=== PATIENT | male | born 1985 | race Hispanic/Latino ===

== ENCOUNTER 2017-10-11 17:16 | Emergency (ER) | payer SELFPAY ==
--- NOTE | 2017-10-11 17:44 | ER ---
Nurse's Notes [facility] Name: Noé Murry Age: 31 yrs Sex: Male : 1985 Arrival Date: 10/11/2017 Time: 17:19 Bed 11 Private MD: Janey Lowery H Diagnosis: Streptococcal pharyngitis Presentation: 10/11 17:29 Presenting complaint: Patient states: sore throat. Transition of care: patient was not ch received from another setting of care. Onset of symptoms was October 11, 2017. Risk Assessment: Do you want to hurt yourself or someone else? Patient reports no desire to harm self or others. Initial Sepsis Screen: Does the patient meet any 2 criteria? No. Patient's initial sepsis screen is negative. Does the patient have a suspected source of infection? No. Patient's initial sepsis screen is negative. Care prior to arrival: None. 17:29 Method Of Arrival: Ambulatory 17:29 Acuity: LUIS MIGUEL 4 ch Triage Assessment: 17:30 General: Appears in no apparent distress. comfortable, Behavior is calm, cooperative, ch appropriate for age. Historical: - Allergies: 17:30 No Known Allergies; ch - Home Meds: 17:30 lisinopril 10 mg Oral tab 1 tab once daily [Active]; pravastatin 40 mg Oral tab 1 tab ch once daily [Active]; - PMHx: 17:30 High Cholesterol; Hypertension; ch - PSHx: 17:30 None; ch - Immunization history:: Adult Immunizations up to date, Flu vaccine is not up to date. - Social history:: Smoking status: Patient/guardian denies using tobacco. - Ebola Screening: : Patient negative for fever greater than or equal to 101.5 degrees Fahrenheit, and additional compatible Ebola Virus Disease symptoms Patient denies exposure to infectious person Patient denies travel to an Ebola-affected area in the 21 days before illness onset No symptoms or risks identified at this time. Screenin:55 Abuse screen: Denies threats or abuse. Denies injuries from another. Nutritional aj screening: No deficits noted. Tuberculosis screening: No symptoms or risk factors identified. Fall Risk None identified. Assessment: 17:55 General: Appears in no apparent distress. comfortable, Behavior is calm, cooperative, aj appropriate for age. Pain: Complains of pain in left aspect of posterior pharynx and right aspect of posterior pharynx. Neuro: Level of Consciousness is awake, alert, obeys commands, Oriented to person, place, time, situation, Appropriate for age. Respiratory: Airway is patent Respiratory effort is even, unlabored, Respiratory pattern is regular, symmetrical, Breath sounds are clear bilaterally. EENT: Throat is reddened has enlarged tonsils bilaterally. Derm: Skin is intact, is healthy with good turgor, Skin is pink, warm \T\ dry. normal. Vital Signs: 17:30 BP 130 / 79; Pulse 107; Resp 16; Temp 99.9; Pulse Ox 99% on R/A; Weight 92.99 kg; ch Height 5 ft. 6 in. (167.64 cm); Pain 8/10; 17:30 Body Mass Index 33.09 (92.99 kg, 167.64 cm) ED Course: 17:19 Patient arrived in ED. sb2 17:19 Janey Lowery DO is Private Physician. sb2 17:30 Triage completed. 17:30 Arm band placed on left wrist. Patient placed in an exam room, on a stretcher. 17:37 [facility]C [facility]. snw 17:37 Yung Jaime MD is Attending Physician. snw 17:44 Janey Lowery DO is Referral Physician. snw 17:55 Barbara Roman, UGO is Primary Nurse. aj 17:55 Patient has correct armband on for positive identification. aj 17:55 No provider procedures requiring assistance completed. Patient did not have IV access aj during this emergency room visit. Administered Medications: 17:55 Drug: Zithromax 500 mg Route: PO; aj 18:05 Follow up: Response: No adverse reaction aj 17:55 Drug: predniSONE 40 mg Route: PO; aj 18:05 Follow up: Response: No adverse reaction aj 17:55 Drug: Pepcid 20 mg Route: PO; aj 18:06 Follow up: Response: No adverse reaction aj Outcome: 17:44 Discharge ordered by . snw 18:05 Discharged to home ambulatory, with family. aj 18:05 Condition: good 18:05 Discharge instructions given to patient, Instructed on discharge instructions, follow up and referral plans. medication usage, Demonstrated understanding of instructions, follow-up care, medications, Prescriptions given X 2. 18:06 Patient left the ED. tony Signatures: Ninfa Hubbard, RN Barbara Lux ch, RN RN aj Therrien, Shelly, PEDIATRIC DENTIST-C PEDIATRIC DENTIST-Csnw Glenny Jacobo sb2
--- NOTE | 2017-10-11 17:44 | EDPHYS ---
Physician Documentation [facility] Name: Noé Murry Age: 31 yrs Sex: Male : 1985 Arrival Date: 10/11/2017 Time: 17:19 Bed 11 Private MD: Janey Lowery H ED Physician Yung Jaime HPI: 10/11 17:37 This 31 yrs old Male presents to ER via Ambulatory with complaints of Sore snw Throat. 17:37 The patient presents with sore throat. The patient describes throat pain as scratchy. snw Onset: The symptoms/episode began/occurred suddenly, this morning. Severity of symptoms: At their worst the symptoms were moderate, severe. Associated signs and symptoms: Pertinent positives: fever. The patient has not experienced similar symptoms in the past, but family has similar symptoms, son. The patient has not recently seen a physician. Son dx with Strep yesterday, today pt with sore throat, fever. Historical: - Allergies: 17:30 No Known Allergies; ch - Home Meds: 17:30 lisinopril 10 mg Oral tab 1 tab once daily [Active]; pravastatin 40 mg Oral tab 1 tab ch once daily [Active]; - PMHx: 17:30 High Cholesterol; Hypertension; ch - PSHx: 17:30 None; ch - Immunization history:: Adult Immunizations up to date, Flu vaccine is not up to date. - Social history:: Smoking status: Patient/guardian denies using tobacco. - Ebola Screening: : Patient negative for fever greater than or equal to 101.5 degrees Fahrenheit, and additional compatible Ebola Virus Disease symptoms Patient denies exposure to infectious person Patient denies travel to an Ebola-affected area in the 21 days before illness onset No symptoms or risks identified at this time. ROS: 17:39 Constitutional: Negative for chills and weight loss, + fever Eyes: Negative for injury, snw pain, redness, and discharge. 17:39 Neck: Negative for injury, pain, and swelling, Cardiovascular: Negative for chest pain, palpitations, and edema, Respiratory: Negative for shortness of breath, cough, wheezing, and pleuritic chest pain, Abdomen/GI: Negative for abdominal pain, nausea, vomiting, diarrhea, and constipation, Back: Negative for injury and pain, : Negative for injury, bleeding, discharge, and swelling, MS/Extremity: Negative for injury and deformity, Skin: Negative for injury, rash, and discoloration, Neuro: Negative for headache, weakness, numbness, tingling, and seizure. 17:39 ENT: Positive for sore throat. Exam: 17:39 Constitutional: This is a well developed, well nourished patient who is awake, alert, snw and in no acute distress. Head/Face: Normocephalic, atraumatic. Eyes: Pupils equal round and reactive to light, extra-ocular motions intact. Lids and lashes normal. Conjunctiva and sclera are non-icteric and not injected. Cornea within normal limits. Periorbital areas with no swelling, redness, or edema. Neck: Trachea midline, no thyromegaly or masses palpated, and no cervical lymphadenopathy. Supple, full range of motion without nuchal rigidity, or vertebral point tenderness. No Meningismus. Chest/axilla: Normal chest wall appearance and motion. Nontender with no deformity. No lesions are appreciated. Cardiovascular: Regular rate and rhythm with a normal S1 and S2. No gallops, murmurs, or rubs. Normal PMI, no JVD. No pulse deficits. Respiratory: Lungs have equal breath sounds bilaterally, clear to auscultation and percussion. No rales, rhonchi or wheezes noted. No increased work of breathing, no retractions or nasal flaring. Abdomen/GI: Soft, non-tender, with normal bowel sounds. No distension or tympany. No guarding or rebound. No evidence of tenderness throughout. Back: No spinal tenderness. No costovertebral tenderness. Full range of motion. Skin: Warm, dry with normal turgor. Normal color with no rashes, no lesions, and no evidence of cellulitis. 17:39 ENT: External ear(s): are unremarkable, Ear canal(s): are normal, TM's: are normal, Nose: is normal, Mouth: is normal, Posterior pharynx: erythema, that is moderate, Voice: is normal. Vital Signs: 17:30 BP 130 / 79; Pulse 107; Resp 16; Temp 99.9; Pulse Ox 99% on R/A; Weight 92.99 kg; ch Height 5 ft. 6 in. (167.64 cm); Pain 8/10; 17:30 Body Mass Index 33.09 (92.99 kg, 167.64 cm) MDM: 17:37 Patient medically screened. snw 17:46 Data reviewed: vital signs, nurses notes. Data interpreted: Pulse oximetry: on room air snw is 99 %. Interpretation: normal. Counseling: I had a detailed discussion with the patient and/or guardian regarding: the historical points, exam findings, and any diagnostic results supporting the discharge/admit diagnosis, the need for outpatient follow up, to return to the emergency department if symptoms worsen or persist or if there are any questions or concerns that arise at home. Special discussion: Based on the history and exam findings, there is no indication for further emergent testing or inpatient evaluation. I discussed with the patient/guardian the need to see the primary care provider for further evaluation of the symptoms. Administered Medications: 17:55 Drug: Zithromax 500 mg Route: PO; aj 18:05 Follow up: Response: No adverse reaction aj 17:55 Drug: predniSONE 40 mg Route: PO; aj 18:05 Follow up: Response: No adverse reaction aj 17:55 Drug: Pepcid 20 mg Route: PO; aj 18:06 Follow up: Response: No adverse reaction aj Disposition: 18:15 Co-signature as Attending Physician, Yung Jaime MD I agree with the assessment and kdr plan of care. Disposition: 10/11/17 17:44 Discharged to Home. Impression: Streptococcal pharyngitis. - Condition is Stable. - Discharge Instructions: Fever, Adult, Strep Throat, Rehydration, Adult. - Prescriptions for Zithromax 500 mg Oral Tablet - take 1 tablet by ORAL route once daily for 5 days; 5 tablet. Tessalon Perles 100 mg Oral Capsule - take 1 capsule by ORAL route every 8 hours As needed; 15 capsule. - Work release form, Medication Reconciliation Form, Thank You Letter, Antibiotic Education, Prescription Opioid Use form. - Follow up: Janey Lowery DO; When: 2 - 3 days; Reason: Recheck today's complaints, Continuance of care, Re-evaluation by your physician. Follow up: Emergency Department; When: As needed; Reason: Worsening of condition. - Problem is new. - Symptoms have worsened. Signatures: Dispatcher [employer] EDNinfa Acevedo RN Barbara Lux ch RN Yung Oneal MD MD kdr Therrien, Shelly, TEST RIDER-C TEST RIDER-Csnw Corrections: (The following items were deleted from the chart) 18:06 17:44 10/11/2017 17:44 Discharged to Home. Impression: Streptococcal pharyngitis. aj Condition is Stable. Forms are Medication Reconciliation Form, Thank You Letter, Antibiotic Education, Prescription Opioid Use. Follow up: Janey Lowery; When: 2 - 3 days; Reason: Recheck today's complaints, Continuance of care, Re-evaluation by your physician. Follow up: Emergency Department; When: As needed; Reason: Worsening of condition. Problem is new. Symptoms have worsened. snw
[2017-10-11] MEDS ORDERED: predniSONE 20 MG TAB ONE (17:52)
[2017-10-11] MEDS ORDERED: AZITHROMYCIN 250 MG TAB ONE (17:52)
[2017-10-11] MEDS ORDERED: FAMOTIDINE 20 MG TAB ONE (17:52)
[2017-10-11 18:37] VITALS: BP 130/79; TEMP 99.9; O2SAT 99
== END 2017-10-11 18:06 | disposition home or self-care (01) ==
LOC: ER 17:16
DX: J02.0 Streptococcal pharyngitis (principal); I10 Essential (primary) hypertension; E78.00 Pure hypercholesterolemia, unspecified
CPT/HCPCS: 99283; J7512

== ENCOUNTER 2018-04-05 18:33 | Emergency (ER) | payer OTHER, SELFPAY ==
[2018-04-05] MEDS ORDERED: ACETAMINOPHEN 325 MG/SUPP PR ONE (19:12)
[2018-04-05] MEDS ORDERED: BENZONATATE 100 MG CAP PO ONE (20:04)
--- NOTE | 2018-04-05 20:13 | RAD REPORT ---
EXAM DESCRIPTION: RAD - Chest Pa And Lat (2 Views) - 04/05/2018 8:01 pm CLINICAL HISTORY: COUGH Chest pain. COMPARISON: Chest Single View dated 10/31/2016; Chest Single View dated 10/30/2016; CHEST PA AND LAT 2 VIEW dated 02/17/2009; CHEST PA AND LAT 2 VIEW dated 01/26/2009 FINDINGS: The lungs are clear. The heart is normal in size. No displaced fractures. IMPRESSION: No acute or concerning finding suspected.
--- NOTE | 2018-04-05 20:50 | EDPHYS ---
Physician Documentation [facility] Name: Noé Murry Age: 32 yrs Sex: Male : 1985 Arrival Date: 04/05/2018 Time: 18:34 Bed 20 Private MD: Janey Lowery H ED Physician Tono Gonzalez HPI: 04/05 19:45 This 32 yrs old Male presents to ER via Ambulatory with complaints of Flu cp Symptoms. 19:45 The patient or guardian reports cough, that is intermittent. Onset: The cp symptoms/episode began/occurred 2 day(s) ago. 19:45 Associated signs and symptoms: Pertinent positives: sore throat, Pertinent negatives: cp diarrhea, vomiting. Severity of symptoms: in the emergency department the symptoms are unchanged despite home interventions. Historical: - Allergies: 19:05 No Known Allergies; ak1 - Home Meds: 19:05 lisinopril 10 mg Oral tab 1 tab once daily [Active]; pravastatin 40 mg Oral tab 1 tab ak1 once daily [Active]; Alprazolam Oral [Active]; - PMHx: 19:05 High Cholesterol; Hypertension; Anxiety; ak1 - PSHx: 19:05 None; ak1 - Immunization history:: Adult Immunizations unknown, Flu vaccine is not up to date. - Social history:: Smoking status: Patient/guardian denies using tobacco. - Ebola Screening: : No symptoms or risks identified at this time. ROS: 19:48 Constitutional: Negative for body aches, chills, fever, poor PO intake. cp 19:48 Eyes: Negative for injury, pain, redness, and discharge. cp Exam: 19:55 Constitutional: The patient appears in no acute distress, alert, awake, non-toxic, well cp developed, well nourished. 19:55 Head/Face: Normocephalic, atraumatic. cp 19:55 Eyes: Periorbital structures: appear normal, Conjunctiva: normal, no exudate, no injection, Lids and lashes: appear normal, bilaterally. 19:55 ENT: External ear(s): are unremarkable, Ear canal(s): are normal, clear, TM's: bulging, is not appreciated, bilaterally, dullness, bilaterally, erythema, is not appreciated, bilaterally, Nose: is normal, Mouth: Lips: moist, Oral mucosa: pink and intact, moist, Posterior pharynx: Airway: no evidence of obstruction, patent, Tonsils: are normal in appearance, swelling, is not appreciated, erythema, is not appreciated, exudate, is not appreciated. 19:55 Neck: ROM/movement: is normal, is supple, without pain, no range of motions limitations, no meningismus, no nuchal rigidity, Lymph nodes: no appreciated lymphadenopathy. 19:55 Chest/axilla: Inspection: normal, Palpation: is normal, no crepitus, no tenderness. 19:55 Cardiovascular: Rate: normal, Rhythm: regular. 19:55 Respiratory: the patient does not display signs of respiratory distress, Respirations: normal, no use of accessory muscles, no retractions, no splinting, no tachypnea, labored breathing, is not present, Breath sounds: are clear throughout, no decreased breath sounds, no stridor, no wheezing. 19:55 Abdomen/GI: Exam negative for discomfort, distension, guarding, Inspection: abdomen appears normal. 19:55 Back: pain, is absent, ROM is normal. 19:55 Skin: cellulitis, is not appreciated, no rash present. Vital Signs: 19:04 BP 145 / 92; Pulse 96; Resp 18; Temp 98.1; Pulse Ox 98% on R/A; Weight 90.72 kg (R); ak1 Height 5 ft. 6 in. (167.64 cm) (R); Pain 9/10; 20:31 BP 135 / 84; Pulse 89; Resp 17 S; Pulse Ox 97% on R/A; jd3 19:04 Body Mass Index 32.28 (90.72 kg, 167.64 cm) ak1 MDM: 19:09 Patient medically screened. cp 20:48 Data reviewed: vital signs, nurses notes, lab test result(s), radiologic studies, plain cp films. Test interpretation: by ED physician or midlevel provider: plain radiologic studies. 04/05 19:40 Order name: Influenza Screen (a \T\ B); Complete Time: 20:45 cp 04/05 20:45 Interpretation: Reviewed. 04/05 19:40 Order name: Strep; Complete Time: 20:45 cp 04/05 20:45 Interpretation: Reviewed. 04/05 19:40 Order name: XRAY Chest Pa And Lat (2 Views); Complete Time: 20:32 cp 04/05 20:32 Interpretation: Report reviewed. cp 04/05 20:45 Order name: Throat Culture EDMS Administered Medications: 19:55 Drug: Tessalon Perle 200 mg Route: PO; bb 20:59 Follow up: Response: No adverse reaction bb Disposition: 21:49 Co-signature as Attending Physician, Tono Gonzalez MD. rn Disposition: 04/05/18 20:49 Discharged to Home. Impression: Acute upper respiratory infection, unspecified. - Condition is Stable. - Discharge Instructions: Upper Respiratory Infection, Adult. - Prescriptions for Tessalon Perles 100 mg Oral Capsule - take 2 capsule by ORAL route every 8 hours As needed; 20 capsule. - Work release form, Medication Reconciliation Form, Thank You Letter, Antibiotic Education, Prescription Opioid Use form. - Follow up: Private Physician; When: 2 - 3 days; Reason: Worsening of condition. - Problem is new. - Symptoms are unchanged. Signatures: Dispatcher [employer] EDChe Mazariegos RN RN Tono Mcfadden MD MD rn Krenek, Amber, RN RN ak1 Gutierrez Roy PA PA cp Corrections: (The following items were deleted from the chart) 21:00 20:49 04/05/2018 20:49 Discharged to Home. Impression: Acute upper respiratory bb infection, unspecified. Condition is Stable. Forms are Medication Reconciliation Form, Thank You Letter, Antibiotic Education, Prescription Opioid Use. Follow up: Private Physician; When: 2 - 3 days; Reason: Worsening of condition. Problem is new. Symptoms are unchanged. cp
--- NOTE | 2018-04-05 20:50 | ER ---
Nurse's Notes [facility] Name: Noé Murry Age: 32 yrs Sex: Male : 1985 Arrival Date: 04/05/2018 Time: 18:34 Bed 20 Private MD: Janey Lowery H Diagnosis: Acute upper respiratory infection, unspecified Presentation: 04/05 19:05 Presenting complaint: Patient states: flu symptoms since Tuesday. Transition of care: ak1 patient was not received from another setting of care. Onset of symptoms is unknown. Risk Assessment: Do you want to hurt yourself or someone else? Patient reports no desire to harm self or others. Initial Sepsis Screen: Does the patient meet any 2 criteria? No. Patient's initial sepsis screen is negative. Does the patient have a suspected source of infection? No. Patient's initial sepsis screen is negative. Care prior to arrival: None. 19:05 Method Of Arrival: Ambulatory ak1 19:05 Acuity: LUIS MIGUEL 4 ak1 Triage Assessment: 19:05 General: Appears in no apparent distress. Behavior is calm, cooperative. ak1 Historical: - Allergies: 19:05 No Known Allergies; ak1 - Home Meds: 19:05 lisinopril 10 mg Oral tab 1 tab once daily [Active]; pravastatin 40 mg Oral tab 1 tab ak1 once daily [Active]; Alprazolam Oral [Active]; - PMHx: 19:05 High Cholesterol; Hypertension; Anxiety; ak1 - PSHx: 19:05 None; ak1 - Immunization history:: Adult Immunizations unknown, Flu vaccine is not up to date. - Social history:: Smoking status: Patient/guardian denies using tobacco. - Ebola Screening: : No symptoms or risks identified at this time. Screenin:35 Abuse screen: Denies threats or abuse. Nutritional screening: No deficits noted. jd3 Tuberculosis screening: No symptoms or risk factors identified. Fall Risk Ambulatory Aid- None/Bed Rest/Nurse Assist (0 pts). Gait- Normal/Bed Rest/Wheelchair (0 pts) Mental Status- Oriented to own ability (0 pts). Total Senior Fall Scale indicates No Risk (0-24 pts). Assessment: 19:34 General: Appears in no apparent distress. uncomfortable, Behavior is calm, cooperative, jd3 appropriate for age. Pain: Complains of pain in head Quality of pain is described as aching. Neuro: Level of Consciousness is awake, alert, obeys commands, Oriented to person, place, time, situation, Appropriate for age. Cardiovascular: Capillary refill < 3 seconds Patient's skin is warm and dry. Respiratory: Reports cough that is productive, Airway is patent Respiratory effort is even, unlabored, Respiratory pattern is regular, symmetrical, Breath sounds are clear bilaterally. GI: No signs and/or symptoms were reported involving the gastrointestinal system. : No signs and/or symptoms were reported regarding the genitourinary system. EENT: Reports nasal congestion since Tuesday. Derm: Skin is intact, Skin is dry, Skin is normal, Skin temperature is warm. Musculoskeletal: Circulation, motion, and sensation intact. Range of motion: intact in all extremities. 20:31 Reassessment: Patient appears in no apparent distress at this time. Patient and/or jd3 family updated on plan of care and expected duration. Pain level reassessed. Patient is alert, oriented x 3, equal unlabored respirations, skin warm/dry/pink. 20:58 Reassessment: Patient and/or family updated on plan of care and expected duration. Pain bb level reassessed. Patient is alert, oriented x 3, equal unlabored respirations, skin warm/dry/pink. pt verbalized understanding of and agrees to plan of care discharge instructions given pt ambulated with steady walk to exit. Vital Signs: 19:04 BP 145 / 92; Pulse 96; Resp 18; Temp 98.1; Pulse Ox 98% on R/A; Weight 90.72 kg (R); ak1 Height 5 ft. 6 in. (167.64 cm) (R); Pain 9/10; 20:31 BP 135 / 84; Pulse 89; Resp 17 S; Pulse Ox 97% on R/A; jd3 19:04 Body Mass Index 32.28 (90.72 kg, 167.64 cm) ak1 ED Course: 18:34 Patient arrived in ED. mr 18:34 Janey Lowery DO is Private Physician. mr 19:05 Triage completed. ak1 19:05 Arm band placed on Patient placed in an exam room, on a stretcher, Patient notified of ak1 wait time. 19:06 Mireles, Che, RN is Primary Nurse. bb 19:07 Gutierrez Roy PA is PHCP. cp 19:07 Tono Gonzalez MD is Attending Physician. cp 19:07 Tono Gonzalez MD is Attending Physician. rn 19:19 Primary Nurse role handed off by Che Mireles RN jd3 19:19 Mario Alberto Feliz, RN is Primary Nurse. jd3 19:36 Patient has correct armband on for positive identification. Bed in low position. Call jd3 light in reach. Side rails up X 1. 20:01 XRAY Chest Pa And Lat (2 Views) In Process Unspecified. EDMS 20:59 No provider procedures requiring assistance completed. Patient did not have IV access bb during this emergency room visit. Administered Medications: 19:55 Drug: Tessalon Perle 200 mg Route: PO; bb 20:59 Follow up: Response: No adverse reaction bb Outcome: 20:49 Discharge ordered by MD. cp 20:59 Discharged to home ambulatory. bb 20:59 Condition: stable 20:59 Discharge instructions given to patient, Instructed on discharge instructions, follow up and referral plans. medication usage, Demonstrated understanding of instructions, follow-up care, medications, Prescriptions given X 1. 21:00 Patient left the ED. bb Signatures: Dispatcher [employer] EDWI Naima Nieto mr Che Mireles RN RN bb Tono Gonzalez MD MD rn Krenek, Amber, RN RN ak1 Gutierrez Roy PA PA cp Mario Alberto Feliz, RN RN jd3
[2018-04-05 21:18] VITALS: BP 145/92; TEMP 98.1; O2SAT 98
== END 2018-04-05 21:00 | disposition home or self-care (01) ==
LOC: ER 18:33
DX: J06.9 Acute upper respiratory infection, unspecified (principal); I10 Essential (primary) hypertension; F41.9 Anxiety disorder, unspecified; E78.00 Pure hypercholesterolemia, unspecified
CPT/HCPCS: 71046; 87070; 87081; 87804; 99283

== ENCOUNTER 2019-03-04 16:58 | Emergency (ER) | payer OTHER ==
--- OUTSIDE RECORDS SUMMARY | 2019-03-04 17:00 | XMS REPORT ---
:1985 [facility] Address [address] [place] [address] [address] [place] [address] Care Team Providers Name Role Phone Unavailable Unavailable Unavailable Problems This patient has no known problems. Allergies, Adverse Reactions, Alerts This patient has no known allergies or adverse reactions. Medications This patient has no known medications.
[2019-03-04] MEDS ORDERED: HYDROCODONE/APAP 5/325 MG TAB ONE (18:04)
--- NOTE | 2019-03-04 18:07 | EDPHYS ---
Physician Documentation [facility] Name: Noé Murry Age: 33 yrs Sex: Male : 1985 Arrival Date: 03/04/2019 Time: 17:00 Bed 24 Private MD: ED Physician Angie Paulino HPI: 03/04 18:07 This 33 yrs old Male presents to ER via Ambulatory with complaints of Right pm1 Knee Pain. 18:07 The patient presents with pain, that is acute. The complaints affect the Ganglion cyst pm1 of right knee. Context: resulted from bumped cyst yesterday and started having pain. Has had the cyst present to right knee for at least 10 years without any issues, the patient can fully bear weight, the patient is able to ambulate. Onset: The symptoms/episode began/occurred yesterday. Modifying factors: The symptoms are alleviated by nothing. the symptoms are aggravated by palpation. Associated signs and symptoms: Pertinent negatives fever. Treatment prior to arrival includes: no previous treatment. The patient has not experienced similar symptoms in the past. The patient has not recently seen a physician. Historical: - Allergies: 17:24 No Known Allergies; iw - PMHx: 17:24 Anxiety; High Cholesterol; Hypertension; iw - PSHx: 17:24 None; iw ROS: 18:07 Constitutional: Negative for fever, chills, and weight loss, Cardiovascular: Negative pm1 for chest pain, palpitations, and edema, Respiratory: Negative for shortness of breath, cough, wheezing, and pleuritic chest pain, Abdomen/GI: Negative for abdominal pain, nausea, vomiting, diarrhea, and constipation, Back: Negative for injury and pain. 18:07 Neuro: Negative for headache, weakness, numbness, tingling, and seizure. 18:07 MS/extremity: Positive for pain, of the right knee, Negative for decreased range of motion, deformity. 18:07 Skin: Positive for small area of redness on ganglion cyst. Exam: 18:07 Constitutional: This is a well developed, well nourished patient who is awake, alert, pm1 and in no acute distress. Head/Face: Normocephalic, atraumatic. Neck: Trachea midline, no thyromegaly or masses palpated, and no cervical lymphadenopathy. Supple, full range of motion without nuchal rigidity, or vertebral point tenderness. No Meningismus. Chest/axilla: Normal chest wall appearance and motion. Nontender with no deformity. No lesions are appreciated. Cardiovascular: Regular rate and rhythm with a normal S1 and S2. No gallops, murmurs, or rubs. Normal PMI, no JVD. No pulse deficits. Respiratory: Lungs have equal breath sounds bilaterally, clear to auscultation and percussion. No rales, rhonchi or wheezes noted. No increased work of breathing, no retractions or nasal flaring. Back: No spinal tenderness. No costovertebral tenderness. Full range of motion. 18:07 Skin: 4 cm x 4 cm x 4 cm spherical shaped ganglion cyst at 2 o'clock on right knee. No palpable pain to femur, patella, tibia, and fibula. Pain on present to 1 cm diameter area of redness on ganglion cyst. 18:07 Neuro: Orientation: is normal, Motor: is normal, moves all fours. Vital Signs: 17:23 BP 133 / 70; Pulse 70; Resp 16; Temp 97.7; Pulse Ox 98% on R/A; Pain 6/10; sg MDM: 17:23 Patient medically screened. pm1 17:55 Data reviewed: vital signs. Data interpreted: Pulse oximetry: on room air is 98 %. pm1 Interpretation: normal. Counseling: I had a detailed discussion with the patient and/or guardian regarding: the historical points, exam findings, and any diagnostic results supporting the discharge/admit diagnosis. 17:56 Counseling: I had a detailed discussion with the patient and/or guardian regarding: the pm1 need for outpatient follow up, for definitive care, a general surgeon. 17:56 ED course: patient evaluated together with Dr. Paulino and recommendation is pm1 antibiotics and follow up with general surgeon. Administered Medications: 18:03 Drug: [place] 5 mg-325 mg 1 tabs Route: PO; sg Disposition: 03/05 15:51 Co-signature as Attending Physician, Angie Paulino MD. ma2 Disposition: 03/04/19 18:07 Discharged to Home. Impression: Ganglion, right knee, Cellulitis of right lower limb. - Condition is Stable. - Discharge Instructions: Cellulitis, Adult, Ganglion Cyst. - Prescriptions for Bactrim DS 800- 160 mg Oral Tablet - take 1 tablet by ORAL route every 12 hours for 10 days; 20 tablet. Tylenol- Codeine #3 300-30 mg Oral Tablet - take 2 tablets by ORAL route every 6 hours As needed; 20 tablet. - Medication Reconciliation Form, Thank You Letter, Antibiotic Education, Prescription Opioid Use form. - Follow up: Emergency Department; When: As needed; Reason: Worsening of condition. Follow up: Yovany Hooker MD; When: 2 - 3 days; Reason: Recheck today's complaints, Continuance of care, Re-evaluation by your physician. - Problem is new. - Symptoms have improved. Signatures: Pavan Jacobsen RN RN sg Lidia Carvalho RN RN iw Hakeem Bright NP SURVEYING OR SPATIAL SCIENCE TECHNICIAN pm1 Angie Paulino MD MD ma2 Corrections: (The following items were deleted from the chart) 03/04 18:17 18:07 03/04/2019 18:07 Discharged to Home. Impression: Ganglion, right knee; Cellulitis sg of right lower limb. Condition is Stable. Forms are Medication Reconciliation Form, Thank You Letter, Antibiotic Education, Prescription Opioid Use. Follow up: Emergency Department; When: As needed; Reason: Worsening of condition. Follow up: Yovany Hooker; When: 2 - 3 days; Reason: Recheck today's complaints, Continuance of care, Re-evaluation by your physician. Problem is new. Symptoms have improved. pm1
--- NOTE | 2019-03-04 18:07 | ER ---
Nurse's Notes [facility] Name: Noé Murry Age: 33 yrs Sex: Male : 1985 Arrival Date: 03/04/2019 Time: 17:00 Bed 24 Private MD: Diagnosis: Ganglion, right knee;Cellulitis of right lower limb Presentation: 03/04 17:23 Presenting complaint: Patient states: knee pain for a few days, worsening today, pt iw noted to be ambulatory, reports pain worsens when walking. Transition of care: patient was not received from another setting of care. Onset of symptoms was March 04, 2019. Risk Assessment: Do you want to hurt yourself or someone else? Patient reports no desire to harm self or others. Initial Sepsis Screen: Does the patient meet any 2 criteria? No. Patient's initial sepsis screen is negative. Does the patient have a suspected source of infection? No. Patient's initial sepsis screen is negative. Care prior to arrival: None. 17:23 Method Of Arrival: Ambulatory iw 17:23 Acuity: LUIS MIGUEL 4 iw Historical: - Allergies: 17:24 No Known Allergies; iw - PMHx: 17:24 Anxiety; High Cholesterol; Hypertension; iw - PSHx: 17:24 None; iw Screenin/20 15:33 Abuse screen: Denies threats or abuse. Denies injuries from another. Nutritional sg screening: No deficits noted. Tuberculosis screening: No symptoms or risk factors identified. Never had TB. Fall Risk None identified. Assessment: 03/04 17:30 General: Appears in no apparent distress. well groomed, well developed, well nourished, sg Behavior is calm, cooperative, appropriate for age. Pain: Complains of pain in right knee Quality of pain is described as aching. Neuro: Level of Consciousness is awake, alert, obeys commands, Oriented to person, place, time, Speech is normal, Facial symmetry appears normal. Cardiovascular: Patient's skin is warm and dry. Chest pain is denied. Respiratory: Airway is patent Respiratory effort is even, unlabored, Respiratory pattern is regular, symmetrical. GI: No signs and/or symptoms were reported involving the gastrointestinal system. : No signs and/or symptoms were reported regarding the genitourinary system. EENT: No signs and/or symptoms were reported regarding the EENT system. Derm: Skin is pink, warm \T\ dry. Derm: Rash noted that is red, on right knee. Musculoskeletal: Circulation, motion, and sensation intact. Range of motion: intact in all extremities, Swelling present in right knee. Vital Signs: 17:23 BP 133 / 70; Pulse 70; Resp 16; Temp 97.7; Pulse Ox 98% on R/A; Pain 6/10; sg ED Course: 17:00 Patient arrived in ED. mr 17:23 Hakeem Bright NP is PHCP. pm1 17:23 Angie Paulino MD is Attending Physician. pm1 17:23 Triage completed. iw 17:23 Arm band placed on. iw 17:30 Patient has correct armband on for positive identification. Bed in low position. Call sg light in reach. Side rails up X2. Pulse ox on. NIBP on. Warm blanket given. Head of bed elevated. 18:00 Pavan Jacobsen, RN is Primary Nurse. sg 18:05 Yovany Hooker MD is Referral Physician. pm1 18:15 No provider procedures requiring assistance completed. Patient did not have IV access sg during this emergency room visit. Administered Medications: 18:03 Drug: [place] 5 mg-325 mg 1 tabs Route: PO; sg Outcome: 18:07 Discharge ordered by . pm1 18:15 Discharged to home ambulatory, with family. sg 18:15 Condition: good 18:15 Discharge instructions given to patient, family, Instructed on discharge instructions, follow up and referral plans. medication usage, safety practices, Demonstrated understanding of instructions, follow-up care, medications, Prescriptions given X 2. 18:17 Patient left the ED. sg Signatures: Pavan Jacobsen, UGO ARIZMENDI Naima Nieto Lidia Carvalho RN RN Hakeem Bright NP AUTOMOBILE TAILLIGHT ASSEMBLER pm1
[2019-03-04 19:42] VITALS: BP 133/70; TEMP 97.7; O2SAT 98
== END 2019-03-04 18:17 | disposition home or self-care (01) ==
LOC: ER 16:58
DX: M67.461 Ganglion, right knee (principal); L03.115 Cellulitis of right lower limb
CPT/HCPCS: 99283

== ENCOUNTER 2019-08-12 22:31 | Emergency (ER) | payer OTHER ==
--- OUTSIDE RECORDS SUMMARY | 2019-08-12 22:33 | XMS REPORT | Continuity of Care Document ---
:1985 Author Organization [facility] t Address [address] [place] [address] [address]. [address] [place] [address] Care Team Providers Name Role Phone Unavailable Unavailable Unavailable Problems This patient has no known problems. Allergies, Adverse Reactions, Alerts This patient has no known allergies or adverse reactions. Medications This patient has no known medications. Procedures This patient has no known procedures. Results This patient has no known results.
--- NOTE | 2019-08-12 23:17 | EDPHYS ---
Physician Documentation [facility] Name: Noé Murry Age: 33 yrs Sex: Male : 1985 Arrival Date: 08/12/2019 Time: 22:33 Bed 15 Private MD: ED Physician Angie Paulino HPI: 08/11 23:14 This 33 yrs old Male presents to ER via Ambulatory with complaints of Fever, ma2 High Blood Pressure. 23:14 The patient reports fever, not measured (subjective). Onset: The symptoms/episode ma2 began/occurred gradually, 1 hour(s) ago. Associated signs and symptoms: Pertinent negatives: abdominal pain, arthralgias, chest pain, cough. Severity of symptoms: At their worst the symptoms were very mild in the emergency department the symptoms have resolved. The patient has not experienced similar symptoms in the past. mild subjective fever that resolved, no other symptoms . Historical: - Allergies: 22:36 No Known Allergies; sg - PMHx: 22:36 Anxiety; High Cholesterol; Hypertension; sg - PSHx: 22:36 None; sg - Immunization history:: Adult Immunizations up to date. - Social history:: Smoking status: Patient denies any tobacco usage or history of. Patient/guardian denies using alcohol, street drugs, The patient lives with family. - Family history:: not pertinent. ROS: 23:14 Constitutional: Negative for fever, chills, and weight loss. ma2 23:14 All other systems are negative. Exam: 23:14 Constitutional: This is a well developed, well nourished patient who is awake, alert, ma2 and in no acute distress. Head/Face: Normocephalic, atraumatic. Eyes: Pupils equal round and reactive to light, extra-ocular motions intact. Lids and lashes normal. Conjunctiva and sclera are non-icteric and not injected. Cornea within normal limits. Periorbital areas with no swelling, redness, or edema. ENT: Nares patent. No nasal discharge, no septal abnormalities noted. Tympanic membranes are normal and external auditory canals are clear. Oropharynx with no redness, swelling, or masses, exudates, or evidence of obstruction, uvula midline. Mucous membranes moist. Neck: Trachea midline, no thyromegaly or masses palpated, and no cervical lymphadenopathy. Supple, full range of motion without nuchal rigidity, or vertebral point tenderness. No Meningismus. Chest/axilla: Normal chest wall appearance and motion. Nontender with no deformity. No lesions are appreciated. Cardiovascular: Regular rate and rhythm with a normal S1 and S2. No gallops, murmurs, or rubs. Normal PMI, no JVD. No pulse deficits. Respiratory: Lungs have equal breath sounds bilaterally, clear to auscultation and percussion. No rales, rhonchi or wheezes noted. No increased work of breathing, no retractions or nasal flaring. Abdomen/GI: Soft, non-tender, with normal bowel sounds. No distension or tympany. No guarding or rebound. No evidence of tenderness throughout. MS/ Extremity: Pulses equal, no cyanosis. Neurovascular intact. Full, normal range of motion. Neuro: Awake and alert, GCS 15, oriented to person, place, time, and situation. Cranial nerves II-XII grossly intact. Motor strength 5/5 in all extremities. Sensory grossly intact. Cerebellar exam normal. Normal gait. Vital Signs: 22:44 BP 146 / 91; Pulse 114; Resp 18; Temp 98.9; Pulse Ox 97% on R/A; Weight 99.79 kg; mg2 Height 5 ft. 6 in. (167.64 cm); 23:39 BP 138 / 88; Pulse 78; Resp 14; Pulse Ox 98% ; Pain 0/10; ls4 22:44 Body Mass Index 35.51 (99.79 kg, 167.64 cm) mg2 MDM: 22:40 Patient medically screened. ma2 23:14 Differential diagnosis: viral Infection, URI, bronchitis. Differential diagnosis: ma2 bacterial infection. Data reviewed: vital signs, nurses notes. Counseling: I had a detailed discussion with the patient and/or guardian regarding: the historical points, exam findings, and any diagnostic results supporting the discharge/admit diagnosis, the presence of at least one elevated blood pressure reading (>120/80) during this emergency department visit, the need for outpatient follow up. Response to treatment: the patient's symptoms have resolved after treatment. Administered Medications: No medications were administered Disposition: 08/12/19 23:16 Discharged to Home. Impression: Essential (primary) hypertension. - Condition is Stable. - Discharge Instructions: Hypertension. - Medication Reconciliation Form, Thank You Letter, Antibiotic Education, Prescription Opioid Use form. - Follow up: Private Physician; When: Tomorrow; Reason: Recheck today's complaints, Continuance of care. Signatures: Pavan Jacobsen RN UGO Angie Paulino MD MD ma2 Yulissa Stafford RN RN ls4 Corrections: (The following items were deleted from the chart) 23:41 23:16 08/12/2019 23:16 Discharged to Home. Impression: Essential (primary) ls4 hypertension. Condition is Stable. Forms are Medication Reconciliation Form, Thank You Letter, Antibiotic Education, Prescription Opioid Use. Follow up: Private Physician; When: Tomorrow; Reason: Recheck today's complaints, Continuance of care. [email or web address]
--- NOTE | 2019-08-12 23:17 | ER ---
Nurse's Notes [facility] Name: Noé Murry Age: 33 yrs Sex: Male : 1985 Arrival Date: 08/12/2019 Time: 22:33 Bed 15 Private MD: Diagnosis: Essential (primary) hypertension Presentation: 08/11 22:36 Chief complaint: Patient states: Have been having high blood pressure, also a fever at home but unsure how high temperature has been, reports feeling feverish. Coronavirus screen: Patient reports a measured and/or subjective temperature greater than 100.4F. Ebola Screen: Patient negative for fever greater than or equal to 101.5 degrees Fahrenheit, and additional compatible Ebola Virus Disease symptoms Patient denies exposure to infectious person. Patient denies travel to an Ebola-affected area in the 21 days before illness onset. No symptoms or risks identified at this time. Initial Sepsis Screen: Does the patient meet any 2 criteria? No. Patient's initial sepsis screen is negative. Does the patient have a suspected source of infection? No. Patient's initial sepsis screen is negative. Risk Assessment: Do you want to hurt yourself or someone else? Patient reports no desire to harm self or others. Onset of symptoms was August 12, 2019. Care prior to arrival: None. Transition of care: patient was not received from another setting of care. 22:36 Method Of Arrival: Ambulatory 22:36 Acuity: LUIS MIGUEL 4 sg Triage Assessment: 23:39 General: Appears in no apparent distress. comfortable. Pain: Denies pain. Neuro: No ls4 deficits noted. Cardiovascular: No deficits noted. Respiratory: No deficits noted. Historical: - Allergies: 22:36 No Known Allergies; sg - PMHx: 22:36 Anxiety; High Cholesterol; Hypertension; sg - PSHx: 22:36 None; sg - Immunization history:: Adult Immunizations up to date. - Social history:: Smoking status: Patient denies any tobacco usage or history of. Patient/guardian denies using alcohol, street drugs, The patient lives with family. - Family history:: not pertinent. Screenin:39 Abuse screen: Denies threats or abuse. Denies injuries from another. Nutritional ls4 screening: No deficits noted. Tuberculosis screening: No symptoms or risk factors identified. Fall Risk None identified. Vital Signs: 22:44 BP 146 / 91; Pulse 114; Resp 18; Temp 98.9; Pulse Ox 97% on R/A; Weight 99.79 kg; mg2 Height 5 ft. 6 in. (167.64 cm); 23:39 BP 138 / 88; Pulse 78; Resp 14; Pulse Ox 98% ; Pain 0/10; ls4 22:44 Body Mass Index 35.51 (99.79 kg, 167.64 cm) mg2 ED Course: 22:33 Patient arrived in ED. ds1 22:36 Arm band placed on. sg 22:38 Triage completed. sg 22:40 Angie Paulino MD is Attending Physician. ma2 23:38 Yulissa Stafford, RN is Primary Nurse. ls4 23:39 No apparent distress. ls4 23:39 Patient has correct armband on for positive identification. Bed in low position. Call ls4 light in reach. Side rails up X 1. Pulse ox on. NIBP on. 23:39 No provider procedures requiring assistance completed. Patient did not have IV access ls4 during this emergency room visit. Administered Medications: No medications were administered Outcome: 23:16 Discharge ordered by . ma2 23:24 Discharged to home ambulatory. ls4 23:24 Condition: good 23:24 Discharge instructions given to patient, Instructed on follow up and referral plans. 23:41 Patient left the ED. ls4 Signatures: Pavan Jacobsen, RN [address] ds1 Angie Paulino MD MD ma2 Edilson Soriano RN RN mg2 Yulissa Stafford RN RN ls4
[2019-08-13 01:00] VITALS: TEMP 98.9
[2019-08-13 01:01] VITALS: BP 138/88; O2SAT 98
== END 2019-08-12 23:41 | disposition home or self-care (01) ==
LOC: ER 22:31
DX: I10 Essential (primary) hypertension (principal)
CPT/HCPCS: 99283

== ENCOUNTER 2020-09-07 13:51 | Emergency (ER) | payer OTHER ==
--- OUTSIDE RECORDS SUMMARY | 2020-09-07 13:55 | XMS REPORT | Continuity of Care Document ---
:1985 Author Organization [facility] t Address [address] [place] [address] [address]. [address] [place] [address] Care Team Providers Name Role Phone Unavailable Unavailable Unavailable Problems This patient has no known problems. Allergies, Adverse Reactions, Alerts This patient has no known allergies or adverse reactions. Medications This patient has no known medications. Procedures This patient has no known procedures. Results This patient has no known results.
[2020-09-07] MEDS ORDERED: LORAZEPAM 1 MG TABLET ONE (16:38)
--- NOTE | 2020-09-09 16:37 | EDPHYS ---
Physician Documentation [facility] Name: Noé Murry Age: 34 yrs Sex: Male : 1985 Arrival Date: 09/07/2020 Time: 13:56 Bed 23 Private MD: Janey Lowery H ED Physician Angie Paulino HPI: 09/07 16:12 This 34 yrs old Male presents to ER via Ambulatory with complaints of ma2 Dizziness, Blood Pressure Problem, Anxiety. 16:12 Onset: The symptoms/episode began/occurred gradually, 3 day(s) ago. Associated signs ma2 and symptoms: Pertinent negatives: ataxia, combativeness, confusion, focal weakness. Severity of symptoms: At their worst the symptoms were mild in the emergency department the symptoms are unchanged. The patient has experienced similar episodes in the past. History of anxiety, panic attack, takes alprazolam daily, he did not take alprazolam since Tuesday, has been having increased panic attack on Tuesday yesterday and today. No chest pain or anginal equivalent no other symptoms. Historical: - Home Meds: 14:13 lisinopril 10 mg Oral tab 1 tab once daily [Active]; Alprazolam Oral [Active]; ss - PMHx: 14:13 Anxiety; High Cholesterol; Hypertension; ss - PSHx: 14:13 None; ss - Immunization history:: Adult Immunizations up to date. - Social history:: Smoking status: Patient denies any tobacco usage or history of. - Family history:: not pertinent. ROS: 16:12 Constitutional: Negative for fever, chills, and weight loss. ma2 16:12 All other systems are negative. Exam: 16:12 Constitutional: This is a well developed, well nourished patient who is awake, alert, ma2 and in no acute distress. Head/Face: Normocephalic, atraumatic. Eyes: Pupils equal round and reactive to light, extra-ocular motions intact. Lids and lashes normal. Conjunctiva and sclera are non-icteric and not injected. Cornea within normal limits. Periorbital areas with no swelling, redness, or edema. ENT: Nares patent. No nasal discharge, no septal abnormalities noted. Tympanic membranes are normal and external auditory canals are clear. Oropharynx with no redness, swelling, or masses, exudates, or evidence of obstruction, uvula midline. Mucous membranes moist. Neck: Trachea midline, no thyromegaly or masses palpated, and no cervical lymphadenopathy. Supple, full range of motion without nuchal rigidity, or vertebral point tenderness. No Meningismus. Chest/axilla: Normal chest wall appearance and motion. Nontender with no deformity. No lesions are appreciated. Cardiovascular: Regular rate and rhythm with a normal S1 and S2. No gallops, murmurs, or rubs. Normal PMI, no JVD. No pulse deficits. Respiratory: Lungs have equal breath sounds bilaterally, clear to auscultation and percussion. No rales, rhonchi or wheezes noted. No increased work of breathing, no retractions or nasal flaring. Abdomen/GI: Soft, non-tender, with normal bowel sounds. No distension or tympany. No guarding or rebound. No evidence of tenderness throughout. Skin: Warm, dry with normal turgor. Normal color with no rashes, no lesions, and no evidence of cellulitis. MS/ Extremity: Pulses equal, no cyanosis. Neurovascular intact. Full, normal range of motion. Neuro: Awake and alert, GCS 15, oriented to person, place, time, and situation. Cranial nerves II-XII grossly intact. Motor strength 5/5 in all extremities. Sensory grossly intact. Cerebellar exam normal. Normal gait. Psych: Awake, alert, with orientation to person, place and time. Behavior, mood, and affect are within normal limits. Vital Signs: 14:10 BP 148 / 99; Pulse 103; Resp 18; Temp 97.6(TE); Pulse Ox 99% on R/A; Weight 99.79 kg; ss Height 5 ft. 6 in. (167.64 cm); Pain 0/10; 14:58 BP 131 / 103; Pulse 83; Resp 16; Pulse Ox 98% ; Pain 0/10; zb 16:21 BP 140 / 100; Pulse 95; Resp 16; Pulse Ox 97% on R/A; zb 14:10 Body Mass Index 35.51 (99.79 kg, 167.64 cm) MDM: 16:05 Patient medically screened. ma2 16:12 Differential diagnosis: generalized weakness, hyperventilation, hypovolemia, idiopathic ma2 dizziness. Data reviewed: vital signs, nurses notes. Counseling: I had a detailed discussion with the patient and/or guardian regarding: the historical points, exam findings, and any diagnostic results supporting the discharge/admit diagnosis, the presence of at least one elevated blood pressure reading (>120/80) during this emergency department visit, the need for outpatient follow up. Response to treatment: the patient's symptoms have resolved after treatment. 09/07 15:51 Order name: EKG; Complete Time: 15:51 ma2 Administered Medications: 16:19 Drug: Ativan (LORazepam) 1 mg Route: PO; 16:21 Follow up: Response: Medication administered at discharge. zb Disposition Summary: 09/07/20 16:14 Discharge Ordered Location: Home ma2 Condition: Stable ma2 Diagnosis - Generalized anxiety disorder ma2 Followup: ma2 - With: Private Physician - When: Tomorrow - Reason: Continuance of care Followup: ma2 - With: Janey Lowery DO - When: Tomorrow - Reason: If symptoms return Discharge Instructions: - Discharge Summary Sheet ma2 - Panic Attack, [id number] ma2 - Supporting Someone With Anxiety ma2 - Managing Anxiety, Adult ma2 Forms: - Medication Reconciliation Form ma2 - Thank You Letter ma2 - Antibiotic Education ma2 - Prescription Opioid Use ma2 Signatures: Lidia Carvalho, RN UGO Kristie Juarez RN RN Angie Paulino MD MD ma2 Tasia De La Cruz RN
--- NOTE | 2020-09-09 16:37 | ER ---
Nurse's Notes [facility] Name: Noé Murry Age: 34 yrs Sex: Male : 1985 Arrival Date: 09/07/2020 Time: 13:56 Bed 23 Private MD: Janey Lowery H Diagnosis: Generalized anxiety disorder Presentation: 09/07 14:10 Chief complaint: Patient states: "I don't know if it was a panic attack or what, but ss like I felt weak, I was shaking and felt like I couldn't breath. I took my medicine, Alprazolam and it seemed to help. I'm fine, but I still feel edgy.". Coronavirus screen: Client denies travel out of the [place] in the last 14 days. Ebola Screen: Patient denies exposure to infectious person. Patient denies travel to an Ebola-affected area in the 21 days before illness onset. Initial Sepsis Screen: Does the patient meet any 2 criteria? No. Patient's initial sepsis screen is negative. Does the patient have a suspected source of infection? No. Patient's initial sepsis screen is negative. Risk Assessment: Do you want to hurt yourself or someone else? Patient reports no desire to harm self or others. Onset of symptoms was September 07, 2020. 14:10 Method Of Arrival: Ambulatory ss 14:10 Acuity: LUIS MIGUEL 3 ss Historical: - Home Meds: 14:13 lisinopril 10 mg Oral tab 1 tab once daily [Active]; Alprazolam Oral [Active]; ss - PMHx: 14:13 Anxiety; High Cholesterol; Hypertension; ss - PSHx: 14:13 None; ss - Immunization history:: Adult Immunizations up to date. - Social history:: Smoking status: Patient denies any tobacco usage or history of. - Family history:: not pertinent. Screenin:58 Abuse screen: Denies threats or abuse. Denies injuries from another. Nutritional zb screening: No deficits noted. Tuberculosis screening: No symptoms or risk factors identified. Fall Risk None identified. Assessment: 14:55 General: Appears in no apparent distress. comfortable, Behavior is anxious, Reports zb feeling ill for 1-2 days. Pain: Complains of pain in base of the skull and chest Pain radiates to neck and left arm Pain currently is 0 out of 10 on a pain scale. at worst was 10 out of 10 on a pain scale. Quality of pain is described as aching. Neuro: Level of Consciousness is awake, alert, obeys commands, Oriented to person, place, time. Neuro: Reports headache occipital area, weakness in generalized weakness. Cardiovascular: Heart tones S1 S2 present Patient's skin is warm and dry. Respiratory: Reports shortness of breath at rest Breath sounds are clear the patient has mild shortness of breath. GI: Abdomen is round obese. Derm: Skin is intact, is healthy with good turgor, is fragile, Skin is clammy. Musculoskeletal: Circulation, motion, and sensation intact. Vital Signs: 14:10 BP 148 / 99; Pulse 103; Resp 18; Temp 97.6(TE); Pulse Ox 99% on R/A; Weight 99.79 kg; ss Height 5 ft. 6 in. (167.64 cm); Pain 0/10; 14:58 BP 131 / 103; Pulse 83; Resp 16; Pulse Ox 98% ; Pain 0/10; zb 16:21 BP 140 / 100; Pulse 95; Resp 16; Pulse Ox 97% on R/A; zb 14:10 Body Mass Index 35.51 (99.79 kg, 167.64 cm) ED Course: 13:56 Patient arrived in ED. am2 13:56 Janey Lowery DO is Private Physician. am2 14:13 Triage completed. ss 14:13 Arm band placed on left wrist. ss 14:47 Tasia De La Cruz, RN is Primary Nurse. zb 15:02 Angie Paulino MD is Attending Physician. ma2 16:13 Janey Lowery DO is Referral Physician. ma2 16:24 Patient has correct armband on for positive identification. Pulse ox on. NIBP on. zb 16:24 No provider procedures requiring assistance completed. Patient did not have IV access zb during this emergency room visit. Administered Medications: 16:19 Drug: Ativan (LORazepam) 1 mg Route: PO; iw 16:21 Follow up: Response: Medication administered at discharge. zb Outcome: 16:14 Discharge ordered by . ma2 16:24 Discharged to home ambulatory, with family. zb 16:24 Condition: stable 16:24 Discharge instructions given to patient, family, Instructed on discharge instructions, follow up and referral plans. Demonstrated understanding of instructions. 16:25 Patient left the ED. tiki Signatures: Lidia Carvalho RN Kristie Sauer RN Barbara Miller Mohammad, MD MD ma2 Tasia De La Cruz RN RN zb
[2020-09-09 19:30] VITALS: TEMP 97.6
[2020-09-09 19:37] VITALS: BP 140/100; O2SAT 97
== END 2020-09-07 16:25 | disposition home or self-care (01) ==
LOC: ER 13:51
DX: F41.1 Generalized anxiety disorder (principal); I10 Essential (primary) hypertension; E78.00 Pure hypercholesterolemia, unspecified
CPT/HCPCS: 93005; 99283

== ENCOUNTER 2020-10-20 21:00 | Emergency (ER) | payer OTHER ==
--- OUTSIDE RECORDS SUMMARY | 2020-10-20 21:04 | XMS REPORT | Continuity of Care Document ---
:1985 Author Organization [facility] t Address [address] [place] [address] [address] [place] [address] Care Team Providers Name Role Phone Unavailable Unavailable Unavailable Problems This patient has no known problems. Allergies, Adverse Reactions, Alerts This patient has no known allergies or adverse reactions. Medications This patient has no known medications. Procedures This patient has no known procedures. Results This patient has no known results.
== END 2020-10-20 23:07 | disposition left against medical advice (07) ==
LOC: ER 21:00
DX: Z02.9 Encounter for administrative examinations, unspecified (principal)

== ENCOUNTER 2020-11-03 22:50 | Emergency (ER) | payer OTHER ==
[2020-11-03] MEDS ORDERED: MAGNES/ALUMIN/SIMET 30ML UCUP ONE (23:28)
[2020-11-03] MEDS ORDERED: LIDOCAINE VISCOUS 2% SOLN 15 ML UDC ONE (23:28)
--- NOTE | 2020-11-04 00:37 | ER ---
Nurse's Notes [facility] Name: Noé Murry Age: 35 yrs Sex: Male : 1985 Arrival Date: 11/03/2020 Time: 22:51 Bed 12 Private MD: Diagnosis: Acute pharyngitis, unspecified Presentation: 11/03 23:00 Chief complaint: Patient states: Pt states sore throat since yesterday. States it feels wg swollen. Pt denies fevers. Coronavirus screen: Vaccine status: Patient reports receiving the 2nd dose of the covid vaccine. Date April 14, 2020 Client presents with at least one sign or symptom that may indicate coronavirus-19. Standard/surgical mask placed on the client. Ebola Screen: Patient negative for fever greater than or equal to 101.5 degrees Fahrenheit, and additional compatible Ebola Virus Disease symptoms Patient denies exposure to infectious person. Patient denies travel to an Ebola-affected area in the 21 days before illness onset. Initial Sepsis Screen: Does the patient meet any 2 criteria? No. Patient's initial sepsis screen is negative. Does the patient have a suspected source of infection? No. Patient's initial sepsis screen is negative. Risk Assessment: Do you want to hurt yourself or someone else? Patient reports no desire to harm self or others. Onset of symptoms was November 02, 2020. 23:00 Method Of Arrival: Ambulatory 23:00 Acuity: LUIS MIGUEL 4 wg Triage Assessment: 23:04 General: Appears uncomfortable, well groomed, well developed, Behavior is calm, wg cooperative, appropriate for age. Pain: Complains of pain in Throat. EENT: Throat is reddened Reports pain in Throat. Historical: - Allergies: 23:04 No Known Allergies; wg - Home Meds: 11/04 01:11 lisinopril 10 mg oral tab 1 tab once daily for hypertension (Last Dose: 11/03/2020 dc2 10:00) [Active]; alprazolam 2 mg oral tab 1 tab 3 times per day for anxiety [Active]; pravastatin 40 mg Oral tab 1 tab once daily [Active]; - PMHx: 11/03 23:04 Anxiety; High Cholesterol; Hypertension; wg - Immunization history:: Adult Immunizations up to date. - Social history:: Smoking status: Patient denies any tobacco usage or history of. Screenin/21 01:05 Abuse screen: Denies threats or abuse. Denies injuries from another. Nutritional dc2 screening: No deficits noted. Tuberculosis screening: No symptoms or risk factors identified. Never had TB. Possible symptoms: None Risk factors: None. Fall Risk None identified. No fall in past 12 months (0 pts). No secondary diagnosis (0 pts). No IV (0 pts). Ambulatory Aid- None/Bed Rest/Nurse Assist (0 pts). Gait- Normal/Bed Rest/Wheelchair (0 pts) Mental Status- Oriented to own ability (0 pts). Total Esnior Fall Scale indicates No Risk (0-24 pts). Assessment: 01:05 General: Appears in no apparent distress. uncomfortable, well groomed, well developed, dc2 Behavior is calm, cooperative, Reports sore throat that began on Tuesday. Reports using chloraseptic without relief. Pt throat is red but no swelling of tonsils or exudate noted to be seen in throat.. Pain: Complains of pain in Sore throat Pain at worst was 10 out of 10 on a pain scale. Quality of pain is described as Sore Pain began 1 day ago. Aggravated by eating, Noted to be. Respiratory: No deficits noted. 01:05 Respiratory: Respiratory effort is Breath sounds are clear bilaterally. EENT: Throat is dc2 reddened. 01:05 Respiratory: Airway is patent. dc2 Vital Signs: 11/03 23:00 BP 150 / 105; Pulse 90; Resp 18; Temp 98.7; Pulse Ox 99% ; Weight 98.88 kg; Height 5 wg ft. 6 in. (167.64 cm); Pain 5/10; 11/04 01:33 BP 127 / 98; Pulse 92; Resp 18; Temp 98.29; Pulse Ox 96% on R/A; Pain 10/10; dc2 11/03 23:00 Body Mass Index 35.19 (98.88 kg, 167.64 cm) wg Renetta Coma Score: 01:33 Eye Response: spontaneous(4). Verbal Response: oriented(5). Motor Response: obeys dc2 commands(6). Total: 15. ED Course: 11/03 22:51 Patient arrived in ED. wm 23:02 Rand Rosa FNP-C is PHCP. kb 23:02 Gutierrez Padilla MD is Attending Physician. kb 23:03 Triage completed. 23:04 Arm band placed on right wrist. wg 23:07 Strep Sent. 23:07 Group A Streptococcus Rapid Sc Sent. 11/04 01:00 0100 Pt ambulate to room 12 . dc2 01:05 Patient has correct armband on for positive identification. Call light in reach. Pulse dc2 ox on. NIBP on. Door closed. Lights dimmed. 01:08 Radha Hong, RN is Primary Nurse. dc2 01:21 BAR WAITER/WAITRESS to bedside to discuss POC and discharge with patient. dc2 01:34 No provider procedures requiring assistance completed. Patient did not have IV access dc2 during this emergency room visit. Administered Medications: 11/03 23:07 Drug: GI Cocktail without - (Maalox Suspension 30 ml, Lidocaine Liquid 2 % 15 wg ml) Route: PO; Outcome: 11/04 00:36 Discharge ordered by MD. kb 01:20 Discharge instructions given to patient, Instructed on discharge instructions, dc2 medication usage. 01:27 Discharged to home ambulatory. dc2 01:27 Condition: good 01:36 Patient left the ED. dc2 Signatures: Rand Rosa, ROTARY MACHINE OPERATOR-C ROTARY MACHINE OPERATOR-Laurie Quarles Liam, RN Radha Hong RN RN dc2 Corrections: (The following items were deleted from the chart) 01:13 11/03 23:04 Home Meds: lisinopril Oral; dc2 11/04 01:38 01:05 General: Appears in no apparent distress. uncomfortable, well groomed, well dc2 developed, Behavior is calm, cooperative, Reports sore throat that began on Tuesday. Reports using chloraseptic without relief. dc2
--- NOTE | 2020-11-04 00:37 | EDPHYS ---
Physician Documentation [facility] Name: Noé Murry Age: 35 yrs Sex: Male : 1985 Arrival Date: 11/03/2020 Time: 22:51 Bed 12 Private MD: ED Physician Gutierrez Padilla HPI: 11/04 00:14 This 35 yrs old Male presents to ER via Ambulatory with complaints of Sore kb Throat, Productive Cough. 00:14 The patient presents with sore throat. The patient describes throat pain as constant. kb Onset: The symptoms/episode began/occurred yesterday. Severity of symptoms: At their worst the symptoms were moderate, in the emergency department the symptoms are unchanged. Modifying factors: The symptoms are alleviated by nothing, the symptoms are aggravated by swallowing, Patient's oral intake status: good. Associated signs and symptoms: Pertinent positives: Sore throat. The patient has not experienced similar symptoms in the past. The patient has not recently seen a physician. Historical: - Allergies: 11/03 23:04 No Known Allergies; wg - Home Meds: 11/04 01:11 lisinopril 10 mg oral tab 1 tab once daily for hypertension (Last Dose: 11/03/2020 dc2 10:00) [Active]; alprazolam 2 mg oral tab 1 tab 3 times per day for anxiety [Active]; pravastatin 40 mg Oral tab 1 tab once daily [Active]; - PMHx: 11/03 23:04 Anxiety; High Cholesterol; Hypertension; wg - Immunization history:: Adult Immunizations up to date. - Social history:: Smoking status: Patient denies any tobacco usage or history of. ROS: 11/04 00:14 Constitutional: Negative for fever, chills, and weight loss. kb ENT: Positive for sore throat. All other systems are negative. Exam: 00:14 Constitutional: This is a well developed, well nourished patient who is awake, alert, kb and in no acute distress. Head/Face: Normocephalic, atraumatic. Cardiovascular: Regular rate and rhythm with a normal S1 and S2. No gallops, murmurs, or rubs. No pulse deficits. Respiratory: Respirations even and unlabored. No increased work of breathing, no retractions or nasal flaring. Skin: Warm, dry with normal turgor. Normal color. MS/ Extremity: Pulses equal, no cyanosis. Neurovascular intact. Full, normal range of motion. Neuro: Awake and alert, GCS 15, oriented to person, place, time, and situation. Moves all extremities. Normal gait. Psych: Awake, alert, with orientation to person, place and time. Behavior, mood, and affect are within normal limits. 00:14 ENT: Posterior pharynx: Airway: normal, no evidence of obstruction, Tonsils: are normal in appearance, Uvula: normal, midline, swelling, is not appreciated, erythema, that is moderate. Vital Signs: 11/03 23:00 BP 150 / 105; Pulse 90; Resp 18; Temp 98.7; Pulse Ox 99% ; Weight 98.88 kg; Height 5 wg ft. 6 in. (167.64 cm); Pain 5/10; 11/04 01:33 BP 127 / 98; Pulse 92; Resp 18; Temp 98.29; Pulse Ox 96% on R/A; Pain 10/10; dc2 11/03 23:00 Body Mass Index 35.19 (98.88 kg, 167.64 cm) wg [place] Coma Score: 01:33 Eye Response: spontaneous(4). Verbal Response: oriented(5). Motor Response: obeys dc2 commands(6). Total: 15. MDM: 11/03 23:02 Patient medically screened. irene 11/04 00:13 Data reviewed: vital signs, nurses notes. Data interpreted: Pulse oximetry: on room air kb is 99 %. Interpretation: normal. Counseling: I had a detailed discussion with the patient and/or guardian regarding: the historical points, exam findings, and any diagnostic results supporting the discharge/admit diagnosis, lab results, the need for outpatient follow up, a family practitioner, to return to the emergency department if symptoms worsen or persist or if there are any questions or concerns that arise at home. 11/03 23:02 Order name: Strep irene 11/03 23:03 Order name: Group A Streptococcus Rapid Sc; Complete Time: 00:35 EDMS 11/04 00:31 Order name: Throat Culture EDMS Administered Medications: 11/03 23:07 Drug: GI Cocktail without - (Maalox Suspension 30 ml, Lidocaine Liquid 2 % 15 wg ml) Route: PO; Disposition: 11/04 07:31 Co-signature as Attending Physician, Gutierrez Padilla MD I agree with the assessment and kvng plan of care. Disposition Summary: 11/04/20 00:36 Discharge Ordered Location: Home kb Condition: Stable kb Diagnosis - Acute pharyngitis, unspecified kb Followup: kb - With: Emergency Department - When: As needed - Reason: Worsening of condition Followup: kb - With: Private Physician - When: 2 - 3 days - Reason: Recheck today's complaints, Continuance of care, Re-evaluation by your physician Discharge Instructions: - Discharge Summary Sheet kb - Pharyngitis, [id number] kb Forms: - Medication Reconciliation Form kb - Thank You Letter kb - Antibiotic Education kb - Prescription Opioid Use kb Signatures: Dispatcher [employer] EDMS Rand Rosa, ELIANA-C ELIANA-Gutierrez Shanks MD MD cha Gamba, Liam, RN katerina GelyRadha RN RN dc2 Corrections: (The following items were deleted from the chart) 01:13 11/03 23:04 Home Meds: lisinopril Oral; katerina dc2
[2020-11-04 02:45] VITALS: BP 150/105; TEMP 98.7; O2SAT 99
== END 2020-11-04 01:36 | disposition home or self-care (01) ==
LOC: ER 22:50
DX: J02.9 Acute pharyngitis, unspecified (principal); I10 Essential (primary) hypertension; E78.00 Pure hypercholesterolemia, unspecified; F41.9 Anxiety disorder, unspecified
CPT/HCPCS: 87070; 87081; 99283

== ENCOUNTER 2020-11-07 23:53 | Emergency (ER) | payer OTHER ==
[2020-11-08 01:29] LABS: Protime INR 0.97
[2020-11-08 01:39] LABS: Absolute Lymphocytes (CBC) 1.1 K/uL (0.7-4.9); Basophils % 0.4 % (0-1.3); Hematocrit 44.9 % (39.6-49.0); Lymphocytes % 14.6 % (15.3-44.8); MPV 9.5 fL (7.6-11.3); RBC Red Blood Cell Count 5.22 M/uL (4.33-5.43)
[2020-11-08 01:43] LABS: Urine Blood Negative (Negative); Urine Glucose 2+ (Negative); Urine Protein Negative (Negative); Urine Specific Gravity 1.015 (1.005-1.030); Urine pH 5.5 (5.0-7.0)
[2020-11-08 01:51] LABS: ALT/SGPT 69 U/L (12-78); AST/SGOT 25 U/L (15-37); Albumin 4.1 g/dL (3.4-5.0); Alkaline Phosphatase 153 U/L (45-117); BUN Blood Urea Nitrogen 13 mg/dL (7-18); Bicarbonate 26 mmol/L (21-32); Bilirubin Direct < 0.1 mg/dL (0-0.2); Bilirubin Total 0.5 mg/dL (0.2-1.0); Magnesium 2.1 mg/dL (1.8-2.4); NT PRO-BNP 7 pg/mL (<125); Phosphorus 4.7 mg/dL (2.5-4.9); Potassium 4.8 mmol/L (3.5-5.1); Protein, Total 8.6 g/dL (6.4-8.2); Sodium Level 133 mmol/L (136-145); Troponin (Emerg Dept Use Only) < 0.02 ng/mL (0.0-0.045)
[2020-11-08 01:53] LABS: Glucose Level 558 mg/dL (74-106)
[2020-11-08 02:03] LABS: Barbiturates NEGATIVE (NEGATIVE); Benzodiazepines POSITIVE (NEGATIVE); Cocaine NEGATIVE (NEGATIVE); METHAMPHETAM NEGATIVE (NEGATIVE); Methadone NEGATIVE (NEGATIVE); Opiates NEGATIVE (NEGATIVE); Phencyclidine NEGATIVE (NEGATIVE); THC Cannibis NEGATIVE (NEGATIVE)
[2020-11-08] MEDS ORDERED: NA CHLORIDE 0.9% 1,000 ML ONE ×2 (02:40→03:50)
[2020-11-08 02:49] LABS: Arterial Blood Carboxyhemoglob 1.3 % (0-1.5); Blood Gas Oxyhemoglobin 93.8 % (94-97); Blood O2 Saturation 95.9 % (92-98.5)
[2020-11-08] MEDS ORDERED: INSULIN -REGULAR HUMAN 50 UNIT/0.5 ML ML ONE (03:52)
--- NOTE | 2020-11-08 04:40 | EDPHYS ---
Physician Documentation [facility] Name: Noé Murry Age: 35 yrs Sex: Male : 1985 Arrival Date: 11/07/2020 Time: 23:56 Bed 18 Private MD: ED Physician Juan Francisco Crowley HPI: 11/08 00:42 This 35 yrs old Male presents to ER via Ambulatory with complaints of Numbness mh7 Of Hand - Right, Numbness Of Arm - Right. 00:42 The patient or guardian reports pain, Tingling sensation, like [id number]. The mh7 complaints affect the Right hand fourth and fifth digits. Context: The problem was sustained at home, resulted from an unknown cause. Onset: The symptoms/episode began/occurred yesterday. Modifying factors: The symptoms are alleviated by nothing, Has not tried taking medication, the symptoms are aggravated by nothing. Associated signs and symptoms: Pertinent positives: tingling distally, Intermittent cramping of the hand, Pertinent negatives: cyanosis distally, decreased sensation distally, fever, nausea, vomiting. Severity of symptoms: At their worst the symptoms were moderate, yesterday, in the emergency department the symptoms have improved, moderately. The patient has been recently seen by a physician: the patient's primary care provider, yesterday, The patient has been recently seen at the [facility] Emergency Department, this week. Patient reports pain and intermittent tingling sensation like [id number] to his right hand fourth and fifth digits started yesterday he sometimes feels sensation going up to his right forearm. He denies any injuries. Denies any fever, headache, neck pain, chest pain, abdominal pain, shortness of breath, nausea, vomiting, dizziness, or focal weakness.. Historical: - Home Meds: 00:16 alprazolam 2 mg Oral tab 1 tab 3 times per day for Anxiety [Active]; lh3 00:33 lisinopril 10 mg Oral tab 1 tab once daily for Hypertension [Active]; dc2 - PMHx: 00:16 Anxiety; Hypertension; High Cholesterol; lh3 - Immunization history:: Client reports receiving the Sahil \T\ Sahil single-dose vaccine. - Social history:: Smoking status: Patient denies any tobacco usage or history of. ROS: 00:42 Constitutional: Negative for fever, chills, and weight loss, Eyes: Negative for injury, mh7 pain, redness, and discharge, ENT: Negative for injury, pain, and discharge, Neck: Negative for injury, pain, and swelling, Cardiovascular: Negative for chest pain, palpitations, and edema. 00:42 Abdomen/GI: Negative for abdominal pain, nausea, vomiting, diarrhea, and constipation, Back: Negative for injury and pain, : Negative for injury, bleeding, discharge, and swelling, Skin: Negative for injury, rash, and discoloration, Psych: Negative for depression, anxiety, suicide ideation, homicidal ideation, and hallucinations, Allergy/Immunology: Negative for hives, rash, and allergies, Endocrine: Negative for neck swelling, polydipsia, polyuria, polyphagia, and marked weight changes, Hematologic/Lymphatic: Negative for swollen nodes, abnormal bleeding, and unusual bruising. 00:42 Respiratory: Positive for cough, with no reported sputum, Negative for dyspnea on exertion, hemoptysis, orthopnea, pleurisy, shortness of breath, sputum production, wheezing. Exam: 00:42 Constitutional: This is a well developed, well nourished patient who is awake, alert, mh7 and in no acute distress. Head/Face: Normocephalic, atraumatic. Eyes: Pupils equal round and reactive to light, extra-ocular motions intact. Lids and lashes normal. Conjunctiva and sclera are non-icteric and not injected. Cornea within normal limits. Periorbital areas with no swelling, redness, or edema. Neck: Trachea midline, no thyromegaly or masses palpated, and no cervical lymphadenopathy. Supple, full range of motion without nuchal rigidity, or vertebral point tenderness. No Meningismus. Chest/axilla: Normal chest wall appearance and motion. Nontender with no deformity. No lesions are appreciated. Cardiovascular: Regular rate and rhythm with a normal S1 and S2. No gallops, murmurs, or rubs. Normal PMI, no JVD. No pulse deficits. Respiratory: Lungs have equal breath sounds bilaterally, clear to auscultation and percussion. No rales, rhonchi or wheezes noted. No increased work of breathing, no retractions or nasal flaring. Abdomen/GI: Soft, non-tender, with normal bowel sounds. No distension or tympany. No guarding or rebound. No evidence of tenderness throughout. Back: No spinal tenderness. No costovertebral tenderness. Full range of motion. Skin: Warm, dry with normal turgor. Normal color with no rashes, no lesions, and no evidence of cellulitis. Neuro: Awake and alert, GCS 15, oriented to person, place, time, and situation. Cranial nerves II-XII grossly intact. Motor strength 5/5 in all extremities. Sensory grossly intact. Cerebellar exam normal. Normal gait. Psych: Awake, alert, with orientation to person, place and time. Behavior, mood, and affect are within normal limits. Vital Signs: 00:12 BP 146 / 103; Pulse 106; Resp 20; Temp 98.6; Pulse Ox 99% on R/A; Weight 89.36 kg (R); 3 Height 5 ft. 6 in. (167.64 cm); 00:30 BP 159 / 99; Pulse 92; Resp 17; Pulse Ox 97% on R/A; Pain 0/10; dc2 01:00 BP 138 / 95; Pulse 97; Resp 17; Pulse Ox 98% on R/A; Pain 10/10; dc2 01:30 BP 144 / 97; Pulse 97; Resp 17; Pulse Ox 98% on R/A; Pain 10/10; dc2 03:00 BP 139 / 97; Pulse 81; Resp 17; Pulse Ox 97% ; Pain 0/10; dc2 04:00 BP 129 / 96; Pulse 79; Resp 18; Pulse Ox 97% ; Pain 0/10; dc2 05:03 BP 138 / 106; Pulse 81; Resp 18; Temp 97.9; Pulse Ox 98% ; Pain 0/10; dc2 00:12 Body Mass Index 31.80 (89.36 kg, 167.64 cm) [facility] MDM: 04:35 Differential diagnosis: contusion, abrasion, tendonitis, paraesthesia, peripheral mh7 neuropathy. Data reviewed: vital signs, nurses notes, old medical records, lab test result(s), cardiac enzymes, CBC, electrolytes, urinalysis, EKG, radiologic studies, CT scan, plain films. Data interpreted: Pulse oximetry: on room air is 97 %. Interpretation: normal. Counseling: I had a detailed discussion with the patient and/or guardian regarding: the historical points, exam findings, and any diagnostic results supporting the discharge/admit diagnosis, the presence of at least one elevated blood pressure reading (>120/80) during this emergency department visit, lab results, radiology results, the need for outpatient follow up, to return to the emergency department if symptoms worsen or persist or if there are any questions or concerns that arise at home. Response to treatment: the patient's symptoms have resolved after treatment, the patient's blood pressure is in an acceptable range, mental status has returned to baseline, the patient no longer shows bradycardia, the patient is not short of breath, the patient is not tachycardic, the patient's pain is gone, the patient's temperature has normalized. 04:39 Patient medically screened. [facility] 11/08 00:36 Order name: Basic Metabolic Panel [facility] 11/08 00:36 Order name: CBC with Diff [facility] 11/08 00:36 Order name: LFT's [facility] 11/08 00:36 Order name: Magnesium; Complete Time: 02: [facility] 11/08 00:36 Order name: NT PRO-BNP; Complete Time: 02: [facility] 11/08 00:36 Order name: PT-INR; Complete Time: 02: [facility] 11/08 00:36 Order name: Troponin (emerg Dept Use Only); Complete Time: 02: [facility] 11/08 00:36 Order name: Phosphorus; Complete Time: 02: [facility] 11/08 00:36 Order name: UDS; Complete Time: 02:25 [facility] 11/08 00:37 Order name: Basic Metabolic Panel; Complete Time: 02: [facility] 11/08 00:37 Order name: CBC with Automated Diff; Complete Time: 02: [facility] 11/08 00:37 Order name: Liver (Hepatic) Function; Complete Time: 02: [facility] 11/08 00:40 Order name: CPK; Complete Time: 02: [facility] 11/08 01:42 Order name: Urine Dipstick-Ancillary; Complete Time: 02: [facility] 11/08 00:36 Order name: XRAY Chest (1 view) [facility] 11/08 00:36 Order name: EKG; Complete Time: 00:37 [facility] 11/08 00:36 Order name: Cardiac monitoring; Complete Time: 00:51 [facility] 11/08 00:36 Order name: EKG - Nurse/Tech; Complete Time: 01:10 [facility] 11/08 00:36 Order name: IV Saline Lock; Complete Time: 01:28 [facility] 11/08 00:36 Order name: Labs collected and sent; Complete Time: : [facility] 11/08 00:36 Order name: O2 Per Protocol; Complete Time: 00:51 [facility] 11/08 00:36 Order name: O2 Sat Monitoring; Complete Time: 00:51 [facility] 11/08 00:38 Order name: Hand Right 3 View XRAY [facility] 11/08 00:41 Order name: CT Head Brain wo Cont [facility] 11/08 02:02 Order name: Ketone, Serum; Complete Time: 02:25 [facility] 11/08 02:02 Order name: Arterial Blood Gas; Complete Time: 03:23 [facility] 11/08 04:37 Order name: Glucose, Ancillary Testing [facility] 11/08 00:36 Order name: Urine Dipstick-Ancillary (obtain specimen) [facility] Administered Medications: 02:14 Drug: NS 0.9% 1000 ml Route: IV; Rate: 1000 ml; Infused Over: 1 hrs; Site: right dc2 antecubital; Delivery: Primary tubing; 03:34 Follow up: IV Status: Completed infusion; IV Intake: 245ml dc2 03:34 Follow up: IV Status: Completed infusion dc2 03:15 Drug: NS 0.9% 1000 ml Route: IV; Rate: 1000 ml; Infused Over: 30 mins; Site: right dc2 antecubital; Delivery: Primary tubing; 03:30 Drug: Insulin Regular Human 10 units {Co-Signature: sj1 (Raysa Baxter RN).} Route: dc2 Sub-Q; Site: right upper arm; 05:03 Follow up: BP 138 / 106; Pulse 81 bpm; Resp 18 bpm; Temp 97.9; Pulse Ox 98% ; Pain 0/10 dc2 Adult 05:05 Follow up: Response: Blood sugar is lowered dc2 Disposition Summary: 11/08/20 04:39 Discharge Ordered Location: Home [facility] Problem: new [facility] Symptoms: have improved [facility] Condition: Stable [facility] Diagnosis - Other specified diabetes mellitus with hyperglycemia [facility] - Peripheral Neuropathy [facility] Followup: [facility] - With: Private Physician - When: 1 - 2 days - Reason: Worsening of condition, Recheck today's complaints, Continuance of care, Re-evaluation by your physician Discharge Instructions: - Discharge Summary Sheet [facility] - Type 2 Diabetes Mellitus, Diagnosis, Adult [facility] - Diabetic Neuropathy [facility] - Diabetes Mellitus and Nutrition, Adult [facility] Forms: - Medication Reconciliation Form [facility] - Thank You Letter [facility] - Antibiotic Education [facility] - Prescription Opioid Use [facility] Prescriptions: - Metformin 500 mg Oral Tablet - take 1 tablet by ORAL route 2 times per day . Then take 1 tablet with morning [facility] meals AND evening meals; 30 tablet; Refills: 0, Product Selection Permitted Signatures: Dispatcher [employer] Juan Francisco Mata MD MD 7 Orly Dos Santos RN RN lh3 Radha Hong RN RN dc2 Raysa Baxter RN sj1 Corrections: (The following items were deleted from the chart) 00:35 00:16 Home Meds: lisinopril 10 mg Oral tab 1 tab once daily for Hypertension; 3 dc2
--- NOTE | 2020-11-08 04:40 | ER ---
Nurse's Notes [facility] Name: Noé Murry Age: 35 yrs Sex: Male : 1985 Arrival Date: 11/07/2020 Time: 23:56 Bed 18 Private MD: Diagnosis: Other specified diabetes mellitus with hyperglycemia;Peripheral Neuropathy Presentation: 11/08 00:12 Chief complaint: Patient states: that his right ring finger and pinky have been lh3 tingling all day. Thinks it was due to a medication he is taking for bronchitis. Coronavirus screen: Vaccine status: Patient reports receiving the 1st dose of the Covid vaccine. sahil and sahil. Ebola Screen: No symptoms or risks identified at this time. Initial Sepsis Screen: Does the patient meet any 2 criteria? HR > 90 bpm. No. Patient's initial sepsis screen is negative. Does the patient have a suspected source of infection? No. Patient's initial sepsis screen is negative. Risk Assessment: Do you want to hurt yourself or someone else? Patient reports no desire to harm self or others. Onset of symptoms was November 06, 2020. 00:12 Method Of Arrival: Ambulatory 3 00:12 Acuity: LUIS MIGUEL 3 lh3 Triage Assessment: 00:16 General: Appears in no apparent distress. Behavior is calm, cooperative, appropriate lh3 for age. Pain: Denies pain. Neuro: No deficits noted. Historical: - Home Meds: 00:16 alprazolam 2 mg Oral tab 1 tab 3 times per day for Anxiety [Active]; lh3 00:33 lisinopril 10 mg Oral tab 1 tab once daily for Hypertension [Active]; dc2 - PMHx: 00:16 Anxiety; Hypertension; High Cholesterol; lh3 - Immunization history:: Client reports receiving the Sahil \T\ Sahil single-dose vaccine. - Social history:: Smoking status: Patient denies any tobacco usage or history of. Screenin:20 Abuse screen: Denies threats or abuse. Denies injuries from another. Nutritional dc2 screening: No deficits noted. Tuberculosis screening: No symptoms or risk factors identified. Never had TB. Fall Risk None identified. Assessment: 00:20 General: Appears in no apparent distress. comfortable, well groomed, well developed, dc2 Behavior is cooperative, anxious, Talkative. Pain: Complains of pain in right hand 4th and 5th digits Pain does not radiate. Pain at worst was 10 out of 10 on a pain scale. Quality of pain is described as piercing, Pain began Den morning Also complains of fingers have tingling in them since Tuesday morning. 00:20 Neuro: No deficits noted. Cardiovascular: No deficits noted. Respiratory: No deficits dc2 noted. GI: No deficits noted. : No deficits noted. Musculoskeletal: No deficits noted. 00:50 Reassessment: Radiology at bedside for chest xray. dc2 Vital Signs: 00:12 BP 146 / 103; Pulse 106; Resp 20; Temp 98.6; Pulse Ox 99% on R/A; Weight 89.36 kg (R); 3 Height 5 ft. 6 in. (167.64 cm); 00:30 BP 159 / 99; Pulse 92; Resp 17; Pulse Ox 97% on R/A; Pain 0/10; dc2 01:00 BP 138 / 95; Pulse 97; Resp 17; Pulse Ox 98% on R/A; Pain 10/10; dc2 01:30 BP 144 / 97; Pulse 97; Resp 17; Pulse Ox 98% on R/A; Pain 10/10; dc2 03:00 BP 139 / 97; Pulse 81; Resp 17; Pulse Ox 97% ; Pain 0/10; dc2 04:00 BP 129 / 96; Pulse 79; Resp 18; Pulse Ox 97% ; Pain 0/10; dc2 05:03 BP 138 / 106; Pulse 81; Resp 18; Temp 97.9; Pulse Ox 98% ; Pain 0/10; dc2 00:12 Body Mass Index 31.80 (89.36 kg, 167.64 cm) [facility] ED Course: 11/07 23:56 Patient arrived in ED. 11/08 00:16 Triage completed. 3 00:16 Arm band placed on right wrist. 3 00:19 Juan Francisco Crowley MD is Attending Physician. [facility] 00:20 No provider procedures requiring assistance completed. dc2 00:30 Patient has correct armband on for positive identification. Bed in low position. Call dc2 light in reach. Side rails up X 1. 00:30 ekg monitor tech on. Pulse ox on. NIBP on. dc2 00:51 XRAY Chest (1 view) Sent. dc2 00:55 XRAY Chest (1 view) In Process Unspecified. EDMS 00:55 Hand Right 3 View XRAY In Process Unspecified. EDMS 01:00 Inserted saline lock: 20 gauge in right antecubital area, using aseptic technique. dc2 01:[address] via stretcher. dc2 01:27 Patient moved back from CT. dc2 01:28 Radha Hong, RN is Primary Nurse. dc2 01:28 CT Head Brain wo Cont Sent. dc2 01:28 Basic Metabolic Panel Sent. dc2 01:28 CBC with Diff Sent. dc2 01:28 LFT's Sent. dc2 01:29 CT Head Brain wo Cont In Process Unspecified. EDMS 01:54 Notified ED physician of a critical lab result(s). Blood sugar of 558. dc2 02:12 ABG drawn. dc2 04:50 IV discontinued, intact, bleeding controlled, No redness/swelling at site. Pressure dc2 dressing applied. Administered Medications: 02:14 Drug: NS 0.9% 1000 ml Route: IV; Rate: 1000 ml; Infused Over: 1 hrs; Site: right dc2 antecubital; Delivery: Primary tubing; 03:34 Follow up: IV Status: Completed infusion; IV Intake: 245ml dc2 03:34 Follow up: IV Status: Completed infusion dc2 03:15 Drug: NS 0.9% 1000 ml Route: IV; Rate: 1000 ml; Infused Over: 30 mins; Site: right dc2 antecubital; Delivery: Primary tubing; 03:30 Drug: Insulin Regular Human 10 units {Co-Signature: sj1 (Raysa Baxter RN).} Route: dc2 Sub-Q; Site: right upper arm; 05:03 Follow up: BP 138 / 106; Pulse 81 bpm; Resp 18 bpm; Temp 97.9; Pulse Ox 98% ; Pain 0/10 dc2 Adult 05:05 Follow up: Response: Blood sugar is lowered dc2 Intake: 03:34 IV: 245ml; Total: 245ml. dc2 Outcome: 04:39 Discharge ordered by . [facility] 04:52 Discharge instructions given to patient, Instructed on discharge instructions, follow dc2 up and referral plans. medication usage, Demonstrated understanding of instructions, follow-up care, medications. 05:07 Patient left the ED. dc2 05:07 Discharged to home ambulatory. dc2 05:07 Condition: stable Signatures: Dispatcher [employer] Juan Francisco Mata MD MD mh7 Laurie Singh Latisha, RN RN 3 Radha Hong RN RN dc2 Raysa Baxter RN sj1 Corrections: (The following items were deleted from the chart) 00:35 00:16 Home Meds: lisinopril 10 mg Oral tab 1 tab once daily for Hypertension; 3 dc2
[2020-11-08] MEDS ORDERED: FAMOTIDINE 20 MG TAB ONE (05:16)
[2020-11-08 05:27] VITALS: BP 138/106; TEMP 97.9; O2SAT 98
--- NOTE | 2020-11-08 10:30 | RAD REPORT ---
EXAM DESCRIPTION: RAD - Hand Right 3 View - 11/08/2020 12:56 am CLINICAL HISTORY: Pain;Numbness/tingling COMPARISON: No comparisons FINDINGS: No bone or joint abnormality.
--- NOTE | 2020-11-08 10:32 | RAD REPORT ---
EXAM DESCRIPTION: RAD - Chest Single View - 11/08/2020 12:56 am CLINICAL HISTORY: COUGH Chest pain. COMPARISON: Chest Pa And Lat (2 Views) dated 04/05/2018; Chest Single View dated 10/31/2016; Chest Sin gle View dated 10/30/2016; CHEST PA AND LAT 2 VIEW dated 02/17/2009 FINDINGS: Portable technique limits examination quality. The lungs are grossly clear. The heart is normal in size. No displaced fractures. IMPRESSION: No acute intrathoracic process suspected.
--- NOTE | 2020-11-10 12:01 | RAD REPORT ---
EXAM DESCRIPTION: CT Head Without Intravenous Contrast CLINICAL HISTORY: Numbness; Pain TECHNIQUE: Axial computed tomography images of the head/brain without intravenous contrast. Sagitt al and coronal reformatted images were created and reviewed. This CT exam was performed using one o r more of the following dose reduction techniques: automated exposure control, adjustment of the mA and/or kV according to patient size, and/or use of iterative reconstruction technique. COMPARISON: No relevant prior studies available. FINDINGS: Brain: Unremarkable. No hemorrhage. No significant white matter disease. No edema. Ventricles: Unremarkable. No ventriculomegaly. Bones/joints: Unremarkable. No acute fracture. Soft tissues: Mild right parietal soft tissue swelling. Sinuses: Right maxillary sinus mucous retention cyst/polyp. Mastoid air cells: Unremarkable as visualized. No mastoid effusion. IMPRESSION: No acute intracranial or extra-axial abnormality. Electronically signed by: Boris Jaquez MD 11/08/2020 1:48 AM CDT Due to temporary technical issues with the PACS/Fluency reporting system, reports are being signed by the in house radiologist without review as a courtesy to ensure prompt reporting. The interpreting r adiologist is fully responsible for the content of the report.
== END 2020-11-08 05:07 | disposition home or self-care (01) ==
LOC: ER 23:53
DX: E11.42 Type 2 diabetes mellitus with diabetic polyneuropathy (principal); E11.65 Type 2 diabetes mellitus with hyperglycemia; I10 Essential (primary) hypertension; E78.00 Pure hypercholesterolemia, unspecified; F41.9 Anxiety disorder, unspecified
CPT/HCPCS: 85025; 80048; 36415; 82010; 83735; 82550; 84100; 85610; 82947; 80076; 81003; 84484; 83880; 80307; 70450; 71045; 73130; 82805; 96360; 96372; 99285; J7030 ×2

== ENCOUNTER 2021-02-16 09:17 | Emergency (ER) | payer OTHER ==
[2021-02-16 10:42] LABS: SARS-COV-2 RT PCR POSITIVE (NEGATIVE)
--- NOTE | 2021-02-16 10:55 | ER ---
Nurse's Notes [facility] Name: Noé Murry Age: 35 yrs Sex: Male : 1985 Arrival Date: 02/16/2021 Time: 09:19 Bed Waiting Private MD: Diagnosis: Coronavirus infection, unspecified Presentation: 02/16 09:29 Chief complaint: Patient states: headache, sore throat, congestion, bodyaches for 2 iw days. Coronavirus screen: Vaccine status: Patient reports receiving the 1st dose of the Covid vaccine. Ebola Screen: Patient negative for fever greater than or equal to 101.5 degrees Fahrenheit, and additional compatible Ebola Virus Disease symptoms Patient denies exposure to infectious person. Patient denies travel to an Ebola-affected area in the 21 days before illness onset. No symptoms or risks identified at this time. Initial Sepsis Screen: Does the patient meet any 2 criteria? No. Patient's initial sepsis screen is negative. Does the patient have a suspected source of infection? No. Patient's initial sepsis screen is negative. Risk Assessment: Do you want to hurt yourself or someone else? Patient reports no desire to harm self or others. Onset of symptoms was February 15, 2021. 09:29 Method Of Arrival: Ambulatory iw 09:29 Acuity: LUIS MIGUEL 4 iw Historical: - Allergies: 09:31 No Known Allergies; iw - Home Meds: 09:31 lisinopril 10 mg Oral tab 1 tab once daily for Hypertension [Active]; alprazolam 2 mg iw Oral tab 1 tab 3 times per day for Anxiety [Active]; - PMHx: 09:31 Hypertension; Anxiety; High Cholesterol; iw - Immunization history:: Client reports receiving the Sahil \T\ Sahil single-dose vaccine. - Social history:: Smoking status: Patient denies any tobacco usage or history of. Screenin:38 Abuse screen: Denies threats or abuse. Denies injuries from another. Nutritional iw screening: No deficits noted. Tuberculosis screening: No symptoms or risk factors identified. Fall Risk None identified. Assessment: 09:37 General: Appears in no apparent distress. Behavior is calm, cooperative. Pain: iw Complains of pain in throat. Neuro: Level of Consciousness is awake, alert, obeys commands, Oriented to person, place, time, situation, Moves all extremities. Full function. Cardiovascular: Patient's skin is warm and dry. Respiratory: Respiratory effort is even, unlabored, Respiratory pattern is regular. GI:. Derm: Skin is intact, is healthy with good turgor. Musculoskeletal: Range of motion: intact in all extremities. Vital Signs: 09:29 BP 124 / 97; Pulse 66; Resp 18; Temp 97.4; Pulse Ox 100% ; Weight 89.81 kg; Height 5 iw ft. 6 in. (167.64 cm); Pain 10/10; 09:29 Body Mass Index 31.96 (89.81 kg, 167.64 cm) iw ED Course: 09:19 Patient arrived in ED. as 09:31 Triage completed. iw 09:31 Arm band placed on right wrist. iw 09:38 Rand Rosa FNP-C is PHCP. kb 09:38 Gutierrez Padilla MD is Attending Physician. kb 09:38 No provider procedures requiring assistance completed. Patient did not have IV access iw during this emergency room visit. 11:21 Lidia Carvalho, RN is Primary Nurse. iw 11:22 Patient has correct armband on for positive identification. iw Administered Medications: No medications were administered Outcome: 10:54 Discharge ordered by . kb 11:22 Discharged to home ambulatory. iw 11:22 Condition: good 11:22 Discharge instructions given to patient, Instructed on discharge instructions, follow up and referral plans. Demonstrated understanding of instructions, follow-up care. 11:22 Patient left the ED. iw Signatures: Rand Rosa FNP-C FNP-Ckb Martinez, Amelia as Lidia Carvalho, RN RN iw
--- NOTE | 2021-02-16 10:55 | EDPHYS ---
Physician Documentation [facility] Name: Noé Murry Age: 35 yrs Sex: Male : 1985 Arrival Date: 02/16/2021 Time: 09:19 Bed Waiting Private MD: JONI Physician Gutierrez Padilla HPI: 02/16 10:52 This 35 yrs old Male presents to ER via Ambulatory with complaints of r/o kb covid. 10:52 The patient or guardian reports flu symptoms, myalgias. Onset: The symptoms/episode kb began/occurred 2 day(s) ago. Severity of symptoms: At their worst the symptoms were mild, moderate, in the emergency department the symptoms are unchanged. Modifying factors: The symptoms are alleviated by nothing, the symptoms are aggravated by nothing. Associated signs and symptoms: Pertinent positives: rhinorrhea, sore throat, Pertinent negatives: chest pain, diarrhea, ear ache, fever, nausea, vomiting. The patient has not experienced similar symptoms in the past. The patient has not recently seen a physician. Pt reports headache, bodyaches, congestion and sore throat for 2 days. . Historical: - Allergies: 09:31 No Known Allergies; iw - Home Meds: 09:31 lisinopril 10 mg Oral tab 1 tab once daily for Hypertension [Active]; alprazolam 2 mg iw Oral tab 1 tab 3 times per day for Anxiety [Active]; - PMHx: 09:31 Hypertension; Anxiety; High Cholesterol; iw - Immunization history:: Client reports receiving the Sahil \\T\\ Sahil single-dose vaccine. - Social history:: Smoking status: Patient denies any tobacco usage or history of. ROS: 10:53 Respiratory: Negative for shortness of breath, cough, wheezing, and pleuritic chest kb pain. 10:53 Constitutional: Positive for body aches, fatigue, malaise. 10:53 ENT: Positive for rhinorrhea, sinus congestion, sore throat. 10:53 Neuro: Positive for headache. 10:53 All other systems are negative. Exam: 10:52 Constitutional: This is a well developed, well nourished patient who is awake, alert, kb and in no acute distress. Head/Face: Normocephalic, atraumatic. ENT: Moist Mucous membranes Cardiovascular: Regular rate and rhythm with a normal S1 and S2. No gallops, murmurs, or rubs. No pulse deficits. Respiratory: Respirations even and unlabored. No increased work of breathing. Talking in full sentences Skin: Warm, dry with normal turgor. Normal color. MS/ Extremity: Pulses equal, no cyanosis. Neurovascular intact. Full, normal range of motion. Neuro: Awake and alert, GCS 15, oriented to person, place, time, and situation. Moves all extremities. Normal gait. Psych: Awake, alert, with orientation to person, place and time. Behavior, mood, and affect are within normal limits. Vital Signs: 09:29 BP 124 / 97; Pulse 66; Resp 18; Temp 97.4; Pulse Ox 100% ; Weight 89.81 kg; Height 5 iw ft. 6 in. (167.64 cm); Pain 10; 09:29 Body Mass Index 31.96 (89.81 kg, 167.64 cm) iw MDM: 09:38 Patient medically screened. kb 10:52 Data reviewed: vital signs, nurses notes. Data interpreted: Pulse oximetry: on room air kb is 100 %. Interpretation: normal. Counseling: I had a detailed discussion with the patient and/or guardian regarding: the historical points, exam findings, and any diagnostic results supporting the discharge/admit diagnosis, lab results, the need for outpatient follow up, a family practitioner, to return to the emergency department if symptoms worsen or persist or if there are any questions or concerns that arise at home. 02/16 09:33 Order name: COVID-19/FLU A+B (Document "Date of Onset" if Symptomatic); Complete Time: iw 10:43 Administered Medications: No medications were administered Disposition: 02/17 08:42 Co-signature as Attending Physician, Gutierrez Padilla MD I agree with the assessment and kvng plan of care. Disposition Summary: 02/16/21 10:54 Discharge Ordered Location: Home kb Condition: Stable kb Diagnosis - Coronavirus infection, unspecified kb Followup: kb - With: Emergency Department - When: As needed - Reason: Worsening of condition Followup: kb - With: Private Physician - When: 2 - 3 days - Reason: Recheck today's complaints, Continuance of care, Re-evaluation by your physician Discharge Instructions: - Discharge Summary Sheet kb - Viral Respiratory Infection, [id number] kb - COVID-19 kb Forms: - Medication Reconciliation Form kb - Thank You Letter kb - Antibiotic Education kb - Prescription Opioid Use kb Signatures: Dispatcher [employer] Rand Connell, BARREL ROLLER-C BARREL ROLLER-Gutierrez Shanks MD MD cha Williams, Irene, UGO RN iw
[2021-02-16 11:29] VITALS: BP 124/97; TEMP 97.4; O2SAT 100
== END 2021-02-16 11:22 | disposition home or self-care (01) ==
LOC: ER 09:17
DX: U07.1 COVID-19 (principal); I10 Essential (primary) hypertension; F41.9 Anxiety disorder, unspecified
CPT/HCPCS: 0240U; 99281

== ENCOUNTER 2022-02-18 06:31 | Emergency (ER) | payer OTHER ==
--- OUTSIDE RECORDS SUMMARY | 2022-02-18 06:33 | XMS REPORT | Continuity of Care Document ---
:1985 Author Organization [facility] t Address [address] [place] [address] Care Team Providers Name Role Phone Unavailable Unavailable Unavailable Problems This patient has no known problems. Allergies, Adverse Reactions, Alerts This patient has no known allergies or adverse reactions. Medications This patient has no known medications. Procedures This patient has no known procedures. Results This patient has no known results.
[2022-02-18] MEDS ORDERED: IBUPROFEN 200 MG TAB PO ONE (07:18)
[2022-02-18] MEDS ORDERED: IBUPROFEN 400 MG TAB ONE (07:18)
[2022-02-18 07:31] LABS: SARS-COV-2 RT PCR NEGATIVE (NEGATIVE)
[2022-02-18] MEDS ORDERED: MAGNES/ALUMIN/SIMET 30ML UCUP ONE (07:40)
[2022-02-18] MEDS ORDERED: dexAMETHasone 10 MG/ML VIAL ONE (07:40)
[2022-02-18] MEDS ORDERED: LIDOCAINE VISCOUS 2% SOLN 15 ML UDC ONE (07:41)
[2022-02-18] MEDS ORDERED: AZITHROMYCIN 250 MG TAB ONE (07:41)
--- NOTE | 2022-02-18 07:44 | EDPHYS ---
Physician Documentation [facility] Name: Noé Murry Age: 36 yrs Sex: Male : 1985 Arrival Date: 02/18/2022 Time: 06:34 Bed IW3 Private MD: ED Physician Obed Barreto HPI: 02/18 07:29 This 36 yrs old Male presents to ER via Ambulatory with complaints of Sore snw Throat, Cough, Headache, Chest Pain. 07:29 The patient presents with sore throat. The patient describes throat pain as constant. snw Onset: The symptoms/episode began/occurred suddenly, 2 day(s) ago, and became worse this morning, and became persistent. Severity of symptoms: At their worst the symptoms were moderate. Associated signs and symptoms: Pertinent positives: cough, flu-like symptoms, myalgias. The patient has not experienced similar symptoms in the past. The patient has not recently seen a physician. Takes lisinopril and farxiga. Historical: - Allergies: 06:42 No Known Allergies; kl - Home Meds: 06:42 alprazolam 2 mg Oral tab 1 tab 3 times per day for Anxiety [Active]; lisinopril 10 mg kl Oral tab 1 tab once daily for Hypertension [Active]; pravastatin 40 mg Oral tab 1 tab once daily [Active]; - PMHx: 06:42 High Cholesterol; Anxiety; Hypertension; Diabetes mellitus; kl - PSHx: 06:42 None; kl - Immunization history:: Adult Immunizations not immunized. - Social history:: Smoking status: Patient denies any tobacco usage or history of. ROS: 07:28 Constitutional: Negative for fever, chills, and weight loss, Eyes: Negative for injury, snw pain, redness, and discharge, ENT: Negative for injury and discharge, + very sore throat Neck: Negative for injury, pain, and swelling, Cardiovascular: Negative for chest pain, palpitations, and edema, Abdomen/GI: Negative for abdominal pain, nausea, vomiting, diarrhea, and constipation, Back: Negative for injury and pain, : Negative for injury, bleeding, discharge, and swelling, MS/Extremity: Negative for injury and deformity, Skin: Negative for injury, rash, and discoloration, Neuro: Negative for headache, weakness, numbness, tingling, and seizure, Psych: Negative for depression, anxiety, suicide ideation, homicidal ideation, and hallucinations. 07:28 Respiratory: Positive for cough, pleurisy, of the chest. Exam: 07:28 Constitutional: This is a well developed, well nourished patient who is awake, alert, snw and in no acute distress. Head/Face: Normocephalic, atraumatic. Eyes: Pupils equal round and reactive to light, extra-ocular motions intact. Lids and lashes normal. Conjunctiva and sclera are non-icteric and not injected. Cornea within normal limits. Periorbital areas with no swelling, redness, or edema. 07:28 Neck: Trachea midline, no thyromegaly or masses palpated, and no cervical lymphadenopathy. Supple, full range of motion without nuchal rigidity, or vertebral point tenderness. No Meningismus. Chest/axilla: Normal chest wall appearance and motion. Nontender with no deformity. No lesions are appreciated. Cardiovascular: Regular rate and rhythm with a normal S1 and S2. No gallops, murmurs, or rubs. Normal PMI, no JVD. No pulse deficits. Respiratory: Lungs have equal breath sounds bilaterally, clear to auscultation and percussion. No rales, rhonchi or wheezes noted. No increased work of breathing, no retractions or nasal flaring. Abdomen/GI: Soft, non-tender, with normal bowel sounds. No distension or tympany. No guarding or rebound. No evidence of tenderness throughout. Back: No spinal tenderness. No costovertebral tenderness. Full range of motion. Skin: Warm, dry with normal turgor. Normal color with no rashes, no lesions, and no evidence of cellulitis. MS/ Extremity: Pulses equal, no cyanosis. Neurovascular intact. Full, normal range of motion. Neuro: Awake and alert, GCS 15, oriented to person, place, time, and situation. Cranial nerves II-XII grossly intact. Motor strength 5/5 in all extremities. Sensory grossly intact. Cerebellar exam normal. Normal gait. Psych: Awake, alert, with orientation to person, place and time. Behavior, mood, and affect are within normal limits. 07:28 ENT: TM's: are normal, Nose: is normal, Posterior pharynx: swelling, that is mild, that is moderate, erythema, that is moderate. Vital Signs: 06:40 BP 140 / 108; Pulse 99; Resp 20; Temp 98.1(TE); Pulse Ox 96% on R/A; Weight 99.79 kg; kl Height 5 ft. 6 in. (167.64 cm); Pain 10/10; 07:56 BP 145 / 102; Pulse 92; Resp 18; Pulse Ox 97% on R/A; ll1 06:40 Body Mass Index 35.51 (99.79 kg, 167.64 cm) kl MDM: 06:51 Patient medically screened. snw 07:46 Differential diagnosis: Allergic rhinitis, bronchitis, group A strep tonsillitis, snw influenza, pharyngitis, tonsillitis, viral syndrome. Data reviewed: vital signs, nurses notes, lab test result(s), covid/flu. 02/18 06:44 Order name: COVID-19/FLU A+B; Complete Time: 07:32 kl 02/18 07:07 Order name: Chest Pa And Lat (2 Views) XRAY snw Administered Medications: 07:18 Drug: Motrin (ibuprofen) 600 mg Route: PO; ll1 07:53 Follow up: Response: No adverse reaction; Pain is decreased; RASS: Alert and Calm (0) ll1 07:46 Drug: Zithromax (azithromycin) 500 mg Route: PO; ll1 07:46 Drug: Decadron (dexamethasone) 10 mg {Note: given PO.} Route: IM; Site: Other; ll1 07:46 Drug: GI Cocktail without - (Maalox Suspension 30 ml, Lidocaine Liquid 2 % 15 ll1 ml) Route: PO; Disposition: 16:46 Co-signature as Attending Physician, Obed SALMERON was immediately available on-site ms3 in the Emergency Department for consultation in the care of the patient. Disposition Summary: 02/18/22 07:44 Discharge Ordered Location: Home snw Condition: Stable snw Diagnosis - Acute pharyngitis, unspecified snw - Acute bronchitis, unspecified snw Followup: snw - With: Emergency Department - When: As needed - Reason: Worsening of condition Followup: snw - With: Private Physician - When: 2 - 3 days - Reason: Recheck today's complaints, Continuance of care, Re-evaluation by your physician Discharge Instructions: - Acute Bronchitis, Adult snw - Pharyngitis snw - Discharge Summary Sheet ll1 - Rehydration, Adult snw Forms: - Work release form ll1 - Medication Reconciliation Form snw - Thank You Letter snw - Antibiotic Education snw - Prescription Opioid Use snw Prescriptions: - Zyrtec 10 mg Oral Tablet - take 1 tablet by ORAL route once daily As needed; 20 tablet; Refills: 0, snw Product Selection Permitted - Pepcid 20 mg Oral Tablet - take 1 tablet by ORAL route once daily; 20 tablet; Refills: 0, Product snw Selection Permitted - Zithromax 500 mg Oral Tablet - take 1 tablet by ORAL route once daily for 5 days; 5 tablet; Refills: 0, snw Product Selection Permitted Signatures: Dispatcher [employer] Katie Rowland, Beth Mckinnon RN, INSURANCE VERIFICATION REP-C INSURANCE VERIFICATION REP-Csnw Jasbir Trent RN RN ll1 Obed Barreto DO DO ms3
--- NOTE | 2022-02-18 07:44 | ER ---
Nurse's Notes [facility] Name: Noé Murry Age: 36 yrs Sex: Male : 1985 Arrival Date: 02/18/2022 Time: 06:34 Bed IW3 Private MD: Diagnosis: Acute pharyngitis, unspecified;Acute bronchitis, unspecified Presentation: 02/18 06:40 Chief complaint: Patient states: cough congestion headache sore throat x 1 day. Coronavirus screen: Vaccine status: Patient reports receiving the 2nd dose of the covid vaccine. Ebola Screen: Patient negative for fever greater than or equal to 101.5 degrees Fahrenheit, and additional compatible Ebola Virus Disease symptoms. Initial Sepsis Screen: Does the patient meet any 2 criteria? No. Patient's initial sepsis screen is negative. Does the patient have a suspected source of infection? No. Patient's initial sepsis screen is negative. Risk Assessment: Do you want to hurt yourself or someone else? Patient reports no desire to harm self or others. 06:40 Method Of Arrival: Ambulatory 06:40 Acuity: LUIS MIGUEL 4 07:57 Onset of symptoms was February 18, 2020. ll1 Triage Assessment: 06:42 General: Appears uncomfortable, well groomed, well nourished, Behavior is calm, kl cooperative. Pain: Complains of pain in sore throat headache. EENT: Reports nasal congestion. Respiratory: No deficits noted. Reports pain with cough. Historical: - Allergies: 06:42 No Known Allergies; kl - Home Meds: 06:42 alprazolam 2 mg Oral tab 1 tab 3 times per day for Anxiety [Active]; lisinopril 10 mg kl Oral tab 1 tab once daily for Hypertension [Active]; pravastatin 40 mg Oral tab 1 tab once daily [Active]; - PMHx: 06:42 High Cholesterol; Anxiety; Hypertension; Diabetes mellitus; kl - PSHx: 06:42 None; kl - Immunization history:: Adult Immunizations not immunized. - Social history:: Smoking status: Patient denies any tobacco usage or history of. Screenin:41 Abuse screen: Denies threats or abuse. Nutritional screening: No deficits noted. ll1 Tuberculosis screening: No symptoms or risk factors identified. 07:57 [facility] ED Fall Risk Assessment (Adult) Score/Fall Risk Level 0 - 2 = Low Risk ll1 Oriented to surroundings, Maintained a safe environment, Educated pt \T\ family on fall prevention, incl call for assistance when getting out of bed, Hourly rounding (assess needs \T\ fall precautionary measures) done. Assessment: 07:20 Reassessment: No changes from previously documented assessment. Patient and/or family ll1 updated on plan of care and expected duration. Pain level reassessed. Patient is alert, oriented x 3, equal unlabored respirations, skin warm/dry/pink. 07:42 Respiratory: Airway is patent Respiratory effort is even, unlabored, Breath sounds are ll1 clear bilaterally. EENT: Throat is reddened. 07:53 Reassessment: No changes from previously documented assessment. Patient and/or family ll1 updated on plan of care and expected duration. Pain level reassessed. Patient is alert, oriented x 3, equal unlabored respirations, skin warm/dry/pink. 07:56 Reassessment: No changes from previously documented assessment. Patient and/or family ll1 updated on plan of care and expected duration. Pain level reassessed. Patient is alert, oriented x 3, equal unlabored respirations, skin warm/dry/pink. Vital Signs: 06:40 BP 140 / 108; Pulse 99; Resp 20; Temp 98.1(TE); Pulse Ox 96% on R/A; Weight 99.79 kg; kl Height 5 ft. 6 in. (167.64 cm); Pain 10/10; 07:56 BP 145 / 102; Pulse 92; Resp 18; Pulse Ox 97% on R/A; ll1 06:40 Body Mass Index 35.51 (99.79 kg, 167.64 cm) ED Course: 06:34 Patient arrived in ED. ja2 06:42 Triage completed. kl 06:48 Beth Saleh FNP-C is PHCP. snw 06:48 COVID-19/FLU A+B Sent. tw5 06:49 Obed Barreto DO is Attending Physician. snw 07:13 Jasbir Trent, UGO is Primary Nurse. ll1 07:34 Chest Pa And Lat (2 Views) XRAY In Process Unspecified. EDMS 07:41 Arm band placed on. ll1 07:42 No provider procedures requiring assistance completed. Patient did not have IV access ll1 during this emergency room visit. 07:42 Patient has correct armband on for positive identification. Cardiac monitoring not ll1 applicable on this patient. Administered Medications: 07:18 Drug: Motrin (ibuprofen) 600 mg Route: PO; ll1 07:53 Follow up: Response: No adverse reaction; Pain is decreased; RASS: Alert and Calm (0) ll1 07:46 Drug: Zithromax (azithromycin) 500 mg Route: PO; ll1 07:46 Drug: Decadron (dexamethasone) 10 mg {Note: given PO.} Route: IM; Site: Other; ll1 07:46 Drug: GI Cocktail without - (Maalox Suspension 30 ml, Lidocaine Liquid 2 % 15 ll1 ml) Route: PO; Medication: 07:57 VIS not applicable for this client. ll1 Outcome: 07:44 Discharge ordered by . ade 07:56 Discharged to home ambulatory. ll1 07:56 Condition: stable 07:56 Discharge instructions given to patient, Instructed on discharge instructions, follow up and referral plans. medication usage, Demonstrated understanding of instructions, follow-up care, medications, Prescriptions given X 3. 07:57 Patient left the ED. 1 Signatures: Dispatcher [employer] EDKatie Mckeon RN RN kl Waters, Shelly, PURE CULTURE OPERATOR-C PURE CULTURE OPERATOR-Jasbir Barba RN RN ll1 Lucita Rodriguez Tiffany tw5
[2022-02-18 08:02] VITALS: TEMP 98.1
[2022-02-18 08:03] VITALS: BP 145/102; O2SAT 97
--- NOTE | 2022-02-18 08:05 | RAD REPORT ---
EXAM DESCRIPTION: RAD - Chest Pa And Lat (2 Views) - 02/18/2022 7:34 am CLINICAL HISTORY: COUGH COMPARISON: Chest Single View dated 11/08/2020; Chest Pa And Lat (2 Views) dated 04/05/2018; Chest Sin gle View dated 10/31/2016; Chest Single View dated 10/30/2016 FINDINGS: Lines: None. Lungs: No evidence of edema or pneumonia. Pleural: No significant pleural effusions or pneumothorax. Cardiac: The heart size is within normal limits. Mediastinum: Within normal limits. Bones: No acute fractures. Other: None IMPRESSION: No acute cardiopulmonary disease.
== END 2022-02-18 07:57 | disposition home or self-care (01) ==
LOC: ER 06:31
DX: J20.9 Acute bronchitis, unspecified (principal); Z20.822 Contact with and (suspected) exposure to COVID-19; I10 Essential (primary) hypertension; F41.9 Anxiety disorder, unspecified; E11.9 Type 2 diabetes mellitus without complications
CPT/HCPCS: 0240U; 71046; 96372; 99284; Q0144; J1100

== ENCOUNTER 2022-02-21 02:43 | Emergency (ER) | payer OTHER ==
--- OUTSIDE RECORDS SUMMARY | 2022-02-21 02:46 | XMS REPORT | Continuity of Care Document ---
:1985 Author Organization [facility] t Address [address] [place] [address] Care Team Providers Name Role Phone Kimmie LoweryMelvinMelvin Primary Care Physician CALVIN FOWLER Attending Clinician Unavailable Calvin Fowler MD Attending Clinician Payers Payer Name Policy Type Policy Number Effective Date Expiration Date Leyla [employer] [place] [id number] 2021 [employer] 00:00:00 Problems Condition Condition Condition Status Onset Resolution Last Treating Co mments Source Name Details Category Date Date Treatment Clinician Date No known No known Disease Unive rs active active ity of problems problems [facility] Allergies, Adverse Reactions, Alerts Allergy Allergy Status Severity Reaction(s) Onset Inactive Treating Comm ents Source Name Type Date Date Clinician NO KNOWN Drug Active Univers ALLERGIE Class ity of S [facility] Social History Social Habit Start Date Stop Date Quantity Comments Source Exposure to 2022-02-10 2022-02-20 Not sure [facility] SARS-CoV-2 (event) 00:00:00 15:27:00 Medica l Branch Sex Assigned At [birth year] [facility] 00:00:00 00:00:00 Medical Branch Smoking Status Start Date Stop Date Source Tobacco smoking consumption Univ [facility] unknown Branch Medications Ordered Filled Start Stop Current Ordering Indication Dosage Frequency Signature Comments Components Source Medication Medication Date Date Medication? Clinician (SIG) Name Name dexamethaso 2022- No 10mg 10 mg, Uni vers ne sod phos 02-20 Oral, ity of PF 22:15: 22:12 ONCE, 1 [place] injection 00 :00 dose, On Medica l 10 mg 02/20/22 Branch at 1615, 1 mL benzonatate Yes [id number] 100mg Take 1 Univers 100 mg 02-20 capsule by ity of capsule 00:00: mouth 3 [place] 00 (three) Medical times Branch daily as needed for Cough. albuterol Yes [id number] 2{puff} Inhale 2 Univers 90 -07 Puffs ity of mcg/actuati 00:00: every 4 Jesus Manuel as on inhaler 00 (four) Medical hours as Branch needed for Wheezing or Shortness of Breath. butalbital- Yes [id number] 2{tbl} Take 2 Univers acetaminoph 07 tablets by it y of en-caff 00:00: mouth [place] 50-325-40 00 every 8 Medical mg tablet (eight) Branch hours as needed (headache) for up to 12 doses. predniSONE 2022- Yes [id number] 40mg Take 2 Univers 20 mg 02-20 tablets by ity of tablet 00:00: 05:59 mouth in [place] 00 :00 the Medical morning Branch for 4 days. azithromyci Yes 250mg Take 1 Uni vers n 250 mg 6-27 tablet by ity of tablet 00:00: mouth [place] 00 SEE-INSTRU Medical CTIONS. Branch Take 500 mg day 1, then 250 mg days 2 to 5. benzonatate 2022- No 100mg Take 1 Un pasquale 100 mg 6-27 02-20 capsule by ity of capsule 00:00: 00:00 mouth 3 [place] 00 :00 (three) Medical times Branch daily as needed for Cough. Vital Signs Vital Name Observation Time Observation Value Comments Source Systolic blood 2022-02-20 21:25:00 152 mm[Hg] [facility] Diastolic blood 2022-02-20 21:25:00 100 mm[Hg] Unive [facility] Heart rate 2022-02-20 21:25:00 95 [facility] Body temperature 2022-02-20 21:25:00 37 [place] [facility] 2022-02-20 21:25:00 20 /min [facility] Body height 2022-02-20 21:25:00 167.6 cm [facility] Body weight 2022-02-20 21:25:00 99.791 kg [facility] BMI 2022-02-20 21:25:00 35.51 kg/m2 [facility] Oxygen saturation in 2022-02-20 21:25:00 95 /min [facility] Arterial blood by [facility] Pulse oximetry Branch Procedures Procedure Date / Time Performed Performing Clinician Sourc e XR CHEST 1 VW 2022-02-20 22:08:40 Calvin Fowler [facility] CONSENT/REFUSAL FOR 2022-02-20 21:19:39 Doctor Unassigned, No Un [facility] DIAGNOSIS AND Name [facility] TREATMENT Encounters Start End Encounter Admission Attending Care Care Encounter Source Date/Time Date/Time Type Type Clinicians Facility Department ID 2022-02-20 2022-02-20 Emergency X MALCOLM HIRONA ERT [id number] Univers 15:27:00 16:57:00 CALVIN corona [facility] 2022-02-20 2022-02-20 Emergency BEVERLY Fowler [id number] Univers 15:27:00 16:57:00 Calvin CABELLO [id number] chloe [facility] [id number] [facility] [id number] [facility] 084 Branch Results This patient has no known results.
[2022-02-21] MEDS ORDERED: NA CHLORIDE 0.9% 1,000 ML ONE (03:18)
[2022-02-21] MEDS ORDERED: DIPHENHYDRAMINE 50 MG/ML VIAL ONE (03:18)
[2022-02-21] MEDS ORDERED: KETOROLAC 30 MG/ML INJ ONE (03:18)
[2022-02-21] MEDS ORDERED: METOCLOPRAMIDE 10 MG/2mL INJ ONE (03:18)
[2022-02-21 03:45] LABS: Absolute Lymphocytes (CBC) 0.8 K/uL (0.7-4.9); Hematocrit 49.2 % (39.6-49.0); Lymphocytes % 11.6 % (15.3-44.8); MCV 88.5 fL (80-100); MPV 9.1 fL (7.6-11.3); RBC Red Blood Cell Count 5.56 M/uL (4.33-5.43)
[2022-02-21 04:14] LABS: Potassium 4.3 mmol/L (3.5-5.1)
--- NOTE | 2022-02-21 04:36 | ER ---
Nurse's Notes [facility] Name: Noé Murry Age: 36 yrs Sex: Male : 1985 Arrival Date: 02/21/2022 Time: 02:45 Bed 20 Private MD: Diagnosis: Cephalgia;Bronchitis;Hyponatremia Presentation: 02/21 02:51 Chief complaint: Patient states: I have a horrible head 20/10 ache at my L anabaptist all aa9 day and I cant sleep. Coronavirus screen: Vaccine status: Patient reports receiving the 2nd dose of the covid vaccine. Ebola Screen: No symptoms or risks identified at this time. Initial Sepsis Screen: Does the patient meet any 2 criteria? No. Patient's initial sepsis screen is negative. Does the patient have a suspected source of infection? No. Patient's initial sepsis screen is negative. Risk Assessment: Do you want to hurt yourself or someone else? Patient reports no desire to harm self or others. Onset of symptoms was February 21, 2022. 02:51 Method Of Arrival: Ambulatory aa9 02:51 Acuity: LUIS MIGUEL 3 aa9 Triage Assessment: 02:54 Headache History: The patient has had previous headaches. General: Appears aa9 uncomfortable, Behavior is cooperative, appropriate for age, anxious. Pain: Complains of pain in L anabaptist Pain currently is 20 out of 10 on a pain scale. Pain began 1 day ago. Also complains of sleeplessness. Neuro: Level of Consciousness is awake, alert, obeys commands, Oriented to person, place, time, situation. Cardiovascular: Patient's skin is warm and dry. Respiratory: Airway is patent Respiratory effort is even, unlabored. GI: No signs and/or symptoms were reported involving the gastrointestinal system. : No signs and/or symptoms were reported regarding the genitourinary system. Derm: Skin is intact, is healthy with good turgor. Musculoskeletal: No signs and/or symptoms reported regarding the musculoskeletal system. Historical: - Allergies: 02:54 No Known Allergies; aa9 - Home Meds: 02:54 lisinopril 10 mg Oral tab 1 tab once daily for Hypertension [Active]; aa9 03:43 alprazolam 2 mg Oral tab 1 tab 3 times per day for Anxiety [Active]; fu - PMHx: 02:54 Anxiety; diabetes mellitus; High Cholesterol; Hypertension; aa9 - PSHx: 02:54 None; aa9 - Immunization history:: Client reports receiving the 2nd dose of the Covid vaccine. - Social history:: Smoking status: Patient denies any tobacco usage or history of. Screenin:56 Abuse screen: Denies threats or abuse. Denies injuries from another. Nutritional aa9 screening: No deficits noted. Tuberculosis screening: No symptoms or risk factors identified. 04:00 [facility] ED Fall Risk Assessment (Adult) History of falling in the last 3 months, fu including since admission No falls in past 3 months (0 pts) Confusion or Disorientation No (0 pts) Intoxicated or Sedated No (0 pts) Impaired Gait No (0 pts) Mobility Assist Device Used No (0 pt) Altered Elimination No (0 pt) Score/Fall Risk Level 0 - 2 = Low Risk. Assessment: 03:03 General: Appears in no apparent distress. comfortable, Behavior is calm, cooperative, fu appropriate for age. Pain: Complains of pain in left side of the head Pain does not radiate. Pain currently is 10 out of 10 on a pain scale. Quality of pain is described as throbbing. Neuro: Reports headache in left parietal area. Respiratory: Reports cough that is non-productive, Respiratory effort is even, unlabored, Respiratory pattern is regular. EENT: Reports nasal congestion. Derm: Skin is intact. Vital Signs: 02:51 Pulse 104; Resp 19 S; Temp 98.4; Pulse Ox 95% on R/A; Weight 99.79 kg (R); Height 5 ft. aa9 6 in. (167.64 cm) (R); Pain 10/10; 03:09 BP 148 / 105; aa9 03:49 BP 162 / 111; Pulse 97; Resp 16; Pulse Ox 97% on R/A; fu 04:30 BP 147 / 93; Pulse 83; Resp 16; Pulse Ox 93% ; Pain 3/10; fu 02:51 Body Mass Index 35.51 (99.79 kg, 167.64 cm) aa9 [place] Coma Score: 03:17 Eye Response: spontaneous(4). Verbal Response: oriented(5). Motor Response: obeys sd2 commands(6). Total: 15. ED Course: 02:45 Patient arrived in ED. ja2 02:51 Yani Laird MD is Attending Physician. sd2 02:52 Brandon Ventura, RN is Primary Nurse. fu 02:54 Triage completed. aa9 02:56 Arm band placed on. aa9 02:56 Patient has correct armband on for positive identification. Bed in low position. Call aa9 light in reach. 03:10 Inserted saline lock: 20 gauge in right antecubital area, using aseptic technique. fu Blood collected. 03:18 CBC with Diff Sent. fu 03:18 BMP Sent. fu 04:54 No provider procedures requiring assistance completed. fu 04:54 IV discontinued, bleeding controlled, Pressure dressing applied. fu Administered Medications: 03:32 Drug: Reglan (metoCLOPramide) 10 mg Route: IVP; Site: right antecubital; fu 04:33 Follow up: Response: No adverse reaction fu 03:32 Drug: NS 0.9% 1000 ml Route: IV; Rate: 1 bolus; Site: right antecubital; fu 04:39 Follow up: Response: No adverse reaction; IV Intake: 100ml fu 03:33 Drug: Ketorolac 15 mg Route: IVP; Site: right antecubital; fu 04:03 Follow up: Response: Pain is decreased fu 03:33 Drug: Benadryl (diphenhydrAMINE) 25 mg Route: IVP; Site: right antecubital; fu 04:33 Follow up: Response: No adverse reaction fu Medication: 02:56 VIS not applicable for this client. aa9 Intake: 04:39 IV: 100ml; Total: 100ml. fu Outcome: 04:36 Discharge ordered by . sd2 04:54 Discharged to home ambulatory. fu 04:54 Condition: good 04:54 Discharge instructions given to patient, Instructed on discharge instructions, follow up and referral plans. Demonstrated understanding of instructions, follow-up care, Prescriptions given X 0 04:55 Patient left the ED. fu Signatures: Brandon Ventura, UGO RN Lucita Rodriguez Stephanie, MD MD sd2 Avalos, Aylin, RN RN aa9 Corrections: (The following items were deleted from the chart) 03:48 03:47 Home Meds: farxiga; fu fu
--- NOTE | 2022-02-21 04:37 | EDPHYS ---
Physician Documentation [facility] Name: Noé Murry Age: 36 yrs Sex: Male : 1985 Arrival Date: 02/21/2022 Time: 02:45 Bed 20 Private MD: ED Physician Yani Laird HPI: 02/21 03:16 This 36 yrs old Male presents to ER via Ambulatory with complaints of sd2 Headache, Ear Pain. 03:17 36 yo M presents with CC of headache. Reports has been sick this past week with URI sd2 symptoms and was diagnosed with bronchitis and placed on Z-pack along with supportive care medications at our hospital. Pt was seen at [facility] yesterday and given Fioricet to take at home. Reports he has been taking it as prescribed with no relief of his headache which is located in his L temporal area mostly and is a throbbing sensation. Denies fever, chest pain, SOB. Reports bronchitis symptoms have otherwise been improving. He did also receive a steroid injection at [facility] yesterday for his symptoms. . Historical: - Allergies: 02:54 No Known Allergies; aa9 - Home Meds: 02:54 lisinopril 10 mg Oral tab 1 tab once daily for Hypertension [Active]; aa9 03:43 alprazolam 2 mg Oral tab 1 tab 3 times per day for Anxiety [Active]; fu - PMHx: 02:54 Anxiety; diabetes mellitus; High Cholesterol; Hypertension; aa9 - PSHx: 02:54 None; aa9 - Immunization history:: Client reports receiving the 2nd dose of the Covid vaccine. - Social history:: Smoking status: Patient denies any tobacco usage or history of. ROS: 03:17 Constitutional: Negative for fever, chills, and weight loss, Eyes: Negative for injury, sd2 pain, redness, and discharge, Cardiovascular: Negative for chest pain, palpitations, and edema, Respiratory: Negative for shortness of breath, cough, wheezing. Abdomen/GI: Negative for abdominal pain, nausea, vomiting, diarrhea. MS/Extremity: Negative for injury and deformity, Skin: Negative for injury, rash, and discoloration. 03:17 Neuro: Positive for headache, Negative for numbness, seizure activity, tingling, visual changes, weakness. Exam: 03:17 Constitutional: This is a well developed, well nourished patient who is awake, alert, sd2 and in no acute distress. Head/Face: Normocephalic, atraumatic. Eyes: EOMI, normal conjunctiva bilaterally Chest/axilla: Normal chest wall appearance and motion. Nontender with no deformity. Cardiovascular: Regular rate and rhythm with a normal S1 and S2. No gallops, murmurs, or rubs. 2+ distal pulses. Respiratory: Lungs have equal breath sounds bilaterally, clear to auscultation and percussion. No rales, rhonchi or wheezes noted. No increased work of breathing, no retractions or nasal flaring. Abdomen/GI: Soft, non-tender, with normal bowel sounds. No guarding or rebound. No evidence of tenderness throughout. Skin: Warm, dry with normal turgor. Normal color with no rashes, no lesions, and no evidence of cellulitis. MS/ Extremity: Pulses equal, no cyanosis. Neurovascular intact. Full, normal range of motion. Ambulatory without difficulty. Neuro: Awake and alert, GCS 15, oriented to person, place, time, and situation. Cranial nerves II-XII grossly intact. Motor strength 5/5 in all extremities. Sensory grossly intact. Cerebellar exam normal. Normal gait. Psych: Awake, alert, with orientation to person, place and time. Behavior, mood, and affect are within normal limits. Vital Signs: 02:51 Pulse 104; Resp 19 S; Temp 98.4; Pulse Ox 95% on R/A; Weight 99.79 kg (R); Height 5 ft. aa9 6 in. (167.64 cm) (R); Pain 10/10; 03:09 BP 148 / 105; aa9 03:49 BP 162 / 111; Pulse 97; Resp 16; Pulse Ox 97% on R/A; fu 04:30 BP 147 / 93; Pulse 83; Resp 16; Pulse Ox 93% ; Pain 3/10; fu 02:51 Body Mass Index 35.51 (99.79 kg, 167.64 cm) aa9 [place] Coma Score: 03:17 Eye Response: spontaneous(4). Verbal Response: oriented(5). Motor Response: obeys sd2 commands(6). Total: 15. MDM: 02:51 Patient medically screened. sd2 03:17 Differential diagnosis: Differential diagnosis includes but is not limited to: Tension sd2 headache, migraine headache, intracranial hemorrhage, dehydration, electrolyte abnormality, musculoskeletal, meningitis among others. Data reviewed: vital signs, nurses notes. Data reviewed: old medical records. 04:32 Data reviewed: lab test result(s). Counseling: I had a detailed discussion with the sd2 patient and/or guardian regarding: the historical points, exam findings, and any diagnostic results supporting the discharge/admit diagnosis, lab results, the need for outpatient follow up, to return to the emergency department if symptoms worsen or persist or if there are any questions or concerns that arise at home. ED course: Labs reviewed. Mild hyponatremia present. Pt received IVFs and has not been eating much at home likely causing this. No focal neuro deficits. Ongoing headache associated with likely viral syndrome and bronchitis. Pt much improved after treatment. Advised continued supportive care with Fioricet at home and follow up with PCP. Verbalizes understanding of discharge plan and strict return precautions. . 02/21 03:11 Order name: CBC with Diff; Complete Time: 04:18 sd2 02/21 03:11 Order name: BMP; Complete Time: 04:18 sd2 Administered Medications: 03:32 Drug: Reglan (metoCLOPramide) 10 mg Route: IVP; Site: right antecubital; fu 04:33 Follow up: Response: No adverse reaction fu 03:32 Drug: NS 0.9% 1000 ml Route: IV; Rate: 1 bolus; Site: right antecubital; fu 04:39 Follow up: Response: No adverse reaction; IV Intake: 100ml fu 03:33 Drug: Ketorolac 15 mg Route: IVP; Site: right antecubital; fu 04:03 Follow up: Response: Pain is decreased fu 03:33 Drug: Benadryl (diphenhydrAMINE) 25 mg Route: IVP; Site: right antecubital; fu 04:33 Follow up: Response: No adverse reaction fu Disposition Summary: 02/21/22 04:36 Discharge Ordered Location: Home sd2 Problem: an ongoing problem sd2 Symptoms: have improved sd2 Condition: Stable sd2 Diagnosis - Cephalgia sd2 - Bronchitis sd2 - Hyponatremia sd2 Followup: sd2 - With: Private Physician - When: 2 - 3 days - Reason: Recheck today's complaints, Continuance of care, Re-evaluation by your physician Discharge Instructions: - Discharge Summary Sheet sd2 - Acute Bronchitis, Adult sd2 - General Headache Without Cause sd2 - Hyponatremia sd2 Forms: - Medication Reconciliation Form sd2 - Thank You Letter sd2 - Antibiotic Education sd2 - Prescription Opioid Use sd2 Signatures: Dispatcher [employer] EDWY Brandon Ventura RN RN fu Dunlop, Stephanie, MD MD sd2 Destini Angeles RN RN aa9 Corrections: (The following items were deleted from the chart) 03:48 03:47 Home Meds: [place]; brigitte briggs
[2022-02-21 05:04] VITALS: TEMP 98.4
[2022-02-21 05:20] VITALS: BP 147/93; O2SAT 93
== END 2022-02-21 04:55 | disposition home or self-care (01) ==
LOC: ER 02:43
DX: R51.9 Headache, unspecified (principal); E87.1 Hypo-osmolality and hyponatremia; J40 Bronchitis, not specified as acute or chronic; I10 Essential (primary) hypertension; F41.9 Anxiety disorder, unspecified; E11.9 Type 2 diabetes mellitus without complications
CPT/HCPCS: 85025; 80048; 36415; 96375; 96374; 99284; J2765; J1200; J7030

== ENCOUNTER 2022-05-01 17:56 | Emergency (ER) | payer OTHER ==
--- OUTSIDE RECORDS SUMMARY | 2022-05-01 17:59 | XMS REPORT | Continuity of Care Document ---
:1985 Author Organization [facility] t Address [address] [place] [address] Care Team Providers Name Role Phone GAITANBARRY Castro Primary Care Physician Unavailable CALVIN MEEHAN Attending Clinician Unavailable Calvin Meehan MD Attending Clinician CALVIN MEEHAN Admitting Clinician Unavailable Payers Payer Name Policy Type Policy Number Effective Date Expiration Date S [employer] [employer] [place] [id number] 2021 [employer] 00:00:00 Problems Condition Condition Condition Status Onset Resolution Last Treating Co mments Source Name Details Category Date Date Treatment Clinician Date No known No known Disease Unive rs active active ity of problems problems [facility] Allergies, Adverse Reactions, Alerts Allergy Allergy Status Severity Reaction(s) Onset Inactive Treating Comm ents Source Name Type Date Date Clinician NO KNOWN Drug Active Univers ALLERGIE Class ity of S [facility] Social History Social Habit Start Date Stop Date Quantity Comments Source Exposure to 2022-02-10 2022-02-20 Not sure [facility] SARS-CoV-2 (event) 00:00:00 15:27:00 Medica l Branch Sex Assigned At [birth year] [facility] 00:00:00 00:00:00 Medical Branch Smoking Status Start Date Stop Date Source Tobacco smoking consumption Univ [facility] unknown Branch Medications Ordered Filled Start Stop Current Ordering Indication Dosage Frequency Signature Comments Components Source Medication Medication Date Date Medication? Clinician (SIG) Name Name dexamethaso 2022- No 10mg 10 mg, Uni vers ne sod phos 1-07 01-07 Oral, ity of PF 22:15: 22:12 ONCE, 1 [place] injection 00 :00 dose, On Medica l 10 mg 02/20/22 Branch at 1615, 1 mL benzonatate Yes [id number] 100mg Take 1 Univers 100 mg 02-20 capsule by ity of capsule 00:00: mouth 3 [place] 00 (three) Medical times Branch daily as needed for Cough. albuterol Yes [id number] 2{puff} Inhale 2 Univers 90 -07 Puffs ity of mcg/actuati 00:00: every 4 Jesus Manuel as on inhaler 00 (four) Medical hours as Branch needed for Wheezing or Shortness of Breath. butalbital- Yes [id number] 2{tbl} Take 2 Univers acetaminoph -07 tablets by it y of en-caff 00:00: mouth [place] 50-325-40 00 every 8 Medical mg tablet (eight) Branch hours as needed (headache) for up to 12 doses. predniSONE 2022- Yes [id number] 40mg Take 2 Univers 20 mg 02-20 tablets by ity of tablet 00:00: 05:59 mouth in [place] 00 :00 the Medical morning Branch for [...] blood 2022-02-20 21:25:00 152 mm[Hg] Univer sity [facility] Diastolic blood 2022-02-20 21:25:00 100 mm[Hg] [facility] Heart rate 2022-02-20 21:25:00 95 /min [facility] Body temperature 2022-02-20 21:25:00 37 [place] [facility] Respiratory rate 2022-02-20 21:25:00 20 /min [facility] Body height 2022-02-20 21:25:00 167.6 cm [facility] Body weight 2022-02-20 21:25:00 99.791 kg [facility] BMI 2022-02-20 21:25:00 35.51 kg/m2 [facility] Oxygen saturation in 2022-02-20 21:25:00 95 /min [facility] Arterial blood by [facility] Pulse oximetry Branch Procedures Procedure Date / Time Performed Performing Clinician Sourc e XR CHEST 1 VW 2022-02-20 22:08:40 Calvin Meehan [facility] CONSENT/REFUSAL FOR 2022-02-20 21:19:39 Doctor Unassigned, No Un [facility] DIAGNOSIS AND Name [facility] Branch TREATMENT Encounters Start End Encounter Admission Attending Care Care Encounter Source Date/Time Date/Time Type Type Clinicians Facility Department ID 2022-02-20 2022-02-20 Emergency X MALCOLM [facility] ERT [id number] Univers 15:27:00 16:57:00 CALVIN corona [facility] 2022-02-20 2022-02-20 Emergency PABLITO Meehan [id number] Univers 15:27:00 16:57:00 Calvin CABELLO [id number] [facility] [id number] [facility] [id number] [facility] 084 Branch Results This patient has no known results.
[2022-05-01] MEDS ORDERED: BENZONATATE 100 MG CAP PO ONE (18:22)
[2022-05-01 19:05] LABS: SARS-COV-2 RT PCR NEGATIVE (NEGATIVE)
--- NOTE | 2022-05-01 19:56 | ER ---
Nurse's Notes [facility] Name: Noé Murry Age: 36 yrs Sex: Male : 1985 Arrival Date: 05/01/2022 Time: 18:01 Bed 7 Private MD: Janey Lowery H Diagnosis: Acute upper respiratory infection, unspecified Presentation: 05/01 18:11 Chief complaint: Patient states: Cough, congestion, WALKER, body aches, low grade fever ll1 since . Had to call into work today. His daughter had flu B last week. Coronavirus screen: Vaccine status: Patient reports receiving the 2nd dose of the covid vaccine. Client denies travel out of the [place] in the last 14 days. congestion, cough unrelated to allergies, fatigue, fever, headache, muscle pain, Client presents with at least one sign or symptom that may indicate coronavirus-19. Standard/surgical mask placed on the client. Ebola Screen: Patient denies travel to an Ebola-affected area in the 21 days before illness onset. Resp Distress? No respiratory distress is noted at this time. Initial Sepsis Screen: Does the patient meet any 2 criteria? No. Patient's initial sepsis screen is negative. Does the patient have a suspected source of infection? Yes: Productive cough/pneumonia. Risk Assessment: Do you want to hurt yourself or someone else? Patient reports no desire to harm self or others. Onset of symptoms was April 29, 2022. 18:11 Method Of Arrival: Ambulatory ll1 18:11 Acuity: LUIS MIGUEL 4 ll1 Triage Assessment: 18:13 General: Appears in no apparent distress. Behavior is calm, cooperative, appropriate ll1 for age. Pain: Complains of pain in head Quality of pain is described as aching. EENT: Reports nasal congestion. Neuro: Reports headache. Respiratory: Reports cough that is. Musculoskeletal: Reports body aches. Historical: - Allergies: 18:11 No Known Allergies; ll1 - PMHx: 18:11 Anxiety; diabetes mellitus; High Cholesterol; Hypertension; ll1 - PSHx: 18:11 None; ll1 - Immunization history:: Client reports receiving the 2nd dose of the Covid vaccine. - Social history:: Smoking status: Patient denies any tobacco usage or history of. Assessment: 18:21 General: Appears in no apparent distress. comfortable, Behavior is calm, cooperative, kr3 appropriate for age. Neuro: Level of Consciousness is awake, alert, obeys commands, Oriented to person, place, time, situation. Cardiovascular: Patient's skin is warm and dry. Respiratory: Airway is patent Respiratory effort is even, unlabored, Respiratory pattern is regular, symmetrical. GI: No signs and/or symptoms were reported involving the gastrointestinal system. : No signs and/or symptoms were reported regarding the genitourinary system. EENT: Reports nasal congestion. Derm: No signs and/or symptoms reported regarding the dermatologic system. Musculoskeletal: No signs and/or symptoms reported regarding the musculoskeletal system. Vital Signs: 18:11 BP 135 / 98; Pulse 97; Resp 17; Temp 98.5; Pulse Ox 96% on R/A; Weight 95.25 kg; Height ll1 5 ft. 6 in. ; Pain 7/10; 18:11 Body Mass Index 33.89 (95.25 kg, 167.64 cm) ll1 18:11 Pain Scale: Adult ll1 ED Course: 18:01 Patient arrived in ED. am2 18:01 Janey Lowery DO is Private Physician. am2 18:03 Gutierrez Roy PA is [facility]. la1 18:03 Frankie John MD is Attending Physician. la1 18:11 Arm band placed on Patient placed in an exam room, on a stretcher. ll1 18:13 Triage completed. ll1 18:15 Fozia Jacobs, UGO is Primary Nurse. kr3 18:20 Strep Sent. kr3 18:20 COVID-19/FLU A+B Sent. kr3 Administered Medications: 18:20 Drug: Tessalon Perle PO 200 mg Route: PO; kr3 Outcome: 19:55 Discharge ordered by . cp Signatures: Lazaro Pal, SHED HAND-C SHED HAND-Cla1 Gutierrez Roy PA PA cp Moreno, Amanda am2 Jasbir Trent RN RN ll1 Fozia Jacobs RN RN kr3
--- NOTE | 2022-05-01 19:56 | EDPHYS ---
Physician Documentation [facility] Name: Noé Murry Age: 36 yrs Sex: Male : 1985 Arrival Date: 05/01/2022 Time: 18:01 Bed 7 Private MD: Janey Lowery H ED Physician Frankie John Historical: - Allergies: 05/01 18:11 No Known Allergies; ll1 - PMHx: 18:11 Anxiety; diabetes mellitus; High Cholesterol; Hypertension; ll1 - PSHx: 18:11 None; ll1 - Immunization history:: Client reports receiving the 2nd dose of the Covid vaccine. - Social history:: Smoking status: Patient denies any tobacco usage or history of. Vital Signs: 18:11 BP 135 / 98; Pulse 97; Resp 17; Temp 98.5; Pulse Ox 96% on R/A; Weight 95.25 kg; Height ll1 5 ft. 6 in. ; Pain 7/10; 18:11 Body Mass Index 33.89 (95.25 kg, 167.64 cm) ll1 18:11 Pain Scale: Adult ll1 MDM: 18:04 Patient medically screened. la1 05/01 18:55 Order name: Throat Culture EDMS 05/01 18:14 Order name: Strep; Complete Time: 19:51 cp 05/01 18:14 Order name: COVID-19/FLU A+B; Complete Time: 19:51 cp 05/01 19:51 Interpretation: Reviewed. cp Administered Medications: 18:20 Drug: Tessalon Perle PO 200 mg Route: PO; kr3 Disposition Summary: 05/01/22 19:55 Discharge Ordered Location: Home cp Problem: new cp Symptoms: have improved cp Condition: Stable cp Diagnosis - Acute upper respiratory infection, unspecified cp Followup: cp - With: Private Physician - When: 2 - 3 days - Reason: Worsening of condition Forms: - Medication Reconciliation Form cp - Thank You Letter cp - Antibiotic Education cp - Prescription Opioid Use cp Signatures: Dispatcher [employer] EDMN Lazaro Pal FNP-C MANAGER EMS-Cla1 Gutierrez Roy PA PA cp Jasbir Trent RN RN ll1 Fozia Jacobs RN RN kr3
[2022-05-01 20:52] VITALS: BP 132/96; O2SAT 97
[2022-05-01 21:25] VITALS: TEMP 98.5
== END 2022-05-01 20:18 | disposition home or self-care (01) ==
LOC: ER 17:56
DX: J06.9 Acute upper respiratory infection, unspecified (principal); Z20.822 Contact with and (suspected) exposure to COVID-19; I10 Essential (primary) hypertension
CPT/HCPCS: 87070; 87081; 0240U; 99283

== ENCOUNTER 2022-07-24 11:49 | Emergency (ER) | payer OTHER ==
--- OUTSIDE RECORDS SUMMARY | 2022-07-24 11:53 | XMS REPORT | Continuity of Care Document ---
:1985 Author Organization [facility] t Address [address] [facility]. [address] [place] [address] Care Team Providers Name Role Phone KANDYSUSANMelvinBEN Primary Care Physician Unavailable CALVIN MEEHAN Attending Clinician Unavailable Calvin Meehan MD Attending Clinician CALVIN MEEHAN Admitting Clinician Unavailable Payers Payer Name Policy Type Policy Number Effective Date Expiration Date Leyla [place] [id number] 2021 [employer]OYEE[employer] 00:00:00 Problems Condition Condition Condition Status Onset Resolution Last Treating Co mments Source Name Details Category Date Date Treatment Clinician Date No known No known Disease Unive rs active active ity of problems problems [facility] Allergies, Adverse Reactions, Alerts Allergy Allergy Status Severity Reaction(s) Onset Inactive Treating Comm ents Source Name Type Date Date Clinician NO KNOWN Drug Active Univers ALLERGIE Class ity of S [facility] Social History Social Habit Start Date Stop Date Quantity Comments Source Exposure to 2022-02-10 2022-02-20 Not sure [facility] SARS-CoV-2 (event) 00:00:00 15:27:00 Medica l Branch Sex Assigned At [birth year] [facility] 00:00:00 00:00:00 Medical Branch Smoking Status Start Date Stop Date Source Tobacco smoking consumption Univ [facility] Branch Medications Ordered Filled Start Stop Current Ordering Indication Dosage Frequency Signature Comments Components Source Medication Medication Date Date Medication? Clinician (SIG) Name Name dexamethaso 2022- No 10mg 10 mg, Uni vers ne sod phos 02-20 Oral, ity of PF 22:15: 22:12 ONCE, 1 [place] injection 00 :00 dose, On Medica l 10 mg 02/20/22 Branch at 1615, 1 mL benzonatate Yes [id number] 100mg Take 1 Univers 100 mg 02-20 capsule by ity of capsule 00:00: mouth 3 [place] 00 (three) Medical times Branch daily as needed for Cough. albuterol Yes [id number] 2{puff} Inhale 2 Univers 90 -07 Puffs ity of mcg/actuati 00:00: every 4 Jesus Manuel as on inhaler 00 (four) Medical hours as Branch needed for Wheezing or Shortness of Breath. butalbital- Yes [id number] 2{tbl} Take 2 Univers acetaminoph 07 tablets by it y of en-caff 00:00: mouth [place] 50-325-40 00 every 8 Medical mg tablet (eight) Branch hours as needed (headache) for up to 12 doses. predniSONE 2022- No [id number] 40mg Take 2 Univers 20 mg 02-20 tablets by ity of tablet 00:00: 05:59 mouth in [place] 00 :00 the Medical morning Branch for [...] 2022-02-20 21:25:00 152 mm[Hg] Univer [facility]ity [facility] Diastolic blood 2022-02-20 21:25:00 100 [facility]Hg[facility] 2022-02-20 21:25:00 95 /min Universi [facility] Body temperature 2022-02-20 21:25:00 37 Quita [facility] 2022-02-20 21:25:00 20 /min [facility] Body height 2022-02-20 21:25:00 167.6 cm [facility] acute hospital Body weight 2022-02-20 21:25:00 99.791 kg [facility] acute hospital BMI 2022-02-20 21:25:00 35.51 kg/m2 General acute hospital Oxygen saturation in 2022-02-20 21:25:00 95 /min [facility] Arterial blood by [facility] Pulse oximetry Branch Procedures Procedure Date / Time Performed Performing Clinician Sourc e XR CHEST 1 VW 2022-02-20 22:08:40 Calvin Meehan [facility] acute hospital CONSENT/REFUSAL FOR 2022-02-20 21:19:39 Doctor Unassigned, No Un [facility] DIAGNOSIS AND Name [facility] TREATMENT Encounters Start End Encounter Admission Attending Care Care Encounter Source Date/Time Date/Time Type Type Clinicians Facility Department ID 2022-02-20 2022-02-20 Emergency X ZORAN [facility] ERT [id number] Univers 15:27:00 16:57:00 CALVIN corona [facility] 2022-02-20 2022-02-20 Emergency Zoran [facility] [id number] Univers 15:27:00 16:57:00 Calvin CABELLO [id number] chloe [facility] [id number] [facility] [id number] [facility] 084 Branch Results This patient has no known results.
--- NOTE | 2022-07-24 13:50 | ER ---
Nurse's Notes [facility] Name: Noé Murry Age: 36 yrs Sex: Male : 1985 Arrival Date: 07/24/2022 Time: 11:49 Bed IW4 Private MD: Diagnosis: Dizziness and giddiness;Chest pain, unspecified Presentation: 07/24 12:14 Chief complaint: Patient states: WEAK AND DIZZY SINCE WAKING. Coronavirus screen: At bp this time, the client does not indicate any symptoms associated with coronavirus-19. Ebola Screen: No symptoms or risks identified at this time. Initial Sepsis Screen: Does the patient meet any 2 criteria? No. Patient's initial sepsis screen is negative. Does the patient have a suspected source of infection? No. Patient's initial sepsis screen is negative. Risk Assessment: Do you want to hurt yourself or someone else? Patient reports no desire to harm self or others. Onset of symptoms was July 24, 2022. 12:14 Method Of Arrival: Ambulatory bp 12:14 Acuity: LUIS MIGUEL 3 bp Triage Assessment: 12:15 General: Appears in no apparent distress. Behavior is calm, cooperative, appropriate bp for age. Pain: Denies pain. EENT: No deficits noted. Neuro: Reports dizziness, weakness GENERALIZED. Cardiovascular: No deficits noted. Respiratory: No deficits noted. Historical: - Allergies: 12:15 No Known Allergies; bp - Home Meds: 12:15 alprazolam 2 mg Oral tab 1 tab 3 times per day for Anxiety [Active]; lisinopril 10 mg bp Oral tab 1 tab once daily for Hypertension [Active]; pravastatin 40 mg Oral tab 1 tab once daily [Active]; - PMHx: 12:15 Anxiety; diabetes mellitus; High Cholesterol; Hypertension; bp - Immunization history:: Adult Immunizations up to date. - Social history:: Smoking status: Patient denies any tobacco usage or history of. - Family history:: not pertinent. - Hospitalizations: : No recent hospitalization is reported. Vital Signs: 12:14 BP 146 / 105; Pulse 80; Resp 16; Temp 98; Pulse Ox 96% ; bp ED Course: 11:52 Patient arrived in ED. ts1 12:10 Tono Gonzalez MD is Attending Physician. rn 12:15 Triage completed. bp 12:15 Arm band placed on. bp Administered Medications: No medications were administered Outcome: 13:50 Discharge ordered by . rn 13:56 Patient left the ED. aa5 Signatures: Tono Gonzalez MD MD rn Calderon, Audri, RN RN aa5 Alton Ennis RN RN bp Keyona Clancy, TOMASZ PAS ts1
--- NOTE | 2022-07-24 13:50 | EDPHYS ---
Physician Documentation [facility] Name: Noé Murry Age: 36 yrs Sex: Male : 1985 Arrival Date: 07/24/2022 Time: 11:49 Bed IW4 Private MD: ED Physician Tono Gonzalez HPI: 07/24 12:43 This 36 yrs old Male presents to ER via Ambulatory with complaints of anxiety, rn chest pain, Dizziness. 12:43 The patient or guardian reports chest pain that is located primarily in the anterior rn chest wall, left. The pain does not radiate. Associated signs and symptoms: Pertinent positives: lightheadedness, Pertinent negatives: abdominal pain, cough, palpitations, shortness of breath, syncope, vomiting. The chest pain is described as aching. Duration: The patient or guardian reports a single episode. Modifying factors: The symptoms are alleviated by nothing. the symptoms are aggravated by anxiety. Severity of pain: At its worst the pain was mild in the emergency department the pain has improved. The patient has experienced similar episodes in the past. Pt reports had chest "soreness" earlier that began after feeling lightheaded and dizzy, has had similar episodes in past and blames anxiety. Took his anxiety meds and feels better. No fever. NO cough. No trauma. No syncope. Pt started to get more anxious so came in for evaluation.. Historical: - Allergies: 12:15 No Known Allergies; bp - Home Meds: 12:15 alprazolam 2 mg Oral tab 1 tab 3 times per day for Anxiety [Active]; lisinopril 10 mg bp Oral tab 1 tab once daily for Hypertension [Active]; pravastatin 40 mg Oral tab 1 tab once daily [Active]; - PMHx: 12:15 Anxiety; diabetes mellitus; High Cholesterol; Hypertension; bp - Immunization history:: Adult Immunizations up to date. - Social history:: Smoking status: Patient denies any tobacco usage or history of. - Family history:: not pertinent. - Hospitalizations: : No recent hospitalization is reported. ROS: 12:43 Constitutional: Negative for fever, chills, and weight loss, Eyes: Negative for injury, rn pain, redness, and discharge, Neck: Negative for injury, pain, and swelling, Cardiovascular: Negative for palpitations, and edema, Respiratory: Negative for shortness of breath, cough, wheezing, and pleuritic chest pain, Abdomen/GI: Negative for abdominal pain, nausea, vomiting, diarrhea, and constipation, MS/Extremity: Negative for injury and deformity, Skin: Negative for injury, rash, and discoloration, Neuro: Negative for headache, weakness, numbness, tingling, and seizure. Exam: 12:43 Constitutional: This is a well developed, well nourished patient who is awake, alert, rn and in no acute distress. Ambulatory to room without difficulty or assistance. Head/Face: Normocephalic, atraumatic. Cardiovascular: Regular rate and rhythm. No pulse deficits. Respiratory: No increased work of breathing, no retractions or nasal flaring. Abdomen/GI: soft, non-tender Skin: Warm, dry MS/ Extremity: Pulses equal, no cyanosis. Neuro: Awake and alert, GCS 15, oriented to person, place, time, and situation. Cranial nerves II-XII grossly intact. Motor strength 5/5 in all extremities. Sensory grossly intact. Cerebellar exam normal. Normal gait. Vital Signs: 12:14 BP 146 / 105; Pulse 80; Resp 16; Temp 98; Pulse Ox 96% ; bp MDM: 12:11 Patient medically screened. rn 13:48 Differential diagnosis: acute pericarditis, anxiety, costochondritis, esophagitis, rn gastritis, gastroesophageal reflux disease (GERD), pleurisy. Data reviewed: vital signs, nurses notes. ED course: Pt decided to go to pcp for evaluation, does not want to be further evaluated here,does not want to wait on labs or imaging, feels better, understands risks of leaving without workup. . 07/24 12:29 Order name: EKG; Complete Time: 12:30 rn 07/24 12:29 Order name: Cardiac monitoring rn 07/24 12:29 Order name: EKG - Nurse/Tech rn 07/24 12:29 Order name: IV Saline Lock rn 07/24 12:29 Order name: Labs collected and sent rn 07/24 12:29 Order name: O2 Per Protocol rn 07/24 12:29 Order name: O2 Sat Monitoring rn Administered Medications: No medications were administered Disposition Summary: 07/24/22 13:50 Discharge Ordered Location: Home rn Problem: new rn Symptoms: have improved rn Condition: Stable rn Diagnosis - Dizziness and giddiness rn - Chest pain, unspecified rn Followup: rn - With: Private Physician - When: As needed - Reason: Recheck today's complaints, Re-evaluation by your physician Discharge Instructions: - Discharge Summary Sheet rn - Nonspecific Chest Pain, Adult rn - Dizziness rn - Managing Anxiety, Adult rn Forms: - Medication Reconciliation Form rn - Thank You Letter rn - Antibiotic sports management intern - Prescription Opioid Use rn Signatures: Dispatcher [employer] EDMS Tono Gonzalez MD MD rn Peltier, Brian RN RN bp Corrections: (The following items were deleted from the chart) 12:56 12:29 Chest Single View+[id number].[email or web address] ordered. EDUT EDMS
[2022-07-24 14:49] VITALS: BP 146/105; TEMP 98; O2SAT 96
== END 2022-07-24 13:56 | disposition home or self-care (01) ==
LOC: ER 11:49
DX: R07.89 Other chest pain (principal); I10 Essential (primary) hypertension; E11.9 Type 2 diabetes mellitus without complications; F41.9 Anxiety disorder, unspecified
CPT/HCPCS: 99281

== ENCOUNTER 2022-10-03 11:15 | Emergency (ER) | payer OTHER ==
--- OUTSIDE RECORDS SUMMARY | 2022-10-03 11:18 | XMS REPORT | Continuity of Care Document ---
:1985 Author Organization [facility] t Address [address] [facility]. [address] [place] [address] Care Team Providers Name Role Phone GAITANBARRY Primary Care Physician Unavailable CALVIN MEEHAN Attending Clinician Unavailable Calvin Meehan MD Attending Clinician CALVIN MEEHAN Admitting Clinician Unavailable Payers Payer Name Policy Type Policy Number Effective Date Expiration Date S renzo [place] [id number] 2021 EMPLOYEE-[employer] 00:00:00 Problems Condition Condition Condition Status Onset Resolution Last Treating Co mments Source Name Details Category Date Date Treatment Clinician Date No known No known Disease Unive rs active active ity of problems problems [facility] Allergies, Adverse Reactions, Alerts Allergy Allergy Status Severity Reaction(s) Onset Inactive Treating Comm ents Source Name Type Date Date Clinician NO KNOWN Drug Active Univers ALLERGIE Class ity of S [facility] Social History Social Habit Start Date Stop Date Quantity Comments Source Exposure to 2022-02-10 2022-02-20 Not sure [facility] SARS-CoV-2 (event) 00:00:00 15:27:00 Medica l Branch Sex Assigned At [birth year] [facility] 00:00:00 00:00:00 Medical Branch Smoking Status Start Date Stop Date Source Tobacco smoking consumption Univ [facility] Branch Medications Ordered Filled Start Stop [...] Branch at 1615, 1 mL benzonatate Yes [id number] 100mg Take 1 Univers 100 mg 02-20 capsule by ity of capsule 00:00: mouth 3 [place] 00 (three) Medical times Branch daily as needed for Cough. albuterol Yes [id number] 2{puff} Inhale 2 Univers 90 -07 Puffs ity of mcg/actuati 00:00: every 4 Jesus Manuel as on inhaler 00 (four) Medical hours as Branch needed for Wheezing or Shortness of Breath. butalbital- Yes [id number] 2{tbl} Take 2 Univers acetaminoph 07 tablets by it y of en-caff 00:00: mouth [place] 50-325-40 00 every 8 Medical mg tablet (eight) Branch hours as needed (headache) for up to 12 doses. predniSONE 2022- No [id number] 40mg Take 2 Univers 20 mg 02-20 tablets by ity of tablet 00:00: 05:59 mouth in [place] 00 :00 the Medical morning Branch for [...] blood 2022-02-20 21:25:00 152 mm[Hg] Univer sity [facility] Diastolic blood 2022-02-20 21:25:00 100 mm[Hg] Unive [facility] Heart rate 2022-02-20 21:25:00 95 /min Universi [facility] Body temperature 2022-02-20 21:25:00 37 Quita [facility] Respiratory rate 2022-02-20 21:25:00 20 /min [facility] Body height 2022-02-20 21:25:00 167.6 cm [facility] Body weight 2022-02-20 21:25:00 99.791 kg [facility] BMI 2022-02-20 21:25:00 35.51 kg/m2 [facility] Oxygen saturation in 2022-02-20 21:25:00 95 /min [facility] Arterial blood by [facility] Pulse oximetry Branch Procedures Procedure Date / Time Performed Performing Clinician Sourc e XR CHEST 1 VW 2022-02-20 22:08:40 Calvin Meehan [facility] CONSENT/REFUSAL FOR 2022-02-20 21:19:39 Doctor Unassigned, No Un [facility] DIAGNOSIS AND Name [facility] Branch TREATMENT Encounters Start End Encounter Admission Attending Care Care Encounter Source Date/Time Date/Time Type Type Clinicians Facility Department ID 2022-02-20 2022-02-20 Emergency X [facility] ERT [id number] Univers 15:27:00 16:57:00 CALVIN corona [facility] 2022-02-20 2022-02-20 Emergency BEVERLY Meehan [id number] Univers 15:27:00 16:57:00 Calvin CABELLO [id number] chloe [facility] [id number] [facility] [id number] [facility] 084 Branch Results This patient has no known results.
[2022-10-03] MEDS ORDERED: NA CHLORIDE 0.9% 1,000 ML ONE (12:18)
[2022-10-03] MEDS ORDERED: ONDANSETRON 4 MG/2 ML VIAL ONE (12:18)
[2022-10-03 12:32] LABS: Absolute Lymphocytes (CBC) 1.3 K/uL (0.7-4.9); Hematocrit 48.5 % (39.6-49.0); Lymphocytes % 18.6 % (15.3-44.8); MCV 90.7 fL (80-100); MPV 8.5 fL (7.6-11.3); Platelets 190 thou/uL (152-406); RBC Red Blood Cell Count 5.35 M/uL (4.33-5.43)
[2022-10-03 12:45] LABS: Specific Gravity 1.029 (1.005-1.030); Urine Bilirubin NEGATIVE (Negative); Urine Blood Negative (Negative); Urine Clarity Clear (Clear); Urine Color Light-Yellow (Yellow); Urine Glucose 4+ (Over) (Negative); Urine Protein NEGATIVE (Negative); Urine Urobilinogen Normal (Normal); Urine pH 5.5 (5.0-7.0)
[2022-10-03 12:50] LABS: Albumin 3.9 g/dL (3.4-5.0); Bilirubin Total 0.8 mg/dL (0.2-1.0); Potassium 3.9 mEq/L (3.5-5.1); Protein, Total 8.2 g/dL (6.4-8.2)
--- NOTE | 2022-10-03 13:05 | EDPHYS ---
Physician Documentation [facility] Name: Noé Murry Age: 36 yrs Sex: Male : 1985 Arrival Date: 10/03/2022 Time: 11:15 Bed 2 Private MD: ED Physician Jo Robison HPI: 10/03 11:57 This 36 yrs old Male presents to ER via Ambulatory with complaints of Nausea, sp3 Dizziness, General Weakness. 11:57 36-year-old male with a history of diabetes, hyperlipidemia, hypertension, anxiety now sp3 presents to the ED with chief complaint generalized weakness, muscle cramping and heat exhaustion. Patient states he has been working outside in the heat and is not felt like he has been adequately hydrated. He also stated he was anxious but took his alprazolam prior to coming here. His blood sugars been normal. He denies any headache, neck pain, chest pain, shortness of breath, diarrhea, abdominal pain but does endorse nausea. He also denies fever, known sick contacts, travel history, or any other signs or symptoms on ROS at this time. He denies any urine discoloration but does state his urine output has been lower than "normal".. Historical: - Allergies: 11:32 No Known Allergies; nj1 - PMHx: 11:32 Anxiety; diabetes mellitus; High Cholesterol; Hypertension; nj1 - Immunization history:: Client reports receiving the 2nd dose of the Covid vaccine. - Social history:: Smoking status: Patient denies any tobacco usage or history of. ROS: 11:59 Constitutional: Negative for fever, chills, and weight loss, Eyes: Negative for injury, sp3 pain, redness, and discharge, ENT: Negative for injury, pain, and discharge, Neck: Negative for injury, pain, and swelling, Cardiovascular: Negative for chest pain, palpitations, and edema, Respiratory: Negative for shortness of breath, cough, wheezing, and pleuritic chest pain, Abdomen/GI: Negative for abdominal pain, nausea, vomiting, diarrhea, and constipation, Back: Negative for injury and pain, MS/Extremity: Negative for injury and deformity, Skin: Negative for injury, rash, and discoloration, Neuro: Negative for headache, weakness, numbness, tingling, and seizure, Psych: Negative for depression, anxiety, suicide ideation, homicidal ideation, and hallucinations, Allergy/Immunology: Negative for hives, rash, and allergies, Endocrine: Negative for neck swelling, polydipsia, polyuria, polyphagia, and marked weight changes. 11:59 All other systems are negative. Exam: 11:59 Constitutional: This is a well developed, well nourished patient who is awake, alert, sp3 and in no acute distress. Head/Face: Normocephalic, atraumatic. Eyes: Pupils equal round and reactive to light, extra-ocular motions intact. Lids and lashes normal. Conjunctiva and sclera are non-icteric and not injected. Cornea within normal limits. Periorbital areas with no swelling, redness, or edema. ENT: Nares patent. No nasal discharge, no septal abnormalities noted. External auditory canals are clear. Oropharynx with no redness, swelling, or masses, exudates, or evidence of obstruction, uvula midline. Mucous membranes moist. Neck: Trachea midline, no thyromegaly or masses palpated, and no cervical lymphadenopathy. Supple, full range of motion without nuchal rigidity, or vertebral point tenderness. No Meningismus. Chest/axilla: Normal chest wall appearance and motion. Nontender with no deformity. No lesions are appreciated. Cardiovascular: Regular rate and rhythm with a normal S1 and S2. No gallops, murmurs, or rubs. Normal PMI, no JVD. No pulse deficits. Respiratory: Lungs have equal breath sounds bilaterally, clear to auscultation and percussion. No rales, rhonchi or wheezes noted. No increased work of breathing, no retractions or nasal flaring. Abdomen/GI: Soft, non-tender, with normal bowel sounds. No distension or tympany. No guarding or rebound. No evidence of tenderness throughout. Back: No spinal tenderness. No costovertebral tenderness. Full range of motion. Skin: Warm, dry with normal turgor. Normal color with no rashes, no lesions, and no evidence of cellulitis. Neuro: Awake and alert, GCS 15, oriented to person, place, time, and situation. Cranial nerves II-XII grossly intact. Motor strength 5/5 in all extremities. Sensory grossly intact. Cerebellar exam normal. Normal gait. Psych: Awake, alert, with orientation to person, place and time. Behavior, mood, and affect are within normal limits. 11:59 ECG was reviewed by the Attending Physician. EKG demonstrates normal sinus rhythm at 84 bpm with normal intervals, normal axis, normal QRS, normal axis ST segments without evidence of acute ischemia. Vital Signs: 11:28 BP 139 / 102; Pulse 89; Resp 18; Temp 98.3(O); Pulse Ox 99% on R/A; Weight 95.25 kg; nj1 Height 5 ft. 6 in. ; Pain 10/10; 12:45 BP 131 / 83; Pulse 75; Resp 18; Pulse Ox 99% ; ko1 11:28 Body Mass Index 33.89 (95.25 kg, 167.64 cm) nj1 11:28 Pain Scale: Adult nj1 MDM: 11:43 Patient medically screened. sp3 11:59 Data reviewed: vital signs, nurses notes, lab test result(s), EKG. ED course: sp3 36-year-old male with likely heat exhaustion type symptoms. EKG demonstrates no cardiac abnormality. Will obtain laboratory values, urine analysis and hydrate patient with normal saline administer ondansetron IV for symptomatic treatment. CK levels also pending. If work-up is negative and patient feels better we will safely discharge patient home at that time.. 13:04 ED course: Patient is not feeling dramatically better. He is having urine output. Blood sp3 sugar is 196. Remainder of laboratory findings are nonsignificant and CK level is also normal. Patient is ambulatory and now requesting to go home. We will safely discharge him home with exhaustion precautions and follow-up with PCP.. 10/03 11:43 Order name: CBC with Diff; Complete Time: 13:02 3 10/03 11:43 Order name: CMP; Complete Time: 13:02 sp3 10/03 11:43 Order name: Lipase; Complete Time: 13:02 3 10/03 11:43 Order name: Urinalysis w/ reflexes; Complete Time: 13:02 3 10/03 11:50 Order name: CK; Complete Time: 13:02 3 10/03 11:43 Order name: IV Saline Lock; Complete Time: 12:18 sp3 10/03 11:43 Order name: Labs collected and sent; Complete Time: 12:18 sp3 Administered Medications: 12:00 Drug: NS 0.9% IV 1000 ml Route: IV; Rate: 1 bolus; Site: left antecubital; bp 13:02 Follow up: IV Status: Completed infusion; IV Intake: 1000ml bp 12:18 Drug: Ondansetron IVP 4 mg Route: IVP; Site: left antecubital; bp 13:02 Follow up: Response: No adverse reaction bp Disposition Summary: 10/03/22 13:04 Discharge Ordered Location: Home sp3 Condition: Stable sp3 Diagnosis - Heat exhaustion sp3 Followup: sp3 - With: Private Physician - When: Upon discharge from the Emergency Department - Reason: Continuance of care Discharge Instructions: - Discharge Summary Sheet sp3 - Heat Exhaustion sp3 - Preventing Heat Exhaustion, Adult sp3 Forms: - Medication Reconciliation Form sp3 - Thank You Letter sp3 - Antibiotic Education sp3 - Prescription Opioid Use sp3 - Patient Portal Instructions sp3 - Leadership Thank You Letter sp3 Signatures: Dispatcher [employer] Alton Ariza, UGO RN Jo Wilcox MD MD sp3 Mikayla Sims RN RN nj1
--- NOTE | 2022-10-03 13:05 | ER ---
Nurse's Notes [facility] Name: Noé Murry Age: 36 yrs Sex: Male : 1985 Arrival Date: 10/03/2022 Time: 11:15 Bed 2 Private MD: Diagnosis: Heat exhaustion Presentation: 10/03 11:28 Chief complaint: Patient states: Thinks he may have had head exhaustion on Tuesday while nj1 at work, feeling better until this morning when after eating breakfast got nauseous, vomit and has felt shaky with left sided chest pain. Coronavirus screen: Vaccine status: Patient reports receiving the 2nd dose of the covid vaccine. Ebola Screen: Patient denies travel to an Ebola-affected area in the 21 days before illness onset. Initial Sepsis Screen: Does the patient meet any 2 criteria? No. Patient's initial sepsis screen is negative. Does the patient have a suspected source of infection? No. Patient's initial sepsis screen is negative. Risk Assessment: Do you want to hurt yourself or someone else? Patient reports no desire to harm self or others. Onset of symptoms was October 03, 2022. 11:28 Method Of Arrival: Ambulatory [facility] 11:28 Acuity: LUIS MIGUEL 3 nj1 Historical: - Allergies: 11:32 No Known Allergies; nj1 - PMHx: 11:32 Anxiety; diabetes mellitus; High Cholesterol; Hypertension; nj1 - Immunization history:: Client reports receiving the 2nd dose of the Covid vaccine. - Social history:: Smoking status: Patient denies any tobacco usage or history of. Screenin:45 [facility] ED Fall Risk Assessment (Adult) History of falling in the last 3 months, ko1 including since admission No falls in past 3 months (0 pts) Confusion or Disorientation No (0 pts) Intoxicated or Sedated No (0 pts) Impaired Gait No (0 pts) Mobility Assist Device Used No (0 pt) Altered Elimination No (0 pt) Score/Fall Risk Level 0 - 2 = Low Risk Oriented to surroundings, Maintained a safe environment, Educated pt \T\ family on fall prevention, incl call for assistance when getting out of bed, Assessed \T\ reinforced patient's understanding of fall precautions, Provided non-skid footwear, Hourly rounding (assess needs \T\ fall precautionary measures) done, Used ambulatory aids as needed (educated on \T\ assisted with), Used gait belt as appropriate. Abuse screen: Denies threats or abuse. Denies injuries from another. Nutritional screening: No deficits noted. 12:45 Tuberculosis screening: No symptoms or risk factors identified. ko1 Assessment: 12:00 General: Appears in no apparent distress. uncomfortable, Behavior is cooperative, ko1 appropriate for age, anxious. Pain: Complains of pain in chest. Neuro: Silva Agitation-Sedation Scale (RASS):. Cardiovascular: No deficits noted. Respiratory: No deficits noted. GI: Abdomen is round non-distended. : No deficits noted. EENT: No deficits noted. Derm: No deficits noted. Musculoskeletal: No deficits noted. Vital Signs: 11:28 BP 139 / 102; Pulse 89; Resp 18; Temp 98.3(O); Pulse Ox 99% on R/A; Weight 95.25 kg; nj1 Height 5 ft. 6 in. ; Pain 10/10; 12:45 BP 131 / 83; Pulse 75; Resp 18; Pulse Ox 99% ; ko1 11:28 Body Mass Index 33.89 (95.25 kg, 167.64 cm) nj1 11:28 Pain Scale: Adult [facility] ED Course: 11:17 Patient arrived in ED. ts1 11:22 Jo Robison MD is Attending Physician. sp3 11:31 Triage completed. nj1 11:32 Arm band placed on left wrist. nj1 11:37 Alton Ennis, UGO is Primary Nurse. bp 12:45 Patient has correct armband on for positive identification. Bed in low position. Call ko1 light in reach. Side rails up X 1. Provided Education on: na. Client placed on continuous cardiac and pulse oximetry monitoring. NIBP monitoring applied. court monitor on. Door closed. Noise minimized. Lights dimmed. Warm blanket given. 13:12 No provider procedures requiring assistance completed. IV discontinued, intact, bp bleeding controlled, No redness/swelling at site. Pressure dressing applied. Administered Medications: 12:00 Drug: NS 0.9% IV 1000 ml Route: IV; Rate: 1 bolus; Site: left antecubital; bp 13:02 Follow up: IV Status: Completed infusion; IV Intake: 1000ml bp 12:18 Drug: Ondansetron IVP 4 mg Route: IVP; Site: left antecubital; bp 13:02 Follow up: Response: No adverse reaction bp Medication: 12:47 VIS not applicable for this client. ko1 Intake: 13:02 IV: 1000ml; Total: 1000ml. bp Outcome: 13:04 Discharge ordered by . sp3 13:23 Discharged to home ambulatory, with family. bp 13:23 Condition: stable 13:23 Discharge instructions given to patient, family, Instructed on discharge instructions, follow up and referral plans. Demonstrated understanding of instructions, follow-up care. 13:23 Patient left the ED. bp Signatures: Alton Ennis, RN RN bp Jo Robison MD MD sp3 Shirin Zhou RN RN ko1 Mikayla Sims RN RN nj1 Keyona Clancy PAS PAS ts1 Corrections: (The following items were deleted from the chart) 11:32 11:28 Pulse 89bpm; Resp 18bpm; Pulse Ox 99% RA; Temp 98.3F Oral; 95.25 kg; Height 5 ft. nj1 6 in.; BMI: 33.8; Pain 1010, Adult; nj1 12:46 12:45 Tuberculosis screening: ko1 ko1
[2022-10-03 13:47] VITALS: TEMP 98.3; O2SAT 99
[2022-10-03 13:48] VITALS: BP 131/83
--- NOTE | 2022-10-04 17:59 | EKG ---
Test Date: 2022-10-03 Test Time: 11:36:56 Sales Audit Clerk: JESSICA MEASUREMENT RESULTS: Intervals: Rate: 84 FL: 152 QRSD: 102 QT: 346 QTc: 408 [place]: P: 44 FL: 152 QRS: 59 T: 27 INTERPRETIVE STATEMENTS: Normal sinus rhythm Normal ECG Compared to ECG 09/07/2020 16:13:56 Sinus arrhythmia no longer present Electronically Signed On 10-04-22 17:56:49 CDT by Bharat Knight
== END 2022-10-03 13:23 | disposition home or self-care (01) ==
LOC: ER 11:15
DX: T67.5XXA Heat exhaustion, unspecified, initial encounter (principal); I10 Essential (primary) hypertension; E11.9 Type 2 diabetes mellitus without complications
CPT/HCPCS: 96361; 93005; 85025; 36415; 82550; 81003; 83690; 80053; 96374; 99284; J2405; J7030

== ENCOUNTER 2022-11-28 02:00 | Emergency (ER) | payer OTHER ==
--- OUTSIDE RECORDS SUMMARY | 2022-11-28 02:02 | XMS REPORT | Continuity of Care Document ---
:1985 Author Organization [facility] t Address [address] [place] [address] Care Team Providers Name Role Phone GAITANBARRY Castro Primary Care Physician Unavailable CALVIN MEEHAN Attending Clinician Unavailable Calvin Meehan MD Attending Clinician CALVIN MEEHAN Admitting Clinician Unavailable Payers Payer Name Policy Type Policy Number Effective Date Expiration Date S [place] [id number] 2021 [employer] 00:00:00 Problems Condition Condition Condition Status Onset Resolution Last Treating Co mments Source Name Details Category Date Date Treatment Clinician Date No known No known Disease Unive rs active active ity of problems problems [facility] Allergies, Adverse Reactions, Alerts Allergy Allergy Status Severity Reaction(s) Onset Inactive Treating Comm ents Source Name Type Date Date Clinician NO KNOWN Drug Active Univers ALLERGIE Class ity of S [facility] Social History Social Habit Start Date Stop Date Quantity Comments Source Exposure to 2022-02-10 2022-02-20 Not sure [facility] SARS-CoV-2 (event) 00:00:00 15:27:00 Medica l Branch Sex Assigned At [birth year] [facility] 00:00:00 00:00:00 Medical Branch Smoking Status Start Date Stop Date Source Tobacco smoking consumption [facility] unknown Branch Medications Ordered Filled Start Stop [...] Branch at 1615, 1 mL benzonatate Yes [id number] 100mg Take 1 Univers 100 mg 02-20 capsule by ity of capsule 00:00: mouth 3 [place] 00 (three) Medical times Branch daily as needed for Cough. albuterol Yes [id number] 2{puff} Inhale 2 Univers 90 -07 Puffs ity of mcg/actuati 00:00: every 4 Jesus Manuel as on inhaler 00 (four) Medical hours as Branch needed for Wheezing or Shortness of Breath. butalbital- Yes [id number] 2{tbl} Take 2 Univers acetaminoph -07 tablets by it y of en-caff 00:00: mouth [place] 50-325-40 00 every 8 Medical mg tablet (eight) Branch hours as needed (headache) for up to 12 doses. predniSONE 2022- No [id number] 40mg Take 2 Univers 20 mg 02-20 tablets by ity of tablet 00:00: 05:59 mouth in [place] 00 :00 the Medical morning Branch for [...] blood 2022-02-20 21:25:00 152 mm[Hg] Univer s[facility] Diastolic blood 2022-02-20 21:25:00 100 mm[Hg] [facility] Heart rate 2022-02-20 21:25:00 95 /min [facility] Body temperature 2022-02-20 21:25:00 37 [place] [facility] Respiratory rate 2022-02-20 21:25:00 20 /min [facility] Body height 2022-02-20 21:25:00 167.6 cm [facility] Body weight 2022-02-20 21:25:00 99.791 kg [facility] BMI 2022-02-20 21:25:00 35.51 kg/m2 [facility] Oxygen saturation in 2022-02-20 21:25:00 95 /min [facility] Arterial blood by [facility] Pulse oximetry Branch Procedures Procedure Date / Time Performed Performing Clinician Sourc e XR CHEST 1 VW 2022-02-20 22:08:40 Calvin Meehan [facility] CONSENT/REFUSAL FOR 2022-02-20 21:19:39 Doctor Unassigned, No Un [facility] DIAGNOSIS AND Name [facility] Branch TREATMENT Encounters Start End Encounter Admission Attending Care Care Encounter Source Date/Time Date/Time Type Type Clinicians Facility Department ID 2022-02-20 2022-02-20 Emergency X [facility] ERT [id number] Univers 15:27:00 16:57:00 CALVIN corona [facility] 2022-02-20 2022-02-20 Emergency PABLITO Meehan [id number] Univers 15:27:00 16:57:00 Calvin CABELLO [id number] [facility] [id number] [facility] [id number] [facility] 084 Branch Results This patient has no known results.
--- NOTE | 2022-11-28 02:19 | ER ---
Nurse's Notes [facility] Name: Noé Murry Age: 37 yrs Sex: Male : 1985 Arrival Date: 11/28/2022 Time: 02:00 Bed 6 Private MD: Janey Lowery H Diagnosis: Allergy, unspecified Presentation: 11/28 02:10 Chief complaint: Patient states: hives and itching x3 days, pt was recently seen here as6 for same issue. pt reports he has been taking Benadryl but it has not been helping. pt took Benadryl at 0130. Coronavirus screen: At this time, the client does not indicate any symptoms associated with coronavirus-19. Ebola Screen: No symptoms or risks identified at this time. Initial Sepsis Screen: Does the patient meet any 2 criteria? No. Patient's initial sepsis screen is negative. Does the patient have a suspected source of infection? No. Patient's initial sepsis screen is negative. Risk Assessment: Do you want to hurt yourself or someone else? Patient reports no desire to harm self or others. Onset of symptoms was November 25, 2022. 02:10 Acuity: LUIS MIGUEL 4 as6 02:10 Method Of Arrival: Ambulatory as6 Historical: - Allergies: 02:10 No Known Allergies; as6 - Home Meds: 02:10 alprazolam 2 mg Oral tab 1 tab 3 times per day for Anxiety [Active]; Farxiga 5 mg Oral as6 tablet 1 tab daily [Active]; lisinopril 10 mg Oral tab 1 tab once daily for Hypertension [Active]; - PMHx: 02:10 Anxiety; diabetes mellitus; High Cholesterol; Hypertension; as6 - PSHx: 02:10 None; as6 - Immunization history:: Client reports receiving the 2nd dose of the Covid vaccine. - Social history:: Smoking status: Patient denies any tobacco usage or history of. Screenin:32 [facility] ED Fall Risk Assessment (Adult) History of falling in the last 3 months, cm10 including since admission No falls in past 3 months (0 pts) Confusion or Disorientation No (0 pts) Intoxicated or Sedated No (0 pts) Impaired Gait No (0 pts) Mobility Assist Device Used No (0 pt) Altered Elimination No (0 pt) Score/Fall Risk Level 0 - 2 = Low Risk Oriented to surroundings, Maintained a safe environment, Hourly rounding (assess needs \\T\\ fall precautionary measures) done. Abuse screen: Denies threats or abuse. Denies injuries from another. Nutritional screening: No deficits noted. Tuberculosis screening: No symptoms or risk factors identified. Assessment: 02:30 Reassessment: Pt refusing labs and medications. Pt states, "I came here because I cm10 thought I was going to get something else. The steroids affect my blood sugar.". General: Appears in no apparent distress. comfortable, Behavior is calm, cooperative. Pain: Denies pain. Neuro: No deficits noted. Level of Consciousness is awake, alert, obeys commands, Oriented to person, place, time, situation. Respiratory: No deficits noted. Airway is patent Respiratory effort is even, unlabored, Respiratory pattern is regular, symmetrical. Derm: Rash noted that is urticaria. Musculoskeletal: No deficits noted. No signs and/or symptoms reported regarding the musculoskeletal system. Range of motion: intact in all extremities. Vital Signs: 02:09 BP 156 / 105; Pulse 73; Resp 18 S; Temp 98.1(TE); Pulse Ox 96% on R/A; Weight 95.25 kg as6 (R); Height 5 ft. 6 in. (R); Pain 10/10; 02:09 Body Mass Index 33.89 (95.25 kg, 167.64 cm) as6 02:09 Pain Scale: Adult as6 ED Course: 02:02 Patient arrived in ED. mr 02:02 Janey Lowery DO is Private Physician. mr 02:03 [facility] cp 02:03 Ortega Hagen MD is Attending Physician. cp 02:09 Arm band placed on. as6 02:12 Triage completed. as6 02:32 Patient has correct armband on for positive identification. Provided Education on: Er cm10 process and procedures. . 02:32 No provider procedures requiring assistance completed. Patient did not have IV access cm10 during this emergency room visit. Administered Medications: 02:21 Not Given (Patient Refused): [id number] mg IVP once cp 02:21 Not Given (Patient Refused): [id number] mg IVP once; dilute with 10 mL 0.9% NaCl; cp give over 2 minutes 02:21 Not Given (Patient Refused): ns 0.9% 1000 ml IV at 1 bolus Per protocol; 1000 mL bolus cp 02:30 Not Given (Patient Refused): methylprednisolone sodium [id number] mg IM once cm10 Medication: 02:32 VIS not applicable for this client. cm10 Outcome: 02:19 Discharge ordered by . cp 02:33 Discharged to home ambulatory, with family, cm10 02:33 Condition: good 02:33 Discharge instructions given to patient, Instructed on discharge instructions, follow up and referral plans. Demonstrated understanding of instructions, follow-up care, 02:33 Patient left the ED. cm10 Signatures: Naima Nieto, Reg Reg mr Gutierrez Roy PA PA cp Slawson, Ashby, RN RN as6 Carly Franklin RN RN cm10
--- NOTE | 2022-11-28 02:19 | EDPHYS ---
Physician Documentation [facility] Name: Noé Murry Age: 37 yrs Sex: Male : 1985 Arrival Date: 11/28/2022 Time: 02:00 Bed 6 Private MD: Janey Lowery H ED Physician Ortega Hagen HPI: 11/28 02:10 This 37 yrs old Male presents to ER via Ambulatory with complaints of Hives. cp 02:10 The patient's rash thought to be caused by an unknown cause. cp 02:10 The rash is located on the back, abdomen, right arm and left arm. The rash can be cp described as hives. Onset: The symptoms/episode began/occurred yesterday. Associated signs and symptoms: Pertinent positives: swelling of lips, Pertinent negatives: burning sensation, difficulty breathing, fever, swelling of throat, swelling of tongue. Treatment given at home: Benadryl. 02:10 Patient seen yesterday by me in this ED for allergic reaction and prescribed cp Prednisone, Pepcid and Zyrtec. Patient reports he has not picked up prescriptions from pharmacy. Historical: - Allergies: 02:10 No Known Allergies; as6 - Home Meds: 02:10 alprazolam 2 mg Oral tab 1 tab 3 times per day for Anxiety [Active]; Farxiga 5 mg Oral as6 tablet 1 tab daily [Active]; lisinopril 10 mg Oral tab 1 tab once daily for Hypertension [Active]; - PMHx: 02:10 Anxiety; diabetes mellitus; High Cholesterol; Hypertension; as6 - PSHx: 02:10 None; as6 - Immunization history:: Client reports receiving the 2nd dose of the Covid vaccine. - Social history:: Smoking status: Patient denies any tobacco usage or history of. ROS: 02:12 Constitutional: Negative for body aches, chills, fever, poor PO intake, cp 02:12 Eyes: Negative for injury, pain, redness, and discharge, cp 02:12 ENT: Positive for lower lip swelling, 02:12 Cardiovascular: Negative for chest pain, 02:12 Respiratory: Negative for cough, shortness of breath, wheezing, 02:12 Abdomen/GI: Negative for abdominal pain, vomiting, diarrhea, constipation, 02:12 Skin: Positive for rash, diffusely, 02:12 Neuro: Negative for altered mental status, headache, weakness, 02:12 All other systems are negative, Exam: 02:14 Constitutional: The patient appears in no acute distress, alert, awake, non-toxic, well cp developed, well nourished, 02:14 Head/face: Noted is swelling, that is mild, of the lower lip, cp 02:14 Eyes: Periorbital structures: appear normal, Conjunctiva: normal, no exudate, no injection, Sclera: no appreciated abnormality, Lids and lashes: appear normal, bilaterally, 02:14 ENT: External ear(s): are unremarkable, Nose: is normal, Mouth: Oral mucosa: moist, Posterior pharynx: Airway: no evidence of obstruction, patent, swelling, is not appreciated, erythema, is not appreciated, exudate, is not appreciated, 02:14 Neck: ROM/movement: is normal, is supple, without pain, no range of motions limitations, 02:14 Cardiovascular: Rate: normal, 02:14 Respiratory: the patient does not display signs of respiratory distress, Respirations: normal, no use of accessory muscles, no retractions, labored breathing, is not present, Breath sounds: are clear throughout, no decreased breath sounds, no stridor, no wheezing, 02:14 Abdomen/GI: Inspection: abdomen appears normal, 02:14 Skin: rash a moderate rash is noted, rash can be described as hives, and is diffusely located, Vital Signs: 02:09 BP 156 / 105; Pulse 73; Resp 18 S; Temp 98.1(TE); Pulse Ox 96% on R/A; Weight 95.25 kg as6 (R); Height 5 ft. 6 in. (R); Pain 10/10; 02:09 Body Mass Index 33.89 (95.25 kg, 167.64 cm) as6 02:09 Pain Scale: Adult as6 MDM: 02:06 Patient medically screened. cp 02:18 Data reviewed: vital signs, nurses notes. cp 02:18 Differential diagnosis: anaphylaxis, angioedema. Care significantly affected by the cp following chronic conditions: Diabetes. Counseling: I had a detailed discussion with the patient and/or guardian regarding the historical points, exam findings, and any diagnostic results supporting the discharge/admit diagnosis, to return to the emergency department if symptoms worsen or persist or if there are any questions or concerns that arise at home. Refusal of service: The patient/guardian displays adequate decision making capability and despite a detailed discussion of alternatives, benefits, risks, and consequences refuses: all lab tests, IV medications. Administered Medications: 02:21 Not Given (Patient Refused): [id number] mg IVP once cp 02:21 Not Given (Patient Refused): [id number] mg IVP once; dilute with 10 mL 0.9% NaCl; cp give over 2 minutes 02:21 Not Given (Patient Refused): ns 0.9% 1000 ml IV at 1 bolus Per protocol; 1000 mL bolus cp 02:30 Not Given (Patient Refused): methylprednisolone sodium [id number] mg IM once cm10 Disposition Summary: 11/28/22 02:19 Discharge Ordered Notes: Location: Home cp Problem: an ongoing problem cp Symptoms: are unchanged cp Condition: Stable cp Diagnosis - Allergy, unspecified cp Followup: cp - With: Private Physician - When: 1 - 2 days - Reason: Recheck today's complaints Discharge Instructions: - Discharge Summary Sheet cp - Allergies, Adult cp - Hives cp Forms: - Medication Reconciliation Form cp - Thank You Letter cp - Antibiotic Education cp - Prescription Opioid Use cp - Patient Portal Instructions cp - Leadership Thank You Letter cp Signatures: Dispatcher [employer] EDMS Gutierrez Roy PA PA cp Ulysses Mcmahon RN RN as6 Carly Franklin RN cm10 Corrections: (The following items were deleted from the chart) 02:21 02:15 IV Saline Lock ordered. cp cp
[2022-11-28 03:01] VITALS: BP 156/105; TEMP 98.1; O2SAT 96
== END 2022-11-28 02:33 | disposition home or self-care (01) ==
LOC: ER 02:00
DX: R21 Rash and other nonspecific skin eruption (principal); Z91.09 Other allergy status, other than to drugs and biological substances; E11.9 Type 2 diabetes mellitus without complications; I10 Essential (primary) hypertension
CPT/HCPCS: 99282

== ENCOUNTER 2023-01-19 23:25 | Emergency (ER) | payer OTHER ==
--- OUTSIDE RECORDS SUMMARY | 2023-01-19 23:27 | XMS REPORT | Continuity of Care Document ---
Author Name Unknown Address [address] [facility] [address] [place] [address] [facility] thconnect Address [address] [facility] [address] [place] [address] Care Team Providers Care Carpenter Foreman Name Role Phone Janey Lowery Primary Care Physician [phone] NOÉ ESCOBAR Attending Clinician Unavailable Noé Escobar DO Attending Clinician [phone] CALVIN FOWLER Attending Clinician Calvin Hardin MD Attending Clinician CALVIN FOWLER Admitting Clinician Denisse pelletier Payers Payer Name Policy Type Policy Number Effective Date Expirati on Date Source [facility] [id number] 2022 00:00:00 [employer] [id number] 2021 00:00:00 Problems Condition Name Condition Details Condition Category Status Onset Date Resolution Date Last Treatment Date Treating Clinician Comments Source No known active problems No known active problems Disease [facility] Allergies, Adverse Reactions, Alerts Allergy Name Allergy Type Status Severity Reaction(s) Onset Date Inactive Date Treating Clinician Comments Source NO KNOWN ALLERGIE S Drug Class Active [facility] Social History Social Habit Start Date Stop Date Quantity Comments Source Sexual orientation U [facility] Exposure to SARS-CoV-2 (event) 2022-02-10 00:00:00 2022-02-20 15:27:00 Not sure [facility] Sex Assigned At 1985 00:00:00 1985 00:00:00 [facility] Smoking Status Start Date Stop Date Source Tobacco smoking consumption unknown [facility] Medications Ordered Medication Name Filled Medication Name Start Date Stop Date Current Medication? Ordering Clinician Indication Dosage Frequency Signature (SIG) Comments Components Source famotidine (PEPCID AC) tablet 20 mg 2022-02 08:45: 00 11-28 08:49 :00 No 20mg 20 mg, Oral, ONCE, 1 dose, On 11/28/22 at 0345, STAN [facility] famotidine 10 mg tablet 2022-02 00:00: 00 Yes [id number] 10mg Take 1 tablet by mouth in the morning and 1 tablet in the evening. [facility] dexamethaso ne sod phos PF injection 10 mg 02-20 22:15: 00 02-20 22:12 :00 No 10mg 10 mg, Oral, ONCE, 1 dose, On 02/20/22 at 1615, 1 mL [facility] benzonatate 100 mg capsule 02-20 00:00: 00 Yes [id number] 100mg Take 1 capsule by mouth 3 (three) times daily as needed for Cough. [facility] albuterol 90 mcg/actuati on inhaler 02-20 00:00: 00 Yes [id number] 2{puff} Inhale 2 Puffs every 4 (four) hours as needed for Wheezing or Shortness of Breath. [facility] butalbital- acetaminoph en-caff 50-325-40 mg tablet 02-20 00:00: 00 Yes [id number] 2{tbl} Take 2 tablets by mouth every 8 (eight) hours as needed (headache) for up to 12 doses. [facility] benzonatate 100 mg capsule 02-20 00:00: 00 Yes [id number] 100mg Take 1 capsule by mouth 3 (three) times daily as needed for Cough. [facility] albuterol 90 mcg/actuati on inhaler 02-20 00:00: 00 Yes [id number] 2{puff} Inhale 2 Puffs every 4 (four) hours as needed for Wheezing or Shortness of Breath. [facility] butalbital- acetaminoph en-caff 50-325-40 mg tablet 02-20 00:00: 00 Yes [id number] 2{tbl} Take 2 tablets by mouth every 8 (eight) hours as needed (headache) for up to 12 doses. [facility] predniSONE 20 mg tablet 02-20 00:00: 00 02-25 05:59 :00 No [id number] 40mg Take 2 tablets by mouth in the morning for 4 days. [facility] azithromyci n 250 mg tablet 08-10 00:00: 00 Yes 250mg Take 1 tablet by mouth SEE-INSTRU CTIONS. Take 500 mg day 1, then 250 mg days 2 to 5. [facility] azithromyci n 250 mg tablet 08-10 00:00: 00 Yes 250mg Take 1 tablet by mouth SEE-INSTRU CTIONS. Take 500 mg day 1, then 250 mg days 2 to 5. [facility] benzonatate 100 mg capsule 08-10 00:00: 00 02-20 00:00 :00 No 100mg Take 1 capsule by mouth 3 (three) times daily as needed for Cough. [facility] Vital Signs Vital Name Observation Time Observation Value Comments S gamalyared Systolic blood pressure 2022-11-28 08:32:00 156 mm[Hg] [facility] Diastolic blood pressure 2022-11-28 08:32:00 124 mm[Hg] [facility] Body temperature 2022-11-28 08:32:00 37.22 [place] [facility] Heart rate 2022-11-28 08:28:00 78 /min [facility] Respiratory rate 2022-11-28 08:28:00 18 /min [facility] Body height 2022-11-28 08:28:00 167.6 cm [facility] Body weight 2022-11-28 08:28:00 95.255 kg [facility] BMI 2022-11-28 08:28:00 33.89 kg/m2 [facility] Oxygen saturation in Arterial blood by Pulse oximetry 2022-11-28 08:28:00 100 /min [facility] Systolic blood pressure 2022-02-20 21:25:00 152 mm[Hg] [facility] Diastolic blood pressure 2022-02-20 21:25:00 100 mm[Hg] [facility] Heart rate 2022-02-20 21:25:00 95 /min [facility] Body temperature 2022-02-20 21:25:00 37 [place] [facility] Respiratory rate 2022-02-20 21:25:00 20 /min [facility] Body height 2022-02-20 21:25:00 167.6 cm [facility] Body weight 2022-02-20 21:25:00 99.791 kg [facility] BMI 2022-02-20 21:25:00 35.51 kg/m2 [facility] Oxygen saturation in Arterial blood by Pulse oximetry 2022-02-20 21:25:00 95 /min [facility] Procedures Procedure Date / Time Performed Performing Clinicia n Source CONSENT/REFUSAL FOR DIAGNOSIS AND TREATMENT 2022-11-28 08:04:04 Doctor Unassigned, [place] [facility] XR CHEST 1 VW 2022-02-20 22:08:40 MorricalCalvin [facility] CONSENT/REFUSAL FOR DIAGNOSIS AND TREATMENT 2022-02-20 21:19:39 Doctor Unassigned, [place] [facility] Encounters Start Date/Time End Date/Time Encounter Type Admission Type Attending Clinicians Care Facility Care Department Encounter ID Source 2022-11-28 03:31:00 2022-11-28 04:06:00 Emergency X [facility] ERT [id number] [facility] 2022-11-28 03:31:00 2022-11-28 04:06:00 Emergency Noé Escobar [facility] [id number] [facility] 2022-02-20 15:27:00 2022-02-20 16:57:00 Emergency X CALVIN FOWLER KSRONA ERT [id number] [facility] 2022-02-20 15:27:00 2022-02-20 16:57:00 Emergency Calvin Fowler [facility] [id number] [facility]
--- NOTE | 2023-01-20 00:18 | EDPHYS ---
Physician Documentation [facility] Name: Noé Murry Age: 37 yrs Sex: Male : 1985 Arrival Date: 01/19/2023 Time: 23:25 Bed IW3 Private MD: ED Physician Ortega Hagen HPI: 01/20 00:06 This 37 yrs old Male presents to ER via Ambulatory with complaints of TINGLING sp4 IN EXT, Dizziness. 00:19 37-year-old male presents with right arm digits 4 and 5 numbness and tingling . Patient sp4 presents with discomfort in the right, sudden onset in the past 3 days. Historical: - Allergies: 01/19 23:47 No Known Allergies; kl - Home Meds: 23:47 Farxiga 5 mg Oral tablet 1 tab daily [Active]; lisinopril 10 mg Oral tab 1 tab once kl daily for Hypertension [Active]; alprazolam 2 mg Oral tab 1 tab 3 times per day for Anxiety [Active]; - PMHx: 23:47 Anxiety; diabetes mellitus; High Cholesterol; Hypertension; kl - PSHx: 23:47 None; kl - Immunization history:: Adult Immunizations not immunized. - Social history:: Smoking status: Patient denies any tobacco usage or history of. - Family history:: not pertinent. ROS: 01/20 00:19 Constitutional: Negative for fever, chills, and weight loss, Neuro: Negative for sp4 headache, weakness, tingling, and seizure, positive numbness and tingling in the digits 4 and 5 of the right hand All other systems are negative, Exam: 00:19 Constitutional: This is a well developed, well nourished patient who is awake, alert, sp4 and in no acute distress. Head/Face: Normocephalic, atraumatic. Eyes: Pupils equal round and reactive to light, extra-ocular motions intact. Lids and lashes normal. Conjunctiva and sclera are not injected. Cornea within normal limits. Periorbital areas with no swelling, redness, or edema. ENT: Nares patent. No nasal discharge, no septal abnormalities noted. Tympanic membranes are normal and external auditory canals are clear. Oropharynx with no redness, swelling, or masses, exudates, or evidence of obstruction, uvula midline. Mucous membranes moist. Neck: Trachea midline, no thyromegaly or masses palpated, and no cervical lymphadenopathy. Supple, full range of motion without nuchal rigidity, or vertebral point tenderness. Chest/axilla: Normal chest wall appearance and motion. Nontender with no deformity. No lesions are appreciated. Cardiovascular: Regular rate and rhythm with a normal S1 and S2. No gallops, murmurs, or rubs. Normal PMI, no JVD. No pulse deficits. Respiratory: Lungs have equal breath sounds bilaterally, clear to auscultation and percussion. No rales, rhonchi or wheezes noted. No increased work of breathing, no retractions or nasal flaring. Abdomen/GI: Soft, non-tender, with normal bowel sounds. No distension or tympany. No guarding or rebound. No evidence of tenderness throughout. Back: No spinal tenderness. No costovertebral tenderness. Skin: Warm, dry with normal turgor. Normal color with no rashes, no lesions, and no evidence of cellulitis. MS/ Extremity: Pulses equal, no cyanosis. Neurovascular intact. Full, normal range of motion. Neuro: Awake and alert, GCS 15, oriented to person, place, time, and situation. Cranial nerves II-XII grossly intact. Motor strength 5/5 in all extremities. Sensory grossly intact. Psych: Awake, alert, with orientation to person, place and time. Behavior, mood, and affect are within normal limits Vital Signs: 01/19 23:44 BP 146 / 96; Pulse 85; Resp 16; Temp 98.1(O); Pulse Ox 97% on R/A; Weight 95.25 kg (R); kl Height 5 ft. 6 in. ; Pain 0/10; 23:44 Body Mass Index 33.89 (95.25 kg, 167.64 cm) kl 23:44 Pain Scale: Adult kl MDM: 23:55 Patient medically screened. sp4 01/20 00:19 Differential diagnosis: head injury, syncope, vertigo. Data reviewed: vital signs, sp4 nurses notes, old medical records. ED course: Patient has signs of right arm ulnar neuropathy, patient was explained that this is unpleasant but not dangerous . Administered Medications: No medications were administered Disposition Summary: 01/20/23 00:18 Discharge Ordered Notes: Location: Home sp4 Problem: new sp4 Symptoms: have improved sp4 Condition: Stable sp4 Diagnosis - Acute right arm ulnar neuropathy sp4 Followup: sp4 - With: Private Physician - When: 1 - 2 days - Reason: Recheck today's complaints Discharge Instructions: - Discharge Summary Sheet sp4 - Ulnar Nerve Contusion sp4 Forms: - Patient Portal Instructions sp4 Signatures: Katie Trent RN RN kl Potepalov, Sergey, MD MD sp4
--- NOTE | 2023-01-20 00:18 | ER ---
Nurse's Notes [facility] Name: Noé Murry Age: 37 yrs Sex: Male : 1985 Arrival Date: 01/19/2023 Time: 23:25 Bed IW3 Private MD: Diagnosis: Acute right arm ulnar neuropathy Presentation: 01/19 23:44 Chief complaint: Patient states: NUMBNESS AND TINGLING TO RIGHT 4TH AND FIFTH FINGER kl AFTER WORKING ON [employer] Y HAS APPT WITH MD IN AM. Coronavirus screen: Vaccine status: Patient reports receiving the 2nd dose of the covid vaccine. Ebola Screen: Patient negative for fever greater than or equal to 101.5 degrees Fahrenheit, and additional compatible Ebola Virus Disease symptoms. Initial Sepsis Screen: Does the patient meet any 2 criteria? No. Patient's initial sepsis screen is negative. Does the patient have a suspected source of infection? No. Patient's initial sepsis screen is negative. Risk Assessment: Do you want to hurt yourself or someone else? Patient reports no desire to harm self or others. 23:44 Method Of Arrival: Ambulatory kl 23:44 Acuity: LUIS MIGUEL 4 kl Triage Assessment: 23:48 General: Appears in no apparent distress. comfortable, Behavior is calm, cooperative. kl Pain: Denies pain. Historical: - Allergies: 23:47 No Known Allergies; kl - Home Meds: 23:47 Farxiga 5 mg Oral tablet 1 tab daily [Active]; lisinopril 10 mg Oral tab 1 tab once kl daily for Hypertension [Active]; alprazolam 2 mg Oral tab 1 tab 3 times per day for Anxiety [Active]; - PMHx: 23:47 Anxiety; diabetes mellitus; High Cholesterol; Hypertension; kl - PSHx: 23:47 None; kl - Immunization history:: Adult Immunizations not immunized. - Social history:: Smoking status: Patient denies any tobacco usage or history of. - Family history:: not pertinent. Screenin/07 00:25 [facility] ED Fall Risk Assessment (Adult) History of falling in the last 3 months, kl including since admission No falls in past 3 months (0 pts) Confusion or Disorientation No (0 pts) Intoxicated or Sedated No (0 pts) Impaired Gait No (0 pts) Mobility Assist Device Used No (0 pt) Altered Elimination No (0 pt) Score/Fall Risk Level 0 - 2 = Low Risk Oriented to surroundings, Maintained a safe environment. Abuse screen: Denies threats or abuse. Nutritional screening: No deficits noted. Tuberculosis screening: No symptoms or risk factors identified. Assessment: 00:25 Reassessment: Patient appears in no apparent distress at this time. Patient states kl symptoms have not improved. Vital Signs: 01/19 23:44 BP 146 / 96; Pulse 85; Resp 16; Temp 98.1(O); Pulse Ox 97% on R/A; Weight 95.25 kg (R); kl Height 5 ft. 6 in. ; Pain 0/10; 23:44 Body Mass Index 33.89 (95.25 kg, 167.64 cm) 23:44 Pain Scale: Adult ED Course: 23:36 Patient arrived in ED. jj6 23:47 Triage completed. 23:55 Ortega Hagen MD is Attending Physician. sp4 01/20 00:25 Patient has correct armband on for positive identification. 00:25 No provider procedures requiring assistance completed. Patient did not have IV access kl during this emergency room visit. Administered Medications: No medications were administered Medication: 00:25 VIS not applicable for this client. Outcome: 00:18 Discharge ordered by . sp4 00:25 Discharged to home ambulatory, 00:25 Condition: unchanged 00:25 Discharge instructions given to patient, Instructed on discharge instructions, follow up and referral plans. Demonstrated understanding of instructions, follow-up care, 00:26 Patient left the ED. Signatures: Katie Trent RN RN Matilda Garza j Ortega Hagen MD MD sp4
[2023-01-20 01:27] VITALS: BP 146/96; TEMP 98.1; O2SAT 97
== END 2023-01-20 00:26 | disposition home or self-care (01) ==
LOC: ER 23:25
DX: G56.21 Lesion of ulnar nerve, right upper limb (principal); E11.9 Type 2 diabetes mellitus without complications; I10 Essential (primary) hypertension
CPT/HCPCS: 99282

== ENCOUNTER → 2023-03-02 | Emergency (ER) | payer OTHER ==
[~2023-03-02] MED LIST: ASPIRIN 81 MG CHEWABLE TABLET ONE
--- OUTSIDE RECORDS SUMMARY | 2023-03-02 14:34 | XMS REPORT | Continuity of Care Document ---
Author Name Unknown Address [address] [facility] [address] [place] [address] [facility] thconnect Address [address] [facility] [address] [place] [address] Care Team Providers Care Conventions Reservationist Name Role Phone Janey Lowery Primary Care Physician [phone] NOÉ ESCOBAR Attending Clinician Unavailable Noé Escobar DO Attending Clinician [phone] CALVIN FOWLER Attending Clinician Calvin Hardin MD Attending Clinician CALVIN FOWLER Admitting Clinician Denisse pelletier Payers Payer Name Policy Type Policy Number Effective Date Expirati on Date Source [facility] [id number] 2022 00:00:00 [employer] [facility] [id number] 2021 00:00:00 Problems Condition Name Condition Details Condition Category Status Onset Date Resolution Date Last Treatment Date Treating Clinician Comments Source No known active problems No known active problems Disease [facility] Allergies, Adverse Reactions, Alerts Allergy Name Allergy Type Status Severity Reaction(s) Onset Date Inactive Date Treating Clinician Comments Source NO KNOWN ALLERGIE S Drug Class Active [facility] Social History Social Habit Start Date Stop Date Quantity Comments Source Sexual orientation U [facility] Exposure to SARS-CoV-2 (event) 2022-02-10 00:00:00 2022-02-20 15:27:00 Not sure [facility] Sex Assigned At 1985 00:00:00 1985 00:00:00 [facility] Smoking Status Start Date Stop Date Source Tobacco smoking consumption unknown [facility] Medications Ordered Medication Name Filled Medication Name Start Date Stop Date Current Medication? Ordering Clinician Indication Dosage Frequency Signature (SIG) Comments Components Source famotidine (PEPCID AC) tablet 20 mg 2022-02 08:45: 00 11-28 08:49 :00 No 20mg 20 mg, Oral, ONCE, 1 dose, On 11/28/22 at 0345, STAN [facility] famotidine 10 mg tablet 2022-02 00:00: 00 Yes [id number] 10mg Take 1 tablet by mouth in the morning and 1 tablet in the evening. [facility] dexamethaso ne sod phos PF injection 10 mg 02-20 22:15: 00 02-20 22:12 :00 No 10mg 10 mg, Oral, ONCE, 1 dose, On 02/20/22 at 1615, 1 mL [facility] benzonatate 100 mg capsule 02-20 00:00: 00 Yes [id number] 100mg Take 1 capsule by mouth 3 (three) times daily as needed for Cough. [facility] albuterol 90 mcg/actuati on inhaler 02-20 00:00: 00 Yes [id number] 2{puff} Inhale 2 Puffs every 4 (four) hours as needed for Wheezing or Shortness of Breath. [facility] butalbital- acetaminoph en-caff 50-325-40 mg tablet 02-20 00:00: 00 Yes [id number] 2{tbl} Take 2 tablets by mouth every 8 (eight) hours as needed (headache) for up to 12 doses. [facility] benzonatate 100 mg capsule 02-20 00:00: 00 Yes [id number] 100mg Take 1 capsule by mouth 3 (three) times daily as needed for Cough. [facility] albuterol 90 mcg/actuati on inhaler 02-20 00:00: 00 Yes [id number] 2{puff} Inhale 2 Puffs every 4 (four) hours as needed for Wheezing or Shortness of Breath. [facility] butalbital- acetaminoph en-caff 50-325-40 mg tablet 02-20 00:00: 00 Yes [id number] 2{tbl} Take 2 tablets by mouth every 8 (eight) hours as needed (headache) for up to 12 doses. [facility] predniSONE 20 mg tablet 02-20 00:00: 00 02-25 05:59 :00 No [id number] 40mg Take 2 tablets by mouth in the morning for 4 days. [facility] azithromyci n 250 mg tablet 08-10 00:00: 00 Yes 250mg Take 1 tablet by mouth SEE-INSTRU CTIONS. Take 500 mg day 1, then 250 mg days 2 to 5. [facility] azithromyci n 250 mg tablet 08-10 00:00: 00 Yes 250mg Take 1 tablet by mouth SEE-INSTRU CTIONS. Take 500 mg day 1, then 250 mg days 2 to 5. [facility] benzonatate 100 mg capsule 08-10 00:00: 00 02-20 00:00 :00 No 100mg Take 1 capsule by mouth 3 (three) times daily as needed for Cough. [facility] Vital Signs Vital Name Observation Time Observation Value Comments S gamalyared Systolic blood pressure 2022-11-28 08:32:00 156 mm[Hg] [facility] Diastolic blood pressure 2022-11-28 08:32:00 124 mm[Hg] [facility] Body temperature 2022-11-28 08:32:00 37.22 [place] [facility] Heart rate 2022-11-28 08:28:00 78 /min [facility] Respiratory rate 2022-11-28 08:28:00 18 /min [facility] Body height 2022-11-28 08:28:00 167.6 cm [facility] Body weight 2022-11-28 08:28:00 95.255 kg [facility] BMI 2022-11-28 08:28:00 33.89 kg/m2 [facility] Oxygen saturation in Arterial blood by Pulse oximetry 2022-11-28 08:28:00 100 /min [facility] Systolic blood pressure 2022-02-20 21:25:00 152 mm[Hg] [facility] Diastolic blood pressure 2022-02-20 21:25:00 100 mm[Hg] [facility] Heart rate 2022-02-20 21:25:00 95 /min [facility] Body temperature 2022-02-20 21:25:00 37 [place] [facility] Respiratory rate 2022-02-20 21:25:00 20 /min [facility] Body height 2022-02-20 21:25:00 167.6 cm [facility] Body weight 2022-02-20 21:25:00 99.791 kg [facility] BMI 2022-02-20 21:25:00 35.51 kg/m2 [facility] Oxygen saturation in Arterial blood by Pulse oximetry 2022-02-20 21:25:00 95 /min [facility] Procedures Procedure Date / Time Performed Performing Clinicia n Source CONSENT/REFUSAL FOR DIAGNOSIS AND TREATMENT 2022-11-28 08:04:04 Doctor Unassigned, [place] [facility] XR CHEST 1 VW 2022-02-20 22:08:40 MorricalCalvin [facility] CONSENT/REFUSAL FOR DIAGNOSIS AND TREATMENT 2022-02-20 21:19:39 Doctor Unassigned, [place] [facility] Encounters Start Date/Time End Date/Time Encounter Type Admission Type Attending Clinicians Care Facility Care Department Encounter ID Source 2022-11-28 03:31:00 2022-11-28 04:06:00 Emergency X NOÉ ESCOBAR [facility] ERT [id number] [facility] 2022-11-28 03:31:00 2022-11-28 04:06:00 Emergency Noé Escboar [facility] [id number] [facility] 2022-02-20 15:27:00 2022-02-20 16:57:00 Emergency X CALVIN FOWLER NYRONA ERT [id number] [facility] 2022-02-20 15:27:00 2022-02-20 16:57:00 Emergency Calvin Fowler [facility] [id number] [facility]
--- NOTE | 2023-03-02 15:28 | RAD REPORT ---
EXAM DESCRIPTION: RAD - Chest Single View - 03/02/2023 3:08 pm CLINICAL HISTORY: CHEST PAIN Chest pain. COMPARISON: Chest Pa And Lat (2 Views) dated 02/18/2022; Chest Single View dated 11/08/2020; Chest Pa A nd Lat (2 Views) dated 04/05/2018; Chest Single View dated 10/31/2016 FINDINGS: Portable technique limits examination quality. The lungs are grossly clear. The heart is normal in size. No displaced fractures. IMPRESSION: No acute intrathoracic process suspected.
[2023-03-02 15:41] LABS: Absolute Lymphocytes (CBC) 1.4 K/uL (0.7-4.9); Hematocrit 48.6 % (39.6-49.0); Lymphocytes % 21.3 % (15.3-44.8); MCV 91.2 fL (80-100); MPV 8.4 fL (7.6-11.3); Platelets 230 thou/uL (152-406); RBC Red Blood Cell Count 5.33 M/uL (4.33-5.43)
[2023-03-02 16:00] LABS: Albumin 4.1 g/dL (3.4-5.0); Bilirubin Direct 0.1 mg/dL (0-0.2); Bilirubin Indirect, Calculated 0.3 mg/dL (0.2-0.8); Bilirubin Total 0.4 mg/dL (0.2-1.0); Protein, Total 8.3 g/dL (6.4-8.2); Troponin High Sensitivity 20.9 pg/mL (<58.9)
[2023-03-02 16:01] LABS: Magnesium 2.2 mg/dL (1.6-2.4); Potassium 4.1 mEq/L (3.5-5.1)
--- NOTE | 2023-03-02 18:03 | ER ---
Nurse's Notes [facility] Name: Noé Murry Age: 37 yrs Sex: Male : 1985 Arrival Date: 03/02/2023 Time: 14:33 Bed 16 Private MD: Diagnosis: Chest pain, unspecified Presentation: 03/02 14:40 Chief complaint: Patient states: Chest pain to center of chest onset this morning at cm10 0800. Pt states that the pain does not radiate. Pt describes the pain as sharp. Pt also reports shortness of breath. Coronavirus screen: Vaccine status: Patient reports receiving the 2nd dose of the covid vaccine. Client denies travel out of the [place] in the last 14 days. Ebola Screen: Patient denies travel to an Ebola-affected area in the 21 days before illness onset. No symptoms or risks identified at this time. Initial Sepsis Screen: Does the patient meet any 2 criteria? No. Patient's initial sepsis screen is negative. Does the patient have a suspected source of infection? No. Patient's initial sepsis screen is negative. Risk Assessment: Do you want to hurt yourself or someone else? Patient reports no desire to harm self or others. Onset of symptoms was March 02, 2023. 14:40 Method Of Arrival: Ambulatory cm10 14:40 Acuity: LUIS MIGUEL 2 cm10 Triage Assessment: 14:42 General: Appears in no apparent distress. comfortable, Behavior is calm, cooperative. cm10 Pain: Complains of pain in mid-sternal area Pain does not radiate. Pain currently is 10 out of 10 on a pain scale. Quality of pain is described as sharp, Pain began 0800 Also complains of shortness of breath. EENT: No deficits noted. No signs and/or symptoms were reported regarding the EENT system. Neuro: No deficits noted. Level of Consciousness is awake, alert, obeys commands, Oriented to person, place, time, situation. Cardiovascular: No deficits noted. Reports chest pain, shortness of breath, since This morning Patient's skin is warm and dry. Chest pain is described as Pain is 10 out of 10 on a pain scale. quality is sharp, is located in substernal area. Respiratory: No deficits noted. Airway is patent Respiratory effort is even, unlabored, Respiratory pattern is regular, symmetrical. GI: No deficits noted. No signs and/or symptoms were reported involving the gastrointestinal system. : No deficits noted. No signs and/or symptoms were reported regarding the genitourinary system. Derm: No deficits noted. No signs and/or symptoms reported regarding the dermatologic system. Skin is intact, Skin is pink, warm \T\ dry. Musculoskeletal: No deficits noted. No signs and/or symptoms reported regarding the musculoskeletal system. Range of motion: intact in all extremities. Historical: - Allergies: 14:42 No Known Allergies; cm10 - Home Meds: 14:42 Farxiga 5 mg Oral tablet 1 tab daily [Active]; lisinopril 10 mg Oral tab 1 tab once cm10 daily for Hypertension [Active]; alprazolam 2 mg Oral tab 1 tab 3 times per day for Anxiety [Active]; - PMHx: 14:42 Anxiety; diabetes mellitus; High Cholesterol; Hypertension; cm10 - PSHx: 14:42 None; cm10 - Immunization history:: Adult Immunizations up to date. - Social history:: Smoking status: Patient denies any tobacco usage or history of. Screenin:31 [facility] ED Fall Risk Assessment (Adult) History of falling in the last 3 months, ld1 including since admission No falls in past 3 months (0 pts). Abuse screen: Denies threats or abuse. Denies injuries from another. Nutritional screening: No deficits noted. Tuberculosis screening: No symptoms or risk factors identified. Assessment: 15:31 General: Appears in no apparent distress. uncomfortable, Behavior is calm, cooperative, ld1 appropriate for age. Pain: Complains of pain in chest and mid-sternal area Pain does not radiate. Pain currently is 9 out of 10 on a pain scale. Quality of pain is described as throbbing, Pain began suddenly, Is continuous. Neuro: Level of Consciousness is awake, alert, obeys commands, Oriented to person, place, time, situation. Cardiovascular: Capillary refill < 3 seconds Patient's skin is warm and dry. Rhythm is sinus rhythm. Respiratory: Airway is patent Respiratory effort is even, unlabored. GI: Abdomen is round non-distended. : No signs and/or symptoms were reported regarding the genitourinary system. EENT: No signs and/or symptoms were reported regarding the EENT system. Derm: No signs and/or symptoms reported regarding the dermatologic system. Musculoskeletal: Reports pain in chest and mid-sternal area. Vital Signs: 14:40 BP 135 / 88; Pulse 97; Resp 18; Temp 97.9(TE); Pulse Ox 97% on R/A; Weight 99.79 kg; cm10 Height 5 ft. 6 in. ; Pain 10/10; 15:31 BP 131 / 90; Pulse 95; Resp 18; Pulse Ox 96% on R/A; Pain 9/10; ld1 16:33 BP 119 / 97; Pulse 89; Resp 18; Pulse Ox 97% on R/A; ld1 14:40 Body Mass Index 35.51 (99.79 kg, 167.64 cm) cm10 14:40 Pain Scale: Adult cm10 15:31 Pain Scale: Adult ld1 ED Course: 14:34 Patient arrived in ED. rg4 14:35 Rand Rosa FNP-C is PHCP. kb 14:35 Tono Gonzalez MD is Attending Physician. kb 14:42 Triage completed. cm10 15:10 XRAY Chest (1 view) In Process Unspecified. EDMS 15:12 Patient placed in an exam room, on a stretcher. ld1 15:30 Xiomy Barreto, RN is Primary Nurse. ld1 15:30 No provider procedures requiring assistance completed. Inserted saline lock: 20 gauge ld1 in left forearm, using aseptic technique. Blood collected. 15:31 Patient has correct armband on for positive identification. Placed in gown. Bed in low ld1 position. Call light in reach. Side rails up X2. security monitor on. Pulse ox on. NIBP on. Door closed. Noise minimized. Warm blanket given. 15:31 Patient maintains SpO2 saturation greater than 95% on room air. ld1 17:19 Troponin High Sensitivity Sent. ds4 18:25 IV discontinued, intact, bleeding controlled, No redness/swelling at site. ld1 Administered Medications: 15:30 Drug: Aspirin PO Chewable Tablet 324 mg PO once; 81 mg tablets x 4 Route: PO; ld1 Medication: 15:31 VIS not applicable for this client. ld1 Outcome: 18:02 Discharge ordered by . kb 18:25 Discharged to home ambulatory, with family, ld1 18:25 Condition: stable 18:25 Discharge instructions given to patient, Instructed on discharge instructions, follow up and referral plans. Demonstrated understanding of instructions, follow-up care, 18:26 Patient left the ED. ld1 Signatures: Dispatcher [employer] EDRand Urena, DIRECTOR OF RESERVATIONS-C DIRECTOR OF RESERVATIONS-Carlos Garcia ds4 Jennifer Medina rg4 Xiomy Barreto RN RN ld1 Carly Franklin RN RN cm10 Corrections: (The following items were deleted from the chart) 15:12 14:44 Arm band placed on Patient placed in an exam room, on a stretcher, cm10 ld1
--- NOTE | 2023-03-02 18:03 | EDPHYS ---
Physician Documentation [facility] Name: Noé Murry Age: 37 yrs Sex: Male : 1985 Arrival Date: 03/02/2023 Time: 14:33 Bed 16 Private MD: ED Physician Tono Gonzalez HPI: 03/02 14:52 This 37 yrs old Male presents to ER via Ambulatory with complaints of Chest kb Pain. 14:52 Patient is a 37-year-old male with a history of diabetes, hypertension and anxiety who kb presents for substernal chest pain that is nonradiating that began around 8:00 this morning. Reports slight shortness of breath and near syncopal episode while at work which prompted his visit to the emergency department. States the pain has progressively gotten worse since onset. No aggravating or alleviating factors.. Historical: - Allergies: 14:42 No Known Allergies; cm10 - Home Meds: 14:42 Farxiga 5 mg Oral tablet 1 tab daily [Active]; lisinopril 10 mg Oral tab 1 tab once cm10 daily for Hypertension [Active]; alprazolam 2 mg Oral tab 1 tab 3 times per day for Anxiety [Active]; - PMHx: 14:42 Anxiety; diabetes mellitus; High Cholesterol; Hypertension; cm10 - PSHx: 14:42 None; cm10 - Immunization history:: Adult Immunizations up to date. - Social history:: Smoking status: Patient denies any tobacco usage or history of. ROS: 14:49 Constitutional: Negative for fever, chills, and weight loss, kb 14:49 Cardiovascular: Positive for chest pain, Negative for edema, orthopnea, palpitations, paroxysmal nocturnal dyspnea, 14:49 Respiratory: Positive for shortness of breath, 14:49 Neuro: Positive for near syncope, 14:49 All other systems are negative, Exam: 14:49 Constitutional: This is a well developed, well nourished patient who is awake, alert, kb and in no acute distress. Head/Face: Normocephalic, atraumatic. ENT: Moist Mucous membranes Cardiovascular: Regular rate Respiratory: Respirations even and unlabored. No increased work of breathing. Talking in full sentences Abdomen/GI: Soft, non-tender. No distention Skin: Warm, dry with normal turgor. Normal color. MS/ Extremity: Pulses equal, no cyanosis. Neurovascular intact. Full, normal range of motion. Neuro: Awake and alert, GCS 15, oriented to person, place, time, and situation. Moves all extremities. Normal gait. 16:01 ECG was reviewed by the Attending Physician. kb Vital Signs: 14:40 BP 135 / 88; Pulse 97; Resp 18; Temp 97.9(TE); Pulse Ox 97% on R/A; Weight 99.79 kg; cm10 Height 5 ft. 6 in. ; Pain 10/10; 15:31 BP 131 / 90; Pulse 95; Resp 18; Pulse Ox 96% on R/A; Pain 9/10; ld1 16:33 BP 119 / 97; Pulse 89; Resp 18; Pulse Ox 97% on R/A; ld1 14:40 Body Mass Index 35.51 (99.79 kg, 167.64 cm) cm10 14:40 Pain Scale: Adult cm10 15:31 Pain Scale: Adult ld1 MDM: 14:35 Patient medically screened. kb 14:49 Data reviewed: vital signs, nurses notes. kb 17:56 Differential diagnosis: abnormal EKG, acute myocardial infarction, anxiety, coronary kb artery disease chest wall pain. Consideration of Admission/Observation Escalation of care including admission/observation considered. Admission considered but heart score 1, serial troponins normal with second troponin decreased from first.. Counseling: I had a detailed discussion with the patient and/or guardian regarding the historical points, exam findings, and any diagnostic results supporting the discharge/admit diagnosis, lab results, radiology results, the need for outpatient follow up, a veterinary x ray operator, a family practitioner, to return to the emergency department if symptoms worsen or persist or if there are any questions or concerns that arise at home. 03/02 14:41 Order name: Basic Metabolic Panel; Complete Time: 16:01 kb 03/02 14:41 Order name: CBC with Diff; Complete Time: 15:54 kb 03/02 14:41 Order name: LFT's; Complete Time: 16: kb 03/02 14:41 Order name: Magnesium; Complete Time: 16: kb 03/02 14:41 Order name: NT PRO-BNP; Complete Time: 16: kb 03/02 14:41 Order name: Troponin HS; Complete Time: 16: kb 03/02 16:57 Order name: Troponin High Sensitivity; Complete Time: 17:56 kb 03/02 14:41 Order name: XRAY Chest (1 view); Complete Time: 15:49 kb 03/02 14:41 Order name: EKG; Complete Time: 14:41 kb 03/02 14:41 Order name: Cardiac monitoring; Complete Time: 15:33 kb 03/02 14:41 Order name: EKG - Nurse/Tech; Complete Time: 15:30 kb 03/02 14:41 Order name: IV Saline Lock; Complete Time: 15:30 kb 03/02 14:41 Order name: Labs collected and sent; Complete Time: 15:30 kb 03/02 14:41 Order name: O2 Per Protocol; Complete Time: 15:14 kb 03/02 14:41 Order name: O2 Sat Monitoring; Complete Time: 15:14 kb EC:01 Rate is 87 beats/min. Rhythm is regular. QRS [place] is Normal. ND interval is normal at kb 146 msec. QRS interval is normal at 100 msec. QT interval is normal at 401 msec. Administered Medications: 15:30 Drug: Aspirin PO Chewable Tablet 324 mg PO once; 81 mg tablets x 4 Route: PO; ld1 Disposition Summary: 03/02/23 18:02 Discharge Ordered Notes: Location: Home kb Condition: Stable kb Diagnosis - Chest pain, unspecified kb Followup: kb - With: Emergency Department - When: As needed - Reason: Worsening of condition Followup: kb - With: Private Physician - When: 2 - 3 days - Reason: Recheck today's complaints, Continuance of care, Re-evaluation by your physician Discharge Instructions: - Discharge Summary Sheet kb - Nonspecific Chest Pain, Adult, [id number] kb Forms: - Medication Reconciliation Form kb - Thank You Letter kb - Antibiotic Education kb - Prescription Opioid Use kb - Patient Portal Instructions kb - Leadership Thank You Letter kb Signatures: Dispatcher [employer] Rand Connell FNP-C FNP-Xiomy Burgos, RN RN ld1 Carly Franklin RN RN cm10
[2023-03-02 20:37] VITALS: TEMP 97.9; O2SAT 97
[2023-03-02 21:02] VITALS: BP 119/97
== END ==
LOC: ER 14:33
DX: R07.9 Chest pain, unspecified (principal); R55 Syncope and collapse; I10 Essential (primary) hypertension; E11.9 Type 2 diabetes mellitus without complications; F41.9 Anxiety disorder, unspecified
CPT/HCPCS: 36415; 71045; 80048; 80076; 83735; 83880; 84484; 85025; 93005

== ENCOUNTER 2023-05-30 15:35 | Emergency (ER) | payer OTHER ==
--- OUTSIDE RECORDS SUMMARY | 2023-05-30 15:38 | XMS REPORT | Continuity of Care Document ---
Author Name Unknown Address [address] [place] [address] [facility] thconnect Address [address] [place] [address] Care Team Providers Care Specification Manager Name Role Phone Janey Lowery Primary Care Physician [phone] NOÉ ESCOBAR Attending Clinician Unavailable Noé Escobar DO Attending Clinician [phone] CALVIN FOWLER Attending Clinician Calvin Hardin MD Attending Clinician CALVIN FOWLER Admitting Clinician Denisse pelletier Payers Payer Name Policy Type Policy Number Effective Date Expirati on Date Source [facility] [id number] 2022 00:00:00 [employer] [id number] 2021 00:00:00 Problems Condition Name Condition Details Condition Category Status Onset Date Resolution Date Last Treatment Date Treating Clinician Comments Source No known active problems No known active problems Disease [facility] Allergies, Adverse Reactions, Alerts Allergy Name Allergy Type Status Severity Reaction(s) Onset Date Inactive Date Treating Clinician Comments Source NO KNOWN ALLERGIE S Drug Class Active [facility] Social History Social Habit Start Date Stop Date Quantity Comments Source Sexual orientation [facility] Exposure to SARS-CoV-2 (event) 2022-02-10 00:00:00 2022-02-20 15:27:00 Not sure [facility] Sex Assigned At 1985 00:00:00 1985 00:00:00 [facility] Smoking Status Start Date Stop Date Source Tobacco smoking consumption unknown [facility] Medications Ordered Medication Name Filled Medication Name Start Date Stop Date Current Medication? Ordering Clinician Indication Dosage Frequency Signature (SIG) Comments Components Source famotidine (PEPCID AC) tablet 20 mg 2022-02 08:45: 00 11-28 08:49 :00 No 20mg 20 mg, Oral, ONCE, 1 dose, On 11/28/22 at 0345, STAN [facility] famotidine 10 mg tablet 2022-02 00:00: 00 Yes [id number] 10mg Take 1 tablet by mouth in the morning and 1 tablet in the evening. [facility] dexamethaso ne sod phos PF injection 10 mg 02-20 22:15: 00 02-20 22:12 :00 No 10mg 10 mg, Oral, ONCE, 1 dose, On 02/20/22 at 1615, 1 mL [facility] benzonatate 100 mg capsule 02-20 00:00: 00 Yes [id number] 100mg Take 1 capsule by mouth 3 (three) times daily as needed for Cough. [facility] albuterol 90 mcg/actuati on inhaler 02-20 00:00: 00 Yes [id number] 2{puff} Inhale 2 Puffs every 4 (four) hours as needed for Wheezing or Shortness of Breath. [facility] butalbital- acetaminoph en-caff 50-325-40 mg tablet 02-20 00:00: 00 Yes [id number] 2{tbl} Take 2 tablets by mouth every 8 (eight) hours as needed (headache) for up to 12 doses. [facility] predniSONE 20 mg tablet 02-20 00:00: 00 02-25 05:59 :00 No [id number] 40mg Take 2 tablets by mouth in the morning for 4 days. [facility] azithromyci n 250 mg tablet 08-10 00:00: 00 Yes 250mg Take 1 tablet by mouth SEE-INSTRU CTIONS. Take 500 mg day 1, then 250 mg days 2 to 5. [facility] benzonatate 100 mg capsule 2016-0 08-10 00:00: 00 02-20 00:00 :00 No 100mg Take 1 capsule by mouth 3 (three) times daily as needed for Cough. [facility] Vital Signs Vital Name Observation Time Observation Value Comments S renzo Systolic blood pressure 2022-11-28 08:32:00 156 mm[Hg] [facility] Diastolic blood pressure 2022-11-28 08:32:00 124 mm[Hg] [facility] Body temperature 2022-11-28 08:32:00 37.22 [place] [facility] Heart rate 2022-11-28 08:28:00 78 /[facility] Respiratory rate 2022-11-28 08:28:00 18 /min [facility] Body height 2022-11-28 08:28:00 167.6 cm [facility] Body weight 2022-11-28 08:28:00 95.255 kg [facility] BMI 2022-11-28 08:28:00 33.89 kg/m2 [facility] Oxygen saturation in Arterial blood by Pulse oximetry 2022-11-28 08:28:00 100 /min [facility] Systolic blood pressure 2022-02-20 21:25:00 152 mm[Hg] [facility] Diastolic blood pressure 2022-02-20 21:25:00 100 mm[Hg] [facility] Heart rate 2022-02-20 21:25:00 95 /min [facility] Body temperature 2022-02-20 21:25:00 37 [place] [facility] Respiratory rate 2022-02-20 21:25:00 20 /min [facility] Body height 2022-02-20 21:25:00 167.6 cm [facility] Body weight 2022-02-20 21:25:00 99.791 kg [facility] BMI 2022-02-20 21:25:00 35.51 kg/m2 [facility] Oxygen saturation in Arterial blood by Pulse oximetry 2022-02-20 21:25:00 95 /min [facility] Procedures Procedure Date / Time Performed Performing Clinicia n Source CONSENT/REFUSAL FOR DIAGNOSIS AND TREATMENT 2022-11-28 08:04:04 Doctor Unassigned, [place] [facility] XR CHEST 1 VW 2022-02-20 22:08:40 Calvin Fowler [facility] CONSENT/REFUSAL FOR DIAGNOSIS AND TREATMENT 2022-02-20 21:19:39 Doctor Unassigned, [place] [facility] Encounters Start Date/Time End Date/Time Encounter Type Admission Type Attending Clinicians Care Facility Care Department Encounter ID Source 2022-11-28 03:31:00 2022-11-28 04:06:00 Emergency X NOÉ ESCOBAR [facility] ERT [id number] [facility] 2022-11-28 03:31:00 2022-11-28 04:06:00 Emergency Néo Escobar [facility] [id number] [facility] 2022-02-20 15:27:00 2022-02-20 16:57:00 Emergency CALVIN LATHAM [facility] ERT [id number] [facility] 2022-02-20 15:27:00 2022-02-20 16:57:00 Emergency Calvin Fowler [facility] [id number] [facility]
[2023-05-30] MEDS ORDERED: ONDANSETRON 4 MG (ODT) TAB ONE (16:15)
[2023-05-30] MEDS ORDERED: ACETAMINOPHEN 325 MG TABLET ONE (16:15)
[2023-05-30] MEDS ORDERED: IBUPROFEN 400 MG TAB ONE (16:15)
[2023-05-30 16:46] LABS: SARS-CoV-2 Antigen CONTROL BLUE LINE VIS/BG OK; SARS-CoV-2 Antigen Rapid Res Negative (Negative)
[2023-05-30 17:16] LABS: Absolute Basophils 0.1 K/uL (0-0.5); Absolute Lymphocytes (CBC) 0.7 K/uL (0.7-4.9); Absolute Monocytes 0.6 K/uL (0.1-1.3); Absolute Neutrophil 8.3 K/uL (1.8-8.0); Basophils % 0.6 % (0-1.3); Eosinophils % 0.4 % (0-4.4); Hemoglobin 16.3 g/dL (13.6-17.9); Lymphocytes % 7.6 % (15.3-44.8); MCH 31.4 pg (27.0-35.0); MCHC 34.6 g/dL (32.0-36.0); MCV 90.8 fL (80-100); MPV 8.3 fL (7.6-11.3); Monocytes % 6.4 % (3.3-12.3); Nucleated Red Blood Cells % 0.3 % (0-0); Platelets 176 thou/uL (152-406); RBC Red Blood Cell Count 5.18 M/uL (4.33-5.43); Red Cell Distribution Width 12.9 % (12.1-15.2)
[2023-05-30 17:36] LABS: Albumin 4.2 g/dL (3.4-5.0); Anion Gap 10.1 mEq/L (5.0-15.0); Bilirubin Total 0.6 mg/dL (0.2-1.0); Globulin 4.3 g/dL (2.3-3.5); Potassium 4.1 mEq/L (3.5-5.1); Protein, Total 8.5 g/dL (6.4-8.2)
[2023-05-30] MEDS ORDERED: NA CHLORIDE 0.9% 1,000 ML ONE (17:40)
[2023-05-30 17:44] LABS: Specific Gravity 1.026 (1.005-1.030); Urine Bilirubin NEGATIVE (Negative); Urine Blood Negative (Negative); Urine Clarity Clear (Clear); Urine Color Colorless (Yellow); Urine Glucose 4+ (Over) (Negative); Urine Ketones NEGATIVE (Negative); Urine Microscopic Reflex YN NO UMIC; Urine Nitrite NEGATIVE (Negative); Urine Protein NEGATIVE (Negative); Urine Urobilinogen Normal (Normal); Urine pH 6.5 (5.0-7.0)
--- NOTE | 2023-05-30 17:54 | EDPHYS ---
Physician Documentation [facility] Name: Noé Murry Age: 37 yrs Sex: Male : 1985 Arrival Date: 05/30/2023 Time: 15:35 Bed 17 Private MD: ED Physician Tono Gonzalez HPI: 05/29 16:19 This 37 yrs old Male presents to ER via Ambulatory with complaints of rn Dizziness, High Blood Pressure. 16:19 The patient presents with dizziness, generalized weakness, lightheadedness. Onset: The rn symptoms/episode began/occurred yesterday. Modifying factors: The symptoms are alleviated by nothing, the symptoms are aggravated by nothing. Severity of symptoms: At their worst the symptoms were moderate in the emergency department the symptoms are unchanged. The patient has not experienced similar symptoms in the past. Patient reports started feeling bad yesterday after mowing the yard. [place] generalized malaise and weakness and chills. Also reports myalgias. Did not check temperature but noted blood pressure was slightly elevated in the 130s systolic. Patient reports he is diabetic and has run out of testing supplies but states compliant with diabetic medication. Denies any vomiting or diarrhea. No chest pain. No cough or shortness of breath. Denies any abdominal pain.. Historical: - PMHx: 16:06 Anxiety; diabetes mellitus; High Cholesterol; Hypertension; nj1 - Immunization history:: Client reports receiving the 2nd dose of the Covid vaccine. - Infectious Disease History:: Denies. - Social history:: Smoking status: Patient denies any tobacco usage or history of. - Family history:: not pertinent. - Hospitalizations: : No recent hospitalization is reported. ROS: 16:19 Constitutional: Positive for chills Eyes: Negative for injury, pain, redness, and legal internship, ENT: Negative for injury, pain, and discharge, Neck: Negative for injury, pain, and swelling, Cardiovascular: Negative for chest pain, palpitations, and edema, Respiratory: Negative for shortness of breath, cough, wheezing, and pleuritic chest pain, Abdomen/GI: Negative for abdominal pain, vomiting, diarrhea, and constipation, Back: Negative for injury and pain, : Negative for injury, bleeding, discharge, and swelling, MS/Extremity: Negative for injury and deformity, Skin: Negative for injury, rash, and discoloration, Neuro: Positive for headache and generalized weakness Exam: 16:19 Constitutional: This is a well developed, well nourished patient who is awake, alert, rn and in no acute distress. Head/Face: Normocephalic, atraumatic. Eyes: Pupils equal round and reactive to light, extra-ocular motions intact. Lids and lashes normal. Conjunctiva and sclera are non-icteric and not injected. Cornea within normal limits. Periorbital areas with no swelling, redness, or edema. ENT: Dry mucous membranes, no swelling or asymmetry. No stridor Neck: No masses or meningismus Cardiovascular: Tachycardic, regular. No pulse deficits. Respiratory: No increased work of breathing, no retractions or nasal flaring. Abdomen/GI: Soft, nontender, no peritoneal signs Skin: Warm, dry, no rash MS/ Extremity: Pulses equal, no cyanosis. Neuro: Awake and alert, GCS 15 Vital Signs: 16:08 BP 131 / 94; Pulse 121; Resp 18; Temp 102.3; Pulse Ox 94% on R/A; Weight 99.79 kg; nj1 Height 5 ft. 6 in. ; 17:30 BP 133 / 92; Pulse 109; Resp 18; Temp 100(O); Pulse Ox 94% on R/A; db 16:08 Body Mass Index 35.51 (99.79 kg, 167.64 cm) [facility] MDM: 15:41 Patient medically screened. rn 17:49 Differential diagnosis: hypovolemia, idiopathic dizziness, Flu, COVID, strep, rn hyperglycemia, dehydration, heat exhaustion. Data reviewed: vital signs, nurses notes, lab test result(s), and as a result, I will discharge patient. Counseling: I had a detailed discussion with the patient and/or guardian regarding the historical points, exam findings, and any diagnostic results supporting the discharge/admit diagnosis, lab results, the need for outpatient follow up, to return to the emergency department if symptoms worsen or persist or if there are any questions or concerns that arise at home. Special discussion: I discussed with the patient/guardian in detail that at this point there is no indication for admission to the hospital. It is understood, however, that if the symptoms persist or worsen the patient needs to return immediately for re-evaluation. ED course: Patient feels much better, temperature has decreased as well as heart rate. Will give IV fluids and discharge home. Oxygen 94%, patient reports mild cough. Will discharge home with Zithromax and return precautions.. 17:52 Response to treatment: the patient's symptoms have markedly improved after treatment. rn 05/29 16:15 Order name: CBC with Diff; Complete Time: 17:22 rn 05/29 16:15 Order name: CMP; Complete Time: 17:38 rn 05/29 16:15 Order name: Lipase; Complete Time: 17:38 rn 05/29 16:15 Order name: Urinalysis w/ reflexes; Complete Time: 17:49 rn 05/29 16:15 Order name: Flu; Complete Time: 17:22 rn 05/29 16:15 Order name: Strep rn 05/29 16:15 Order name: SARS RAPID; Complete Time: 17:22 rn 05/29 16:33 Order name: Glucose, Ancillary Testing; Complete Time: 17:22 EDMS 05/29 16:48 Order name: Throat Culture EDMS 05/29 16:15 Order name: IV Saline Lock; Complete Time: 17:40 rn 05/29 16:15 Order name: Labs collected and sent; Complete Time: 17:40 rn Administered Medications: 16:19 Drug: Acetaminophen PO 650 mg PO once Route: PO; nj1 18:13 Follow up: Response: No adverse reaction; Temperature is decreased db 16:19 Drug: Ibuprofen PO 800 mg PO once Route: PO; nj1 18:12 Follow up: Response: No adverse reaction; Temperature is decreased db 16:19 Drug: Ondansetron PO 4 mg PO once Route: PO; nj1 18:12 Follow up: Response: No adverse reaction db 17:41 Drug: NS 0.9% IV 1000 ml IV at 1 bolus Per protocol; 1000 mL bolus Route: IV; Rate: 1 db bolus; Site: left antecubital; 18:13 Follow up: Response: No adverse reaction; IV Status: Completed infusion; IV Intake: db 1000ml Disposition Summary: 05/30/23 17:53 Discharge Ordered Notes: Location: Home rn Problem: new rn Symptoms: have improved rn Condition: Stable rn Diagnosis - Fever, unspecified rn - Other malaise and fatigue rn Followup: rn - With: Private Physician - When: As needed - Reason: Recheck today's complaints, Re-evaluation by your physician Discharge Instructions: - Discharge Summary Sheet rn - Fever, Adult rn Forms: - Medication Reconciliation Form rn - Thank You Letter rn - Antibiotic learning support resource room teacher - Prescription Opioid Use rn - Patient Portal Instructions rn - Leadership Thank You Letter rn Prescriptions: - Zithromax Z-Fantasma 250 mg Oral Tablet - take 1 tablet ORAL route as directed for 5 days Day 1 - take two (2) tablets rn one time. Day 2, 3, 4 , 5 take one (1) tablet once daily.; 6 tablet; Refills: 0, Product Selection Permitted Signatures: Dispatcher [employer] EDMS Tono Gonzalez MD MD rn Benton, Danielle RN RN db Mikayla Sims RN RN nj1 Corrections: (The following items were deleted from the chart) 16:16 16:16 CBC+H.LAB.BRZ ordered. EDMS EDMS 16:16 16:16 COMPREHENSIVE METABOLIC PANEL+C.LAB.BRZ ordered. EDMS EDMS 16:16 16:16 LIPASE+C.LAB.BRZ ordered. EDMS EDMS 16:16 16:16 Urinalysis+U.LAB.BRZ ordered. EDMS EDMS 16:16 16:16 Influenza Screen (A \T\ B)+BA.LAB.BRZ ordered. EDMS EDMS 16:16 16:16 Group A Streptococcus Rapid Sc+BA.LAB.BRZ ordered. EDMS EDMS 16:16 16:16 SARS-COV-2 Antigen Rapid+I.LAB.BRZ ordered. EDMS EDMS
--- NOTE | 2023-05-30 17:54 | ER ---
Nurse's Notes [facility] Name: Noé Murry Age: 37 yrs Sex: Male : 1985 Arrival Date: 05/30/2023 Time: 15:35 Bed 17 Private MD: Diagnosis: Fever, unspecified;Other malaise and fatigue Presentation: 05/29 16:08 Chief complaint: Patient states: feels overheated, body aches, dizzy since this morning nj1 "feels like crap". Coronavirus screen: Vaccine status: Patient reports receiving the 2nd dose of the covid vaccine. Ebola Screen: Patient denies travel to an Ebola-affected area in the 21 days before illness onset. Initial Sepsis Screen: Does the patient meet any 2 criteria? Temp <36.0*C (96.8*F)) or > 38.3*C (100.9*F). HR > 90 bpm. Yes Does the patient have a suspected source of infection? No. Patient's initial sepsis screen is negative. Risk Assessment: Do you want to hurt yourself or someone else? Patient reports no desire to harm self or others. Onset of symptoms. 16:08 Method Of Arrival: Ambulatory nj1 16:08 Acuity: LUIS MIGUEL 3 nj1 Triage Assessment: 16:11 General: Appears in no apparent distress. uncomfortable, Behavior is calm, cooperative, nj1 appropriate for age. Pain: Complains of pain in generalized Pain currently is 10 out of 10 on a pain scale. Historical: - PMHx: 16:06 Anxiety; diabetes mellitus; High Cholesterol; Hypertension; nj1 - Immunization history:: Client reports receiving the 2nd dose of the Covid vaccine. - Infectious Disease History:: Denies. - Social history:: Smoking status: Patient denies any tobacco usage or history of. - Family history:: not pertinent. - Hospitalizations: : No recent hospitalization is reported. Screenin:13 [facility] ED Fall Risk Assessment (Adult) History of falling in the last 3 months, db including since admission No falls in past 3 months (0 pts) Confusion or Disorientation No (0 pts) Intoxicated or Sedated No (0 pts) Impaired Gait No (0 pts) Mobility Assist Device Used No (0 pt) Altered Elimination No (0 pt) Score/Fall Risk Level 0 - 2 = Low Risk Oriented to surroundings, Maintained a safe environment. Abuse screen: Denies threats or abuse. Denies injuries from another. Nutritional screening: No deficits noted. Tuberculosis screening: No symptoms or risk factors identified. Assessment: 17:30 Reassessment: Patient appears in no apparent distress at this time. Patient and/or db family updated on plan of care and expected duration. Pain level reassessed. Patient is alert, oriented x 3, equal unlabored respirations, skin warm/dry/pink. General: Appears in no apparent distress. comfortable, Behavior is calm, cooperative. Neuro: Level of Consciousness is awake, alert, obeys commands, Oriented to person, place, time, situation. Respiratory: Airway is patent Respiratory effort is even, unlabored, Respiratory pattern is regular, symmetrical. 17:30 Reassessment: ASSUMED CARE OF PATIENT FROM [facility]. db 17:30 Reassessment: Patient appears in no apparent distress at this time. Patient and/or db family updated on plan of care and expected duration. Pain level reassessed. Patient is alert, oriented x 3, equal unlabored respirations, skin warm/dry/pink. Patient states feeling better. Patient states symptoms have improved. Vital Signs: 16:08 BP 131 / 94; Pulse 121; Resp 18; Temp 102.3; Pulse Ox 94% on R/A; Weight 99.79 kg; nj1 Height 5 ft. 6 in. ; 17:30 BP 133 / 92; Pulse 109; Resp 18; Temp 100(O); Pulse Ox 94% on R/A; db 16:08 Body Mass Index 35.51 (99.79 kg, 167.64 cm) [facility] ED Course: 15:38 Patient arrived in ED. ec2 15:41 Tono Gonzalez MD is Attending Physician. rn 16:11 Triage completed. nj1 16:11 Arm band placed on right wrist. nj1 16:20 SARS RAPID Sent. nj1 16:20 Strep Sent. nj1 16:20 Flu Sent. nj1 17:29 Patient placed in an exam room, on a stretcher. ll1 17:37 Vimla Stoner, UGO is Primary Nurse. db 18:13 Patient has correct armband on for positive identification. Provided Education on: db medication and fever control . Pulse ox on. NIBP on. 18:13 No provider procedures requiring assistance completed. IV discontinued, intact, db bleeding controlled, No redness/swelling at site. Administered Medications: 16:19 Drug: Acetaminophen PO 650 mg PO once Route: PO; nj1 18:13 Follow up: Response: No adverse reaction; Temperature is decreased db 16:19 Drug: Ibuprofen PO 800 mg PO once Route: PO; nj1 18:12 Follow up: Response: No adverse reaction; Temperature is decreased db 16:19 Drug: Ondansetron PO 4 mg PO once Route: PO; nj1 18:12 Follow up: Response: No adverse reaction db 17:41 Drug: NS 0.9% IV 1000 ml IV at 1 bolus Per protocol; 1000 mL bolus Route: IV; Rate: 1 db bolus; Site: left antecubital; 18:13 Follow up: Response: No adverse reaction; IV Status: Completed infusion; IV Intake: db 1000ml Medication: 18:13 VIS not applicable for this client. db Intake: 18:13 IV: 1000ml; Total: 1000ml. db Outcome: 17:53 Discharge ordered by MD. rn 18:13 Discharged to home ambulatory, db 18:13 Condition: stable 18:13 Discharge instructions given to patient, Instructed on discharge instructions, follow up and referral plans. Prescriptions given X 1, 18:14 Patient left the ED. db Signatures: Tono Gonzalez MD MD rn Lewis, Lynsay, RN RN ll1 Vilma Stoner RN RN db Jaco, Norma, RN RN nj1 Candido Augustine MD MD ec2
[2023-05-30 20:57] VITALS: O2SAT 94
[2023-05-30 21:32] VITALS: BP 133/92; TEMP 100
== END 2023-05-30 18:14 | disposition home or self-care (01) ==
LOC: ER 15:35
DX: R50.9 Fever, unspecified (principal); R53.81 Other malaise; R53.83 Other fatigue; E11.9 Type 2 diabetes mellitus without complications; Z11.52 Encounter for screening for COVID-19
CPT/HCPCS: 87070; 85025; 36415; 82947; 87081; 81003; 83690; 80053; 87804 ×2; 96360; 99284; 87811; Q0162; J7030

== ENCOUNTER 2023-05-31 15:47 | Emergency (ER) | payer OTHER ==
--- OUTSIDE RECORDS SUMMARY | 2023-05-31 15:49 | XMS REPORT | Continuity of Care Document ---
Author Name Unknown Address [address] [facility] [address] [facility] [address] [place] [address] [facility] thconnect Address [address] [facility] [address] [facility] [address] [place] [address] Care Team Providers Care Customer Service Analyst Name Role Phone Janey Lowery Primary Care Physician [phone] NOÉ ESCOBAR Attending Clinician Unavailable Noé Escobar DO Attending Clinician [phone] CALVIN FOWLER Attending Clinician Calvin Hardin MD Attending Clinician CALVIN FOWLER Admitting Clinician Denisse pelletier Payers Payer Name Policy Type Policy Number Effective Date Expirati on Date Source [facility] [id number] 2022 00:00:00 [employer] [id number] 2021 00:00:00 Problems Condition Name Condition Details Condition Category Status Onset Date Resolution Date Last Treatment Date Treating Clinician Comments Source No known active problems No known active problems Disease [facility] Allergies, Adverse Reactions, Alerts Allergy Name Allergy Type Status Severity Reaction(s) Onset Date Inactive Date Treating Clinician Comments Source NO KNOWN ALLERGIE S Drug Class Active [facility] Social History Social Habit Start Date Stop Date Quantity Comments Source Sexual orientation U [facility] Exposure to SARS-CoV-2 (event) 2022-02-10 00:00:00 2022-02-20 15:27:00 Not sure [facility] Sex Assigned At 1985 00:00:00 1985 00:00:00 [facility] Smoking Status Start Date Stop Date Source Tobacco smoking consumption unknown [facility] Medications Ordered Medication Name Filled Medication Name Start Date Stop Date Current Medication? Ordering Clinician Indication Dosage Frequency Signature (SIG) Comments Components Source famotidine (PEPCID AC) tablet 20 mg 2022-02 08:45: 00 11-28 08:49 :00 No 20mg 20 mg, Oral, ONCE, 1 dose, On 11/28/22 at 0345, STAN [facility] famotidine 10 mg tablet 2022-02 00:00: 00 Yes [id number] 10mg Take 1 tablet by mouth in the morning and 1 tablet in the evening. [facility] dexamethaso ne sod phos PF injection 10 mg 02-20 22:15: 00 02-20 22:12 :00 No 10mg 10 mg, Oral, ONCE, 1 dose, On 02/20/22 at 1615, 1 mL [facility] benzonatate 100 mg capsule 02-20 00:00: 00 Yes [id number] 100mg Take 1 capsule by mouth 3 (three) times daily as needed for Cough. [facility] albuterol 90 mcg/actuati on inhaler 02-20 00:00: 00 Yes [id number] 2{puff} Inhale 2 Puffs every 4 (four) hours as needed for Wheezing or Shortness of Breath. [facility] butalbital- acetaminoph en-caff 50-325-40 mg tablet 02-20 00:00: 00 Yes [id number] 2{tbl} Take 2 tablets by mouth every 8 (eight) hours as needed (headache) for up to 12 doses. [facility] predniSONE 20 mg tablet 02-20 00:00: 00 02-25 05:59 :00 No [id number] 40mg Take 2 tablets by mouth in the morning for 4 days. [facility] azithromyci n 250 mg tablet 08-10 00:00: 00 Yes 250mg Take 1 tablet by mouth SEE-INSTRU CTIONS. Take 500 mg day 1, then 250 mg days 2 to 5. [facility] benzonatate 100 mg capsule 2016-0 08-10 00:00: 00 02-20 00:00 :00 No 100mg Take 1 capsule by mouth 3 (three) times daily as needed for Cough. [facility] Vital Signs Vital Name Observation Time Observation Value Comments S renzo Systolic blood pressure 2022-11-28 08:32:00 156 mm[Hg] [facility] Diastolic blood pressure 2022-11-28 08:32:00 124 mm[Hg] [facility] Body temperature 2022-11-28 08:32:00 37.22 [place] [facility] Heart rate 2022-11-28 08:28:00 78 /min [facility] Respiratory rate 2022-11-28 08:28:00 18 /min [facility] Body height 2022-11-28 08:28:00 167.6 cm [facility] Body weight 2022-11-28 08:28:00 95.255 kg [facility] BMI 2022-11-28 08:28:00 33.89 kg/m2 [facility] Oxygen saturation in Arterial blood by Pulse oximetry 2022-11-28 08:28:00 100 /min [facility] Systolic blood pressure 2022-02-20 21:25:00 152 mm[Hg] [facility] Diastolic blood pressure 2022-02-20 21:25:00 100 mm[Hg] [facility] Heart rate 2022-02-20 21:25:00 95 /min [facility] Body temperature 2022-02-20 21:25:00 37 [place] [facility] Respiratory rate 2022-02-20 21:25:00 20 /min [facility] Body height 2022-02-20 21:25:00 167.6 cm [facility] Body weight 2022-02-20 21:25:00 99.791 kg [facility] BMI 2022-02-20 21:25:00 35.51 kg/m2 [facility] Oxygen saturation in Arterial blood by Pulse oximetry 2022-02-20 21:25:00 95 /min [facility] Procedures Procedure Date / Time Performed Performing Clinicia n Source CONSENT/REFUSAL FOR DIAGNOSIS AND TREATMENT 2022-11-28 08:04:04 Doctor Unassigned, [place] [facility] XR CHEST 1 VW 2022-02-20 22:08:40 Calvin Fowler [facility] CONSENT/REFUSAL FOR DIAGNOSIS AND TREATMENT 2022-02-20 21:19:39 Doctor Unassigned, [place] [facility] Encounters Start Date/Time End Date/Time Encounter Type Admission Type Attending Clinicians Care Facility Care Department Encounter ID Source 2022-11-28 03:31:00 2022-11-28 04:06:00 Emergency X NOÉ ESCOBAR [facility] ERT [id number] [facility] 2022-11-28 03:31:00 2022-11-28 04:06:00 Emergency Noé Escobar [facility] [id number] [facility] 2022-02-20 15:27:00 2022-02-20 16:57:00 Emergency CALVIN LATHAM [facility] ERT [id number] [facility] 2022-02-20 15:27:00 2022-02-20 16:57:00 Emergency Calvin Fowler [facility] [id number] [facility]
[2023-05-31] MEDS ORDERED: FAMOTIDINE 20 MG/2 ML VIAL IV ONE (16:11)
[2023-05-31] MEDS ORDERED: NA CHLORIDE 0.9% 1,000 ML ONE (16:11)
[2023-05-31] MEDS ORDERED: ONDANSETRON 4 MG/2 ML VIAL ONE (16:11)
[2023-05-31 16:42] LABS: Absolute Eosinophils 0.1 K/uL (0-0.5); Absolute Lymphocytes (CBC) 0.7 K/uL (0.7-4.9); Absolute Neutrophil 9.7 K/uL (1.8-8.0); Basophils % 0.3 % (0-1.3); Eosinophils % 0.9 % (0-4.4); Hematocrit 46.6 % (39.6-49.0); Hemoglobin 15.8 g/dL (13.6-17.9); MCH 31.2 pg (27.0-35.0); MCHC 33.9 g/dL (32.0-36.0); MPV 8.7 fL (7.6-11.3); Monocytes % 8.6 % (3.3-12.3); Neutrophils % 84.2 % (41.7-73.7); Platelets 165 thou/uL (152-406); RBC Red Blood Cell Count 5.06 M/uL (4.33-5.43); Red Cell Distribution Width 12.9 % (12.1-15.2)
[2023-05-31 17:00] LABS: Albumin 3.6 g/dL (3.4-5.0); Albumin/Globulin Ratio 0.8 (1.1-1.8); Anion Gap 9.9 mEq/L (5.0-15.0); Bilirubin Total 0.6 mg/dL (0.2-1.0); Globulin 4.6 g/dL (2.3-3.5); Protein, Total 8.2 g/dL (6.4-8.2)
[2023-05-31 17:06] LABS: Potassium 3.9 mEq/L (3.5-5.1)
[2023-05-31 17:46] LABS: Specific Gravity > 1.030 (1.005-1.030); Urine Bilirubin NEGATIVE (Negative); Urine Blood Negative (Negative); Urine Clarity Clear (Clear); Urine Color Colorless (Yellow); Urine Glucose 4+ (Over) (Negative); Urine Ketones 1+ (Negative); Urine Microscopic Reflex YN NO UMIC; Urine Nitrite NEGATIVE (Negative); Urine Protein NEGATIVE (Negative); Urine Urobilinogen Normal (Normal)
--- NOTE | 2023-05-31 18:06 | RAD REPORT ---
EXAM DESCRIPTION: RADChest Single View05/31/2023 5:04 pm CLINICAL HISTORY: DYSPNEA COMPARISON: Chest Single View dated 03/02/2023; Chest Pa And Lat (2 Views) dated 02/18/2022; Chest Sing le View dated 11/08/2020; Chest Pa And Lat (2 Views) dated 04/05/2018 TECHNIQUE: Portable AP view of the chest. FINDINGS: The lungs are clear. No pneumothorax or effusion. The cardiomediastinal contours are unre markable. IMPRESSION: No acute cardiopulmonary process.
[2023-05-31 18:12] LABS: Monoscreen NEG (NEG)
[2023-05-31] MEDS ORDERED: IBUPROFEN 200 MG TAB PO ONE (18:34)
[2023-05-31] MEDS ORDERED: IBUPROFEN 400 MG TAB ONE (18:34)
--- NOTE | 2023-05-31 19:24 | RAD REPORT ---
EXAM DESCRIPTION: CT - Abdomen Pelvis W Contrast - 05/31/2023 5:36 pm CLINICAL HISTORY: ABD PAIN COMPARISON: No comparisons TECHNIQUE: Thin cut axial CT imaging of the abdomen and pelvis was performed following intravenous a dministration of iodinated contrast. Multiplanar reformats were generated and reviewed. All CT scans are performed using dose optimization technique as appropriate and may include automated exposure control or mA/KV adjustment according to patient size. FINDINGS: No suspicious findings in the lung bases. The liver, spleen, adrenal glands, and pancreas show no suspicious findings. Gallbladder is decompres sed limiting evaluation. Symmetric renal function is seen with no hydronephrosis or suspicious renal mass. No dilated bowel loops or bowel wall thickening. No free air, free fluid or inflammatory stranding. N o hernia, mass or fluid collections. Mildly prominent right more than left inguinal and iliac chain l ymph nodes, up to 1.3 cm in short axis. The urinary bladder is without significant finding. No suspicious bony findings. IMPRESSION: Mildly prominent right more than left inguinal and iliac chain lymph nodes, nonspecific, and favor an infectious or inflammatory etiology. No other acute intra-abdominal process.
[2023-05-31] MEDS ORDERED: ACETAMINOPHEN 500 MG TAB ONE (19:41)
--- NOTE | 2023-05-31 19:49 | EDPHYS ---
Physician Documentation [facility] Name: Noé Murry Age: 37 yrs Sex: Male : 1985 Arrival Date: 05/31/2023 Time: 15:47 Bed 13 Private MD: ED Physician Candido Augustine HPI: 05/30 21:00 This 37 yrs old Male presents to ER via Ambulatory with complaints of kb Dizziness. 21:00 Patient is a 37-year-old male who presents for general weakness, dizziness, malaise kb which she was seen for yesterday but states he came back today because symptoms of gotten worse and now he has abdominal pain. Denies nausea, vomiting, diarrhea. Reports fever.. Historical: - Allergies: 15:56 No Known Allergies; as6 - PMHx: 15:56 Hypertension; High Cholesterol; diabetes mellitus; Anxiety; as6 - PSHx: 15:56 None; as6 - Immunization history:: Adult Immunizations up to date. - Infectious Disease History:: Denies. - Social history:: Smoking status: Patient denies any tobacco usage or history of. ROS: 20:59 Constitutional: As per HPI kb Exam: 18:32 Constitutional: This is a well developed, well nourished patient who is awake, alert, kb and in no acute distress. Head/Face: Normocephalic, atraumatic. ENT: Moist Mucous membranes Cardiovascular: Regular rate Respiratory: Respirations even and unlabored. No increased work of breathing. Talking in full sentences Abdomen/GI: Soft, non-tender. No distention Skin: Warm, dry with normal turgor. Normal color. MS/ Extremity: Pulses equal, no cyanosis. Neurovascular intact. Full, normal range of motion. Neuro: Awake and alert, GCS 15, oriented to person, place, time, and situation. Moves all extremities. Normal gait. 18:32 ECG was reviewed by the Attending Physician. Vital Signs: 15:54 BP 160 / 99; Pulse 122; Resp 18 S; Temp 99.8(O); Pulse Ox 96% on R/A; Weight 99.79 kg as6 (R); Height 5 ft. 6 in. (R); Pain 10/10; 17:00 BP 151 / 90; Pulse 110; Resp 18; Pulse Ox 98% on R/A; ph 18:14 BP 146 / 92; Pulse 101; Resp 20; Pulse Ox 96% on R/A; ph 18:38 Temp 101.3(O); ph 19:38 BP 153 / 102; Pulse 106; Resp 18; Temp 101.1; Pulse Ox 96% on R/A; rv 20:03 BP 149 / 88; Pulse 99; Resp 19; Temp 100.8; Pulse Ox 96% on R/A; rv 15:54 Body Mass Index 35.51 (99.79 kg, 167.64 cm) as6 15:54 Pain Scale: Adult as6 Renetta Coma Score: 19:38 Eye Response: spontaneous(4). Motor Response: obeys commands(6). Verbal Response: rv oriented(5). Total: 15. 20:03 Eye Response: spontaneous(4). Motor Response: obeys commands(6). Verbal Response: rv oriented(5). Total: 15. MDM: 15:51 Patient medically screened. kb 19:47 Data reviewed: vital signs, nurses notes. kb 19:47 ED course: After discussing diagnostic results with pt, he informed me that he had an kb area in gluteal cleft that started swelling up since he has been here. States he has psoriasis in that area, but it has never gotten swollen like this before. . 20:59 Differential diagnosis: Viral syndrome, mono, diverticulitis, nonspecific abdominal kb pain. Counseling: I had a detailed discussion with the patient and/or guardian regarding the historical points, exam findings, and any diagnostic results supporting the discharge/admit diagnosis, lab results, radiology results, the need for outpatient follow up, a family practitioner, a general surgeon, to return to the emergency department if symptoms worsen or persist or if there are any questions or concerns that arise at home. 05/30 15:56 Order name: CBC with Diff; Complete Time: 16:51 kb 05/30 15:56 Order name: CMP; Complete Time: 17:07 kb 05/30 15:56 Order name: Lipase; Complete Time: 17:07 kb 05/30 15:56 Order name: Urinalysis w/ reflexes; Complete Time: 17:49 kb 05/30 17:10 Order name: [place] Screen Profile; Complete Time: 18:14 kb 05/30 15:56 Order name: CT Abd/Pelvis - IV Contrast Only; Complete Time: 19:28 kb 05/30 15:56 Order name: Chest Single View XRAY; Complete Time: 18:14 kb 05/30 16:51 Order name: EKG; Complete Time: 16:51 kb 05/30 15:56 Order name: IV Saline Lock; Complete Time: 16:28 kb 05/30 15:56 Order name: Labs collected and sent; Complete Time: 16:28 kb 05/30 16:51 Order name: EKG - Nurse/Tech; Complete Time: 18:24 kb EC:32 Rate is 99 beats/min. Rhythm is regular. QRS [place] is Normal. AR interval is normal at kb 148 msec. QRS interval is normal at 94 msec. QT interval is normal at 392 msec. Administered Medications: 16:28 Drug: Famotidine IVP 20 mg IVP once; dilute with 10 mL 0.9% NaCl; give over 2 minutes ph Route: IVP; Site: right antecubital; 18:24 Follow up: Response: No adverse reaction ph 16:28 Drug: Ondansetron IVP 4 mg IVP once; over 2 minutes Route: IVP; Site: right antecubital;ph 18:24 Follow up: Response: No adverse reaction ph 16:29 Drug: NS 0.9% IV 1000 ml IV at 1 bolus Per protocol; 1000 mL bolus Route: IV; Rate: 1 ph bolus; Site: right antecubital; 18:25 Follow up: Response: No adverse reaction; IV Status: Completed infusion; IV Intake: ph 1000ml 18:38 Drug: Ibuprofen PO 600 mg PO once Route: PO; ph 20:01 Follow up: Response: No adverse reaction rv 19:44 Drug: Acetaminophen PO 1000 mg PO once Route: PO; rv 20:01 Follow up: Response: No adverse reaction rv 20:01 Drug: Trimethoprim-Sulfamethoxazole PO (160 mg-800 mg (DS) 1 tablet PO once Route: PO; rv 20:01 Follow up: Response: Medication administered at discharge. rv 20:01 Drug: Cephalexin PO 500 mg PO once Route: PO; rv 20:01 Follow up: Response: Medication administered at discharge. rv Disposition Summary: 05/31/23 19:49 Discharge Ordered Notes: Location: Home kb Condition: Stable kb Diagnosis - Cutaneous abscess of buttock kb Followup: kb - With: Emergency Department - When: As needed - Reason: Worsening of condition Followup: kb - With: Private Physician - When: 2 - 3 days - Reason: Recheck today's complaints, Continuance of care, Re-evaluation by your physician Discharge Instructions: - Discharge Summary Sheet kb - Skin Abscess, [id number] kb Forms: - Medication Reconciliation Form kb - Thank You Letter kb - Antibiotic Education kb - Prescription Opioid Use kb - Patient Portal Instructions kb - Leadership Thank You Letter kb Prescriptions: - Cephalexin 500 mg Oral Capsule - take 1 capsule ORAL route every 8 hours for 10 days; 30 capsule; Refills: 0, kb Product Selection Permitted - Bactrim DS 800-160 mg Oral Tablet - take 1 tablet ORAL route every 12 hours for 10 days; 20 tablet; Refills: 0, kb Product Selection Permitted Addendum: 06/03/2023 01:02 I was immediately available for consultation during this patient's visit. I did not e c2 personally see the patient or discuss the patient with the LUZ. . Signatures: Dispatcher [employer] Rand Connell, ADHESION TESTER-C ADHESION TESTER-Rupali Young, RN RN Reymundo Hong, RN RN Ulysses Rivera RN RN as6 Candido Augustine MD MD ec2 Corrections: (The following items were deleted from the chart) 05/30 15:57 15:57 CBC+H.LAB.BRZ ordered. EDMS EDMS 15:57 15:57 COMPREHENSIVE METABOLIC PANEL+C.LAB.BRZ ordered. EDMS EDMS 15:57 15:57 LIPASE+C.LAB.BRZ ordered. EDMS EDMS 15:57 15:57 Urinalysis+U.LAB.BRZ ordered. EDMS EDMS
--- NOTE | 2023-05-31 19:49 | ER ---
Nurse's Notes [facility] Name: Noé Murry Age: 37 yrs Sex: Male : 1985 Arrival Date: 05/31/2023 Time: 15:47 Bed 13 Private MD: Diagnosis: Cutaneous abscess of buttock Presentation: 05/30 15:54 Chief complaint: Patient states: "I was just here and told I had a virus and if I got as6 worse to come back"pt new symptoms are abdominal pain and generally feeling worse. Coronavirus screen: At this time, the client does not indicate any symptoms associated with coronavirus-19. Ebola Screen: No symptoms or risks identified at this time. Initial Sepsis Screen: Does the patient meet any 2 criteria? HR > 90 bpm. No. Patient's initial sepsis screen is negative. Does the patient have a suspected source of infection? No. Patient's initial sepsis screen is negative. Risk Assessment: Do you want to hurt yourself or someone else? Patient reports no desire to harm self or others. Onset of symptoms was May 31, 2023. 15:54 Method Of Arrival: Ambulatory as6 15:54 Acuity: LUIS MIGUEL 3 as6 Historical: - Allergies: 15:56 No Known Allergies; as6 - PMHx: 15:56 Hypertension; High Cholesterol; diabetes mellitus; Anxiety; as6 - PSHx: 15:56 None; as6 - Immunization history:: Adult Immunizations up to date. - Infectious Disease History:: Denies. - Social history:: Smoking status: Patient denies any tobacco usage or history of. Screenin:49 [facility] ED Fall Risk Assessment (Adult) History of falling in the last 3 months, ph including since admission No falls in past 3 months (0 pts) Confusion or Disorientation No (0 pts) Intoxicated or Sedated No (0 pts) Impaired Gait No (0 pts) Mobility Assist Device Used No (0 pt) Altered Elimination No (0 pt) Score/Fall Risk Level 0 - 2 = Low Risk Oriented to surroundings, Maintained a safe environment, Provided non-skid footwear, Hourly rounding (assess needs \\T\\ fall precautionary measures) done. Abuse screen: Denies threats or abuse. Denies injuries from another. Nutritional screening: No deficits noted. Tuberculosis screening: No symptoms or risk factors identified. Assessment: 16:29 General: Appears in no apparent distress. Behavior is calm, cooperative, Reports fever ph for 1-2 days. Pain: Denies pain. Neuro: Level of Consciousness is awake, alert, obeys commands, Oriented to person, place, time, Reports dizziness. Cardiovascular: Capillary refill < 3 seconds. Respiratory: Airway is patent Respiratory effort is even, unlabored, Respiratory pattern is regular. GI: Reports nausea, Patient currently denies abdominal pain. Derm: Skin is pink, warm \\T\\ dry. 19:37 General: Appears uncomfortable, Behavior is calm, cooperative. Pain: Denies pain. rv Neuro: Level of Consciousness is awake, alert, obeys commands, Oriented to person, place, time, situation. Cardiovascular: Patient's skin is warm and dry. Rhythm is sinus tachycardia. Respiratory: Airway is patent Respiratory effort is even, unlabored, Respiratory pattern is regular. Vital Signs: 15:54 BP 160 / 99; Pulse 122; Resp 18 S; Temp 99.8(O); Pulse Ox 96% on R/A; Weight 99.79 kg as6 (R); Height 5 ft. 6 in. (R); Pain 10/10; 17:00 BP 151 / 90; Pulse 110; Resp 18; Pulse Ox 98% on R/A; ph 18:14 BP 146 / 92; Pulse 101; Resp 20; Pulse Ox 96% on R/A; ph 18:38 Temp 101.3(O); ph 19:38 BP 153 / 102; Pulse 106; Resp 18; Temp 101.1; Pulse Ox 96% on R/A; rv 20:03 BP 149 / 88; Pulse 99; Resp 19; Temp 100.8; Pulse Ox 96% on R/A; rv 15:54 Body Mass Index 35.51 (99.79 kg, 167.64 cm) as6 15:54 Pain Scale: Adult as6 [place] Coma Score: 19:38 Eye Response: spontaneous(4). Motor Response: obeys commands(6). Verbal Response: rv oriented(5). Total: 15. 20:03 Eye Response: spontaneous(4). Motor Response: obeys commands(6). Verbal Response: rv oriented(5). Total: 15. ED Course: 15:48 Patient arrived in ED. mg5 15:50 Rand Rosa FNP-C is [facility]. kb 15:50 Candido Augustine MD is Attending Physician. kb 15:56 Triage completed. as6 15:57 Arm band placed on. as6 16:05 Rupali Miller, RN is Primary Nurse. ph 16:27 Initial lab(s) drawn, by me, sent to lab. Inserted saline lock: 20 gauge in right ph antecubital area, using aseptic technique. Blood collected. 16:50 Patient has correct armband on for positive identification. Bed in low position. Call ph light in reach. Pulse ox on. NIBP on. 16:51 No provider procedures requiring assistance completed. ph 17:06 Chest Single View XRAY In Process Unspecified. EDMS 17:14 Urinalysis w/ reflexes Sent. ph 17:37 CT Abd/Pelvis - IV Contrast Only In Process Unspecified. EDMS 20:04 IV discontinued, intact, bleeding controlled, No redness/swelling at site. Pressure rv dressing applied. Administered Medications: 16:28 Drug: Famotidine IVP 20 mg IVP once; dilute with 10 mL 0.9% NaCl; give over 2 minutes ph Route: IVP; Site: right antecubital; 18:24 Follow up: Response: No adverse reaction ph 16:28 Drug: Ondansetron IVP 4 mg IVP once; over 2 minutes Route: IVP; Site: right antecubital;ph 18:24 Follow up: Response: No adverse reaction ph 16:29 Drug: NS 0.9% IV 1000 ml IV at 1 bolus Per protocol; 1000 mL bolus Route: IV; Rate: 1 ph bolus; Site: right antecubital; 18:25 Follow up: Response: No adverse reaction; IV Status: Completed infusion; IV Intake: ph 1000ml 18:38 Drug: Ibuprofen PO 600 mg PO once Route: PO; ph 20:01 Follow up: Response: No adverse reaction rv 19:44 Drug: Acetaminophen PO 1000 mg PO once Route: PO; rv 20:01 Follow up: Response: No adverse reaction rv 20:01 Drug: Trimethoprim-Sulfamethoxazole PO (160 mg-800 mg (DS) 1 tablet PO once Route: PO; rv 20:01 Follow up: Response: Medication administered at discharge. rv 20:01 Drug: Cephalexin PO 500 mg PO once Route: PO; rv 20:01 Follow up: Response: Medication administered at discharge. rv Medication: 16:50 VIS not applicable for this client. ph Intake: 18:25 IV: 1000ml; Total: 1000ml. ph Outcome: 19:49 Discharge ordered by . kb 20:03 Discharged to home ambulatory, with family, rv 20:03 Condition: good 20:03 Discharge instructions given to patient, Instructed on discharge instructions, follow up and referral plans. medication usage, Demonstrated understanding of instructions, follow-up care, medications, Prescriptions given X 2, 20:05 Patient left the ED. rv Signatures: Dispatcher [employer] EDMS Rand Rosa, GENERAL FOUNDRY WORKER-C GENERAL FOUNDRY WORKER-Rupali Young RN RN Reymundo Glaser RN RN rv Ulysses Mcmahon RN RN as6 Yarely Bravo 5
[2023-05-31] MEDS ORDERED: SMZ./TMP. 800/160 MG TABLET ONE (19:57)
[2023-05-31] MEDS ORDERED: CEPHALEXIN 250 MG CAP ONE (19:57)
[2023-06-01 05:21] VITALS: BP 149/88; TEMP 100.8; O2SAT 96
== END 2023-05-31 20:05 | disposition home or self-care (01) ==
LOC: ER 15:47
DX: L02.31 Cutaneous abscess of buttock (principal); I10 Essential (primary) hypertension
CPT/HCPCS: 96361; 93005; 85025; 36415; 86308; 81003; 83690; 80053; 74177; 71045; 96375; 96374; 99284; Q9967; J2405; J7030

== ENCOUNTER 2023-06-02 12:47 | Emergency (ER) | payer OTHER ==
--- OUTSIDE RECORDS SUMMARY | 2023-06-02 12:49 | XMS REPORT | Continuity of Care Document ---
Author Name Unknown Address [address] [place] [address] [facility] thconnect Address [address] [place] [address] Care Team Providers Care Mounter Flutes And Piccolos Name Role Phone Janey Lowery Primary Care Physician [phone] NOÉ ESCOBAR Attending Clinician Unavailable Noé Escobar DO Attending Clinician [phone] CALVIN FOWLER Attending Clinician Calvin Hardin MD Attending Clinician [phone] CALVIN FOWLER Admitting Clinician Denisse pelletier Payers Payer Name Policy Type Policy Number Effective Date Expirati on Date Source [facility] [id number] 2022 00:00:00 [employer] [id number] 2021 00:00:00 Problems Condition Name Condition Details Condition Category Status Onset Date Resolution Date Last Treatment Date Treating Clinician Comments Source No known active problems No known active problems Disease [facility] Allergies, Adverse Reactions, Alerts Allergy Name Allergy Type Status Severity Reaction(s) Onset Date Inactive Date Treating Clinician Comments Source NO KNOWN ALLERGIE S Drug Class Active [facility] Social History Social Habit Start Date Stop Date Quantity Comments Source Sexual orientation U [facility] [place] [place] Exposure to SARS-CoV-2 (event) 2022-02-10 00:00:00 2022-02-20 15:27:00 Not sure [facility] Sex Assigned At 1985 00:00:00 1985 00:00:00 [facility] Smoking Status Start Date Stop Date Source Tobacco smoking consumption unknown [facility] Medications Ordered Medication Name Filled Medication Name Start Date Stop Date Current Medication? Ordering Clinician Indication Dosage Frequency Signature (SIG) Comments Components Source famotidine (PEPCID AC) tablet 20 mg 2022-02 08:45: 00 11-28 08:49 :00 No 20mg 20 mg, Oral, ONCE, 1 dose, On 11/28/22 at 0345, STAN [facility] famotidine 10 mg tablet 2022-02 00:00: 00 Yes [id number] 10mg Take 1 tablet by mouth in the morning and 1 tablet in the evening. [facility] dexamethaso ne sod phos PF injection 10 mg 02-20 22:15: 00 02-20 22:12 :00 No 10mg 10 mg, Oral, ONCE, 1 dose, On 02/20/22 at 1615, 1 mL [facility] benzonatate 100 mg capsule 02-20 00:00: 00 Yes [id number] 100mg Take 1 capsule by mouth 3 (three) times daily as needed for Cough. [facility] albuterol 90 mcg/actuati on inhaler 02-20 00:00: 00 Yes [id number] 2{puff} Inhale 2 Puffs every 4 (four) hours as needed for Wheezing or Shortness of Breath. [facility] butalbital- acetaminoph en-caff 50-325-40 mg tablet 02-20 00:00: 00 Yes [id number] 2{tbl} Take 2 tablets by mouth every 8 (eight) hours as needed (headache) for up to 12 doses. [facility] predniSONE 20 mg tablet 02-20 00:00: 00 02-25 05:59 :00 No [id number] 40mg Take 2 tablets by mouth in the morning for 4 days. [facility] azithromyci n 250 mg tablet 08-10 00:00: 00 Yes 250mg Take 1 tablet by mouth SEE-INSTRU CTIONS. Take 500 mg day 1, then 250 mg days 2 to 5. [facility] benzonatate 100 mg capsule 2016-0 08-10 00:00: 00 02-20 00:00 :00 No 100mg Take 1 capsule by mouth 3 (three) times daily as needed for Cough. [facility] Vital Signs Vital Name Observation Time Observation Value Comments S renzo Systolic blood pressure 2022-11-28 08:32:00 156 mm[Hg] [facility] Diastolic blood pressure 2022-11-28 08:32:00 124 mm[Hg] [facility] Body temperature 2022-11-28 08:32:00 37.22 [place] [facility] Heart rate 2022-11-28 08:28:00 78 /min [facility] Respiratory rate 2022-11-28 08:28:00 18 /min [facility] Body height 2022-11-28 08:28:00 167.6 cm [facility] Body weight 2022-11-28 08:28:00 95.255 kg [facility] BMI 2022-11-28 08:28:00 33.89 kg/m2 [facility] Oxygen saturation in Arterial blood by Pulse oximetry 2022-11-28 08:28:00 100 /min [facility] Systolic blood pressure 2022-02-20 21:25:00 152 mm[Hg] [facility] Diastolic blood pressure 2022-02-20 21:25:00 100 mm[Hg] [facility] Heart rate 2022-02-20 21:25:00 95 /min [facility] Body temperature 2022-02-20 21:25:00 37 [place] [facility] Respiratory rate 2022-02-20 21:25:00 20 /min [facility] Body height 2022-02-20 21:25:00 167.6 cm [facility] Body weight 2022-02-20 21:25:00 99.791 kg [facility] BMI 2022-02-20 21:25:00 35.51 kg/m2 [facility] Oxygen saturation in Arterial blood by Pulse oximetry 2022-02-20 21:25:00 95 /min [facility] Procedures Procedure Date / Time Performed Performing Clinicia n Source CONSENT/REFUSAL FOR DIAGNOSIS AND TREATMENT 2022-11-28 08:04:04 Doctor Unassigned, [place] [facility] XR CHEST 1 VW 2022-02-20 22:08:40 Calvin Fowler [facility] CONSENT/REFUSAL FOR DIAGNOSIS AND TREATMENT 2022-02-20 21:19:39 Doctor Unassigned, [place] [facility] Encounters Start Date/Time End Date/Time Encounter Type Admission Type Attending Clinicians Care Facility Care Department Encounter ID Source 2022-11-28 03:31:00 2022-11-28 04:06:00 Emergency X NOÉ ESCOBAR [facility] ERT [id number] [facility] 2022-11-28 03:31:00 2022-11-28 04:06:00 Emergency Noé Escobar [facility] [id number] [facility] 2022-02-20 15:27:00 2022-02-20 16:57:00 Emergency CALVIN LATHAM [facility] ERT [id number] [facility] 2022-02-20 15:27:00 2022-02-20 16:57:00 Emergency Calvin Fowler [facility] [id number] [facility]
[2023-06-02] MEDS ORDERED: METHYLPREDNISOLONE 40 MG INJ ONE (13:36)
--- NOTE | 2023-06-02 14:21 | EDPHYS ---
Physician Documentation [facility] Name: Noé Murry Age: 37 yrs Sex: Male : 1985 Arrival Date: 06/02/2023 Time: 12:47 Bed 15 Private MD: ED Physician Gutierrez Padilla HPI: 06/01 13:40 This 37 yrs old Male presents to ER via Ambulatory with complaints of Rash, sb4 Allergic Reaction. 13:43 Patient was seen here 2 days ago for an abscess on his buttocks, had it drained, and sb4 was discharged with prescriptions for Keflex and Bactrim. States that he took the first doses this morning, Bactrim first states that he shortly after developed swelling and redness of his tongue as well as some sores in his nose. Additionally, feels like his throat is scratchy and swollen. Denies any shortness of breath or difficulty breathing. Historical: - Allergies: 13:10 No Known Allergies; as6 - PMHx: 13:10 Anxiety; diabetes mellitus; High Cholesterol; Hypertension; as6 - PSHx: 13:10 None; as6 - Immunization history:: Adult Immunizations up to date. - Infectious Disease History:: Denies. - Social history:: Smoking status: Patient denies any tobacco usage or history of. ROS: 13:43 Constitutional: Negative for fever, chills, and weight loss, sb4 13:43 ENT: Positive for sore throat, Tongue swelling and redness, 13:43 All other systems are negative, Exam: 13:43 Constitutional: This is a well developed, well nourished patient who is awake, alert, sb4 and in no acute distress. Head/Face: Normocephalic, atraumatic. Eyes: Extra-ocular motions intact. Periorbital areas with no swelling, redness, or edema. Cardiovascular: Regular rate and rhythm with a normal S1 and S2. Respiratory: Lungs have equal breath sounds bilaterally, clear to auscultation and percussion. No rales, rhonchi or wheezes noted. No increased work of breathing, no retractions or nasal flaring. Abdomen/GI: Soft, non-tender, no distension. Skin: Warm, dry with normal turgor. Normal color with no rashes, no lesions, and no evidence of cellulitis. MS/ Extremity: Pulses equal, no cyanosis. Neurovascular intact. Full, normal range of motion. Neuro: Awake and alert, GCS 15, oriented to person, place, time, and situation. Motor strength 5/5 in all extremities. Sensory grossly intact. 13:43 ENT: Mouth: Tongue: is swollen, displays stomatitis, Vital Signs: 13:08 BP 142 / 102; Pulse 81; Resp 19 S; Temp 97.5(TE); Pulse Ox 99% on R/A; Weight 99.79 kg as6 (R); Height 5 ft. 6 in. (R); 13:30 BP 132 / 93; Pulse 95; Resp 16; Pulse Ox 96% on R/A; me1 14:00 BP 121 / 90; Pulse 81; Resp 16; Pulse Ox 95% on R/A; me1 13:08 Body Mass Index 35.51 (99.79 kg, 167.64 cm) as6 MDM: 13:08 Patient medically screened. sb4 13:43 Differential diagnosis: allergic reaction. Data reviewed: vital signs, nurses notes, sb4 and as a result, I will discharge patient. Counseling: I had a detailed discussion with the patient and/or guardian regarding the historical points, exam findings, and any diagnostic results supporting the discharge/admit diagnosis, to return to the emergency department if symptoms worsen or persist or if there are any questions or concerns that arise at home. Administered Medications: 13:43 Drug: MethylPREDNISolone Sodium Succinate IM 60 mg IM once Route: IM; Site: left me1 deltoid; 14:02 Follow up: Response: No adverse reaction me1 13:43 Drug: Clindamycin PO 300 mg PO once Route: PO; me1 14:02 Follow up: Response: No adverse reaction me1 Disposition Summary: 06/02/23 14:20 Discharge Ordered Problem: new sb4 Symptoms: have improved sb4 Condition: Stable sb4 Diagnosis - Adverse effect of other systemic antibiotics, initial encounter sb4 Followup: sb4 - With: Emergency Department - When: As needed - Reason: Trouble breathing, Worsening of condition Discharge Instructions: - Discharge Summary Sheet sb4 - Drug Allergy, [id number] sb4 Forms: - Thank You Letter sb4 - Patient Portal Instructions sb4 - Leadership Thank You Letter sb4 Prescriptions: - Clindamycin HCl 300 mg Oral Capsule - take 1 capsule ORAL route every 6 hours for 10 days; 40 capsule; Refills: 0, sb4 Product Selection Permitted Signatures: Ulysses Mcmahon RN RN as6 Tigist De La Cruz PA-C PAMahesh sb4 Amy Gupta RN RN me1
--- NOTE | 2023-06-02 14:21 | ER ---
Nurse's Notes [facility] Name: Noé Murry Age: 37 yrs Sex: Male : 1985 Arrival Date: 06/02/2023 Time: 12:47 Bed 15 Private MD: Diagnosis: Adverse effect of other systemic antibiotics, initial encounter Presentation: 06/01 13:08 Chief complaint: Patient states: pt was just here and thinks he is having an allergic as6 reaction to the antibiotics we gave him. Coronavirus screen: At this time, the client does not indicate any symptoms associated with coronavirus-19. Ebola Screen: No symptoms or risks identified at this time. Initial Sepsis Screen: Does the patient meet any 2 criteria? No. Patient's initial sepsis screen is negative. Does the patient have a suspected source of infection? No. Patient's initial sepsis screen is negative. Risk Assessment: Do you want to hurt yourself or someone else? Patient reports no desire to harm self or others. Onset of symptoms was June 01, 2023. 13:08 Method Of Arrival: Ambulatory as6 13:08 Acuity: LUIS MIGUEL 4 as6 Historical: - Allergies: 13:10 No Known Allergies; as6 - PMHx: 13:10 Anxiety; diabetes mellitus; High Cholesterol; Hypertension; as6 - PSHx: 13:10 None; as6 - Immunization history:: Adult Immunizations up to date. - Infectious Disease History:: Denies. - Social history:: Smoking status: Patient denies any tobacco usage or history of. Screenin:57 [facility] ED Fall Risk Assessment (Adult) History of falling in the last 3 months, me1 including since admission No falls in past 3 months (0 pts) Confusion or Disorientation No (0 pts) Intoxicated or Sedated No (0 pts) Impaired Gait No (0 pts) Mobility Assist Device Used No (0 pt) Altered Elimination No (0 pt) Score/Fall Risk Level 0 - 2 = Low Risk Maintained a safe environment, Provided non-skid footwear, Hourly rounding (assess needs \T\ fall precautionary measures) done. Abuse screen: Denies threats or abuse. Nutritional screening: No deficits noted. Tuberculosis screening: No symptoms or risk factors identified. Assessment: 13:57 General: Appears uncomfortable, well groomed, well developed, well nourished, Behavior me1 is calm, cooperative, appropriate for age, Reports pt was just here and thinks he is having an allergic reaction to the antibiotics we gave him. Bumps on tongue that are painful and he started having difficulty swallowing this morning. Pain: Complains of pain in tongue Pain does not radiate. Pain currently is 4 out of 10 on a pain scale. Quality of pain is described as stinging, Pain began 1 hour ago. Is continuous. Neuro: Level of Consciousness is awake, alert, obeys commands, Oriented to person, place, time, situation, Appropriate for age. Cardiovascular: Capillary refill < 3 seconds Patient's skin is warm and dry. Respiratory: Airway is patent Respiratory effort is even, unlabored, Respiratory pattern is regular, symmetrical. GI: No signs and/or symptoms were reported involving the gastrointestinal system. : No signs and/or symptoms were reported regarding the genitourinary system. EENT: bumps on tongue that are painful, started yesterday. . Derm: Skin is intact, is healthy with good turgor, Skin is pink, warm \T\ dry. Musculoskeletal: No signs and/or symptoms reported regarding the musculoskeletal system. Vital Signs: 13:08 BP 142 / 102; Pulse 81; Resp 19 S; Temp 97.5(TE); Pulse Ox 99% on R/A; Weight 99.79 kg as6 (R); Height 5 ft. 6 in. (R); 13:30 BP 132 / 93; Pulse 95; Resp 16; Pulse Ox 96% on R/A; me1 14:00 BP 121 / 90; Pulse 81; Resp 16; Pulse Ox 95% on R/A; me1 13:08 Body Mass Index 35.51 (99.79 kg, 167.64 cm) as6 ED Course: 12:49 Patient arrived in ED. im 13:00 Tigist De La Cruz PA-C is PHCP. sb4 13:00 Gutierrez Padilla MD is Attending Physician. sb4 13:10 Triage completed. as6 13:10 Arm band placed on. as6 13:28 Amy Gupta, UGO is Primary Nurse. me1 13:57 Patient has correct armband on for positive identification. Bed in low position. Call me1 light in reach. Side rails up X 1. Provided Education on: POC. Verbalized understanding. . 13:57 No provider procedures requiring assistance completed. Patient did not have IV access me1 during this emergency room visit. Administered Medications: 13:43 Drug: MethylPREDNISolone Sodium Succinate IM 60 mg IM once Route: IM; Site: left me1 deltoid; 14:02 Follow up: Response: No adverse reaction me1 13:43 Drug: Clindamycin PO 300 mg PO once Route: PO; me1 14:02 Follow up: Response: No adverse reaction me1 Medication: 13:57 VIS not applicable for this client. me1 Outcome: 14:20 Discharge ordered by . sb4 14:29 Discharged to home ambulatory, me1 14:29 Condition: stable 14:29 Discharge instructions given to patient, Instructed on discharge instructions, follow up and referral plans. medication usage, Demonstrated understanding of instructions, follow-up care, medications, Prescriptions given X 1, 14:30 Patient left the ED. me1 Signatures: Ulysses Mcmahon RN RN as6 Tigist De La Cruz PA-C PAMahesh sb4 Luciana Garcia Amy Gupta RN RN me1 Corrections: (The following items were deleted from the chart) 13:43 13:08 Chief complaint: Patient states: pt was just here and thinks he is having an me1 allergic reaction to the antibiotics we gave him as6 13:57 13:08 Chief complaint: Patient states: pt was just here and thinks he is having an me1 allergic reaction to the antibiotics we gave him me1
[2023-06-02 19:52] VITALS: BP 121/90; TEMP 97.5; O2SAT 95
== END 2023-06-02 14:30 | disposition home or self-care (01) ==
LOC: ER 12:47
DX: K12.1 Other forms of stomatitis (principal); T36.8X5A Adverse effect of other systemic antibiotics, initial encounter
CPT/HCPCS: 96372; 99284; J2920

== ENCOUNTER 2023-07-08 09:06 | Emergency (ER) | payer OTHER ==
--- NOTE | 2023-07-08 10:00 | EDPHYS ---
Physician Documentation [facility] Name: Noé Murry Age: 37 yrs Sex: Male : 1985 Arrival Date: 07/08/2023 Time: 09:06 Bed 19 Private MD: ED Physician Obed Barreto HPI: 07/07 10:08 This 37 yrs old Male presents to ER via Ambulatory with complaints of Double ms3 medication. 10:08 37-year-old male with past medical history of anxiety, diabetes, hyperlipidemia, ms3 hypertension presents to the emergency department for medication overdose. Patient states he woke up 4 AM and took his lisinopril 10 mg and Farxiga 5 mg. Patient states he went back to sleep and awoke at 8 AM and took his medications a second time thinking it was Tuesday. Patient denies pain, patient denies any nausea, vomiting, shortness of breath.. Historical: - Allergies: : No Known Allergies; hb - Home Meds: :26 alprazolam 2 mg Oral tab 1 tab 3 times per day for Anxiety [Active]; Farxiga 5 mg Oral hb tablet 1 tab daily [Active]; lisinopril 10 mg Oral tab 1 tab once daily for Hypertension [Active]; - PMHx: 09:26 Anxiety; diabetes mellitus; High Cholesterol; Hypertension; hb - PSHx: : None; hb - Immunization history:: Adult Immunizations up to date. - Infectious Disease History:: Denies. - Social history:: Smoking status: Patient denies any tobacco usage or history of. ROS: 10:08 Constitutional: Negative for fever, and chills. Neck: Negative for injury, pain, and ms3 swelling, Cardiovascular: Negative for chest pain, and palpitations. Respiratory: Negative for shortness of breath, cough, wheezing, and pleuritic chest pain, Abdomen/GI: Negative for abdominal pain, nausea, vomiting, diarrhea, and constipation, MS/Extremity: Negative for injury and deformity, Skin: Negative for injury, rash, and discoloration, Exam: 10:08 Constitutional: This is a well developed, well nourished patient who is awake, alert, ms3 and in no acute distress. Chest/axilla: Normal chest wall appearance and motion. Nontender with no deformity. Cardiovascular: Regular rate and rhythm with a normal S1 and S2. No gallops, murmurs, or rubs. Normal PMI, no JVD. No pulse deficits. Respiratory: Lungs have equal breath sounds bilaterally, clear to auscultation and percussion. No rales, rhonchi or wheezes noted. No increased work of breathing, no retractions or nasal flaring. Abdomen/GI: Soft, non-tender, with normal bowel sounds. No distension or tympany. No guarding or rebound. No evidence of tenderness throughout. Skin: Warm, dry with normal turgor. Normal color with no rashes, no lesions, and no evidence of cellulitis. Vital Signs: 09:12 BP 138 / 103; Pulse 109; Resp 18; Temp 98.1; Pulse Ox 98% on R/A; Weight 99.79 kg; hb Height 5 ft. 6 in. ; Pain 0/10; 09:49 BP 122 / 95; Pulse 87; Resp 17; Pulse Ox 98% on R/A; ap3 10:06 BP 124 / 91; Pulse 90; Resp 18; Temp 97.8; Pulse Ox 99% ; ap3 09:12 Body Mass Index 35.51 (99.79 kg, 167.64 cm) hb 09:12 Pain Scale: Adult hb MDM: 09:43 Patient medically screened. ms3 10:08 Differential diagnosis: over medication. Data reviewed: vital signs, nurses notes, and ms3 as a result, I will discharge patient. Care significantly affected by the following chronic conditions: Diabetes, Hypertension. Counseling: I had a detailed discussion with the patient and/or guardian regarding the historical points, exam findings, and any diagnostic results supporting the discharge/admit diagnosis, lab results, the need for outpatient follow up, to return to the emergency department if symptoms worsen or persist or if there are any questions or concerns that arise at home. ED course: Discussed glucose with patient. Patient remains asymptomatic in the emergency department. Patient to follow-up with his primary care physician as needed. All questions were answered. Return precautions discussed include worsening symptoms, or any other concerns.. 07/07 09:37 Order name: Glucose, Ancillary Testing; Complete Time: 09:43 EDMS Administered Medications: No medications were administered Point of Care Testing: Blood Glucose: 09:28 Blood Glucose: 147 mg/dL; ap3 Ranges: Critical Glucose Levels:Adult <50 mg/dl or >400 mg/dl <40 mg/dl or >180 mg/dl Disposition Summary: 07/08/23 10:00 Discharge Ordered Notes: Location: Home ms3 Condition: Stable ms3 Diagnosis - Patient's unitentional overdosing of medication regimen for other reason ms3 Followup: ms3 - With: Private Physician - When: 2 - 3 days - Reason: Recheck today's complaints Discharge Instructions: - Discharge Summary Sheet ms3 - Hypertension, Adult ms3 Forms: - Medication Reconciliation Form ms3 - Antibiotic Education ms3 - Prescription Opioid Use ms3 - Patient Portal Instructions ms3 - Leadership Thank You Letter ms3 Signatures: Nay Kowalski, RN RN Obed Soriano DO DO ms3
--- NOTE | 2023-07-08 10:00 | ER ---
Nurse's Notes [facility] Name: Noé Murry Age: 37 yrs Sex: Male : 1985 Arrival Date: 07/08/2023 Time: 09:06 Bed 19 Private MD: Diagnosis: Patient's unitentional overdosing of medication regimen for other reason Presentation: 07/07 09:12 Chief complaint: Took Farxiga 5 mg and Lisinopril 10 mg at approx 0400, then hb accidentally took both again at 0800. Coronavirus screen: At this time, the client does not indicate any symptoms associated with coronavirus-19. Ebola Screen: No symptoms or risks identified at this time. Initial Sepsis Screen: Does the patient meet any 2 criteria? No. Patient's initial sepsis screen is negative. Does the patient have a suspected source of infection? No. Patient's initial sepsis screen is negative. Risk Assessment: Do you want to hurt yourself or someone else? Patient reports no desire to harm self or others. Onset of symptoms was July 08, 2023. 09:12 Method Of Arrival: Ambulatory 09:12 Acuity: LUIS MIGUEL 3 hb Triage Assessment: :26 General: Appears in no apparent distress. Behavior is cooperative, anxious. Pain: hb Denies pain. Neuro: Level of Consciousness is awake, alert, obeys commands, Oriented to person, place, time, situation. Cardiovascular: Patient's skin is warm and dry. Rhythm is sinus tachycardia. Respiratory: Respiratory effort is even, unlabored, Respiratory pattern is regular, symmetrical. Historical: - Allergies: : No Known Allergies; hb - Home Meds: : alprazolam 2 mg Oral tab 1 tab 3 times per day for Anxiety [Active]; Farxiga 5 mg Oral hb tablet 1 tab daily [Active]; lisinopril 10 mg Oral tab 1 tab once daily for Hypertension [Active]; - PMHx: : Anxiety; diabetes mellitus; High Cholesterol; Hypertension; hb - PSHx: : None; hb - Immunization history:: Adult Immunizations up to date. - Infectious Disease History:: Denies. - Social history:: Smoking status: Patient denies any tobacco usage or history of. Screenin: [facility] ED Fall Risk Assessment (Adult) History of falling in the last 3 months, ap3 including since admission No falls in past 3 months (0 pts) Confusion or Disorientation No (0 pts) Intoxicated or Sedated No (0 pts) Impaired Gait No (0 pts) Mobility Assist Device Used No (0 pt) Altered Elimination No (0 pt) Score/Fall Risk Level 0 - 2 = Low Risk Oriented to surroundings, Maintained a safe environment, Educated pt \T\ family on fall prevention, incl call for assistance when getting out of bed, Assessed \T\ reinforced patient's understanding of fall precautions, Provided non-skid footwear, Hourly rounding (assess needs \T\ fall precautionary measures) done, Used ambulatory aids as needed (educated on \T\ assisted with), Used gait belt as appropriate. Abuse screen: Denies threats or abuse. Nutritional screening: No deficits noted. Tuberculosis screening: No symptoms or risk factors identified. Assessment: 09:26 General: Appears in no apparent distress. Behavior is cooperative, appropriate for age, ap3 anxious. Pain: Denies pain. Neuro: Level of Consciousness is awake, alert, obeys commands, Oriented to person, place, time, situation. Cardiovascular: Patient's skin is warm and dry. Respiratory: Airway is patent Respiratory effort is even, unlabored, Respiratory pattern is regular, symmetrical. Vital Signs: 09:12 BP 138 / 103; Pulse 109; Resp 18; Temp 98.1; Pulse Ox 98% on R/A; Weight 99.79 kg; hb Height 5 ft. 6 in. ; Pain 0/10; 09:49 BP 122 / 95; Pulse 87; Resp 17; Pulse Ox 98% on R/A; ap3 10:06 BP 124 / 91; Pulse 90; Resp 18; Temp 97.8; Pulse Ox 99% ; ap3 09:12 Body Mass Index 35.51 (99.79 kg, 167.64 cm) hb 09:12 Pain Scale: Adult hb ED Course: 09:09 Patient arrived in ED. im 09:14 Obed Barreto DO is Attending Physician. ms3 09:18 Barbara Vela, UGO is Primary Nurse. ap3 09:26 Triage completed. hb 09:27 Arm band placed on. hb 09:27 Patient has correct armband on for positive identification. Placed in gown. Bed in low ap3 position. Call light in reach. Side rails up X 1. Provided Education on: call light use. cardiac monitor technician on. Pulse ox on. NIBP on. 10:06 No provider procedures requiring assistance completed. Patient did not have IV access ap3 during this emergency room visit. Administered Medications: No medications were administered Medication: 10:06 VIS not applicable for this client. ap3 Point of Care Testing: Blood Glucose: 09:28 Blood Glucose: 147 mg/dL; ap3 Ranges: Outcome: 10:00 Discharge ordered by . ms3 10: Discharged to home ambulatory, ap3 10: Condition: good :06 Discharge instructions given to patient, Instructed on discharge instructions, follow up and referral plans. Demonstrated understanding of instructions, follow-up care, :07 Patient left the ED. ap3 Signatures: Nay Kowalski RN UGO Barbara Vela RN RN ap3 Obed Barreto DO DO ms3 Luciana Garcia
[2023-07-08 10:21] VITALS: BP 124/91; TEMP 97.8; O2SAT 99
== END 2023-07-08 10:07 | disposition home or self-care (01) ==
LOC: ER 09:06
DX: T46.4X1A Poisoning by angiotensin-converting-enzyme inhibitors, accidental (unintentional), initial encounter (principal); E11.9 Type 2 diabetes mellitus without complications; I10 Essential (primary) hypertension
CPT/HCPCS: 82947; 99284

== ENCOUNTER 2023-08-08 07:15 | Emergency (ER) | payer OTHER ==
[2023-08-08] MEDS ORDERED: KETOROLAC 30 MG/ML INJ ONE (07:49)
[2023-08-08] MEDS ORDERED: METOCLOPRAMIDE 10 MG/2mL INJ ONE (07:49)
[2023-08-08] MEDS ORDERED: DIPHENHYDRAMINE 50 MG/ML VIAL ONE (07:49)
[2023-08-08] MEDS ORDERED: ACETAMINOPHEN 500 MG TAB ONE (07:49)
[2023-08-08] MEDS ORDERED: NA CHLORIDE 0.9% 1,000 ML ONE (07:49)
[2023-08-08] MEDS ORDERED: NA CHLORIDE 0.9% 50 ML ONE (07:50)
--- NOTE | 2023-08-08 08:16 | RAD REPORT ---
EXAM DESCRIPTION: CT - [id number] - 08/08/2023 8:05 am CLINICAL HISTORY: HEADACHE COMPARISON: Head Brain Wo Cont dated 11/08/2020 TECHNIQUE: Axial thin cut noncontrast CT images of the head were obtained. Axial thin cut noncontrast CT images of the cervical spine were obtained. Multiplanar reformatted images were generated and reviewed. All CT scans are performed using dose optimization technique as appropriate and may include automated exposure control or mA/KV adjustment according to patient size. FINDINGS: CT HEAD WITHOUT CONTRAST: No acute hemorrhage, hydrocephalus or extra-axial collection is identified.No areas of brain edema or midline shift. The paranasal sinuses and mastoids are clear.The calvarium is intact. Nonspecific right parietal sca lp subcutaneous soft tissue thickening and swelling, stable. CT CERVICAL SPINE WITHOUT CONTRAST: No fracture or subluxation.No prevertebral soft tissues swelling is identified. IMPRESSION: No acute traumatic intracranial or cervical spine findings.
--- NOTE | 2023-08-08 09:03 | ER ---
Nurse's Notes [facility] Name: Noé Murry Age: 37 yrs Sex: Male : 1985 Arrival Date: 08/08/2023 Time: 07:15 Bed 19 Private MD: Diagnosis: Headache Presentation: 08/07 07:38 Chief complaint: Patient states: Headache to L side of head since last night, no other ph symptoms, states that it comes and goes and he had difficulty sleeping, has not taken anything for headache, also reports chest tightness, states, " I think it's my anxiety, I've been out of my anxiety medicine.". Coronavirus screen: Vaccine status: Patient reports receiving the 1st dose of the Covid vaccine. Ebola Screen: No symptoms or risks identified at this time. Initial Sepsis Screen: Does the patient meet any 2 criteria? No. Patient's initial sepsis screen is negative. Does the patient have a suspected source of infection? No. Patient's initial sepsis screen is negative. Risk Assessment: Do you want to hurt yourself or someone else? Patient reports no desire to harm self or others. Onset of symptoms was August 08, 2023. 07:38 Method Of Arrival: Ambulatory ph 07:38 Acuity: LUIS MIGUEL 3 ph Triage Assessment: 07:41 Headache History: Denies prior headaches. General: Appears in no apparent distress. ph Behavior is calm, cooperative. Pain: Complains of pain in left ear Pain radiates to L jaw Pain began last night Also complains of no other associated symptoms. Neuro: Level of Consciousness is awake, alert, obeys commands, Oriented to person, place, time, situation. Historical: - Allergies: 07:40 unknown antibiotic; ph - Home Meds: 07:40 alprazolam 2 mg Oral tab 1 tab 3 times per day for Anxiety [Active]; Farxiga 5 mg Oral ph tablet 1 tab daily [Active]; lisinopril 10 mg Oral tab 1 tab once daily for Hypertension [Active]; - PMHx: 07:40 Anxiety; diabetes mellitus; High Cholesterol; Hypertension; ph - Immunization history:: Adult Immunizations unknown. - Infectious Disease History:: Denies. - Social history:: Smoking status: Patient denies any tobacco usage or history of. - Family history:: not pertinent. Screenin:44 [facility] ED Fall Risk Assessment (Adult) History of falling in the last 3 months, ph including since admission No falls in past 3 months (0 pts) Confusion or Disorientation No (0 pts) Intoxicated or Sedated No (0 pts) Impaired Gait No (0 pts) Mobility Assist Device Used No (0 pt) Altered Elimination No (0 pt) Score/Fall Risk Level 0 - 2 = Low Risk Oriented to surroundings, Maintained a safe environment, Hourly rounding (assess needs \\T\\ fall precautionary measures) done. Abuse screen: Denies threats or abuse. Denies injuries from another. Nutritional screening: No deficits noted. Tuberculosis screening: No symptoms or risk factors identified. Assessment: 08:20 Reassessment: Pt states that pain has improved after PO medication, ERP notified, other ph medications held at this time. General: SEE TRIAGE ASSESSMENT. Vital Signs: 07:38 BP 160 / 106; Pulse 79; Resp 18; Temp 97.6; Pulse Ox 98% on R/A; Weight 95.25 kg; ph Height 5 ft. 6 in. ; 08:46 BP 153 / 97; Pulse 72; Resp 18; Temp 97.4; Pulse Ox 99% on R/A; ph 07:38 Body Mass Index 33.89 (95.25 kg, 167.64 cm) ph ED Course: 07:18 Patient arrived in ED. rg4 07:30 Misbah Ambrocio MD is Attending Physician. rt 07:38 Rupali Miller, RN is Primary Nurse. ph 07:40 Triage completed. ph 07:41 Arm band placed on Patient placed in an exam room, on a stretcher. ph 08:05 Head C Spine Mpr Wo Con In Process Unspecified. EDMS 08:20 EKG done, by ED staff, reviewed by Misbah Ambrocio MD. ph 08:45 No provider procedures requiring assistance completed. Patient did not have IV access ph during this emergency room visit. 08:47 Patient has correct armband on for positive identification. Bed in low position. Call ph light in reach. Side rails up X 1. Pulse ox on. NIBP on. Door closed. Noise minimized. Warm blanket given. Administered Medications: 08:05 Drug: Acetaminophen PO 1000 mg PO once Route: PO; ph 08:51 Follow up: Response: No adverse reaction; Pain is decreased ph 08:51 Not Given (Other Intervention Used): ns 0.9% 1000 ml IV at 1 bolus Per protocol; 1000 ph mL bolus 08:51 Not Given (Other Intervention Used): [id number] mg IVP once; over 1 to 2 minutes ph 08:51 Not Given (Other Intervention Used): [id number] mg IVP once ph 08:51 Not Given (Other Intervention Used): [id number] mg IVP once ph Outcome: 08:48 Discharge ordered by . rt 09:31 Patient left the ED. ph 09:31 Discharged to home ambulatory, ph 09:31 Condition: good 09:31 Discharge instructions given to patient, Instructed on discharge instructions, follow up and referral plans. Demonstrated understanding of instructions, follow-up care, Signatures: Dispatcher [employer] Rupali Razo RN RN Adam, Jennifer 4 Misbah Ambrocio MD MD rt
--- NOTE | 2023-08-08 09:03 | EDPHYS ---
Physician Documentation [facility] Name: Noé Murry Age: 37 yrs Sex: Male : 1985 Arrival Date: 08/08/2023 Time: 07:15 Bed 19 Private MD: ED Physician Misbah Ambrocio HPI: 08/07 08:49 This 37 yrs old Male presents to ER via Ambulatory with complaints of Headache.rt 08:49 Patient presents to the ED with left-sided headache since last night. Denies nausea, rt vomiting, light sensitivity. Denies other acute complaints at this time, symptoms are moderate in severity, no other aggravating or alleviating factors.. Historical: - Allergies: 07:40 unknown antibiotic; ph - Home Meds: 07:40 alprazolam 2 mg Oral tab 1 tab 3 times per day for Anxiety [Active]; Farxiga 5 mg Oral ph tablet 1 tab daily [Active]; lisinopril 10 mg Oral tab 1 tab once daily for Hypertension [Active]; - PMHx: 07:40 Anxiety; diabetes mellitus; High Cholesterol; Hypertension; ph - Immunization history:: Adult Immunizations unknown. - Infectious Disease History:: Denies. - Social history:: Smoking status: Patient denies any tobacco usage or history of. - Family history:: not pertinent. ROS: 08:49 Constitutional: Negative for fever, chills, and weight loss, Cardiovascular: Negative rt for chest pain, palpitations, and edema, Respiratory: Negative for shortness of breath, cough, wheezing, and pleuritic chest pain, Abdomen/GI: Negative for abdominal pain, nausea, vomiting, diarrhea, and constipation, Skin: Negative for injury, rash, and discoloration, 08:49 Neuro: Positive for headache, Negative for altered mental status, Exam: 08:49 Constitutional: This is a well developed, well nourished patient who is awake, alert, rt and in no acute distress. Head/Face: Normocephalic, atraumatic. Chest/axilla: Normal chest wall appearance and motion. Nontender with no deformity. No lesions are appreciated. Cardiovascular: Regular rate and rhythm with a normal S1 and S2. No gallops, murmurs, or rubs. Normal PMI, no JVD. No pulse deficits. Respiratory: Lungs have equal breath sounds bilaterally, clear to auscultation and percussion. No rales, rhonchi or wheezes noted. No increased work of breathing, no retractions or nasal flaring. Abdomen/GI: Soft, non-tender, with normal bowel sounds. No distension or tympany. No guarding or rebound. No evidence of tenderness throughout. Skin: Warm, dry with normal turgor. Normal color with no rashes, no lesions, and no evidence of cellulitis. MS/ Extremity: Pulses equal, no cyanosis. Neurovascular intact. Full, normal range of motion. Neuro: Awake and alert, GCS 15, oriented to person, place, time, and situation. Cranial nerves II-XII grossly intact. Motor strength 5/5 in all extremities. Sensory grossly intact. Cerebellar exam normal. Normal gait. 08:49 ECG was reviewed by the Attending Physician. rt Vital Signs: 07:38 BP 160 / 106; Pulse 79; Resp 18; Temp 97.6; Pulse Ox 98% on R/A; Weight 95.25 kg; ph Height 5 ft. 6 in. ; 08:46 BP 153 / 97; Pulse 72; Resp 18; Temp 97.4; Pulse Ox 99% on R/A; ph 07:38 Body Mass Index 33.89 (95.25 kg, 167.64 cm) ph MDM: 07:35 Patient medically screened. rt 08:49 Differential diagnosis: Headache, migraine, intracranial hemorrhage. Data reviewed: rt vital signs, nurses notes, EKG, radiologic studies. I considered the following discharge prescriptions or medication management in the emergency department Medications were administered in the Emergency Department. See MAR. Independent interpretation of the following test(s) in the Emergency Department CT Scan: My interpretation is No intracranial hemorrhage seen on interpretation of CT scan images. Care significantly affected by the following chronic conditions: Diabetes. Counseling: I had a detailed discussion with the patient and/or guardian regarding the historical points, exam findings, and any diagnostic results supporting the discharge/admit diagnosis, radiology results, the need for outpatient follow up. Response to treatment: the patient's symptoms have resolved after treatment. 08/07 08:33 Order name: Glucose, Ancillary Testing; Complete Time: 08:41 EDMS 08/07 07:58 Order name: Head C Spine Mpr Wo Con; Complete Time: 08:41 EDMS 08/07 07:42 Order name: Accucheck; Complete Time: 08:51 rt 08/07 07:42 Order name: EKG - Nurse/Tech; Complete Time: 08:51 rt EC:49 Rate is 79 beats/min. Rhythm is regular, Normal Sinus Rhythm with No ectopy. QRS Biddle rt is Normal. [place] interval is normal. QRS interval is normal. QT interval is normal. No Q waves. T waves are Normal. No ST changes noted. Interpreted by me. Administered Medications: 08:05 Drug: Acetaminophen PO 1000 mg PO once Route: PO; ph 08:51 Follow up: Response: No adverse reaction; Pain is decreased ph 08:51 Not Given (Other Intervention Used): ns 0.9% 1000 ml IV at 1 bolus Per protocol; 1000 ph mL bolus 08:51 Not Given (Other Intervention Used): [id number] mg IVP once; over 1 to 2 minutes ph 08:51 Not Given (Other Intervention Used): [id number] mg IVP once ph 08:51 Not Given (Other Intervention Used): [id number] mg IVP once ph Disposition Summary: 08/08/23 08:48 Discharge Ordered Notes: Location: Home rt Problem: new rt Symptoms: have improved rt Condition: Stable rt Diagnosis - Headache rt Followup: rt - With: Private Physician - When: 2 - 3 days - Reason: Discharge Instructions: - Discharge Summary Sheet rt - General Headache Without Cause rt Forms: - Medication Reconciliation Form rt - Antibiotic Education rt - Prescription Opioid Use rt - Patient Portal Instructions rt - Leadership Thank You Letter rt Signatures: Dispatcher [employer] Rupali Razo RN RN ph Misbah Ambrocio MD MD rt Corrections: (The following items were deleted from the chart) 08:55 08:55 Head C Spine MPR Wo Con+CT.RAD.BRZ ordered. EDMS EDMS
--- NOTE | 2023-08-08 13:02 | EKG ---
Test Date: 2023-08-08 Test Time: 08:19:18 Erp Implementation Consultant: PH MEASUREMENT RESULTS: Intervals: Rate: 79 [place]: 152 QRSD: 98 QT: 368 QTc: 421 [place]: P: 16 [place]: 152 QRS: 9 T: 83 INTERPRETIVE STATEMENTS: Normal sinus rhythm Low voltage QRS Borderline ECG Compared to ECG 05/31/2023 18:29:31 Low QRS voltage now present Left posterior fascicular block no longer present Electronically Signed On 08-08-23 13:01:31 CDT by Bharat Knight
[2023-08-08 18:11] VITALS: BP 153/97; TEMP 97.4; O2SAT 99
== END 2023-08-08 09:31 | disposition home or self-care (01) ==
LOC: ER 07:15
DX: R51.9 Headache, unspecified (principal)
CPT/HCPCS: 93005; 82947; 70450; 72125; J2765; J1200; J7030; 99284

== ENCOUNTER 2023-08-12 12:00 | Emergency (ER) | payer OTHER ==
[2023-08-12] MEDS ORDERED: NA CHLORIDE 0.9% 1,000 ML ONE (12:29)
[2023-08-12 12:44] LABS: Absolute Eosinophils 0.1 K/uL (0-0.5); Absolute Lymphocytes (CBC) 1.7 K/uL (0.7-4.9); Absolute Monocytes 0.4 K/uL (0.1-1.3); Absolute Neutrophil 2.4 K/uL (1.8-8.0); Basophils % 0.4 % (0-1.3); Eosinophils % 1.5 % (0-4.4); Hematocrit 47.9 % (39.6-49.0); Hemoglobin 16.1 g/dL (13.6-17.9); Lymphocytes % 36.3 % (15.3-44.8); MCH 30.7 pg (27.0-35.0); MCHC 33.5 g/dL (32.0-36.0); MCV 91.6 fL (80-100); MPV 8.4 fL (7.6-11.3); Monocytes % 8.5 % (3.3-12.3); Neutrophils % 53.3 % (41.7-73.7); Nucleated Red Blood Cells % 0.1 % (0-0); Platelets 246 thou/uL (152-406); RBC Red Blood Cell Count 5.23 M/uL (4.33-5.43); Red Cell Distribution Width 12.7 % (12.1-15.2)
[2023-08-12 13:01] LABS: Troponin High Sensitivity 25.6 pg/mL (<58.9)
--- NOTE | 2023-08-12 14:07 | RAD REPORT ---
EXAM DESCRIPTION: Za Single View08/12/2023 1:33 pm CLINICAL HISTORY: Chest pain COMPARISON: May 2023 FINDINGS: The lungs appear clear of acute infiltrate. The heart is normal size IMPRESSION: No acute abnormalities displayed
--- NOTE | 2023-08-12 14:17 | ER ---
Nurse's Notes [facility] Name: Noé Murry Age: 37 yrs Sex: Male : 1985 Arrival Date: 08/12/2023 Time: 12:00 Bed 6 Private MD: Diagnosis: Palpitations;Chest pain, unspecified Presentation: 08/11 12:13 Chief complaint: Patient states: "I just feel faint, like my heart is racing, and my aa5 blood pressure is high". Coronavirus screen: At this time, the client does not indicate any symptoms associated with coronavirus-19. Ebola Screen: Patient denies travel to an Ebola-affected area in the 21 days before illness onset. Initial Sepsis Screen: Does the patient meet any 2 criteria? HR > 90 bpm. Does the patient have a suspected source of infection? No. Patient's initial sepsis screen is negative. Risk Assessment: Do you want to hurt yourself or someone else? Patient reports no desire to harm self or others. Onset of symptoms was August 12, 2023. 12:13 Acuity: LUIS MIGUEL 3 aa5 12:13 Method Of Arrival: Ambulatory aa5 Historical: - Allergies: 12:15 Bactrim DS; aa5 12:15 Cephalexin; aa5 - PMHx: 12:13 Anxiety; diabetes mellitus; High Cholesterol; Hypertension; aa5 - PSHx: 12:15 None; aa5 - Immunization history:: Adult Immunizations unknown. - Infectious Disease History:: Denies. - Social history:: Smoking status: Patient denies any tobacco usage or history of. - Family history:: not pertinent. - Hospitalizations: : No recent hospitalization is reported. Screenin:39 [facility] ED Fall Risk Assessment (Adult) History of falling in the last 3 months, mb9 including since admission No falls in past 3 months (0 pts) Confusion or Disorientation No (0 pts) Intoxicated or Sedated No (0 pts) Impaired Gait Yes (1 pt) Mobility Assist Device Used No (0 pt) Altered Elimination No (0 pt) Score/Fall Risk Level 0 - 2 = Low Risk Oriented to surroundings, Maintained a safe environment, Educated pt \\T\\ family on fall prevention, incl call for assistance when getting out of bed. Abuse screen: Denies injuries from another. Nutritional screening: No deficits noted. Tuberculosis screening: No symptoms or risk factors identified. Assessment: 12:36 General: Appears in no apparent distress. Behavior is cooperative. Pain: Complains of mb9 pain in chest Pain radiates to left armpit Pain currently is 4 out of 10 on a pain scale. Quality of pain is described as throbbing, Pain began suddenly, Is intermittent. Neuro: Silva Agitation-Sedation Scale (RASS): 0 - Alert and Calm Level of Consciousness is awake, alert, obeys commands, Oriented to person, place, time, situation, Appropriate for age. Cardiovascular: Heart tones S1 S2 present Patient's skin is warm and dry. Rhythm is sinus tachycardia. Respiratory: Airway is patent Respiratory effort is even, unlabored, Respiratory pattern is regular, symmetrical, Breath sounds are clear bilaterally. GI: Abdomen is flat, non-distended. GI: Bowel sounds present X 4 quads. Abd is soft and non tender X 4 quads. : No signs and/or symptoms were reported regarding the genitourinary system. EENT: No signs and/or symptoms were reported regarding the EENT system. Derm: Skin is pink, warm \\T\\ dry. Musculoskeletal: Range of motion: intact in all extremities. 14:09 Reassessment: Patient and/or family updated on plan of care and expected duration. Pain al5 level reassessed. Patient is alert, oriented x 3, equal unlabored respirations, skin warm/dry/pink. Patient states feeling better. Patient states symptoms have improved. Vital Signs: 12:13 BP 144 / 96; Pulse 121; Resp 19 S; Temp 98.7(O); Pulse Ox 95% on R/A; aa5 12:16 Weight 95.25 kg (R); Height 5 ft. 6 in. (R); aa5 12:39 Pulse 108; Resp 18; Pulse Ox 98% on R/A; mb9 13:18 BP 128 / 76; Pulse 96; rn 14:00 BP 128 / 86; Pulse 90; rn 14:01 BP 128 / 86; Pulse 92; Resp 18; Pulse Ox 100% on R/A; mb9 12:16 Body Mass Index 33.89 (95.25 kg, 167.64 cm) aa5 ED Course: 12:03 Patient arrived in ED. ra3 12:09 Tono Gonzalez MD is Attending Physician. rn 12:12 Arm band placed on. aa5 12:13 Triage completed. aa5 12:17 Naima Torres, RN is Primary Nurse. mb9 12:34 Initial lab(s) drawn, by me, sent to lab. Inserted saline lock: 18 gauge in right cm10 forearm, using aseptic technique. Blood collected. 12:35 Patient has correct armband on for positive identification. Placed in gown. Bed in low cm10 position. Call light in reach. Side rails up X2. Provided Education on: ER process and procedures. Client placed on continuous cardiac and pulse oximetry monitoring. NIBP monitoring applied. fuel truck driver on. 12:35 EKG done, by ED staff, reviewed by Tono Gonzalez MD. cm10 12:35 Basic Metabolic Panel Sent. cm10 12:35 BNP Sent. cm10 12:35 CBC with Diff Sent. cm10 12:35 Troponin High Sensitivity Sent. cm10 12:40 No provider procedures requiring assistance completed. mb9 13:35 XRAY Chest (1 view) In Process Unspecified. EDMS 14:23 IV discontinued, intact, bleeding controlled, No redness/swelling at site. Pressure mb9 dressing applied. Administered Medications: 12:35 Drug: NS 0.9% IV 1000 ml IV at 1000 ml once Route: IV; Rate: 1000 ml; Site: right cm10 forearm; 14:02 Follow up: Response: No adverse reaction; IV Status: Completed infusion mb9 Medication: 12:40 VIS not applicable for this client. mb9 Outcome: 14:16 Discharge ordered by . rn 14:23 Discharged to home ambulatory, with family, mb9 14:23 Condition: stable 14:23 Discharge instructions given to patient, Instructed on discharge instructions, follow up and referral plans. Demonstrated understanding of instructions, follow-up care, 14:23 Patient left the ED. mb9 Signatures: Dispatcher [employer] EDMS Tono Gonzalez MD MD rn Calderon, Audri RN RN aa5 Naima Torres, RN RN mb9 Carly Franklin, UGO ARIZMENDI cm10 Lauren Mclain ra3 Barbara Frank RN RN al5 Corrections: (The following items were deleted from the chart) 12:16 12:13 Allergies: unknown antibiotic; aa5 aa5 14:01 13:20 BP 128 / 86; Pulse 106bpm; Pulse Ox 100% RA; mb9 mb9
--- NOTE | 2023-08-12 14:17 | EDPHYS ---
Physician Documentation [facility] Name: Noé Murry Age: 37 yrs Sex: Male : 1985 Arrival Date: 08/12/2023 Time: 12:00 Bed 6 Private MD: ED Physician Tono Gonzalez HPI: 08/11 13:20 This 37 yrs old Male presents to ER via Ambulatory with complaints of Blood rn Pressure Problem. 13:20 The patient presents with a history of heart racing. Context: The symptoms occur at rn rest. Onset: The symptoms/episode began/occurred this morning. Duration: The patient or guardian reports a single episode, that is still ongoing. Modifying factors: The symptoms are aggravated by anxiety, The symptoms are alleviated by nothing. Severity of symptoms: At their worst the symptoms were moderate in the emergency department the symptoms have improved. The patient has experienced similar episodes in the past. The patient has not recently seen a physician. Patient reports that woke up from sleep with palpitations and headache. States this is how he feels when his blood pressure is elevated. Took his blood pressure medication and blood pressure started to come down. Still feels heart racing. Reports mild left-sided chest pressure. No shortness of breath. No abdominal pain.. Historical: - Allergies: 12:15 Bactrim DS; aa5 12:15 Cephalexin; aa5 - PMHx: 12:13 Anxiety; diabetes mellitus; High Cholesterol; Hypertension; aa5 - PSHx: 12:15 None; aa5 - Immunization history:: Adult Immunizations unknown. - Infectious Disease History:: Denies. - Social history:: Smoking status: Patient denies any tobacco usage or history of. - Family history:: not pertinent. - Hospitalizations: : No recent hospitalization is reported. ROS: 13:20 Constitutional: Negative for fever, chills, and weight loss, Cardiovascular: Positive rn for chest pain and palpitations Respiratory: Negative for shortness of breath, cough, wheezing, and pleuritic chest pain, Abdomen/GI: Negative for abdominal pain, nausea, vomiting, diarrhea, and constipation, MS/Extremity: Negative for injury and deformity, Skin: Negative for injury, rash, and discoloration, Neuro: Negative for headache, weakness, numbness, tingling, and seizure, Exam: 13:18 ECG was reviewed by the Attending Physician. rn 13:20 Constitutional: This is a well developed, well nourished patient who is awake, alert, rn and in no acute distress. Ambulatory to room without difficulty or assistance. Appears anxious Head/Face: Normocephalic, atraumatic. Eyes: Pupils equal round and reactive to light, extra-ocular motions intact. ENT: Dry mucous membranes Cardiovascular: Tachycardic, regular. No pulse deficits. Respiratory: No increased work of breathing, no retractions or nasal flaring. Abdomen/GI: Soft, non-tender MS/ Extremity: Pulses equal, no cyanosis. Neuro: Awake and alert, GCS 15 Vital Signs: 12:13 BP 144 / 96; Pulse 121; Resp 19 S; Temp 98.7(O); Pulse Ox 95% on R/A; aa5 12:16 Weight 95.25 kg (R); Height 5 ft. 6 in. (R); aa5 12:39 Pulse 108; Resp 18; Pulse Ox 98% on R/A; mb9 13:18 BP 128 / 76; Pulse 96; rn 14:00 BP 128 / 86; Pulse 90; rn 14:01 BP 128 / 86; Pulse 92; Resp 18; Pulse Ox 100% on R/A; mb9 12:16 Body Mass Index 33.89 (95.25 kg, 167.64 cm) aa5 MDM: 12:09 Patient medically screened. rn 14:03 Differential diagnosis: arrythmia, dehydration, stress disorder. Data reviewed: vital rn signs, nurses notes, lab test result(s), EKG, and as a result, I will discharge patient. Care significantly affected by the following chronic conditions: Hypertension. Counseling: I had a detailed discussion with the patient and/or guardian regarding the historical points, exam findings, and any diagnostic results supporting the discharge/admit diagnosis, lab results, radiology results, the need for outpatient follow up, to return to the emergency department if symptoms worsen or persist or if there are any questions or concerns that arise at home. Special discussion: Based on the patient's history, exam, and Dx evaluation, there is no indication for emergent intervention or inpatient Tx. It is understood by the patient/guardian that if the Sx's persist or worsen they need to return immediately for re-evaluation. I discussed with the patient/guardian in detail that at this point there is no indication for admission to the hospital. It is understood, however, that if the symptoms persist or worsen the patient needs to return immediately for re-evaluation. Based on the history and exam findings, there is no indication for further emergent testing or inpatient evaluation. I discussed with the patient/guardian the need to see the primary care provider for further evaluation of the symptoms. ED course: No acute findings and workup today. Troponin negative. ECG without ischemia. Patient feels much better after IV fluids. I have personally reviewed all of the results, including but not limited to blood tests and imaging deemed necessary to safely discharge this patient at this time. All results given to and printed out for patient. I personally went over all the results with the patient and answered all questions. Patient will follow-up with PCP and or specialist as discussed. Return precautions given and understood.. 08/11 12:15 Order name: CBC with Diff; Complete Time: 13:23 rn 08/11 12:15 Order name: Basic Metabolic Panel; Complete Time: 13:23 rn 08/11 12:15 Order name: Troponin High Sensitivity; Complete Time: 13:23 rn 08/11 12:15 Order name: BNP; Complete Time: 13:23 rn 08/11 12:15 Order name: XRAY Chest (1 view); Complete Time: 14:15 rn 08/11 12:15 Order name: IV Start; Complete Time: 12:35 rn 08/11 12:15 Order name: EKG - Nurse/Tech; Complete Time: 12:35 rn Administered Medications: 12:35 Drug: NS 0.9% IV 1000 ml IV at 1000 ml once Route: IV; Rate: 1000 ml; Site: right cm10 forearm; 14:02 Follow up: Response: No adverse reaction; IV Status: Completed infusion mb9 Disposition Summary: 08/12/23 14:16 Discharge Ordered Notes: Location: Home rn Problem: new rn Symptoms: have improved rn Condition: Stable rn Diagnosis - Palpitations rn - Chest pain, unspecified rn Followup: rn - With: Private Physician - When: As needed - Reason: Recheck today's complaints, Re-evaluation by your physician Discharge Instructions: - Nonspecific Chest Pain, Adult rn - Dehydration, Adult rn - Palpitations rn - Discharge Summary Sheet mb9 Forms: - Medication Reconciliation Form rn - Antibiotic internet sales director - Prescription Opioid Use rn - Patient Portal Instructions rn - Leadership Thank You Letter rn - Work release form mb9 Signatures: Dispatcher [employer] EDMS Tono Gonzalez MD MD rn Calderon, Audri, RN RN aa5 Carly Franklin RN RN Naima Grant RN mb9 Corrections: (The following items were deleted from the chart) 12:15 12:15 CBC+H.LAB.BRZ ordered. EDMS EDMS 12:15 12:15 BASIC METABOLIC PANEL+C.LAB.BRZ ordered. EDMS EDMS 12:15 12:15 Troponin High Sensitivity+C.LAB.BRZ ordered. EDMS EDMS 12:16 12:16 Chest Single View+RAD.RAD.BRZ ordered. EDMS EDMS 12:16 12:16 PROBNP+C.LAB.BRZ ordered. EDMS EDMS 12:16 12:13 Allergies: unknown antibiotic; aa5 aa5 13:23 13:20 Constitutional: This is a well developed, well nourished patient who is awake, rn alert, and in no acute distress. Cardiovascular: Tachycardic, regular. No pulse deficits. Respiratory: No increased work of breathing, no retractions or nasal flaring. Abdomen/GI: Soft, non-tender MS/ Extremity: Pulses equal, no cyanosis. Neuro: Awake and alert, GCS 15 rn 13:23 13:20 Constitutional: This is a well developed, well nourished patient who is awake, rn alert, and in no acute distress. Ambulatory to room without difficulty or assistance. Appears anxious Cardiovascular: Tachycardic, regular. No pulse deficits. Respiratory: No increased work of breathing, no retractions or nasal flaring. Abdomen/GI: Soft, non-tender MS/ Extremity: Pulses equal, no cyanosis. Neuro: Awake and alert, GCS 15 rn
[2023-08-12 14:36] VITALS: BP 128/86; TEMP 98.7; O2SAT 100
--- NOTE | 2023-08-13 14:06 | EKG ---
Test Date: 2023-08-12 Test Time: 12:25:42 Stone Engraver: MB MEASUREMENT RESULTS: Intervals: Rate: 103 [place]: 142 QRSD: 98 QT: 324 QTc: 424 [place]: P: 59 [place]: 142 QRS: 39 T: 24 INTERPRETIVE STATEMENTS: Sinus tachycardia Otherwise normal ECG Compared to ECG 08/08/2023 08:19:18 Sinus rhythm no longer present Electronically Signed On 08-13-23 14:05:07 CDT by Mohsen Flores
== END 2023-08-12 14:23 | disposition home or self-care (01) ==
LOC: ER 12:00
DX: R00.2 Palpitations (principal); R07.89 Other chest pain; I10 Essential (primary) hypertension; Z88.1 Allergy status to other antibiotic agents
CPT/HCPCS: 93005; 85025; 80048; 36415; 84484; 83880; 71045; 96360; 99285; J7030

== ENCOUNTER 2023-10-30 21:30 | Emergency (ER) | payer OTHER ==
[2023-10-30 22:11] LABS: SARS-CoV-2 Antigen CONTROL BLUE LINE VIS/BG OK; SARS-CoV-2 Antigen Rapid Res Negative (Negative)
--- NOTE | 2023-10-30 22:21 | ER ---
Nurse's Notes [facility] Name: Noé Murry Age: 38 yrs Sex: Male : 1985 Arrival Date: 10/30/2023 Time: 21:30 Bed 6 Private MD: Diagnosis: Acute upper respiratory infection, unspecified Presentation: 10/29 21:44 Chief complaint: Patient states: Pt c/o headache, cough, and sneezing since Tuesday. tl4 Coronavirus screen: congestion, cough unrelated to allergies, headache. Ebola Screen: No symptoms or risks identified at this time. Initial Sepsis Screen: Does the patient meet any 2 criteria? No. Patient's initial sepsis screen is negative. Does the patient have a suspected source of infection? No. Patient's initial sepsis screen is negative. Risk Assessment: Do you want to hurt yourself or someone else? Patient reports no desire to harm self or others. Onset of symptoms was October 28, 2023. 21:44 Method Of Arrival: Ambulatory tl4 21:44 Acuity: LUIS MIGUEL 4 tl4 Triage Assessment: 21:46 General: Appears in no apparent distress. Behavior is calm, cooperative. Pain: tl4 Complains of pain in face. EENT: Reports sneezing. Neuro: Level of Consciousness is awake, alert, obeys commands, Oriented to person, place, time, situation. Neuro: Reports headache. Cardiovascular: Capillary refill < 3 seconds Patient's skin is warm and dry. Respiratory: Reports cough that is. GI: No signs and/or symptoms were reported involving the gastrointestinal system. : No signs and/or symptoms were reported regarding the genitourinary system. Derm: No signs and/or symptoms reported regarding the dermatologic system. Musculoskeletal: No signs and/or symptoms reported regarding the musculoskeletal system. Historical: - Allergies: 21:45 Bactrim DS; tl4 21:45 Cephalexin; tl4 - PMHx: 21:45 Anxiety; diabetes mellitus; High Cholesterol; Hypertension; tl4 - Immunization history:: Adult Immunizations unknown. - Infectious Disease History:: Denies. - Social history:: Smoking status: Patient denies any tobacco usage or history of. Screenin:[facility] ED Fall Risk Assessment (Adult) History of falling in the last 3 months, bm8 including since admission No falls in past 3 months (0 pts) Confusion or Disorientation No (0 pts) Intoxicated or Sedated No (0 pts) Impaired Gait No (0 pts) Mobility Assist Device Used No (0 pt) Altered Elimination No (0 pt) Score/Fall Risk Level 0 - 2 = Low Risk Oriented to surroundings, Maintained a safe environment, Educated pt \T\ family on fall prevention, incl call for assistance when getting out of bed, Assessed \T\ reinforced patient's understanding of fall precautions, Hourly rounding (assess needs \T\ fall precautionary measures) done, Used ambulatory aids as needed (educated on \T\ assisted with), Used gait belt as appropriate. Abuse screen: Denies threats or abuse. Nutritional screening: No deficits noted. Tuberculosis screening: No symptoms or risk factors identified. Assessment: 21:44 Reassessment: Patient appears in no apparent distress at this time. Patient and/or bm8 family updated on plan of care and expected duration. Pain level reassessed. Patient is alert, oriented x 3, equal unlabored respirations, skin warm/dry/pink. General: Appears in no apparent distress. comfortable, Behavior is calm, cooperative, appropriate for age. Pain: Complains of pain in generalized body aches Pain currently is 5 out of 10 on a pain scale. Neuro: No deficits noted. Level of Consciousness is awake, alert, obeys commands, Oriented to person, place, time, situation, Appropriate for age. Cardiovascular: Denies chest pain, Capillary refill < 3 seconds in bilateral fingers toes Patient's skin is warm and dry. Respiratory: No deficits noted. Reports cough that is non-productive, Airway is patent Respiratory effort is even, unlabored, Respiratory pattern is regular, symmetrical, Breath sounds are clear bilaterally. GI: No signs and/or symptoms were reported involving the gastrointestinal system. : No signs and/or symptoms were reported regarding the genitourinary system. EENT: Nares are clear. Derm: No signs and/or symptoms reported regarding the dermatologic system. Musculoskeletal: Reports generalized body aches. 22:26 Reassessment: No changes from previously documented assessment. Patient and/or family bm8 updated on plan of care and expected duration. Pain level reassessed. Patient is alert, oriented x 3, equal unlabored respirations, skin warm/dry/pink. Vital Signs: 21:44 BP 147 / 105; Pulse 81; Resp 18; Temp 98.1(O); Pulse Ox 100% on R/A; Weight 99.79 kg; tl4 Height 5 ft. 6 in. ; 22:26 BP 140 / 100; Pulse 100; Resp 18; Temp 98.1; Pulse Ox 100% ; Pain 5/10; bm8 21:44 Body Mass Index 35.51 (99.79 kg, 167.64 cm) tl4 22:26 Pain Scale: Adult bm8 Renetta Coma Score: 21:44 Eye Response: spontaneous(4). Motor Response: obeys commands(6). Verbal Response: bm8 oriented(5). Total: 15. 22:26 Eye Response: spontaneous(4). Motor Response: obeys commands(6). Verbal Response: bm8 oriented(5). Total: 15. ED Course: 21:33 Patient arrived in ED. im 21:34 Rand Rosa FNP-C is [facility]. kb 21:34 Misbah Ambrocio MD is Attending Physician. kb 21:44 Danie Mueller RN is Primary Nurse. bm8 21:44 Patient has correct armband on for positive identification. Bed in low position. Call bm8 light in reach. Side rails up X 1. Client placed on continuous cardiac and pulse oximetry monitoring. NIBP monitoring applied. Pulse ox on. NIBP on. Door closed. Noise minimized. Pillow given. Verbal reassurance given. Head of bed elevated. 21:44 No provider procedures requiring assistance completed. COVID swab sent to lab. Flu bm8 and/or RSV swab sent to lab. Patient did not have IV access during this emergency room visit. Patient maintains SpO2 saturation greater than 95% on room air. 21:45 Triage completed. tl4 21:47 Arm band placed on right wrist. tl4 21:52 SARS-COV-2 Antigen Rapid Sent. vk 21:52 Flu Sent. vk 22:26 Provided Education on: post er care. bm8 Administered Medications: No medications were administered Medication: 21:44 VIS not applicable for this client. bm8 Outcome: 22:20 Discharge ordered by . kb 22:26 Discharged to home ambulatory, bm8 22:26 Condition: stable 22:26 Discharge instructions given to patient, Instructed on discharge instructions, follow up and referral plans. safety practices, Demonstrated understanding of instructions, follow-up care, medications, 22:30 Patient left the ED. bm8 Signatures: Rand Rosa, ELIANA-C [employer]MENT MANAGER-Ckb Luciana Garcia Toni, RN RN tl4 Pia Monroe Brad, RN RN bm8
--- NOTE | 2023-10-30 22:21 | EDPHYS ---
Physician Documentation [facility] Name: Noé Murry Age: 38 yrs Sex: Male : 1985 Arrival Date: 10/30/2023 Time: 21:30 Bed 6 Private MD: ED Physician Misbah Ambrocio HPI: 10/29 22:18 This 38 yrs old Male presents to ER via Ambulatory with complaints of Flu kb Symptoms. 22:18 Pt is a 38 year old male who presents for cough, sneezing and headache that started 3 kb days ago. Denies fever, shortness of breath. States he just came in to make sure it wasn't covid or the flu. Historical: - Allergies: 21:45 Bactrim DS; tl4 21:45 Cephalexin; tl4 - PMHx: 21:45 Anxiety; diabetes mellitus; High Cholesterol; Hypertension; tl4 - Immunization history:: Adult Immunizations unknown. - Infectious Disease History:: Denies. - Social history:: Smoking status: Patient denies any tobacco usage or history of. ROS: 22:18 Constitutional: As per HPI kb Exam: 22:18 Constitutional: This is a well developed, well nourished patient who is awake, alert, kb and in no acute distress. Head/Face: Normocephalic, atraumatic. ENT: Moist Mucous membranes Cardiovascular: Regular rate Respiratory: Respirations even and unlabored. No increased work of breathing. Talking in full sentences Skin: Warm, dry with normal turgor. Normal color. MS/ Extremity: Pulses equal, no cyanosis. Neurovascular intact. Full, normal range of motion. Neuro: Awake and alert, GCS 15, oriented to person, place, time, and situation. Moves all extremities. Normal gait. Vital Signs: 21:44 BP 147 / 105; Pulse 81; Resp 18; Temp 98.1(O); Pulse Ox 100% on R/A; Weight 99.79 kg; tl4 Height 5 ft. 6 in. ; 22:26 BP 140 / 100; Pulse 100; Resp 18; Temp 98.1; Pulse Ox 100% ; Pain 5/10; bm8 21:44 Body Mass Index 35.51 (99.79 kg, 167.64 cm) tl4 22:26 Pain Scale: Adult bm8 [place] Coma Score: 21:44 Eye Response: spontaneous(4). Motor Response: obeys commands(6). Verbal Response: bm8 oriented(5). Total: 15. 22:26 Eye Response: spontaneous(4). Motor Response: obeys commands(6). Verbal Response: bm8 oriented(5). Total: 15. MDM: 21:34 Patient medically screened. kb 22:19 Differential diagnosis: flu, covid, uri, allergic rhinitis. Data reviewed: vital signs, kb nurses notes. I considered the following discharge prescriptions or medication management in the emergency department I discussed and recommended Over The Counter medications, Antibiotics: At this time antibiotics are not recommended. Test considered but Not performed: X-ray: chest xray considered but resp even and unlabored, lungs clear bilaterally. Counseling: I had a detailed discussion with the patient and/or guardian regarding the historical points, exam findings, and any diagnostic results supporting the discharge/admit diagnosis, lab results, the need for outpatient follow up, a family practitioner, to return to the emergency department if symptoms worsen or persist or if there are any questions or concerns that arise at home. 10/29 21:44 Order name: Flu; Complete Time: 22:16 kb 10/29 21:44 Order name: SARS-COV-2 Antigen Rapid; Complete Time: 22:16 kb Administered Medications: No medications were administered Disposition: 22:50 Co-signature as Attending Physician, Misbah Ambrocio MD I reviewed the patient's care rt provided by the Advanced Practice Provider and agree with the diagnosis and treatment plan. Disposition Summary: 10/30/23 22:20 Discharge Ordered Notes: Location: Home kb Condition: Stable kb Diagnosis - Acute upper respiratory infection, unspecified kb Followup: kb - With: Emergency Department - When: As needed - Reason: Worsening of condition Followup: kb - With: Private Physician - When: 2 - 3 days - Reason: Recheck today's complaints, Continuance of care, Re-evaluation by your physician Discharge Instructions: - Discharge Summary Sheet kb - Upper Respiratory Infection, Adult, [id number] kb - Viral Respiratory Infection, [id number] kb Forms: - Medication Reconciliation Form kb - Antibiotic Education kb - Prescription Opioid Use kb - Patient Portal Instructions kb - Leadership Thank You Letter kb Signatures: Dispatcher [employer] EDRand Urena, Misbah Vasquez MD MD rt Neel Guerra, RN RN tl4 Corrections: (The following items were deleted from the chart) : Influenza Screen (A \T\ B)+BA.LAB.BRZ ordered. EDMS EDMS : SARS-COV-2 Antigen Rapid+I.LAB.BRZ ordered. EDMS EDMS
[2023-10-30 22:35] VITALS: TEMP 98.1; O2SAT 100
[2023-10-30 22:36] VITALS: BP 140/100
== END 2023-10-30 22:30 | disposition home or self-care (01) ==
LOC: ER 21:30
DX: J06.9 Acute upper respiratory infection, unspecified (principal); Z11.52 Encounter for screening for COVID-19
CPT/HCPCS: 36415; 87804; 87811; 99284

== ENCOUNTER 2023-11-20 21:20 | Emergency (ER) | payer OTHER ==
[2023-11-20] MEDS ORDERED: predniSONE 20 MG TAB ONE (21:42)
--- NOTE | 2023-11-20 22:30 | EDPHYS ---
Physician Documentation [facility] [place], [place] Name: Noé Murry Age: 38 yrs Sex: Male : 1985 Arrival Date: 11/20/2023 Time: 21:20 Bed IW1 Private MD: ED Physician Candido Augustine HPI: 11/19 21:44 This 38 yrs old Male presents to ER via Ambulatory with complaints of Rash. cp 21:44 The patient's rash thought to be caused by an unknown cause. The rash is located on the cp right antecubital area and left antecubital area. The rash can be described as erythematous. Onset: The symptoms/episode began/occurred yesterday. Treatment given at home: eczema cream. Historical: - Allergies: 21:35 Bactrim DS; iw 21:35 Cephalexin; iw - Home Meds: 21:35 alprazolam 2 mg Oral tab 1 tab 3 times per day for Anxiety [Active]; Farxiga 5 mg Oral iw tablet 1 tab daily [Active]; lisinopril 10 mg Oral tab 1 tab once daily for Hypertension [Active]; pravastatin Oral [Active]; - PMHx: 21:35 Anxiety; diabetes mellitus; High Cholesterol; Hypertension; iw - Immunization history:: Adult Immunizations. - Infectious Disease History:: Denies. - Social history:: Smoking status: Patient denies any tobacco usage or history of. ROS: 21:45 Skin: Positive for rash, of the right antecubital area and left antecubital area, cp 21:45 Eyes: Negative for injury, pain, redness, and discharge, cp 21:45 Constitutional: Negative for body aches, chills, fever, 21:45 Respiratory: Negative for cough, shortness of breath, wheezing, 21:45 Abdomen/GI: Negative for nausea and vomiting, 21:45 All other systems are negative, Exam: 21:50 Constitutional: The patient appears in no acute distress, alert, awake, non-toxic, well cp developed, well nourished, 21:50 Head/Face: Normocephalic, atraumatic. cp 21:50 ENT: External ear(s): are unremarkable, Nose: is normal, Mouth: Lips: moist, Oral mucosa: moist, Posterior pharynx: Airway: no evidence of obstruction, patent, 21:50 Chest/axilla: Inspection: normal, 21:50 Cardiovascular: Rate: normal, 21:50 Respiratory: the patient does not display signs of respiratory distress, Respirations: normal, no use of accessory muscles, no retractions, labored breathing, is not present, 21:50 Skin: cellulitis, is not appreciated, rash can be described as erythematous, excoriated, urticarial, hives, on the right antecubital area and left antecubital area, Vital Signs: 21:33 BP 154 / 110; Pulse 80; Resp 16; Pulse Ox 97% on R/A; Weight 95.25 kg; Height 5 ft. 6 iw in. ; 21:33 Body Mass Index 33.89 (95.25 kg, 167.64 cm) iw MDM: 22:00 Differential diagnosis: impetigo, cellulitis, contact dermatitis, eczema. cp 22:28 Data reviewed: vital signs, nurses notes, and as a result, I will discharge patient. cp 22:28 I considered the following discharge prescriptions or medication management in the emergency department Medications were administered in the Emergency Department. See MAR. Counseling: I had a detailed discussion with the patient and/or guardian regarding the historical points, exam findings, and any diagnostic results supporting the discharge/admit diagnosis, to return to the emergency department if symptoms worsen or persist or if there are any questions or concerns that arise at home. Response to treatment: There is no appreciated change of the patient's symptoms at this time. 22:29 Patient medically screened. cp Administered Medications: 21:48 Drug: predniSONE PO 60 mg PO once Route: PO; iw 22:10 Follow up: Response: No adverse reaction iw Disposition Summary: 11/20/23 22:29 Discharge Ordered Notes: Location: Home cp Problem: new cp Symptoms: are unchanged cp Condition: Stable cp Diagnosis - Dermatitis, unspecified cp Followup: cp - With: Private Physician - When: 2 - 3 days - Reason: Worsening of condition Discharge Instructions: - Discharge Summary Sheet cp - Atopic Dermatitis cp Forms: - Medication Reconciliation Form cp - Antibiotic Education cp - Prescription Opioid Use cp - Patient Portal Instructions cp - Leadership Thank You Letter cp Prescriptions: - Zyrtec 10 mg Oral Tablet - take 1 tablet ORAL route once daily As needed; 20 tablet; Refills: 0, Product cp Selection Permitted - Triamcinolone Acetonide 0.5 % Topical cream - apply 1 application TOPICAL route 2 times per day for 8-10 days; 45 gram tube; cp Refills: 0, Product Selection Permitted - Prednisone 20 mg Oral Tablet - take 2 tablets ORAL route once daily for 5 days; 10 tablet; Refills: 0, Product cp Selection Permitted Addendum: 11/23/2023 09:43 I was immediately available for consultation during this patient's visit. I did not e c2 personally see the patient or discuss the patient with the LUZ. . Signatures: Lidia Carvalho RN RN Gutierrez Dixon PA PA cp Corral, Edwin, MD MD ec2
--- NOTE | 2023-11-20 22:30 | ER ---
Nurse's Notes [facility] Name: Noé Murry Age: 38 yrs Sex: Male : 1985 Arrival Date: 11/20/2023 Time: 21:20 Bed IW1 Private MD: Diagnosis: Dermatitis, unspecified Presentation: 11/19 21:33 Chief complaint: Patient states: rash to jere elbow area. started last night. iw Coronavirus screen: At this time, the client does not indicate any symptoms associated with coronavirus-19. Ebola Screen: No symptoms or risks identified at this time. Initial Sepsis Screen: Does the patient meet any 2 criteria? No. Patient's initial sepsis screen is negative. Does the patient have a suspected source of infection? No. Patient's initial sepsis screen is negative. Risk Assessment: Do you want to hurt yourself or someone else? Patient reports no desire to harm self or others. Onset of symptoms was November 19, 2023. 21:33 Method Of Arrival: Ambulatory iw 21:33 Acuity: LUIS MIGUEL 4 iw Historical: - Allergies: 21:35 Bactrim DS; iw 21:35 Cephalexin; iw - Home Meds: 21:35 alprazolam 2 mg Oral tab 1 tab 3 times per day for Anxiety [Active]; Farxiga 5 mg Oral iw tablet 1 tab daily [Active]; lisinopril 10 mg Oral tab 1 tab once daily for Hypertension [Active]; pravastatin Oral [Active]; - PMHx: 21:35 Anxiety; diabetes mellitus; High Cholesterol; Hypertension; iw - Immunization history:: Adult Immunizations. - Infectious Disease History:: Denies. - Social history:: Smoking status: Patient denies any tobacco usage or history of. Screenin:38 [facility] ED Fall Risk Assessment (Adult) History of falling in the last 3 months, iw including since admission No falls in past 3 months (0 pts) Confusion or Disorientation No (0 pts) Intoxicated or Sedated No (0 pts) Impaired Gait No (0 pts) Mobility Assist Device Used No (0 pt) Altered Elimination No (0 pt) Score/Fall Risk Level 0 - 2 = Low Risk Oriented to surroundings, Maintained a safe environment, Educated pt \T\ family on fall prevention, incl call for assistance when getting out of bed. Abuse screen: Denies injuries from another. Nutritional screening: No deficits noted. Tuberculosis screening: No symptoms or risk factors identified. Assessment: 21:37 General: Appears in no apparent distress. Behavior is calm, cooperative. Pain: Denies iw pain. Neuro: Level of Consciousness is awake, alert, obeys commands, Oriented to person, place, time, situation, Appropriate for age Moves all extremities. Full function. Cardiovascular: Patient's skin is warm and dry. Respiratory: Respiratory effort is even, unlabored, Respiratory pattern is regular, symmetrical. GI: No signs and/or symptoms were reported involving the gastrointestinal system. Derm: Rash noted that is itchy, red, urticaria, on right antecubital area and left antecubital area. Musculoskeletal: Range of motion: intact in all extremities. Vital Signs: 21:33 BP 154 / 110; Pulse 80; Resp 16; Pulse Ox 97% on R/A; Weight 95.25 kg; Height 5 ft. 6 iw in. ; 21:33 Body Mass Index 33.89 (95.25 kg, 167.64 cm) iw ED Course: 21:23 Patient arrived in ED. [id number] 21:35 Triage completed. iw 21:35 Gutierrez Roy PA is PHCP. cp 21:35 Candido Augustine MD is Attending Physician. cp 21:35 Arm band placed on. iw 21:39 Patient has correct armband on for positive identification. Provided Education on: wait iw time . 21:39 No provider procedures requiring assistance completed. Patient did not have IV access iw during this emergency room visit. 21:48 Lidia Carvalho RN is Primary Nurse. iw Administered Medications: 21:48 Drug: predniSONE PO 60 mg PO once Route: PO; iw 22:10 Follow up: Response: No adverse reaction iw Medication: 21:38 VIS not applicable for this client. iw Outcome: 22:29 Discharge ordered by MD. cp 22:40 Discharged to home ambulatory, with family, iw 22:40 Condition: good 22:40 Discharge instructions given to patient, Instructed on discharge instructions, follow up and referral plans. medication usage, Demonstrated understanding of instructions, follow-up care, medications, Prescriptions given X 3, 22:42 Patient left the ED. iw Signatures: Lidia Carvalho RN RN iw Gutierrez Roy PA PA Matilda Kat [id number]
[2023-11-20 23:12] VITALS: BP 154/110; O2SAT 97
== END 2023-11-20 22:42 | disposition home or self-care (01) ==
LOC: ER 21:20
DX: L30.9 Dermatitis, unspecified (principal)
CPT/HCPCS: 99283; J7512

== ENCOUNTER 2024-03-21 07:14 | Emergency (ER) | payer OTHER ==
[2024-03-21 08:03] LABS: SARS-CoV-2 Antigen CONTROL BLUE LINE VIS/BG OK; SARS-CoV-2 Antigen Rapid Res Negative (Negative)
--- NOTE | 2024-03-21 08:23 | ER ---
Nurse's Notes [facility] Name: Noé Murry Age: 38 yrs Sex: Male : 1985 Arrival Date: 03/21/2024 Time: 07:14 Bed 8 Private MD: Diagnosis: Viral infection, unspecified Presentation: 03/21 07:38 Chief complaint: Patient states: Cough, sore throat since Tuesday. Headache began today. ld1 Coronavirus screen: At this time, the client does not indicate any symptoms associated with coronavirus-19. Ebola Screen: No symptoms or risks identified at this time. Initial Sepsis Screen: Does the patient meet any 2 criteria? No. Patient's initial sepsis screen is negative. Does the patient have a suspected source of infection? No. Patient's initial sepsis screen is negative. Risk Assessment: Do you want to hurt yourself or someone else? Patient reports no desire to harm self or others. Onset of symptoms was March 21, 2024. 07:38 Method Of Arrival: Ambulatory ld1 07:38 Acuity: LUIS MIGUEL 4 ld1 Triage Assessment: 07:38 General: Appears in no apparent distress. comfortable, Behavior is calm, cooperative, ld1 appropriate for age. Pain: Complains of pain in face Pain does not radiate. Pain currently is 8 out of 10 on a pain scale. Quality of pain is described as throbbing, Pain began suddenly. EENT:. Neuro: Level of Consciousness is awake, alert, obeys commands, Oriented to person, place, time, situation, Appropriate for age. Cardiovascular: Capillary refill < 3 seconds Patient's skin is warm and dry. Respiratory: Airway is patent Respiratory effort is even, unlabored, Breath sounds are clear bilaterally. GI: Abdomen is round non-distended. : No signs and/or symptoms were reported regarding the genitourinary system. Derm: No signs and/or symptoms reported regarding the dermatologic system. Musculoskeletal: No signs and/or symptoms reported regarding the musculoskeletal system. Historical: - Allergies: 07:21 Bactrim DS; ld1 07:21 Cephalexin; ld1 - PMHx: 07:21 Anxiety; diabetes mellitus; High Cholesterol; Hypertension; ld1 - Immunization history:: Adult Immunizations up to date. - Infectious Disease History:: Denies. - Social history:: Smoking status: Patient denies any tobacco usage or history of. Screenin:56 [facility] ED Fall Risk Assessment (Adult) History of falling in the last 3 months, ld1 including since admission No falls in past 3 months (0 pts) Confusion or Disorientation No (0 pts) Intoxicated or Sedated No (0 pts) Impaired Gait No (0 pts) Mobility Assist Device Used No (0 pt) Altered Elimination No (0 pt) Score/Fall Risk Level 0 - 2 = Low Risk Oriented to surroundings, Hourly rounding (assess needs \T\ fall precautionary measures) done. Abuse screen: Denies threats or abuse. Denies injuries from another. Nutritional screening: No deficits noted. Tuberculosis screening: No symptoms or risk factors identified. Assessment: 08:56 General: Appears in no apparent distress. comfortable, Behavior is calm, cooperative, ld1 appropriate for age. Pain: Denies pain. Neuro: Level of Consciousness is awake, alert, obeys commands, Oriented to person, place, time, situation, Appropriate for age. Cardiovascular: Capillary refill < 3 seconds Patient's skin is warm and dry. Respiratory: Airway is patent Respiratory effort is even, unlabored. Respiratory: Reports cough that is. GI: Abdomen is flat, non-distended. : No signs and/or symptoms were reported regarding the genitourinary system. Vital Signs: 07:38 BP 150 / 105; Pulse 83; Resp 18; Pulse Ox 98% on R/A; Weight 99.79 kg; Pain 8/10; ld1 08:51 BP 127 / 96; Pulse 82; Resp 18; Pulse Ox 95% on R/A; ld1 07:38 Pain Scale: Adult ld1 ED Course: 07:18 Patient arrived in ED. gm2 07:24 Candido Augustine MD is Attending Physician. ec2 07:36 Addie Domingo, UGO is Primary Nurse. kc6 07:38 Arm band placed on right wrist. ld1 07:39 Triage completed. ld1 08:56 Patient has correct armband on for positive identification. Placed in gown. Bed in low ld1 position. Call light in reach. Side rails up X2. Provided Education on: medication administration. Pulse ox on. NIBP on. Door closed. Noise minimized. Warm blanket given. 08:56 No provider procedures requiring assistance completed. Patient did not have IV access ld1 during this emergency room visit. Administered Medications: No medications were administered Medication: :56 VIS not applicable for this client. ld1 Outcome: : Discharge ordered by . ec2 : Discharged to home ambulatory, ld1 : Condition: stable :57 Discharge instructions given to patient, Instructed on discharge instructions, follow up and referral plans. medication usage, Demonstrated understanding of instructions, follow-up care, medications, Prescriptions given X 1, : Patient left the ED. ld1 Signatures: Xiomy Barreto RN RN ld1 Addie Domingo RN RN kc6 Candido Augustine MD MD ec2 Mary Calle 2
--- NOTE | 2024-03-21 08:23 | EDPHYS ---
Physician Documentation [facility] Name: Noé Murry Age: 38 yrs Sex: Male : 1985 Arrival Date: 03/21/2024 Time: 07:14 Bed 8 Private MD: ED Physician Candido Augustine HPI: 03/21 07:34 This 38 yrs old Male presents to ER via Unassigned with complaints of Cough, ec2 Congestion, Fever. 07:34 Patient arrives today for evaluation of URI symptoms with. Patient reports he did have ec2 a cough and congestion as well as fevers and headaches. Reports no vomiting diarrhea.. Historical: - Allergies: 07:21 Bactrim DS; ld1 07:21 Cephalexin; ld1 - PMHx: 07:21 Anxiety; diabetes mellitus; High Cholesterol; Hypertension; ld1 - Immunization history:: Adult Immunizations up to date. - Infectious Disease History:: Denies. - Social history:: Smoking status: Patient denies any tobacco usage or history of. ROS: 07:34 Constitutional: as per hpi ec2 Exam: 07:34 Constitutional: GEN: NAD Head: atraumatic Eyes: EOMI Ears: External ears are ec2 normal. CV: regular rate LUNGS: no respiratory distress no rales or rhonchi ABD: non-distended SKIN: no evidence of rashes MSK: no evidence of trauma Vital Signs: 07:38 BP 150 / 105; Pulse 83; Resp 18; Pulse Ox 98% on R/A; Weight 99.79 kg; Pain 8/10; ld1 08:51 BP 127 / 96; Pulse 82; Resp 18; Pulse Ox 95% on R/A; ld1 07:38 Pain Scale: Adult ld1 MDM: 07:24 Medical Screening Exam initiated ec2 07:34 Data reviewed: vital signs, nurses notes. ED course: Patient arrives today for ec2 evaluation of URI symptoms. Examination is unrevealing. Will obtain viral swabs. Will treat the patient for his URI symptoms.. 03/21 07:29 Order name: Influenza Screen (a \T\ B); Complete Time: 08:22 ec2 03/21 07:29 Order name: SARS RAPID; Complete Time: 08:13 ec2 03/21 07:29 Order name: Strep; Complete Time: 08:13 ec2 03/21 08:06 Order name: Throat Culture EDMS Administered Medications: No medications were administered Disposition Summary: 03/21/24 08:22 Discharge Ordered Notes: Location: Home ec2 Condition: Stable ec2 Diagnosis - Viral infection, unspecified ec2 Followup: ec2 - With: Private Physician - When: - Reason: Re-evaluation by your physician Discharge Instructions: - Discharge Summary Sheet ec2 - Viral Illness, Adult ec2 Forms: - Work release form ec2 - Medication Reconciliation Form ec2 - Antibiotic Education ec2 - Prescription Opioid Use ec2 - Patient Portal Instructions ec2 - Leadership Thank You Letter ec2 Prescriptions: - Tessalon Perles 100 mg Oral Capsule - take 1 capsule ORAL route every 8 hours As needed; 15 capsule; Refills: 0, ec2 Product Selection Permitted Signatures: Dispatcher [employer] Xiomy Mallory RN RN ld1 Candido Augustine MD MD ec2
[2024-03-21 09:03] VITALS: BP 127/96; O2SAT 95
== END 2024-03-21 08:57 | disposition home or self-care (01) ==
LOC: ER 07:14
DX: B34.9 Viral infection, unspecified (principal); Z11.52 Encounter for screening for COVID-19
CPT/HCPCS: 36415; 87070; 87081; 87804; 87811

== ENCOUNTER 2024-06-23 12:00 | Emergency (ER) | payer OTHER ==
[2024-06-23 13:10] LABS: SARS-CoV-2 Antigen Rapid Res Negative (Negative)
--- NOTE | 2024-06-23 13:14 | ER ---
Nurse's Notes [facility] Name: Noé Murry Age: 38 yrs Sex: Male : 1985 Arrival Date: 06/23/2024 Time: 12:00 Bed 11 Private MD: Diagnosis: Acute sinusitis, unspecified Presentation: 06/23 12:24 Chief complaint: Patient states: Nasal congestion and headache, sent from work to get ph checked out. Coronavirus screen: Vaccine status: Patient reports being unvaccinated. Ebola Screen: No symptoms or risks identified at this time. Initial Sepsis Screen: Does the patient meet any 2 criteria? No. Patient's initial sepsis screen is negative. Does the patient have a suspected source of infection? No. Patient's initial sepsis screen is negative. Risk Assessment: Do you want to hurt yourself or someone else? Patient reports no desire to harm self or others. Onset of symptoms was June 23, 2024. 12:24 Method Of Arrival: Ambulatory ph 12:24 Acuity: LUIS MIGUEL 4 ph Historical: - Allergies: 12:23 Bactrim DS; ph 12:23 Cephalexin; ph - PMHx: 12:23 Anxiety; diabetes mellitus; High Cholesterol; Hypertension; ph - Immunization history:: Adult Immunizations unknown. - Infectious Disease History:: Denies. - Social history:: Smoking status: Patient denies any tobacco usage or history of. Screenin:11 [facility] ED Fall Risk Assessment (Adult) History of falling in the last 3 months, ph including since admission No falls in past 3 months (0 pts) Confusion or Disorientation No (0 pts) Intoxicated or Sedated No (0 pts) Impaired Gait No (0 pts) Mobility Assist Device Used No (0 pt) Altered Elimination No (0 pt) Score/Fall Risk Level 0 - 2 = Low Risk Oriented to surroundings, Maintained a safe environment, Hourly rounding (assess needs \T\ fall precautionary measures) done. Abuse screen: Denies threats or abuse. Has been threatened or abused. Nutritional screening: No deficits noted. Tuberculosis screening: No symptoms or risk factors identified. Assessment: 13:10 General: Appears in no apparent distress. Behavior is calm, cooperative. Pain: ph Complains of pain in headache. Neuro: Level of Consciousness is awake, alert, obeys commands, Oriented to person, place, time, situation. Cardiovascular: Capillary refill < 3 seconds in bilateral fingers. Respiratory: Airway is patent Respiratory effort is even, unlabored, Respiratory pattern is regular, symmetrical. EENT: Reports nasal congestion. Derm: Skin is pink, warm \T\ dry. Vital Signs: 12:25 BP 145 / 93; Pulse 88; Resp 18; Temp 97.8; Pulse Ox 99% on R/A; Weight 99.79 kg; Height ph 5 ft. 6 in. ; 12:25 Body Mass Index 35.51 (99.79 kg, 167.64 cm) ph Renetta Coma Score: 12:22 Eye Response: spontaneous(4). Motor Response: obeys commands(6). Verbal Response: kb oriented(5). Total: 15. ED Course: 12:14 Patient arrived in ED. cj3 12:17 [facility]. kb 12:17 Tono Gonzalez MD is Attending Physician. kb 12:24 Triage completed. ph 12:24 Arm band placed on Patient placed in waiting room, Patient notified of wait time. ph 13:10 Rupali Miller, RN is Primary Nurse. ph 13:11 Patient has correct armband on for positive identification. Bed in low position. Call ph light in reach. Side rails up X 1. Pulse ox on. NIBP on. 13:52 No provider procedures requiring assistance completed. Patient did not have IV access ph during this emergency room visit. Administered Medications: No medications were administered Medication: 13:11 VIS not applicable for this client. ph Outcome: 13:14 Discharge ordered by MD. kb 13:52 Discharged to home ambulatory, ph 13:52 Condition: good 13:52 Discharge instructions given to patient, Instructed on discharge instructions, follow up and referral plans. Demonstrated understanding of instructions, follow-up care, 13:52 Patient left the ED. ph Signatures: Rand Rosa FNP-C FNP-Rupali Young RN RN ph Myesha Baxter cj3
--- NOTE | 2024-06-23 13:14 | EDPHYS ---
Physician Documentation [facility] Name: Noé Murry Age: 38 yrs Sex: Male : 1985 Arrival Date: 06/23/2024 Time: 12:00 Bed 11 Private MD: ED Physician Tono Gonzalez HPI: 06/23 12:21 This 38 yrs old Male presents to ER via Unassigned with complaints of kb Headache, Doesn't Feel Right. 12:21 Pt is a 38 year old male who presents for sinus congestion that started a couple of kb days ago. States it was worse this morning with a headache. [facility] employer sent him in for testing. Denies fever. . Historical: - Allergies: 12:23 Bactrim DS; ph 12:23 Cephalexin; ph - PMHx: 12:23 Anxiety; diabetes mellitus; High Cholesterol; Hypertension; ph - Immunization history:: Adult Immunizations unknown. - Infectious Disease History:: Denies. - Social history:: Smoking status: Patient denies any tobacco usage or history of. ROS: 12:21 Constitutional: As per HPI kb Exam: 12:21 Constitutional: This is a well developed, well nourished patient who is awake, alert, kb and in no acute distress. Head/Face: Normocephalic, atraumatic. ENT: Moist Mucous membranes Cardiovascular: Regular rate Respiratory: Respirations even and unlabored. No increased work of breathing. Talking in full sentences Skin: Warm, dry with normal turgor. Normal color. MS/ Extremity: Pulses equal, no cyanosis. Neurovascular intact. Full, normal range of motion. Neuro: Awake and alert, GCS 15, oriented to person, place, time, and situation. Vital Signs: 12:25 BP 145 / 93; Pulse 88; Resp 18; Temp 97.8; Pulse Ox 99% on R/A; Weight 99.79 kg; Height ph 5 ft. 6 in. ; 12:25 Body Mass Index 35.51 (99.79 kg, 167.64 cm) ph Renetta Coma Score: 12:22 Eye Response: spontaneous(4). Motor Response: obeys commands(6). Verbal Response: kb oriented(5). Total: 15. MDM: 12:17 Medical Screening Exam initiated kb 12:22 Data reviewed: vital signs, nurses notes. kb 13:13 Differential diagnosis: uri, covid, strep, otitis media, sinusitis. I considered the kb following discharge prescriptions or medication management in the emergency department I discussed and recommended Over The Counter medications, Antibiotics: At this time antibiotics are not recommended. Counseling: I had a detailed discussion with the patient and/or guardian regarding the historical points, exam findings, and any diagnostic results supporting the discharge/admit diagnosis, lab results, the need for outpatient follow up, a family practitioner, to return to the emergency department if symptoms worsen or persist or if there are any questions or concerns that arise at home. 06/23 12:23 Order name: SARS RAPID; Complete Time: 13:13 kb 06/23 12:23 Order name: Group A Streptococcus Rapid; Complete Time: 13:13 kb 06/23 13:13 Order name: Throat Culture EDMS Administered Medications: No medications were administered Disposition: 18:08 Co-signature as Attending Physician, Tono Gonzalez MD I reviewed the patient's care rn provided by the Advanced Practice Provider and agree with the diagnosis and treatment plan. Disposition Summary: 06/23/24 13:14 Discharge Ordered Notes: Location: Home kb Condition: Stable kb Diagnosis - Acute sinusitis, unspecified kb Followup: kb - With: Emergency Department - When: As needed - Reason: Worsening of condition Followup: kb - With: Private Physician - When: 2 - 3 days - Reason: Recheck today's complaints, Continuance of care, Re-evaluation by your physician Discharge Instructions: - Discharge Summary Sheet kb - Sinusitis, Adult, [id number] kb Forms: - Work release form kb - Medication Reconciliation Form kb - Antibiotic Education kb - Prescription Opioid Use kb - Patient Portal Instructions kb - Leadership Thank You Letter kb Signatures: Dispatcher [employer] EDRand Urena, DIRECTOR SPECIAL EDUCATION-C DIRECTOR SPECIAL EDUCATION-Tono Gabriel MD MD rn Hall, Patricia, RN RN ph
[2024-06-23 14:11] VITALS: BP 145/93; TEMP 97.8; O2SAT 99
== END 2024-06-23 13:52 | disposition home or self-care (01) ==
LOC: ER 12:00
DX: J01.90 Acute sinusitis, unspecified (principal); Z11.52 Encounter for screening for COVID-19
CPT/HCPCS: 36415; 87070; 87426; 99283

== ENCOUNTER 2024-11-30 13:23 | Emergency (ER) | payer OTHER ==
--- OUTSIDE RECORDS SUMMARY | 2024-11-30 13:27 | XMS REPORT | Continuity of Care Document ---
Author Name Unknown Address [address] [facility] [address] [place] [address] [facility] Address [address] [facility] [place] [address] Care Team Providers Care Creel Clerk Name Role Phone SUSAN GAITANBEN Primary Care Physician LIZETT Viveros Attending Clinician LIZETT Viveros Attending Clinician MARLENE Woodard Attending Clinician Marlene Melton DO Attending Clinician [phone] CALVIN FOWLER Attending Clinician Calvin Hardin MD Attending Clinician CALVIN FOWLER Admitting Clinician Denisse pelletier Payers Payer Name Policy Type Policy Number Effective Date Expirati on Date Source [facility] [id number] 2022 00:00:00 [employer] [facility] [id number] 2021 00:00:00 Problems Condition Name Condition Details Condition Category Status Onset Date Resolution Date Last Treatment Date Treating Clinician Comments Source No known active problems No known active problems Disease [facility] Allergies, Adverse Reactions, Alerts Allergy Name Allergy Type Status Severity Reaction(s) Onset Date Inactive Date Treating Clinician Comments Source SULFA (SULFONA MIDE ANTIBIOT ICS) Drug Class Active High Swelling 08-18 00:00: 00 [facility] Sulfa (Sulfona mide Antibiot ics) Drug Allergy Active Swelling 08-18 00:00: 00 [facility] NO KNOWN ALLERGIE S Drug Class Active [facility] Social History Social Habit Start Date Stop Date Quantity Comments Source [facility] to SARS-CoV-2 (event) 2022-02-10 00:00:00 2022-02-20 15:27:00 Not sure [facility] Sex assigned at 1985 00:00:00 1985 00:00:00 [facility] Smoking Status Start Date Stop Date Source Tobacco smoking consumption unknown [facility] Medications Ordered Medication Name Filled Medication Name Start Date Stop Date Current Medication? Ordering Clinician Indication Dosage Frequency Signature (SIG) Comments Components Source itraconazol e 100 mg capsule 08-18 00:00: 00 08-26 04:59 :00 No [id number] 200mg Take 2 capsules by mouth in the morning and 2 capsules in the evening. Take with meals. Do all this for 7 days. [facility] famotidine (PEPCID AC) tablet 20 mg 2022-02 08:45: 00 11-28 08:49 :00 No 20mg 20 mg, Oral, ONCE, 1 dose, On 11/28/22 at 0345, STAN [facility] famotidine 10 mg tablet 2022-02 00:00: 00 Yes [id number] 10mg Take 1 tablet by mouth in the morning and 1 tablet in the evening. [facility] dexamethaso ne sod phos PF injection 10 mg 02-20 22:15: 00 02-20 22:12 :00 No 10mg 10 mg, Oral, ONCE, 1 dose, On 02/20/22 at 1615, 1 mL [facility] benzonatate 100 mg capsule 02-20 00:00: 00 Yes [id number] 100mg Take 1 capsule by mouth 3 (three) times daily as needed for Cough. [facility] albuterol 90 mcg/actuati on inhaler 02-20 00:00: 00 Yes [id number] 2{puff} Inhale 2 Puffs every 4 (four) hours as needed for Wheezing or Shortness of Breath. [facility] butalbital- acetaminoph en-caff 50-325-40 mg tablet 02-20 00:00: 00 Yes [id number] 2{tbl} Take 2 tablets by mouth every 8 (eight) hours as needed (headache) for up to 12 doses. [facility] predniSONE 20 mg tablet 02-20 00:00: 00 02-25 05:59 :00 No [id number] 40mg Take 2 tablets by mouth in the morning for 4 days. [facility] azithromyci n 250 mg tablet 08-10 00:00: 00 Yes 250mg Take 1 tablet by mouth SEE-INSTRU CTIONS. Take 500 mg day 1, then 250 mg days 2 to 5. [facility] benzonatate 100 mg capsule 08-10 00:00: 00 02-20 00:00 :00 No 100mg Take 1 capsule by mouth 3 (three) times daily as needed for Cough. [facility] Vital Signs Vital Name Observation Time Observation Value Comments S ource Systolic blood pressure 2024-08-18 12:55:00 140 mm[Hg] [facility] Diastolic blood pressure 2024-08-18 12:55:00 104 mm[Hg] [facility] Heart rate 2024-08-18 12:55:00 76 /min [facility] Body temperature 2024-08-18 12:55:00 36.39 [place] [facility] Respiratory rate 2024-08-18 12:55:00 18 /min [facility] Body height 2024-08-18 12:55:00 167.6 cm [facility] Body weight 2024-08-18 12:55:00 99.791 kg [facility] BMI 2024-08-18 12:55:00 35.51 kg/m2 [facility] Oxygen saturation in Arterial blood by Pulse oximetry 2024-08-18 12:55:00 96 /min [facility] Systolic blood pressure 2022-11-28 08:32:00 156 mm[Hg] [facility] Diastolic blood pressure 2022-11-28 08:32:00 124 mm[Hg] [facility] Body temperature 2022-11-28 08:32:00 37.22 [place] [facility] Heart rate 2022-11-28 08:28:00 78 /min [facility] Respiratory rate 2022-11-28 08:28:00 18 /min [facility] Body height 2022-11-28 08:28:00 167.6 cm [facility] Body weight 2022-11-28 08:28:00 95.255 kg [facility] BMI 2022-11-28 08:28:00 33.89 kg/m2 [facility] Oxygen saturation in Arterial blood by Pulse oximetry 2022-11-28 08:28:00 100 /min [facility] Systolic blood pressure 2022-02-20 21:25:00 152 mm[Hg] [facility] Diastolic blood pressure 2022-02-20 21:25:00 100 mm[Hg] [facility] Heart rate 2022-02-20 21:25:00 95 /min [facility] Body temperature 2022-02-20 21:25:00 37 [place] [facility] Respiratory rate 2022-02-20 21:25:00 20 /min [facility] Body height 2022-02-20 21:25:00 167.6 cm [facility] Body weight 2022-02-20 21:25:00 99.791 kg [facility] BMI 2022-02-20 21:25:00 35.51 kg/m2 [facility] Oxygen saturation in Arterial blood by Pulse oximetry 2022-02-20 21:25:00 95 /min [facility] Procedures Procedure Date / Time Performed Performing Clinicia n Source CONSENT/REFUSAL FOR DIAGNOSIS AND TREATMENT 2022-11-28 08:04:04 Doctor Unassigned, [place] [facility] XR CHEST 1 VW 2022-02-20 22:08:40 MorricalCalvin [facility] CONSENT/REFUSAL FOR DIAGNOSIS AND TREATMENT 2022-02-20 21:19:39 Doctor Unassigned, [place] [facility] Encounters Start Date/Time End Date/Time Encounter Type Admission Type Attending Clinicians Care Facility Care Department Encounter ID Source 2024-08-18 08:11:00 2024-08-18 08:48:00 Emergency X LIZETT ROD [facility] [id number] [facility] 2022-11-28 03:31:00 2022-11-28 04:06:00 Emergency X MARLENE ESCOBAR [facility] [id number] [facility] 2022-11-28 03:31:00 2022-11-28 04:06:00 Emergency Marlene Escobar [facility] [id number] [facility] 2022-02-20 15:27:00 2022-02-20 16:57:00 Emergency X CALVIN FOWLER [facility] [id number] [facility] 2022-02-20 15:27:00 2022-02-20 16:57:00 Emergency Calvin Fowler [facility] [id number] [facility] Notes Date/Time Note Provider Source 2024-08-18 08:47:59 Patient is awake and alert, oriented x4. Speech is clear and appropriate. Respirations even and unlabored, no distress. Ambulatory with a steady gait. Reviewed discharge instructions, follow-up care, and RX with patient, verbalizes understanding. [facility] 2024-08-18 07:54:40 Patient here for rash on feet. States that he was treated last week for athletes feet. [facility] 2024-08-18 07:51:00 [facility] Emergency Department Note Patient Name: Marlene Murry Date of : 1985 38 year old male Treatment Room: Primary Care Physician: Janey Gaitan Patient Escorted by: Self [9] Mode of Arrival: Personal means [1] EMS Treatment Prior to ED Arrival: Travel and Exposure Screening: Symptoms Does patient have any of these symptoms?: (not recorded) Exposure Screening Has patient had contact with someone with a communicable disease in the last month?: (not recorded) Diseases exposed to:: (not recorded) Is Patient ?: (not recorded) Exposure Date: (not recorded) Chief Complaint: Chief Complaint Patient presents with Rash History of Present Illness: History of Present Illness The patient presents from home for evaluation for worsening rash to his left foot over the past 2 weeks. He reports 1 week ago he went to the Emergency Department in [place] and was prescribed antibiotics. He reports those did not seem to help so therefore he went back on and was given different antibiotics as well as a cream. Today is Tuesday. He reports he picked up the medication yesterday evening and use the cream over the night. He reports no change in his symptoms with that usage. He reports he also has the rash slightly to his right foot and is worried it is now spreading to his arms. He does wear rubber boots at work and reports he has started to change his socks every 3 hours. He does have a history of diabetes and is on oral medication. No fevers. Here for evaluation. Past Medical History/Immunizations: Past Medical History: Diagnosis Date HTN (hypertension) Hyperlipidemia Allergies: Allergies Allergen Reactions Sulfa (Sulfonamide Antibiotics) Swelling Past Social History: Substance & Sexual Activity No substance use or sexual activity history on file. Past Surgical History: History reviewed. No pertinent surgical history. Review of Systems: Review of Systems Constitutional: Negative for chills and fever. Respiratory: Negative for cough and shortness of breath. Cardiovascular: Negative for chest pain. Gastrointestinal: Negative for abdominal pain. Genitourinary: Negative for dysuria. Musculoskeletal: Negative for arthralgias, neck pain and neck stiffness. Skin: Positive for rash and wound. Neurological: Negative for dizziness. Psychiatric/Behavioral: Negative for agitation. Physical Exam: Physical Exam ED Triage Vitals [08/18/24 0755] Weight 99.8 kg (220 lb) Actual or estimated Height 1.676 m (5' 6") BP (!) 140/104 Pulse 76 Resp 18 Temp 36.4 ?C (97.5 ?F) Temp src SpO2 96 % Measured on Room air Physical Exam Vitals and nursing note reviewed. Constitutional: Appearance: Normal appearance. He is obese. HENT: Head: Normocephalic and atraumatic. Cardiovascular: Rate and Rhythm: Normal rate. Pulses: Normal pulses. Pulmonary: Effort: Pulmonary effort is normal. Abdominal: General: There is no distension. Palpations: Abdomen is soft. Musculoskeletal: General: Normal range of motion. Cervical back: Neck supple. Comments: He can wiggle the toes of his feet bilaterally and without difficulty. Skin: Comments: Erythematous and scaly rash noted to the entirety of the left foot and to a much lesser extent the right foot. Neurological: General: No focal deficit present. Mental Status: He is alert and oriented to person, place, and time. Radiology: No orders to display Lab Results: Lab Results - No data to display EKG: If EKG completed, see Procedure Note. Orders and Treatments: No orders of the defined types were placed in this encounter. Orders Placed This Encounter Medications itraconazole 100 mg capsule First Provider Eval: ED Events Date/Time Event User Comments 08/18/24750 Medical Screening Begins LIZETT ROD DO -- 08/18/24 075 First Provider Evaluation LIZETT ROD DO -- ED COURSE Diagnosis/Impression as of 08/18/24 0810 Tinea pedis of both feet Results Procedures: Procedures MDM: Assessment & Plan Medical Decision Making The patient presents from home for evaluation for worsening rash to his left foot over the past 2 weeks. He reports 1 week ago he went to the Emergency Department in [place] and was prescribed antibiotics. He reports those did not seem to help so therefore he went back on and was given different antibiotics as well as a cream. Today is Tuesday. He reports he picked up the medication yesterday evening and use the cream over the night. He reports no change in his symptoms with that usage. He reports he also has the rash slightly to his right foot and is worried it is now spreading to his arms. He does wear rubber boots at work and reports he has started to change his socks every 3 hours. He does have a history of diabetes and is on oral medication. No fevers. Vital signs are stable in the ER. Vital signs are stable in the ER. The patient is obese. Erythematous and scaly rash noted to the entirety of the left foot and to a much lesser extent the right foot. Will prescribe the patient oral itraconazole to help treat his athlete's foot. Recommend he follow-up with his PCP in 1 week. He remained stable here in the ER and is okay for discharge home. Problems Addressed: Tinea pedis of both feet: acute illness or injury Risk OTC drugs. Prescription drug management. Flowsheet Documentation: Scoring Tools: No data recorded Disposition/Condition: ED Disposition ED Disposition Discharge Condition Stable Comment -- Discharge Medications: Patient's Medications START taking these medications ITRACONAZOLE 100 MG CAPSULE Take 2 capsules by mouth in the morning and 2 capsules in the evening. Take with meals. Do all this for 7 days. CONTINUE taking these medications which have NOT CHANGED ALBUTEROL 90 MCG/ACTUATION INHALER Inhale 2 Puffs every 4 (four) hours as needed for Wheezing or Shortness of Breath. AZITHROMYCIN 250 MG TABLET Take 1 tablet by mouth SEE-INSTRUCTIONS. Take 500 mg day 1, then 250 mg days 2 to 5. BENZONATATE 100 MG CAPSULE Take 1 capsule by mouth 3 (three) times daily as needed for Cough. YOZFRFTXXV-BFRFWYDSRAZCY-WNGG 50-325-40 MG TABLET Take 2 tablets by mouth every 8 (eight) hours as needed (headache) for up to 12 doses. FAMOTIDINE 10 MG TABLET Take 1 tablet by mouth in the morning and 1 tablet in the evening. START taking Modified Medications as Prescribed No medications on file STOP taking these medications No medications on file Follow-up: Electronically signed by: Lizett Rod DO 08/18/24 0810 [facility]
[2024-11-30 14:15] LABS: Influenza A Ag Negative; Influenza B Ag Negative; SARS-CoV-2 Antigen Rapid Res Negative (Negative)
[2024-11-30] MEDS ORDERED: AZITHROMYCIN 250 MG TAB ONE (14:52)
[2024-11-30] MEDS ORDERED: LIDOCAINE VISCOUS 2% 10ML ORAL SOLN ONE (14:53)
[2024-11-30] MEDS ORDERED: MAGNES/ALUMIN/SIMET 30ML UCUP ONE (14:53)
--- NOTE | 2024-11-30 15:49 | ER ---
Nurse's Notes [facility] Name: Noé Murry Age: 39 yrs Sex: Male : 1985 Arrival Date: 11/30/2024 Time: 13:23 Bed DX4 Private MD: Diagnosis: Acute upper respiratory infection, unspecified;Acute pharyngitis, unspecified Presentation: 11/30 13:47 Chief complaint: Patient states: had a bad headache and fever this morning , sore iw throat , my grandson had strep recently and wasn't to get checked out so he can go back to work. Coronavirus screen: Client presents with at least one sign or symptom that may indicate coronavirus-19. Ebola Screen: No symptoms or risks identified at this time. Initial Sepsis Screen: Does the patient meet any 2 criteria? No. Patient's initial sepsis screen is negative. Does the patient have a suspected source of infection? No. Patient's initial sepsis screen is negative. Risk Assessment: Do you want to hurt yourself or someone else?. 13:47 Method Of Arrival: Ambulatory iw 13:47 Acuity: LUIS MIGUEL 4 iw Historical: - Allergies: 13:48 Bactrim DS; iw 13:48 Cephalexin; iw - PMHx: 13:48 Anxiety; diabetes mellitus; High Cholesterol; Hypertension; iw - PSHx: 13:48 None; iw - Immunization history:: Adult Immunizations not up to date. - Infectious Disease History:: Denies. - Social history:: Smoking status: Patient denies any tobacco usage or history of. - Family history:: not pertinent. Screenin:[address] [facility] ED Fall Risk Assessment (Adult) History of falling in the last 3 months, aa5 including since admission No falls in past 3 months (0 pts) Confusion or Disorientation No (0 pts) Intoxicated or Sedated No (0 pts) Impaired Gait No (0 pts) Mobility Assist Device Used No (0 pt) Altered Elimination No (0 pt) Score/Fall Risk Level 0 - 2 = Low Risk Oriented to surroundings, Maintained a safe environment, Educated pt \T\ family on fall prevention, incl call for assistance when getting out of bed, Assessed \T\ reinforced patient's understanding of fall precautions. Abuse screen: Denies threats or abuse. Nutritional screening: No deficits noted. Tuberculosis screening: No symptoms or risk factors identified. Assessment: 15:00 General: Appears comfortable, Behavior is calm, cooperative. Pain: Complains of pain in aa5 throat. Neuro: Level of Consciousness is awake, alert, obeys commands, Oriented to person, place, time, situation. Cardiovascular: Patient's skin is warm and dry. Respiratory: Airway is patent Respiratory effort is even, unlabored, Respiratory pattern is regular, symmetrical. GI: No signs and/or symptoms were reported involving the gastrointestinal system. : No signs and/or symptoms were reported regarding the genitourinary system. EENT: Pt reports sore throat . Derm: Skin is pink, warm \T\ dry. Musculoskeletal: Range of motion: intact in all extremities. 16:00 Reassessment: Patient is alert, oriented x 3, equal unlabored respirations, skin aa5 warm/dry/pink. Vital Signs: 13:47 BP 146 / 99; Pulse 107; Resp 16; Temp 98.3; Pulse Ox 98% on R/A; Weight 99.79 kg; iw Height 5 ft. 6 in. ; Pain 5/10; 13:47 Body Mass Index 35.51 (99.79 kg, 167.64 cm) iw 13:47 Pain Scale: Adult iw ED Course: 13:27 Patient arrived in ED. [email or web address] 13:27 Gutierrez Padilla MD is Attending Physician. [facility] 13:48 Triage completed. iw 13:49 Arm band placed on. iw 14:57 Patient has correct armband on for positive identification. aa5 14:59 Jamia Dickerson, RN is Primary Nurse. aa5 16:00 No provider procedures requiring assistance completed. Patient did not have IV access aa5 during this emergency room visit. Administered Medications: 14:57 Drug: GI Cocktail without - (Maalox PO 30 ml, Lidocaine Mucous Membrane 2 % 15 aa5 ml) PO once Route: PO; 16:00 Follow up: Response: No adverse reaction aa5 14:58 Drug: AZITHromycin PO 500 mg PO once Route: PO; aa5 16:00 Follow up: Response: No adverse reaction aa5 Medication: 16:00 VIS not applicable for this client. aa5 Outcome: 15:49 Discharge ordered by . [facility] 16:00 Discharged to home ambulatory, aa5 16:00 Condition: stable 16:00 Discharge instructions given to patient, Instructed on discharge instructions, follow up and referral plans. medication usage, Demonstrated understanding of instructions, follow-up care, medications, Prescriptions given X 3, 16:05 Patient left the ED. aa5 Signatures: Gutierrez Padilla MD MD cha Williams, Irene RN Jamia Hoang RN RN Myesha Galarza 3
--- NOTE | 2024-11-30 15:49 | EDPHYS ---
Physician Documentation [facility] Name: Noé Murry Age: 39 yrs Sex: Male : 1985 Arrival Date: 11/30/2024 Time: 13:23 Bed DX4 Private MD: ED Physician Gutierrez Padilla HPI: 11/30 15:44 This 39 yrs old Male presents to ER via Ambulatory with complaints of Sore kvng Throat, Flu Symptoms. 15:44 The patient presents with sore throat. The patient describes throat pain as constant. kvng Onset: The symptoms/episode began/occurred 5 day(s) ago. Severity of symptoms: At their worst the symptoms were mild, in the emergency department the symptoms are unchanged. Modifying factors: The symptoms are alleviated by nothing, the symptoms are aggravated by nothing. Associated signs and symptoms: The patient has no apparent associated signs or symptoms. The patient has experienced similar episodes in the past, several times. Historical: - Allergies: 13:48 Bactrim DS; iw 13:48 Cephalexin; iw - PMHx: 13:48 Anxiety; diabetes mellitus; High Cholesterol; Hypertension; iw - PSHx: 13:48 None; iw - Immunization history:: Adult Immunizations not up to date. - Infectious Disease History:: Denies. - Social history:: Smoking status: Patient denies any tobacco usage or history of. - Family history:: not pertinent. ROS: 15:44 Constitutional: Negative for fever, chills, and weight loss, Eyes: Negative for injury, kvng pain, redness, and discharge, Neck: Negative for injury, pain, and swelling, Cardiovascular: Negative for chest pain, palpitations, and edema, Abdomen/GI: Negative for abdominal pain, nausea, vomiting, diarrhea, and constipation, Back: Negative for injury and pain, : Negative for injury, bleeding, discharge, and swelling, MS/Extremity: Negative for injury and deformity, Skin: Negative for injury, rash, and discoloration, Neuro: Negative for headache, weakness, numbness, tingling, and seizure, Psych: Negative for depression, anxiety, suicide ideation, homicidal ideation, and hallucinations, Allergy/Immunology: Negative for hives, rash, and allergies, Endocrine: Negative for neck swelling, polydipsia, polyuria, polyphagia, and marked weight changes, Hematologic/Lymphatic: Negative for swollen nodes, abnormal bleeding, and unusual bruising, 15:44 ENT: Positive for sore throat, 15:44 Respiratory: Positive for cough, with no reported sputum, Exam: 15:44 Constitutional: This is a well developed, well nourished patient who is awake, alert, kvng and in no acute distress. Head/Face: Normocephalic, atraumatic. Eyes: Pupils equal round and reactive to light, extra-ocular motions intact. Lids and lashes normal. Conjunctiva and sclera are non-icteric and not injected. Cornea within normal limits. Periorbital areas with no swelling, redness, or edema. Neck: Trachea midline, no thyromegaly or masses palpated, and no cervical lymphadenopathy. Supple, full range of motion without nuchal rigidity, or vertebral point tenderness. No Meningismus. Chest/axilla: Normal chest wall appearance and motion. Nontender with no deformity. No lesions are appreciated. Cardiovascular: Regular rate and rhythm with a normal S1 and S2. No gallops, murmurs, or rubs. Normal PMI, no JVD. No pulse deficits. Respiratory: Lungs have equal breath sounds bilaterally, clear to auscultation and percussion. No rales, rhonchi or wheezes noted. No increased work of breathing, no retractions or nasal flaring. Abdomen/GI: Soft, non-tender, with normal bowel sounds. No distension or tympany. No guarding or rebound. No evidence of tenderness throughout. Back: No spinal tenderness. No costovertebral tenderness. Full range of motion. Male : Normal genitalia with no discharge or lesions. Skin: Warm, dry with normal turgor. Normal color with no rashes, no lesions, and no evidence of cellulitis. MS/ Extremity: Pulses equal, no cyanosis. Neurovascular intact. Full, normal range of motion., bilateral aka Neuro: Awake and alert, GCS 15, oriented to person, place, time, and situation. Cranial nerves II-XII grossly intact. Motor strength 5/5 in all extremities. Sensory grossly intact. Cerebellar exam normal. Normal gait. Psych: Awake, alert, with orientation to person, place and time. Behavior, mood, and affect are within normal limits. 15:44 ENT: Posterior pharynx: is normal, Airway: normal, no evidence of obstruction, Tonsils: are normal in appearance, Uvula: normal, midline, non-edematous, no erythema, swelling, is not appreciated, erythema, is not appreciated, exudate, is not appreciated, peritonsillar mass, is not appreciated, pooling of secretions, is not appreciated, Vital Signs: 13:47 BP 146 / 99; Pulse 107; Resp 16; Temp 98.3; Pulse Ox 98% on R/A; Weight 99.79 kg; iw Height 5 ft. 6 in. ; Pain 5/10; 13:47 Body Mass Index 35.51 (99.79 kg, 167.64 cm) 13:47 Pain Scale: Adult iw MDM: 13:27 Medical Screening Exam initiated [facility] 15:47 Differential diagnosis: Allergic rhinitis, apthous stomatitis, apthous ulcer, kvng bronchitis, cocksackie virus, echovirus infection, epiglottitis, group A strep tonsillitis, peritonsillar abscess chlamydia pharyngitis, neisseria gonorrheoeae pharangitis, Mycoplasma Pharyngitis pharyngitis, radiation tonsillitis, upper respiratory infection, uvulitis, viral syndrome. Data reviewed: vital signs, nurses notes, lab test result(s), Flu: negative. Consideration of Admission/Observation Escalation of care including admission/observation considered. I considered the following discharge prescriptions or medication management in the emergency department Medications were administered in the Emergency Department. See MAR. Test considered but Not performed: Labs: NO CBC , COMP. Historians other than the Patient: PT WELL INFORMED. Care significantly affected by the following chronic conditions: Diabetes, Hypertension, Obesity, ANXIETY. Counseling: I had a detailed discussion with the patient and/or guardian regarding PT. 11/30 13:28 Order name: Group A Streptococcus Rapid; Complete Time: 15:32 [facility] 11/30 13:28 Order name: COVID-19 Ag + Flu A+B Ag; Complete Time: 15:32 [facility] 11/30 14:07 Order name: Throat Culture EDMS Administered Medications: 14:57 Drug: GI Cocktail without - (Maalox PO 30 ml, Lidocaine Mucous Membrane 2 % 15 aa5 ml) PO once Route: PO; 16:00 Follow up: Response: No adverse reaction aa5 14:58 Drug: AZITHromycin PO 500 mg PO once Route: PO; aa5 16:00 Follow up: Response: No adverse reaction aa5 Disposition Summary: 11/30/24 15:49 Discharge Ordered Notes: Location: Home [facility] Problem: new [facility] Symptoms: have improved [facility] Condition: Stable kvng Diagnosis - Acute upper respiratory infection, unspecified kvng - Acute pharyngitis, unspecified kvng Followup: kvng - With: Private Physician - When: 2 - 3 days - Reason: Recheck today's complaints, Continuance of care, Re-evaluation by your physician Discharge Instructions: - Discharge Summary Sheet kvng - Pharyngitis kvng - Sore Throat kvng - Upper Respiratory Infection, Adult kvng - Cool Mist Vaporizer kvng - Pharyngitis, Ebio-qi-Rcns kvng - Cough, Adult, Pkat-oz-[id number] kvng Forms: - Medication Reconciliation Form kvng - Antibiotic Education kvng - Prescription Opioid Use kvng - Patient Portal Instructions [facility] - Leadership Thank You Letter kvng - Work release form sp Prescriptions: - Tessalon Perles 100 mg Oral capsule - take 2 capsule ORAL route every 8 hours As needed; 30 capsule; Refills: 0, kvng Product Selection Permitted - Medrol (Fantasma) 4 mg Oral Tablets, Dose Pack - take 1 tablet ORAL route as directed - follow package instructions; 1 packet; kvng Refills: 0, Product Selection Permitted - Zithromax 500 mg Oral Tablet - take 1 tablet ORAL route once daily for 5 days; 5 tablet; Refills: 0, Product [facility] Selection Permitted Signatures: Dispatcher [employer] EDGutierrez Bañuelos MD MD cha Williams, Irene, RN Jamia Hoang RN RN aa5 Corrections: (The following items were deleted from the chart) 13:28 13:28 Group A Streptococcus Rapid Sc+I.LAB.BRZ ordered. EDMS EDMS 13:28 13:28 COVID-19 Ag + Flu A+B Ag+I.LAB.BRZ ordered. EDMS EDMS
[2024-11-30 19:30] VITALS: BP 146/99; TEMP 98.3; O2SAT 98
== END 2024-11-30 16:05 | disposition home or self-care (01) ==
LOC: ER 13:23
DX: J06.9 Acute upper respiratory infection, unspecified (principal); J02.9 Acute pharyngitis, unspecified; Z11.52 Encounter for screening for COVID-19
CPT/HCPCS: 36415; 87070; 87428; 99283

== ENCOUNTER 2024-12-09 12:44 | Emergency (ER) | payer OTHER ==
[2024-12-09 13:35] LABS: Hematocrit 52.5 % (39.6-49.0); Hemoglobin 17.9 g/dL (13.6-17.9); RBC Red Blood Cell Count 5.83 M/uL (4.33-5.43); White Blood Count 5.40 thou/uL (4.3-10.9)
[2024-12-09] MEDS ORDERED: MAGNES/ALUMIN/SIMET 30ML UCUP ONE (13:35)
[2024-12-09] MEDS ORDERED: LIDOCAINE VISCOUS 2% 10ML ORAL SOLN ONE (13:35)
[2024-12-09] MEDS ORDERED: FAMOTIDINE 20 MG/2 ML VIAL IV ONE (13:35)
[2024-12-09 13:36] LABS: Absolute Lymphocytes (CBC) 1.3 K/uL (0.7-4.9); MCH 30.6 pg (27.0-35.0); MCHC 34.1 g/dL (32.0-36.0); MCV 90.0 fL (80-100); MPV 8.8 fL (7.6-11.3); Nucleated RBC Absolute Count 0.0 (0-0); Nucleated Red Blood Cells % 0.6 % (0-0)
[2024-12-09 13:56] LABS: ALT/SGPT 64 U/L (16-61); AST/SGOT 31 U/L (15-37); Albumin 3.7 g/dL (3.4-5.0); Albumin/Globulin Ratio 0.9 (1.1-1.8); Alkaline Phosphatase 107 U/L (45-117); Anion Gap 10.1 mEq/L (5.0-15.0); BUN Blood Urea Nitrogen 16 mg/dL (7-18); Globulin 4.3 g/dL (2.3-3.5); Glucose Level 156 mg/dL (74-106); Lipase 30 U/L (13-75); Potassium 4.1 mEq/L (3.5-5.1); Troponin High Sensitivity 17.8 pg/mL (<58.9)
[2024-12-09 13:59] LABS: Bilirubin Indirect, Calculated 0.4 mg/dL (0.2-0.8)
--- NOTE | 2024-12-09 14:46 | RAD REPORT ---
EXAM: Chest Single View HISTORY: 39 years Male CHEST PAIN COMPARISON: 08/18/2024 FINDINGS: LUNGS/PLEURA: The lungs are clear. No pleural effusions or pneumothorax. No pulmonary edema. CARDIAC/MEDIASTINUM: The cardiac silhouette is within normal limits. UPPER ABDOMEN: No significant abnormality. BONES: No acute abnormality. LINES/TUBES/OTHER: N/A IMPRESSION: No evidence of acute cardiopulmonary disease.
--- NOTE | 2024-12-09 14:55 | EDPHYS ---
Physician Documentation [facility] Name: Noé Murry Age: 39 yrs Sex: Male : 1985 Arrival Date: 12/09/2024 Time: 12:44 Bed 4 Private MD: ED Physician Tono Gonzalez HPI: 12/09 13:12 This 39 yrs old Male presents to ER via Ambulatory with complaints of Chest rn Pain. 13:12 Patient reports substernal chest pain, feels burning, no radiation. States was having a rn little anxiety earlier and took his regular medication with some improvement in symptoms but not resolution. Denies abdominal pain. No vomiting. No cough. Does not feel ill. No hemoptysis. No history of DVT or PE. Historical: - Allergies: 12:49 Bactrim DS; ss 12:49 Cephalexin; ss - Home Meds: 12:49 lisinopril 10 mg oral tablet 1 tab daily [Active]; ss - PMHx: 12:49 Anxiety; diabetes mellitus; High Cholesterol; Hypertension; ss - Immunization history:: Adult Immunizations up to date. - Infectious Disease History:: Denies. - Family history:: not pertinent. - Hospitalizations: : No recent hospitalization is reported. - Social history:: Smoking status: Patient denies any tobacco usage or history of. ROS: 13:12 Constitutional: Negative for fever, chills, and weight loss, Cardiovascular: Positive rn for chest pain Respiratory: Negative for cough, wheezing, and pleuritic chest pain, Abdomen/GI: Negative for abdominal pain, nausea, vomiting, diarrhea, and constipation, Back: Negative for injury and pain, MS/Extremity: Negative for injury and deformity, Skin: Negative for injury, rash, and discoloration, Neuro: Negative for headache, weakness, numbness, tingling, and seizure, Exam: 13:12 Constitutional: This is a well developed, well nourished patient who is awake, alert, rn appears anxious Cardiovascular: Tachycardic, regular. No pulse deficits. Respiratory: Speaking full sentences, unlabored. No increased work of breathing, no retractions or nasal flaring. Abdomen/GI: Soft, non-tender MS/ Extremity: Pulses equal, no cyanosis. Neuro: Awake and alert, GCS 15 Vital Signs: 12:48 BP 115 / 95; Pulse 104; Resp 17; Pulse Ox 99% on R/A; Weight 99.79 kg; Height 5 ft. 6 ss in. ; Pain 10/10; 12:53 Temp 97.9(TE); ss 12:48 Body Mass Index 35.51 (99.79 kg, 167.64 cm) ss 12:48 Pain Scale: Adult ss [place] Coma Score: 13:43 Eye Response: spontaneous(4). Motor Response: obeys commands(6). Verbal Response: dd2 oriented(5). Total: 15. MDM: 12:49 Medical Screening Exam initiated rn 14:51 Differential diagnosis: acute pericarditis, anxiety, chest wall pain, costochondritis, rn esophagitis, gastritis, gastroesophageal reflux disease (GERD), peptic ulcer disease, pericarditis, pleurisy, pneumothorax. HEART Score: History: Slightly Suspicious (0), ECG: Normal (0), Age: < or = 45 years (0), Risk Factors: No Risk Factors Known (0), Troponin: < or = 1 x Normal Limit (0), Total Score = 0. Data reviewed: vital signs, nurses notes, lab test result(s), EKG, radiologic studies, plain films. Independent interpretation of the following test(s) in the Emergency Department EKG: See my EKG interpretation above X-Ray: My interpretation is Chest x-ray images negative for pneumonia or pneumothorax per my interpretation. aquatics lifeguard: rate is 95 beats/min, Rhythm is normal sinus rhythm, regular, with no ectopy, Interpretation: normal rate, normal rhythm. Counseling: I had a detailed discussion with the patient and/or guardian regarding the historical points, exam findings, and any diagnostic results supporting the discharge/admit diagnosis, lab results, radiology results, the need for outpatient follow up, to return to the emergency department if symptoms worsen or persist or if there are any questions or concerns that arise at home. Response to treatment: the patient's symptoms have markedly improved after treatment, and as a result, I will discharge patient. Special discussion: I discussed with the patient/guardian in detail that at this point there is no indication for admission to the hospital. It is understood, however, that if the symptoms persist or worsen the patient needs to return immediately for re-evaluation. ED course: Patient markedly improved after GI cocktail and Pepcid. No acute findings on workup. I have personally reviewed all of the results, including but not limited to blood tests and imaging deemed necessary to safely discharge this patient at this time. All results given to and printed out for patient. I personally went over all the results with the patient and answered all questions. Patient will follow-up with PCP and or specialist as discussed. Return precautions given and understood.. 12/09 12:54 Order name: Basic Metabolic Panel; Complete Time: 14:47 rn 12/09 12:54 Order name: CBC with Diff; Complete Time: 14:47 rn 12/09 12:54 Order name: LFT's; Complete Time: 14:47 rn 12/09 12:54 Order name: Troponin HS; Complete Time: 14:47 rn 12/09 12:54 Order name: Lipase; Complete Time: 14:47 rn 12/09 12:54 Order name: XRAY Chest (1 view); Complete Time: 14:47 rn 12/09 12:54 Order name: Cardiac monitoring; Complete Time: 13:31 rn 12/09 12:54 Order name: EKG - Nurse/Tech; Complete Time: 13:31 rn 12/09 12:54 Order name: IV Saline Lock; Complete Time: 13:31 rn 12/09 12:54 Order name: Labs collected and sent; Complete Time: 13:31 rn 12/09 12:54 Order name: O2 Per Protocol; Complete Time: 13:31 rn 12/09 12:54 Order name: O2 Sat Monitoring; Complete Time: 13:31 rn Administered Medications: 13:43 Drug: Famotidine IVP 20 mg IVP once; dilute with 10 mL 0.9% NaCl; give over 2 minutes dd2 Route: IVP; Site: left antecubital; 15:12 Follow up: Response: No adverse reaction ll1 13:43 Drug: GI Cocktail without - (Maalox PO 30 ml, Lidocaine Mucous Membrane 2 % 15 dd2 ml) PO once Route: PO; 15:11 Follow up: Response: No adverse reaction ll1 Disposition Summary: 12/09/24 14:55 Discharge Ordered Notes: Location: Home rn Problem: new rn Symptoms: have improved rn Condition: Stable rn Diagnosis - Chest pain, unspecified rn - Gastro-esophageal reflux disease without esophagitis rn Followup: rn - With: Private Physician - When: As needed - Reason: Recheck today's complaints, Re-evaluation by your physician Discharge Instructions: - Discharge Summary Sheet rn - Nonspecific Chest Pain, Adult rn - Gastroesophageal Reflux Disease, Adult rn Forms: - Medication Reconciliation Form rn - Antibiotic director learning and development - Prescription Opioid Use rn - Patient Portal Instructions rn - Leadership Thank You Letter rn Prescriptions: - Protonix 40 mg Oral Tablet - take 1 tablet ORAL route once daily; 30 tablet; Refills: 0, Product Selection rn Permitted Signatures: Dispatcher [employer] EDMS Tono Gonzalez MD MD rn Blanchard, Shelby, RN RN ss DAVIS, DIANA, RN RN dd2 Jasbir Trent RN ll1 Corrections: (The following items were deleted from the chart) 13:13 13:12 Constitutional: Negative for fever, chills, and weight loss, Cardiovascular: rn Positive for chest pain Respiratory: Negative for shortness of breath, cough, wheezing, and pleuritic chest pain, Abdomen/GI: Negative for abdominal pain, nausea, vomiting, diarrhea, and constipation, Back: Negative for injury and pain, MS/Extremity: Negative for injury and deformity, Skin: Negative for injury, rash, and discoloration, Neuro: Negative for headache, weakness, numbness, tingling, and seizure, rn
--- NOTE | 2024-12-09 14:55 | ER ---
Nurse's Notes [facility] Name: Noé Murry Age: 39 yrs Sex: Male : 1985 Arrival Date: 12/09/2024 Time: 12:44 Bed 4 Private MD: Diagnosis: Chest pain, unspecified;Gastro-esophageal reflux disease without esophagitis Presentation: 12/09 12:48 Chief complaint: Patient states: Chest discomfort that began last night. Worse today, ss now feels like a burning sensation. Coronavirus screen: Client denies travel out of the [place] in the last 14 days. Ebola Screen: Patient denies exposure to infectious person. Patient denies travel to an Ebola-affected area in the 21 days before illness onset. Initial Sepsis Screen: Does the patient meet any 2 criteria? No. Patient's initial sepsis screen is negative. Does the patient have a suspected source of infection? No. Patient's initial sepsis screen is negative. Risk Assessment: Do you want to hurt yourself or someone else? Patient reports no desire to harm self or others. Onset of symptoms was December 08, 2024. 12:48 Method Of Arrival: Ambulatory ss 12:48 Acuity: LUIS MIGUEL 3 ss Historical: - Allergies: 12:49 Bactrim DS; ss 12:49 Cephalexin; ss - Home Meds: 12:49 lisinopril 10 mg oral tablet 1 tab daily [Active]; ss - PMHx: 12:49 Anxiety; diabetes mellitus; High Cholesterol; Hypertension; ss - Immunization history:: Adult Immunizations up to date. - Infectious Disease History:: Denies. - Family history:: not pertinent. - Hospitalizations: : No recent hospitalization is reported. - Social history:: Smoking status: Patient denies any tobacco usage or history of. Screenin:43 [facility] ED Fall Risk Assessment (Adult) History of falling in the last 3 months, dd2 including since admission No falls in past 3 months (0 pts) Confusion or Disorientation No (0 pts) Intoxicated or Sedated No (0 pts) Impaired Gait No (0 pts) Mobility Assist Device Used No (0 pt) Altered Elimination No (0 pt) Score/Fall Risk Level 0 - 2 = Low Risk Oriented to surroundings, Maintained a safe environment, Educated pt \T\ family on fall prevention, incl call for assistance when getting out of bed, Assessed \T\ reinforced patient's understanding of fall precautions, Hourly rounding (assess needs \T\ fall precautionary measures) done. Abuse screen: Denies threats or abuse. Denies injuries from another. Nutritional screening: No deficits noted. Tuberculosis screening: No symptoms or risk factors identified. Assessment: 13:43 General: Appears in no apparent distress. uncomfortable, Behavior is calm, cooperative, dd2 appropriate for age. Pain: Complains of pain in mid-sternal area and epigastric area Pain does not radiate. Pain began 1 day ago. Neuro: No deficits noted. Cardiovascular: Reports chest pain, palpitations, shortness of breath, Heart tones S1 S2 present JVD is absent Patient's skin is warm and dry. Rhythm is sinus tachycardia. Respiratory: Reports shortness of breath Airway is patent Respiratory effort is even, unlabored, Respiratory pattern is regular, symmetrical, Breath sounds are clear bilaterally. the patient has mild shortness of breath. GI: Abdomen is non-distended, Bowel sounds present X 4 quads. Abd is soft and non tender X 4 quads. Reports epigastric pain. : No deficits noted. No signs and/or symptoms were reported regarding the genitourinary system. EENT: No deficits noted. No signs and/or symptoms were reported regarding the EENT system. Derm: No deficits noted. No signs and/or symptoms reported regarding the dermatologic system. Musculoskeletal: No deficits noted. No signs and/or symptoms reported regarding the musculoskeletal system. Circulation, motion, and sensation intact. Range of motion: intact in all extremities. Vital Signs: 12:48 BP 115 / 95; Pulse 104; Resp 17; Pulse Ox 99% on R/A; Weight 99.79 kg; Height 5 ft. 6 ss in. ; Pain 10/10; 12:53 Temp 97.9(TE); ss 12:48 Body Mass Index 35.51 (99.79 kg, 167.64 cm) ss 12:48 Pain Scale: Adult ss [place] Coma Score: 13:43 Eye Response: spontaneous(4). Motor Response: obeys commands(6). Verbal Response: dd2 oriented(5). Total: 15. ED Course: 12:46 Patient arrived in ED. al6 12:49 Tono Gonzalez MD is Attending Physician. rn 12:49 Triage completed. ss 13:20 Arm band placed on Patient placed in an exam room, on a stretcher. ll1 13:31 Basic Metabolic Panel Sent. dd2 13:31 CBC with Diff Sent. dd2 13:31 LFT's Sent. dd2 13:31 Troponin HS Sent. dd2 13:32 SHANTANU BOBBY, UGO is Primary Nurse. dd2 13:32 No provider procedures requiring assistance completed. Initial lab(s) drawn, by me, dd2 sent to lab. EKG done, by ED staff, reviewed by Tono Gonzalez MD. Inserted saline lock: 20 gauge in left antecubital area, using aseptic technique. Blood collected. Flushed with 10 mL NS. Patient maintains SpO2 saturation greater than 95% on room air. 13:43 Patient has correct armband on for positive identification. Bed in low position. Call dd2 light in reach. Side rails up X 1. Client placed on continuous cardiac and pulse oximetry monitoring. NIBP monitoring applied. monitor tech on. Door closed. Noise minimized. Pillow given. Verbal reassurance given. 14:27 XRAY Chest (1 view) In Process Unspecified. EDMS 15:00 IV discontinued, intact, bleeding controlled, No redness/swelling at site. Pressure ss dressing applied. 15:12 Provided Education on: ER procedures and process. ll1 Administered Medications: 13:43 Drug: Famotidine IVP 20 mg IVP once; dilute with 10 mL 0.9% NaCl; give over 2 minutes dd2 Route: IVP; Site: left antecubital; 15:12 Follow up: Response: No adverse reaction ll1 13:43 Drug: GI Cocktail without - (Maalox PO 30 ml, Lidocaine Mucous Membrane 2 % 15 dd2 ml) PO once Route: PO; 15:11 Follow up: Response: No adverse reaction ll1 Medication: 13:43 VIS not applicable for this client. dd2 Outcome: 14:55 Discharge ordered by . rn 15:11 Patient left the ED. ll1 15:12 Discharged to home ambulatory, ll1 15:12 Condition: stable 15:12 Discharge instructions given to patient, Instructed on discharge instructions, follow up and referral plans. medication usage, Demonstrated understanding of instructions, follow-up care, medications, Prescriptions given X 1, Signatures: Dispatcher [employer] EDIL Tono Gonzalez MD MD rn Blanchard, Shelby, RN RN ss Lewis Lynsay, RN RN ll1 SHANTANU BOBBY RN RN dd2 Mary Rosas6 Corrections: (The following items were deleted from the chart) 12:50 12:48 Pulse 104bpm; Resp 17bpm; Pulse Ox 99% RA; 99.79 kg; Height 5 ft. 6 in.; BMI: ss 35.5; Pain 10/10, Adult; ss 12:52 12:50 BP 122 / 100; ss ss 12:53 12:48 BP 120 / 100; Pulse 104bpm; Resp 17bpm; Pulse Ox 99% RA; 99.79 kg; Height 5 ft. 6 ss in.; BMI: 35.5; Pain 10/10, Adult; ss 12:53 12:48 Pulse 104bpm; Resp 17bpm; Pulse Ox 99% RA; 99.79 kg; Height 5 ft. 6 in.; BMI: ss 35.5; Pain 10/10, Adult; ss
[2024-12-09 15:53] VITALS: BP 115/95; O2SAT 99
[2024-12-09 15:58] VITALS: TEMP 97.9
== END 2024-12-09 15:11 | disposition home or self-care (01) ==
LOC: ER 12:44
DX: K21.9 Gastro-esophageal reflux disease without esophagitis (principal)
CPT/HCPCS: 36415; 71045; 80048; 80076; 83690; 84484; 85025; 93005; 96374; 99285